=== PATIENT | female | born 1975 | race Caucasian/White ===

== ENCOUNTER → 2016-10-06 | Outpatient (CLI) | payer OTHER ==
[~2016-10-06] MED LIST: /BUSP5TA PO; /FENO14TA PO; ACET-654 PO; ALBU17IN INH; ATIV0.5T; ATIV0.5T OR; ATIV1TAB10 PO; BISO10TA6 PO; BUSP10TA PO; CALCCHW12 OR; CALCIUM VITD; CALCTAB41 PO; CELE20TA OR; CETI10TA PO; DEPO-PROVERA; DEPO-PROVERA INJ; DEPO150I IM; FENO145T PO; FLEXERIL; GABA300C2 PO; GEMF600T PO; LEVA500T PO; LISI10TA4 PO; LORA10TA2 PO; LORATIDINE PO; LYRI150C PO; LYRI200C PO; MEST60TA PO; MORP30TA2 PO; MULTIVIT OR; NAPR500T; NAPR500T OR; NAPR500T PO; ONDA1TAB15 PO; OTC ALLERGY MED PO; OXYC10TA97 OR; OXYC30TA84 PO; OXYCODONE; OXYCPOW25 PO; PENNSAID TD; PERC5TAB6 PO; PERC5TAB8 OR; PRAV10TA PO; PRAV20TA2 PO; PRED10TA PO; PRED20TAB PO; PREG100CA OR; PREG50CA; PREG50CA OR; PRIL20CA; PRIL20CA OR; PRIL20CA9 PO; RYZOLT; RYZOLT PO; SAVELLA PO; SUMA100T2 PO; SUMA50TA2 PO; SYMB80INH INH; TRAZ100T; TRAZ100T4 PO; TRAZ150T OR; TYLE325T5 PO; VENL75TA2 OR; VITMTA PO; VOLT1GEL TOP; ZANA4CAP OR; ZANA4CAP PO; ZEBE5TAB; ZEBE5TAB OR; ZEBE5TAB PO; [UNRECOGNIZED DRUG - OTHER]; pristiq
--- NOTE | 2016-10-12 00:06 | ECWPNPC ---
PATIENT NAME: JANET JHAVERI : 1975 GENDER: FEMALE VISIT DATE: 10/06/2016 DISCHARGE DATE: 10/06/16 1537 VISIT LOCKED DATE TIME: PHYSICIAN: DARCY HUBBARD RESOURCE: DARCY HUBBARD REASON FOR APPOINTMENT 1. CHRONIC PAIN HISTORY OF PRESENT ILLNESS HISTORY OF PRESENT ILLNESS: HERE FO F/U AND MANAGEMENT OF PERSISTENT GENERALIZED BACK PAIN.CONTINUES WITH USE OF OXYCONTIN 30MG BID,LYRICA 200MG BID AND PERCOCET 5/325 UP TO 6 PER DAY.FINDS CURRENT MEDICINE EFFECTIVE AT REDUCING PAIN AND KEEPING HER COMFORTABLE AND FUNCTIONAL. DENIES SIDE EFFECTS.PAIN VAS 7/10. PAIN THE PATIENT DESCRIBES THE PAIN... THE PATIENT DESCRIBES THE PAIN... THE PATIENT DESCRIBES THE PAIN... THE PATIENT DESCRIBES THE PAIN... PAIN THE PATIENT DESCRIBES THE PAIN... THE PATIENT DESCRIBES THE PAIN... THE PATIENT DESCRIBES THE PAIN... THE PATIENT DESCRIBES THE PAIN... FALL RISK SCREENING: SCREENING :NO FALLS IN THE PAST YEAR CURRENT MEDICATIONS TAKING BISOPROLOL FUMARATE 10 MG TABLET ORALLY ONCE A DAY TAKING BUSPIRONE HCL 10 MG TABLET ORALLY 3 TIMES A DAY TAKING FENOFIBRATE 145 MG TABLET ORALLY ONCE DAILY TAKING LISINOPRIL 10 MG TABLET ORALLY ONCE DAILY TAKING NAPROSYN 500 MG TABLET ORALLY TWICE A DAY TAKING OMEPRAZOLE 20 MG CAPSULE DELAYED RELEASE ORALLY 2 TIMES A DAY TAKING PYRIDOSTIGMINE BROMIDE 90 MG TABLET ORALLY KELLY 4 HOURS TAKING SUMATRIPTAN 50 MG TABLET ORALLY DIRECTED TAKING SYMBICORT 80-4.5 MCG/ACT AEROSOL 2 PUFFS INHALATION 2 TIMES A DAY NEEDED TAKING VENTOLIN HFA 90 MCG/ACT AEROSOL SOLUTION 2 PUFFS INHALATION 4 TIMES A DAY TAKING TRAZODONE HCL 100 MG TABLET 2 TABLETS ORALLY BEFORE BEDTIME TAKING TYLENOL 325 MG TABLET 2 TABLETS ORALLY TWICE A DAY TAKING ZOFRAN 4 MG TABLET 1 TABLET ORALLY EVERY 8 HOURS NEEDED TAKING NYSTATIN POWDER EXTERNALLY NEEDED TAKING MULTIVITAMIN 1 TABLET ORALLY ONCE DAILY TAKING CALCIUM 500 MG WITH VITAMIN D 1 TABLET ORALLY TWICE A DAY TAKING LORATADINE 10 MG TABLET ORALLY ONCE DAILY TAKING DEPO-PROVERA 1 INJECTION INTRAMUSCULAR EVERY 3 MONTHS TAKING LYRICA 200 MG CAPSULE 1 CAPSULE BY MOUTH EVERY TWELVE HOURS MDD: 2 TAB ORALLY BID MDD2 TAKING OXYCODONE HCL 30 MG TABLET 1 ORALLY [id number] TAKING PERCOCET 5-325 MG TABLET 1 ORALLY Q4H MDD6 TAKING ALBUTEROL SULFATE (2.5 MG/3ML) 0.083% NEBULIZATION SOLUTION INHALATION EVERY 4 HOURS NEEDED MEDICATION LIST REVIEWED AND RECONCILED WITH THE PATIENT PAST MEDICAL HISTORY MIGRAINES DOUBLE VISION GASTRIC ULCER HIATEL HERNIA IBS WITH DIARRHEA ASCENDING AORTA ANEURYSM FIBROMYALGIA MYASTENIS GRAVIS DEGENERATIVE DISC DISEASE SCOLIOSIS DEPRESSION ALLERGIES MORPHINE SULFATE: NAUSEA/VOMITING: ALLERGY FENTANYL: NAUSEA/VOMITING: ALLERGY ASPARTAME: ANAPHYLAXIS: ALLERGY SEASONAL: ALLERGY REVIEW OF SYSTEMS CONSTITUTIONAL: ANY CHANGE IN YOUR MEDICAL CONDITION? NO . CHILLS NO . FEVER NO . INFECTION: DO YOU HAVE NEW INFECTIONS? NO . DO YOU HAVE HISTORY OF MRSA? NO . MUSCULOSKELETAL: ANY NEW PATTERNS OF PAIN OR NUMBNESS? NO . GASTROENTEROLOGY: ANY NEW CHANGE IN BOWEL CONTROL? NO . GENITOURINARY: ANY NEW CHANGE IN BLADDER CONTROL? NO . IS THERE A CHANCE YOU COULD BE ? NO . HEMATOLOGY/LYMPH: DO YOU TAKE ANY BLOOD THINNERS? (FOR EXAMPLE- COUMADIN, PLAVIX, AGGRENOX, PLATEL, PRADAXA, OR XARELTO) NO . WHEN WAS YOUR LAST DOSE? DATE: TIME: . NEUROLOGY: HAVE YOU FALLEN IN THE PAST 6 MONTHS? YES . ANY NEW EXTREMITY NUMBNESS OR WEAKNESS? NO . CARDIOLOGY: DO YOU HAVE A PACEMAKER OR DEFIBRILLATOR? NO . RESPIRATORY: HAVE YOU BEEN SICK IN THE PAST WEEK? YES, COUGH . FEVER NO . FLU LIKE SYMPTOMS? NO . COUGH NO . INTEGUMENTARY: DO YOU HAVE ANY RASHES OR OPEN SORES? NO . ALLERGIC/IMMUNO: ARE YOU ALLERGIC TO SHELLFISH OR IV DYE? NO . ANY NEW ALLERGIES? NO . PSYCHIATRIC: DO YOU HAVE THOUGHTS OF HURTING YOURSELF OR SOMEONE ELSE? NO . ARE YOU ABUSED, NEGLECTED, OR IN AN UNSAFE ENVIRONMENT? NO . ENDOCRINOLOGY: ARE YOU DIABETIC? NO . OTHER: DO YOU NEED ANY PRESCRIPTIONS? YES . IF YES, PLEASE LIST: LYRICA, PERCOCET 5/325 MG, OXYCODONE . ANY NEW PROBLEMS WITH YOUR MEDICATIONS? NO . WHEN DID YOU LAST EAT? ____ . WHEN DID YOU LAST DRINK? ____ . WHAT DID YOU LAST DRINK? ____ . NAME OF PERSON DRIVING YOU HOME? ____ . DO YOU HAVE ANY OTHER QUESTIONS OR CONCERNS NO . REVIEWED BY: PROVIDER: DARCY SANTANA . VITAL SIGNS WT 256.4 LBS, HT 66 IN, BMI 41.38 INDEX, BP 171/84 MM HG, HR 85 /MIN, RR 18 /MIN, TEMP 98.7 F, OXYGEN SAT % 95%, NA INITIALS SC 15:00, REVIEWED BY: TRINO. EXAMINATION LUMBAR SPINE/LOWER BACK: INSPECTION:MILD MUSCLE SPASM RIGHT LOW BACK. PALPATION:VERTEBRAL SPINE TENDERNESS, PARASPINAL TENDERNESS. MOTOR SYSTEM:5/5 BLE. SENSORY EXAM:DECREASED SENSATION LIGHT TOUCH LEFT CALF. GAIT:ANTALGIC,USES CANE. ASSESSMENTS CHRONIC BILATERAL LOW BACK PAIN WITHOUT SCIATICA - M54.5 (PRIMARY) CHRONIC PRESCRIPTION OPIATE USE - Z79.891 TREATMENT CHRONIC BILATERAL LOW BACK PAIN WITHOUT SCIATICA REFILL LYRICA CAPSULE, 200 MG, 1 CAPSULE BY MOUTH EVERY TWELVE HOURS MDD: 2 TAB, ORALLY, BID MDD2, 90 DAYS, 180, REFILLS 1 REFILL OXYCODONE HCL TABLET, 30 MG, 1, ORALLY, [id number], 30 DAY(S), 60, REFILLS 0 REFILL PERCOCET TABLET, 5-325 MG, 1, ORALLY, Q4H MDD6, 30 DAY(S), 180, REFILLS 0 NOTES: ISTOP REGISTRY REVIEWED AND DEMNOSTRATES COMPLLIANCE. BRINGS IN MEDICATIONS WHICH IS APPROPRIATE FOR WHAT WAS DISPENSED. RECENT URINE TOXICOLOGY REVIEWED. NO UNAUTHORIZED MEDICATIONS. NO ILLICIT SUBSTANCES AND PRESCRIBED MEDICATIONS WERE PRESENT. , RISKS AND BENEFITS OF NARCOTIC/OPIOD MEDICATIONS WERE REVIEWED WITH PATIENT - THIS INCLUDES BUT IS NOT LIMITED TO RISK OF DEPENDANCE/DEVELOPMENT OF ADDICTION, MOOD DISTURBANCE AND DEPRESSION, OSTEOPOROSIS, HORMONAL AND LABIDAL CHANGES, RESPIRATORY DEPRESSION AND . PATIENT IS ADVISED NOT TO DRIVE WHILE ON THESE MEDICATIONS. PROCEDURE CODES FA211 ESTABILISHED PATIENT [facility] CHARGE DISPOSITION & COMMUNICATION FOLLOW UP 3 MONTHS ELECTRONICALLY SIGNED BY ESTHER GUNTER ON 10/11/2016 AT 06:56 PM EDT DISCLAIMER : THIS IS A VISIT SUMMARY EXTRACTED FROM THE [employer] CHART. IT IS NOT A COPY OF THE [employer] PROGRESS NOTE. MTDD
== END ==
LOC: M PAIN 14:40
PROVIDERS: ATTEND Nurse Practitioner Family
DX: M54.5 Low back pain (principal); Z79.891 Long term (current) use of opiate analgesic; Z88.5 Allergy status to narcotic agent; Z91.018 Allergy to other foods; J30.2 Other seasonal allergic rhinitis

== ENCOUNTER → 2016-12-08 | Outpatient (REF) | payer OTHER ==
[2016-12-14 08:07] LABS: D001-IgE D pteronyssinus <0.10 kU/L (Class 0); E001-IgE Cat Epith/Dander 0.17 kU/L (Class 0/I); E005-IgE Dog Dander < 0.10 kU/L (Class 0); G002-IgE Bermuda Grass < 0.10 kU/L (Class 0); G008-IgE Kentucky Bluegrass < 0.10 kU/L (Class 0); M001-IgE Penicillium chrysogen < 0.10 kU/L (Class 0); M002 IgE Cladosporium herbaru < 0.10 kU/L (Class 0); M003 IgE Aspergillus fumigatu < 0.10 kU/L (Class 0); M006-IgE Alternaria alternata < 0.10 kU/L (Class 0); T001-IgE Maple/Box Elder < 0.10 kU/L (Class 0); T003-IgE Common Silver Birch < 0.10 kU/L (Class 0); T007-IgE Oak, White < 0.10 kU/L (Class 0); T008-IgE Elm, American < 0.10 kU/L (Class 0); T015-IgE Ash, White < 0.10 kU/L (Class 0); T041-IgE Hickory, White < 0.10 kU/L (Class 0); W001-IgE Ragweed, Short < 0.10 kU/L (Class 0); W009-IgE Plantain, English < 0.10 kU/L (Class 0); W014-IgE Pigweed, Rough < 0.10 kU/L (Class 0); W018-IgE Sheep Sorrel < 0.10 kU/L (Class 0)
== END ==
LOC: M LAB REF 17:02
PROVIDERS: ATTEND Internal Medicine Pulmonary Disease
DX: J45.40 Moderate persistent asthma, uncomplicated (principal)

== ENCOUNTER → 2016-12-29 | Outpatient (CLI) | payer OTHER ==
--- NOTE | 2017-01-12 01:45 | ECWPNPC ---
PATIENT NAME: JANET JHAVERI : 1975 GENDER: FEMALE VISIT DATE: 12/29/2016 DISCHARGE DATE: 12/29/16 1433 VISIT LOCKED DATE TIME: PHYSICIAN: DARCY HUBBARD RESOURCE: DARCY HUBBARD REASON FOR APPOINTMENT 1. FIBRO HISTORY OF PRESENT ILLNESS HISTORY OF PRESENT ILLNESS: HERE FO F/U AND MANAGEMENT OF PERSISTENT GENERALIZED BACK PAIN.CONTINUES WITH USE OF OXYCONTIN 30MG BID,LYRICA 200MG BID AND PERCOCET 5/325 UP TO 6 PER DAY.FINDS CURRENT MEDICINE EFFECTIVE AT REDUCING PAIN AND KEEPING HER COMFORTABLE AND FUNCTIONAL. DENIES SIDE EFFECTS.PAIN VAS 6/10. PAIN THE PATIENT DESCRIBES THE PAIN... THE PATIENT DESCRIBES THE PAIN... THE PATIENT DESCRIBES THE PAIN... THE PATIENT DESCRIBES THE PAIN... THE PATIENT DESCRIBES THE PAIN... FALL RISK SCREENING: SCREENING :NO FALLS IN THE PAST YEAR CURRENT MEDICATIONS TAKING BISOPROLOL FUMARATE 10 MG TABLET ORALLY ONCE A DAY TAKING BUSPIRONE HCL 10 MG TABLET ORALLY 3 TIMES A DAY TAKING FENOFIBRATE 145 MG TABLET ORALLY ONCE DAILY TAKING NAPROSYN 500 MG TABLET ORALLY TWICE A DAY TAKING OMEPRAZOLE 20 MG CAPSULE DELAYED RELEASE ORALLY 2 TIMES A DAY TAKING PYRIDOSTIGMINE BROMIDE 90 MG TABLET ORALLY KELLY 4 HOURS TAKING SUMATRIPTAN 50 MG TABLET ORALLY DIRECTED TAKING VENTOLIN HFA 90 MCG/ACT AEROSOL SOLUTION 2 PUFFS INHALATION 4 TIMES A DAY TAKING TRAZODONE HCL 100 MG TABLET 2 TABLETS ORALLY BEFORE BEDTIME TAKING TYLENOL 325 MG TABLET 2 TABLETS ORALLY TWICE A DAY TAKING ZOFRAN 4 MG TABLET 1 TABLET ORALLY EVERY 6 HOURS NEEDED TAKING NYSTATIN POWDER EXTERNALLY NEEDED TAKING MULTIVITAMIN 1 TABLET ORALLY ONCE DAILY TAKING CALCIUM 500 MG WITH VITAMIN D 1 TABLET ORALLY TWICE A DAY TAKING LORATADINE 10 MG TABLET ORALLY ONCE DAILY TAKING DEPO-PROVERA 1 INJECTION INTRAMUSCULAR EVERY 3 MONTHS TAKING ALBUTEROL SULFATE (2.5 MG/3ML) 0.083% NEBULIZATION SOLUTION INHALATION EVERY 4 HOURS NEEDED TAKING LYRICA 200 MG CAPSULE 1 TAB ORALLY BID MDD2 TAKING PERCOCET 5-325 MG TABLET 1 ORALLY Q4H MDD6 TAKING OXYCODONE HCL 30 MG TABLET 1 ORALLY [id number] TAKING LOSARTAN POTASSIUM-HCTZ 100-25 MG TABLET 1 TABLET ORALLY ONCE A DAY TAKING PRAVASTATIN SODIUM 20 MG TABLET 1 TABLET ORALLY ONCE A DAY TAKING ARNUITY ELLIPTA 200 MCG/ACT AEROSOL POWDER BREATH ACTIVATED 1 PUFF INHALATION ONCE A DAY NOT-TAKING LISINOPRIL 10 MG TABLET ORALLY ONCE DAILY NOT-TAKING SYMBICORT 80-4.5 MCG/ACT AEROSOL 2 PUFFS INHALATION 2 TIMES A DAY NEEDED MEDICATION LIST REVIEWED AND RECONCILED WITH THE PATIENT PAST MEDICAL HISTORY MIGRAINES DOUBLE VISION GASTRIC ULCER HIATEL HERNIA IBS WITH DIARRHEA ASCENDING AORTA ANEURYSM FIBROMYALGIA MYASTENIS GRAVIS DEGENERATIVE DISC DISEASE SCOLIOSIS DEPRESSION ASTHMA ALLERGIES MORPHINE SULFATE: NAUSEA/VOMITING: ALLERGY FENTANYL: NAUSEA/VOMITING: ALLERGY ASPARTAME: ANAPHYLAXIS: ALLERGY SEASONAL: ALLERGY CATS: COUGHING/SNEEZING: ALLERGY SOCIAL HISTORY GENERAL: TOBACCO USE ARE YOU A:NONSMOKER LEARNING BARRIERS / SPECIAL NEEDS ORIENTED TO PLAN OF CARE: PATIENT, PAIN MANAGEMENT PATIENT, ORIENTED TO PLAN OF CARE: PATIENT, PAIN MANAGEMENT PATIENT. NEW PATIENT PAIN DIARY TODAY'S VISITNOTES FROM 0-10, WHAT LEVEL IS YOUR PAIN TODAY?0 PAIN CLINIC PFS, CLERGY, PUBLIC HEALTH REFERRALS PFS REFERRAL NEEDED?NO CLERGY REFERRAL NEEDED?NO PUBLIC HEALTH REFERRAL NEEDED?NO WAS THE PROVIDER NOTIFIED OF ANY PERTINENT INFO?NO HAS THE PATIENT BEEN EDUCATED REGARDING HIS/HER PLAN OF CARE?YES HAS THE PATIENT BEEN EDUCATED REGARDING PAIN, THE RISK FOR PAIN, THE IMPORTANCE OF EFFECTIVE PAIN MANAGEMENT, AND THE PAIN ASSESSMENT PROCESS?YES REVIEW OF SYSTEMS REVIEWED BY: PROVIDER: DARCY SANTANA . CONSTITUTIONAL: ANY CHANGE IN YOUR MEDICAL CONDITION? YES, BLOOD PRESSURE IS UP AND DOWN AND IS BEING WATCHED BY PRIMARY DOCTOR AND REGIONAL CONTROLLER . CHILLS NO . FEVER NO . INFECTION: DO YOU HAVE NEW INFECTIONS? NO . DO YOU HAVE HISTORY OF MRSA? NO . MUSCULOSKELETAL: ANY NEW PATTERNS OF PAIN OR NUMBNESS? NO . GASTROENTEROLOGY: ANY NEW CHANGE IN BOWEL CONTROL? NO . GENITOURINARY: ANY NEW CHANGE IN BLADDER CONTROL? NO . IS THERE A CHANCE YOU COULD BE ? NO . HEMATOLOGY/LYMPH: DO YOU TAKE ANY BLOOD THINNERS? (FOR EXAMPLE- COUMADIN, PLAVIX, AGGRENOX, PLATEL, PRADAXA, OR XARELTO) NO . WHEN WAS YOUR LAST DOSE? DATE: TIME: . NEUROLOGY: HAVE YOU FALLEN IN THE PAST 6 MONTHS? YES . ANY NEW EXTREMITY NUMBNESS OR WEAKNESS? NO . CARDIOLOGY: DO YOU HAVE A PACEMAKER OR DEFIBRILLATOR? NO . RESPIRATORY: HAVE YOU BEEN SICK IN THE PAST WEEK? NO . FEVER NO . FLU LIKE SYMPTOMS? NO . COUGH NO . INTEGUMENTARY: DO YOU HAVE ANY RASHES OR OPEN SORES? NO . ALLERGIC/IMMUNO: ARE YOU ALLERGIC TO SHELLFISH OR IV DYE? NO . ANY NEW ALLERGIES? YES, CATS . PSYCHIATRIC: DO YOU HAVE THOUGHTS OF HURTING YOURSELF OR SOMEONE ELSE? NO . ARE YOU ABUSED, NEGLECTED, OR IN AN UNSAFE ENVIRONMENT? NO . ENDOCRINOLOGY: ARE YOU DIABETIC? NO . OTHER: DO YOU NEED ANY PRESCRIPTIONS? YES . IF YES, PLEASE LIST: PERCOCET AND OXYCODONE . ANY NEW PROBLEMS WITH YOUR MEDICATIONS? NO . WHEN DID YOU LAST EAT? ____ . WHEN DID YOU LAST DRINK? ____ . WHAT DID YOU LAST DRINK? ____ . NAME OF PERSON DRIVING YOU HOME? ____ . DO YOU HAVE ANY OTHER QUESTIONS OR CONCERNS NO . VITAL SIGNS WT 253 LBS, HT 66 IN, BMI 40.83 INDEX, BP 96/55 MM HG, HR 68 /MIN, RR 16 /MIN, TEMP 96.6 F, OXYGEN SAT % 93%, NA INITIALS SC 13:39, REVIEWED BY: TRINO. EXAMINATION LUMBAR SPINE/LOWER BACK: INSPECTION:MILD MUSCLE SPASM RIGHT LOW BACK. PALPATION:VERTEBRAL SPINE TENDERNESS, PARASPINAL TENDERNESS. MOTOR SYSTEM:5/5 BLE. SENSORY EXAM:DECREASED SENSATION LIGHT TOUCH LEFT CALF. GAIT:ANTALGIC,USES CANE. ASSESSMENTS CHRONIC BILATERAL LOW BACK PAIN WITHOUT SCIATICA - M54.5 (PRIMARY) CHRONIC PRESCRIPTION OPIATE USE - Z79.891 TREATMENT CHRONIC BILATERAL LOW BACK PAIN WITHOUT SCIATICA REFILL PERCOCET TABLET, 5-325 MG, 1, ORALLY, Q4H MDD6, 30 DAY(S), 180, REFILLS 0 REFILL OXYCODONE HCL TABLET, 30 MG, 1, ORALLY, [id number], 30 DAY(S), 60, REFILLS 0 CONTINUE LYRICA CAPSULE, 200 MG, 1 TAB, ORALLY, BID MDD2 NOTES: ISTOP REGISTRY REVIEWED AND DEMNOSTRATES COMPLLIANCE. BRINGS IN MEDICATIONS WHICH IS APPROPRIATE FOR WHAT WAS DISPENSED. RECENT URINE TOXICOLOGY REVIEWED. NO UNAUTHORIZED MEDICATIONS. NO ILLICIT SUBSTANCES AND PRESCRIBED MEDICATIONS WERE PRESENT. URINE FOR TOX TODAY. PROCEDURE CODES FA211 ESTABILISHED PATIENT [facility] CHARGE DISPOSITION & COMMUNICATION FOLLOW UP 3 MONTHS ELECTRONICALLY SIGNED BY ESTHER GUNTER ON 01/10/2017 AT 01:26 PM EDT DISCLAIMER : THIS IS A VISIT SUMMARY EXTRACTED FROM THE [employer] CHART. IT IS NOT A COPY OF THE [employer] PROGRESS NOTE. CAROL ANN
== END ==
LOC: M PAIN 14:00
PROVIDERS: ATTEND Nurse Practitioner Family
DX: M54.5 Low back pain (principal); Z79.891 Long term (current) use of opiate analgesic

== ENCOUNTER → 2017-02-01 | Outpatient (CLI) | payer OTHER ==
[~2017-02-01] MED LIST changes: +LEVA1TAB2 PO; -LEVA500T PO; +METHACHOLINE KIT (J7674) INH ONE; -ONDA1TAB15 PO; +ONDA4TAB5 PO; +PERC5TAB12 PO; -PERC5TAB6 PO; -PRAV10TA PO; +PRAV10TA4 PO; -PRED10TA PO; +PRED10TA2 PO; +TRAZ-136 PO; -TRAZ100T4 PO
--- NOTE | 2017-02-01 11:22 | PFTRPT ---
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 The patient was given four puffs of albuterol for postbronchodilator. The patient felt as if her heart was racing and did not want another four puffs of albuterol. METHACHOLINE CHALLENGE REPORT: ORDERING PROVIDER: Elisa Diego MD DATE OF SERVICE:02/01/17 INTERPRETATION: The study was of excellent technical quality. Under protocol, methacholine was administered. Some limitation by cough is noted. At a dose of 10 mg (63.875 CDUs), a 28% decline in the FEV1 was noted. The PC20 of 4.07 is significant. Flow rates returned to near baseline post bronchodilator administration. IMPRESSION: Positive methacholine challenge study. MTDD
== END ==
LOC: M CARPUL 10:10
PROVIDERS: ATTEND Internal Medicine Pulmonary Disease
DX: R05 Cough (principal); R06.00 Dyspnea, unspecified

== ENCOUNTER → 2017-04-11 | Outpatient (CLI) | payer OTHER ==
[~2017-04-11] MED LIST changes: -METHACHOLINE KIT (J7674) INH ONE
--- NOTE | 2017-05-05 00:52 | ECWPNPC ---
PATIENT NAME: JANET JHAVERI : 1975 GENDER: FEMALE VISIT DATE: 04/11/2017 DISCHARGE DATE: 04/11/17 1549 VISIT LOCKED DATE TIME: PHYSICIAN: DARCY HUBBARD RESOURCE: DARCY HUBBARD REASON FOR APPOINTMENT 1. F/U BACK PAIN HISTORY OF PRESENT ILLNESS HISTORY OF PRESENT ILLNESS: HERE FO F/U AND MANAGEMENT OF PERSISTENT GENERALIZED BACK PAIN.CONTINUES WITH USE OF OXYCONTIN 30MG BID,LYRICA 200MG BID AND PERCOCET 5/325 UP TO 6 PER DAY.FINDS CURRENT MEDICINE EFFECTIVE AT REDUCING PAIN AND KEEPING HER COMFORTABLE AND FUNCTIONAL. DENIES SIDE EFFECTS.PAIN VAS 7/10.DOING POORLY TODAY.SHE IS STRUGGLING TO GET DAY BY DAY.FEELS SHE IS HAVING MYESTHENIA FLARE UP. PAIN THE PATIENT DESCRIBES THE PAIN... THE PATIENT DESCRIBES THE PAIN... THE PATIENT DESCRIBES THE PAIN... THE PATIENT DESCRIBES THE PAIN... THE PATIENT DESCRIBES THE PAIN... FALL RISK SCREENING: SCREENING :NO FALLS IN THE PAST YEAR CURRENT MEDICATIONS TAKING BISOPROLOL FUMARATE 10 MG TABLET ORALLY ONCE A DAY TAKING BUSPIRONE HCL 10 MG TABLET ORALLY 3 TIMES A DAY TAKING FENOFIBRATE 145 MG TABLET ORALLY ONCE DAILY TAKING NAPROSYN 500 MG TABLET ORALLY TWICE A DAY TAKING OMEPRAZOLE 20 MG CAPSULE DELAYED RELEASE ORALLY 2 TIMES A DAY TAKING PYRIDOSTIGMINE BROMIDE 90 MG TABLET ORALLY KELLY 4 HOURS TAKING SUMATRIPTAN 50 MG TABLET ORALLY DIRECTED TAKING VENTOLIN HFA 90 MCG/ACT AEROSOL SOLUTION 2 PUFFS INHALATION 4 TIMES A DAY TAKING TRAZODONE HCL 100 MG TABLET 2 TABLETS ORALLY BEFORE BEDTIME TAKING TYLENOL 325 MG TABLET 2 TABLETS ORALLY TWICE A DAY TAKING ZOFRAN 4 MG TABLET 1 TABLET ORALLY EVERY 6 HOURS NEEDED TAKING NYSTATIN POWDER EXTERNALLY NEEDED TAKING MULTIVITAMIN 1 TABLET ORALLY ONCE DAILY TAKING CALCIUM 500 MG WITH VITAMIN D 1 TABLET ORALLY TWICE A DAY TAKING LORATADINE 10 MG TABLET ORALLY ONCE DAILY TAKING DEPO-PROVERA 1 INJECTION INTRAMUSCULAR EVERY 3 MONTHS TAKING ALBUTEROL SULFATE (2.5 MG/3ML) 0.083% NEBULIZATION SOLUTION INHALATION EVERY 4 HOURS NEEDED TAKING LOSARTAN POTASSIUM-HCTZ 100-25 MG TABLET 1 TABLET ORALLY ONCE A DAY TAKING PRAVASTATIN SODIUM 20 MG TABLET 1 TABLET ORALLY ONCE A DAY TAKING LYRICA 200 MG CAPSULE 1 TAB ORALLY BID MDD2 TAKING OXYCODONE HCL 30 MG TABLET 1 ORALLY [id number] TAKING PERCOCET 5-325 MG TABLET 1 ORALLY Q4H MDD6 TAKING BREO ELLIPTA 200-25 MCG/INH AEROSOL POWDER BREATH ACTIVATED 1 PUFF INHALATION ONCE A DAY NOT-TAKING ARNUITY ELLIPTA 200 MCG/ACT AEROSOL POWDER BREATH ACTIVATED 1 PUFF INHALATION ONCE A DAY NOT-TAKING LISINOPRIL 10 MG TABLET ORALLY ONCE DAILY NOT-TAKING SYMBICORT 80-4.5 MCG/ACT AEROSOL 2 PUFFS INHALATION 2 TIMES A DAY NEEDED MEDICATION LIST REVIEWED AND RECONCILED WITH THE PATIENT PAST MEDICAL HISTORY MIGRAINES DOUBLE VISION GASTRIC ULCER HIATEL HERNIA IBS WITH DIARRHEA ASCENDING AORTA ANEURYSM FIBROMYALGIA MYASTENIS GRAVIS DEGENERATIVE DISC DISEASE SCOLIOSIS DEPRESSION ASTHMA HTN HIGH CHOLESTEROL ALLERGIES MORPHINE SULFATE: NAUSEA/VOMITING: ALLERGY FENTANYL: NAUSEA/VOMITING: ALLERGY ASPARTAME: ANAPHYLAXIS: ALLERGY SEASONAL: ALLERGY CATS: COUGHING/SNEEZING: ALLERGY SURGICAL HISTORY LUMBAR DISCECTOMY 1994 VITAL SIGNS WT 253 LBS, HT 66 IN, BMI 40.83 INDEX, BP 159/103 MM HG, HR 75 /MIN, RR 16 /MIN, TEMP 98 F, OXYGEN SAT % 96%, NA INITIALS AW 1509, REVIEWED BY: NLDISCUSSED BLOOD PRESSURE WITH PT. EXAMINATION LUMBAR SPINE/LOWER BACK: INSPECTION:MILD MUSCLE SPASM RIGHT LOW BACK. PALPATION:VERTEBRAL SPINE TENDERNESS, PARASPINAL TENDERNESS. MOTOR SYSTEM:5/5 BLE. SENSORY EXAM:DECREASED SENSATION LIGHT TOUCH LEFT CALF. GAIT:ANTALGIC,USES CANE. ASSESSMENTS CHRONIC BILATERAL LOW BACK PAIN WITHOUT SCIATICA - M54.5 (PRIMARY) CHRONIC PRESCRIPTION OPIATE USE - Z79.891 MYASTHENIA GRAVIS - G70.00 TREATMENT CHRONIC BILATERAL LOW BACK PAIN WITHOUT SCIATICA CONTINUE LYRICA CAPSULE, 200 MG, 1 TAB, ORALLY, BID MDD2 REFILL OXYCODONE HCL TABLET, 30 MG, 1, ORALLY, [id number], 30 DAY(S), 60, REFILLS 0 REFILL PERCOCET TABLET, 5-325 MG, 1, ORALLY, Q4H MDD6, 30 DAYS, 180, REFILLS 0 NOTES: ISTOP REGISTRY REVIEWED AND DEMNOSTRATES COMPLLIANCE. BRINGS IN MEDICATIONS WHICH IS APPROPRIATE FOR WHAT WAS DISPENSED. RECENT URINE TOXICOLOGY REVIEWED. NO UNAUTHORIZED MEDICATIONS. NO ILLICIT SUBSTANCES AND PRESCRIBED MEDICATIONS WERE PRESENT. , RISKS AND BENEFITS OF NARCOTIC/OPIOD MEDICATIONS WERE REVIEWED WITH PATIENT - THIS INCLUDES BUT IS NOT LIMITED TO RISK OF DEPENDANCE/DEVELOPMENT OF ADDICTION, MOOD DISTURBANCE AND DEPRESSION, OSTEOPOROSIS, HORMONAL AND LABIDAL CHANGES, RESPIRATORY DEPRESSION AND . PATIENT IS ADVISED NOT TO DRIVE WHILE ON THESE MEDICATIONS. PROCEDURE CODES FA211 ESTABILISHED PATIENT [facility] CHARGE DISPOSITION & COMMUNICATION FOLLOW UP 3 MONTHS ELECTRONICALLY SIGNED BY ESTHER GUNTER ON 05/04/2017 AT 10:10 PM EDT DISCLAIMER : THIS IS A VISIT SUMMARY EXTRACTED FROM THE [employer] CHART. IT IS NOT A COPY OF THE [employer] PROGRESS NOTE. ACACIAD
== END | disposition home or self-care (01) ==
LOC: M PAIN 14:45
PROVIDERS: ATTEND Nurse Practitioner Family
DX: G89.29 Other chronic pain (principal); M54.5 Low back pain; G70.00 Myasthenia gravis without (acute) exacerbation; G43.909 Migraine, unspecified, not intractable, without status migrainosus; K44.9 Diaphragmatic hernia without obstruction or gangrene; K58.0 Irritable bowel syndrome with diarrhea; M79.7 Fibromyalgia; M41.9 Scoliosis, unspecified; F33.9 Major depressive disorder, recurrent, unspecified; I10 Essential (primary) hypertension; J45.909 Unspecified asthma, uncomplicated; E78.00 Pure hypercholesterolemia, unspecified; I71.2 Thoracic aortic aneurysm, without rupture; K25.9 Gastric ulcer, unspecified as acute or chronic, without hemorrhage or perforation; Z79.899 Other long term (current) drug therapy; Z79.51 Long term (current) use of inhaled steroids; Z79.3 Long term (current) use of hormonal contraceptives; Z88.5 Allergy status to narcotic agent; Z88.8 Allergy status to other drugs, medicaments and biological substances

== ENCOUNTER → 2017-05-08 | Outpatient (CLI) | payer OTHER ==
[2017-05-08 14:11] LABS: BASO # 0.1 10^3/uL (0.0-0.2); BASO % 1.1 % (0.0-1.0); EOS # 0.3 10^3/uL (0.0-0.50); EOS % 4.8 % (0.0-3.0); IMMATURE GRANULOCYTE % 0.2 % (0-0); LYMPH # 2.3 10^3/uL (1.5-4.5); LYMPH % 35.1 % (24.0-44.0); MEAN CORPUSCULAR HGB CONC 33.8 g/dl (32.0-36.5); MEAN CORPUSCULAR VOLUME 88.7 fl (80.0-96.0); MONO # 0.6 10^3/uL (0.0-0.8); MONO % 8.6 % (0.0-5.0); NEUTROPHILS # 3.2 10^3/uL (1.8-7.7); NEUTROPHILS % 50.2 % (36.0-66.0); PLATELET COUNT, AUTOMATED 318 10^3/uL (150-450); RED CELL DISTRIBUTION WIDTH 12.3 % (11.5-14.5); WHITE BLOOD COUNT 6.4 10^3/uL (4.0-10.0)
== END ==
LOC: M LAB 12:53
PROVIDERS: ATTEND Physical Medicine & Rehabilitation Neuromuscular Medicine
DX: G70.00 Myasthenia gravis without (acute) exacerbation (principal); Z51.81 Encounter for therapeutic drug level monitoring

== ENCOUNTER → 2017-05-30 | Outpatient (CLI) | payer OTHER ==
[2017-05-30 15:12] LABS: BASO # 0.1 10^3/uL (0.0-0.2); BASO % 0.7 % (0.0-1.0); EOS # 0.4 10^3/uL (0.0-0.50); EOS % 5.4 % (0.0-3.0); IMMATURE GRANULOCYTE % 0.4 % (0-0); LYMPH # 2.2 10^3/uL (1.5-4.5); LYMPH % 31.3 % (24.0-44.0); MEAN CORPUSCULAR HEMOGLOBIN 29.4 pg (27.0-33.0); MEAN CORPUSCULAR HGB CONC 32.6 g/dl (32.0-36.5); MEAN CORPUSCULAR VOLUME 90.1 fl (80.0-96.0); MONO # 0.6 10^3/uL (0.0-0.8); MONO % 7.8 % (0.0-5.0); NEUTROPHILS # 3.9 10^3/uL (1.8-7.7); NEUTROPHILS % 54.4 % (36.0-66.0); PLATELET COUNT, AUTOMATED 362 10^3/uL (150-450); RED CELL DISTRIBUTION WIDTH 12.3 % (11.5-14.5); WHITE BLOOD COUNT 7.1 10^3/uL (4.0-10.0)
== END ==
LOC: M LAB 14:38
PROVIDERS: ATTEND Physical Medicine & Rehabilitation Neuromuscular Medicine
DX: G70.00 Myasthenia gravis without (acute) exacerbation (principal)

== ENCOUNTER → 2017-06-16 | Outpatient (CLI) | payer OTHER ==
[2017-06-16 14:24] LABS: BASO # 0.1 10^3/uL (0.0-0.2); BASO % 0.8 % (0.0-1.0); EOS # 0.4 10^3/uL (0.0-0.50); EOS % 4.5 % (0.0-3.0); IMMATURE GRANULOCYTE % 0.4 % (0-0); LYMPH % 23.6 % (24.0-44.0); MEAN CORPUSCULAR HEMOGLOBIN 29.2 pg (27.0-33.0); MEAN CORPUSCULAR HGB CONC 32.4 g/dl (32.0-36.5); MEAN CORPUSCULAR VOLUME 90.2 fl (80.0-96.0); MONO # 0.6 10^3/uL (0.0-0.8); MONO % 6.7 % (0.0-5.0); NEUTROPHILS # 5.5 10^3/uL (1.8-7.7); PLATELET COUNT, AUTOMATED 346 10^3/uL (150-450); RED CELL DISTRIBUTION WIDTH 12.4 % (11.5-14.5); WHITE BLOOD COUNT 8.5 10^3/uL (4.0-10.0)
== END ==
LOC: M LAB 13:39
PROVIDERS: ATTEND Physical Medicine & Rehabilitation Neuromuscular Medicine
DX: Z51.81 Encounter for therapeutic drug level monitoring (principal)

== ENCOUNTER → 2017-07-03 | Outpatient (CLI) | payer OTHER ==
[2017-07-03 14:29] LABS: BASO # 0.1 10^3/uL (0.0-0.2); BASO % 0.8 % (0.0-1.0); EOS # 0.3 10^3/uL (0.0-0.50); EOS % 4.8 % (0.0-3.0); IMMATURE GRANULOCYTE % 0.3 % (0-0); LYMPH # 2.4 10^3/uL (1.5-4.5); LYMPH % 33.8 % (24.0-44.0); MEAN CORPUSCULAR HEMOGLOBIN 29.8 pg (27.0-33.0); MEAN CORPUSCULAR HGB CONC 32.6 g/dl (32.0-36.5); MEAN CORPUSCULAR VOLUME 91.3 fl (80.0-96.0); MONO # 0.5 10^3/uL (0.0-0.8); MONO % 7.1 % (0.0-5.0); NEUTROPHILS # 3.8 10^3/uL (1.8-7.7); NEUTROPHILS % 53.2 % (36.0-66.0); PLATELET COUNT, AUTOMATED 395 10^3/uL (150-450); RED CELL DISTRIBUTION WIDTH 12.5 % (11.5-14.5); WHITE BLOOD COUNT 7.1 10^3/uL (4.0-10.0)
== END ==
LOC: M LAB 14:06
PROVIDERS: ATTEND Physical Medicine & Rehabilitation Neuromuscular Medicine
DX: Z51.81 Encounter for therapeutic drug level monitoring (principal); Z79.899 Other long term (current) drug therapy

== ENCOUNTER → 2017-07-13 | Outpatient (CLI) | payer OTHER ==
[2017-07-13 16:45] LABS: FREE T4 0.92 NG/DL (0.76-1.46)
== END ==
LOC: M LAB 14:23
DX: R19.7 Diarrhea, unspecified (principal)
CPT/HCPCS: 84443

== ENCOUNTER → 2017-07-18 | Outpatient (REF) | payer OTHER ==
[2017-07-24 14:11] LABS: O+P EXAM Final report (.)
[2017-07-24 14:11] LABS: H PYLORI STOOL ANTIGEN Negative (Negative)
== END ==
LOC: M LAB REF 11:44
DX: R19.7 Diarrhea, unspecified (principal)

== ENCOUNTER → 2017-07-18 | Outpatient (CLI) | payer OTHER ==
[2017-07-18 12:50] LABS: BASO # 0.1 10^3/uL (0.0-0.2); BASO % 0.9 % (0.0-1.0); EOS # 0.3 10^3/uL (0.0-0.50); EOS % 3.9 % (0.0-3.0); HEMATOCRIT 41.6 % (36.0-47.0); HEMOGLOBIN 13.8 g/dl (12.0-16.0); IMMATURE GRANULOCYTE % 0.2 % (0-0); LYMPH # 2.6 10^3/uL (1.5-4.5); LYMPH % 32.1 % (24.0-44.0); MEAN CORPUSCULAR HEMOGLOBIN 29.6 pg (27.0-33.0); MEAN CORPUSCULAR HGB CONC 33.2 g/dl (32.0-36.5); MEAN CORPUSCULAR VOLUME 89.1 fl (80.0-96.0); MONO # 0.6 10^3/uL (0.0-0.8); MONO % 7.4 % (0.0-5.0); NEUTROPHILS # 4.5 10^3/uL (1.8-7.7); NEUTROPHILS % 55.5 % (36.0-66.0); PLATELET COUNT, AUTOMATED 389 10^3/uL (150-450); RED BLOOD COUNT 4.67 10^6/uL (4.00-5.40); RED CELL DISTRIBUTION WIDTH 12.5 % (11.5-14.5)
== END ==
LOC: M LAB 11:44
DX: G70.00 Myasthenia gravis without (acute) exacerbation (principal)
CPT/HCPCS: 85025

== ENCOUNTER → 2017-08-02 | Outpatient (CLI) | payer OTHER ==
[2017-08-02 15:28] LABS: BASO # 0.1 10^3/uL (0.0-0.2); BASO % 0.9 % (0.0-1.0); EOS # 0.2 10^3/uL (0.0-0.50); EOS % 3.5 % (0.0-3.0); HEMOGLOBIN 13.2 g/dl (12.0-16.0); IMMATURE GRANULOCYTE % 0.5 % (0-0); LYMPH # 2.5 10^3/uL (1.5-4.5); LYMPH % 37.2 % (24.0-44.0); MEAN CORPUSCULAR HEMOGLOBIN 29.7 pg (27.0-33.0); MEAN CORPUSCULAR VOLUME 89.9 fl (80.0-96.0); MONO # 0.6 10^3/uL (0.0-0.8); MONO % 8.7 % (0.0-5.0); NEUTROPHILS # 3.3 10^3/uL (1.8-7.7); NEUTROPHILS % 49.2 % (36.0-66.0); PLATELET COUNT, AUTOMATED 350 10^3/uL (150-450); RED BLOOD COUNT 4.45 10^6/uL (4.00-5.40); RED CELL DISTRIBUTION WIDTH 12.6 % (11.5-14.5); WHITE BLOOD COUNT 6.7 10^3/uL (4.0-10.0)
== END ==
LOC: M LAB 15:02
DX: Z79.899 Other long term (current) drug therapy (principal); G70.00 Myasthenia gravis without (acute) exacerbation
CPT/HCPCS: 85025

== ENCOUNTER → 2017-09-18 | Outpatient (CLI) | payer OTHER ==
[2017-09-18 14:27] LABS: BASO # 0.1 10^3/uL (0.0-0.2); EOS # 0.1 10^3/uL (0.0-0.50); EOS % 2.7 % (0.0-3.0); HEMATOCRIT 37.2 % (36.0-47.0); HEMOGLOBIN 12.3 g/dl (12.0-16.0); IMMATURE GRANULOCYTE % 0.4 % (0-3.0); LYMPH # 2.1 10^3/uL (1.5-4.5); LYMPH % 41.2 % (24.0-44.0); MEAN CORPUSCULAR HEMOGLOBIN 29.9 pg (27.0-33.0); MEAN CORPUSCULAR HGB CONC 33.1 g/dl (32.0-36.5); MEAN CORPUSCULAR VOLUME 90.5 fl (80.0-96.0); MONO # 0.4 10^3/uL (0.0-0.8); MONO % 8.3 % (0.0-5.0); NEUTROPHILS # 2.4 10^3/uL (1.8-7.7); NEUTROPHILS % 46.4 % (36.0-66.0); PLATELET COUNT, AUTOMATED 302 10^3/uL (150-450); RED BLOOD COUNT 4.11 10^6/uL (4.00-5.40); RED CELL DISTRIBUTION WIDTH 12.3 % (11.5-14.5); WHITE BLOOD COUNT 5.2 10^3/uL (4.0-10.0)
== END ==
LOC: M LAB 13:59
DX: Z51.81 Encounter for therapeutic drug level monitoring (principal); G70.00 Myasthenia gravis without (acute) exacerbation
CPT/HCPCS: 85025

== ENCOUNTER → 2017-10-23 | Outpatient (CLI) | payer OTHER | END | disposition home or self-care (01) | LOC: M PAIN 13:00 | DX: G89.29 Other chronic pain (principal); M54.5 Low back pain; K58.0 Irritable bowel syndrome with diarrhea; I71.4 Abdominal aortic aneurysm, without rupture; M79.7 Fibromyalgia; G70.00 Myasthenia gravis without (acute) exacerbation; F33.9 Major depressive disorder, recurrent, unspecified; J45.909 Unspecified asthma, uncomplicated; I10 Essential (primary) hypertension; E78.00 Pure hypercholesterolemia, unspecified; M41.9 Scoliosis, unspecified; Z79.899 Other long term (current) drug therapy; Z79.3 Long term (current) use of hormonal contraceptives; Z79.51 Long term (current) use of inhaled steroids; Z88.2 Allergy status to sulfonamides; Z88.5 Allergy status to narcotic agent; Z88.8 Allergy status to other drugs, medicaments and biological substances | CPT/HCPCS: G0463 ==

== ENCOUNTER → 2017-11-15 | Outpatient (CLI) | payer OTHER ==
[2017-11-15 15:33] LABS: BASO # 0.1 10^3/uL (0.0-0.2); BASO % 1.1 % (0.0-1.0); EOS # 0.2 10^3/uL (0.0-0.50); EOS % 3.5 % (0.0-3.0); HEMATOCRIT 38.4 % (36.0-47.0); HEMOGLOBIN 12.4 g/dl (12.0-15.5); IMMATURE GRANULOCYTE % 0.4 % (0-3.0); LYMPH # 2.1 10^3/uL (1.5-4.5); LYMPH % 38.9 % (24.0-44.0); MEAN CORPUSCULAR HEMOGLOBIN 29.5 pg (27.0-33.0); MEAN CORPUSCULAR HGB CONC 32.3 g/dl (32.0-36.5); MEAN CORPUSCULAR VOLUME 91.2 fl (80.0-96.0); MONO # 0.4 10^3/uL (0.0-0.8); MONO % 7.5 % (0.0-5.0); NEUTROPHILS # 2.7 10^3/uL (1.8-7.7); NEUTROPHILS % 48.6 % (36.0-66.0); PLATELET COUNT, AUTOMATED 298 10^3/uL (150-450); RED BLOOD COUNT 4.21 10^6/uL (4.00-5.40); RED CELL DISTRIBUTION WIDTH 12.7 % (11.5-14.5); WHITE BLOOD COUNT 5.5 10^3/uL (4.0-10.0)
== END ==
LOC: M LAB 15:12
DX: G70.00 Myasthenia gravis without (acute) exacerbation (principal)
CPT/HCPCS: 85025

== ENCOUNTER → 2017-11-27 | Outpatient (CLI) | payer OTHER ==
[~2017-11-27] MED LIST changes: -/BUSP5TA PO; -/FENO14TA PO; -ACET-654 PO; -ALBU17IN INH; -ATIV0.5T; -ATIV0.5T OR; -ATIV1TAB10 PO; -BISO10TA6 PO; -BUSP10TA PO; -CALCCHW12 OR; -CALCIUM VITD; -CALCTAB41 PO; -CELE20TA OR; -CETI10TA PO; -DEPO-PROVERA; -DEPO-PROVERA INJ; -DEPO150I IM; -FENO145T PO; -FLEXERIL; -GABA300C2 PO; -GEMF600T PO; +ISOVUE-370 76% 100ML VIAL (Q9967) As Ordered; -LEVA1TAB2 PO; -LISI10TA4 PO; -LORA10TA2 PO; -LORATIDINE PO; -LYRI150C PO; -LYRI200C PO; -MEST60TA PO; -MORP30TA2 PO; -MULTIVIT OR; -NAPR500T; -NAPR500T OR; -NAPR500T PO; -ONDA4TAB5 PO; -OTC ALLERGY MED PO; -OXYC10TA97 OR; -OXYC30TA84 PO; -OXYCODONE; -OXYCPOW25 PO; -PENNSAID TD; -PERC5TAB12 PO; -PERC5TAB8 OR; -PRAV10TA4 PO; -PRAV20TA2 PO; -PRED10TA2 PO; -PRED20TAB PO; -PREG100CA OR; -PREG50CA; -PREG50CA OR; -PRIL20CA; -PRIL20CA OR; -PRIL20CA9 PO; -RYZOLT; -RYZOLT PO; -SAVELLA PO; -SUMA100T2 PO; -SUMA50TA2 PO; -SYMB80INH INH; -TRAZ-136 PO; -TRAZ100T; -TRAZ150T OR; -TYLE325T5 PO; -VENL75TA2 OR; -VITMTA PO; -VOLT1GEL TOP; -ZANA4CAP OR; -ZANA4CAP PO; -ZEBE5TAB; -ZEBE5TAB OR; -ZEBE5TAB PO; -[UNRECOGNIZED DRUG - OTHER]; -pristiq
== END ==
LOC: M RAD 13:23
DX: I71.2 Thoracic aortic aneurysm, without rupture (principal)
CPT/HCPCS: Q9967

== ENCOUNTER → 2018-01-22 | Outpatient (CLI) | payer OTHER ==
[2018-01-22 15:02] LABS: BASO # 0.1 10^3/uL (0.0-0.2); BASO % 1.3 % (0.0-1.0); EOS # 0.7 10^3/uL (0.0-0.50); EOS % 10.6 % (0.0-3.0); HEMATOCRIT 36.7 % (36.0-47.0); HEMOGLOBIN 12.1 g/dl (12.0-15.5); IMMATURE GRANULOCYTE % 0.3 % (0-3.0); LYMPH % 31.7 % (24.0-44.0); MEAN CORPUSCULAR HEMOGLOBIN 29.7 pg (27.0-33.0); MEAN CORPUSCULAR VOLUME 90.2 fl (80.0-96.0); MONO # 0.5 10^3/uL (0.0-0.8); MONO % 7.9 % (0.0-5.0); NEUTROPHILS # 3.1 10^3/uL (1.8-7.7); NEUTROPHILS % 48.2 % (36.0-66.0); PLATELET COUNT, AUTOMATED 348 10^3/uL (150-450); RED BLOOD COUNT 4.07 10^6/uL (4.00-5.40); RED CELL DISTRIBUTION WIDTH 12.5 % (11.5-14.5); WHITE BLOOD COUNT 6.4 10^3/uL (4.0-10.0)
== END ==
LOC: M LAB 14:23
DX: G70.00 Myasthenia gravis without (acute) exacerbation (principal)
CPT/HCPCS: 85025

== ENCOUNTER → 2018-01-22 | Outpatient (CLI) | payer BC, OTHER | LOC: M PAIN 13:00 | DX: M54.5 Low back pain (principal); K44.9 Diaphragmatic hernia without obstruction or gangrene; E11.9 Type 2 diabetes mellitus without complications; M79.7 Fibromyalgia; G70.00 Myasthenia gravis without (acute) exacerbation; G43.909 Migraine, unspecified, not intractable, without status migrainosus; F32.9 Major depressive disorder, single episode, unspecified; J45.909 Unspecified asthma, uncomplicated; I10 Essential (primary) hypertension; E78.00 Pure hypercholesterolemia, unspecified; Z79.51 Long term (current) use of inhaled steroids; Z79.899 Other long term (current) drug therapy; Z79.891 Long term (current) use of opiate analgesic; Z88.5 Allergy status to narcotic agent; Z88.6 Allergy status to analgesic agent; Z86.79 Personal history of other diseases of the circulatory system | CPT/HCPCS: G0463 ==

== ENCOUNTER → 2018-02-13 | Outpatient (CLI) | payer OTHER | LOC: M PAIN 09:30 | DX: M54.5 Low back pain (principal); K44.9 Diaphragmatic hernia without obstruction or gangrene; E11.9 Type 2 diabetes mellitus without complications; M79.7 Fibromyalgia; G43.909 Migraine, unspecified, not intractable, without status migrainosus; F32.9 Major depressive disorder, single episode, unspecified; J45.909 Unspecified asthma, uncomplicated; I10 Essential (primary) hypertension; E78.00 Pure hypercholesterolemia, unspecified; Z79.51 Long term (current) use of inhaled steroids; Z79.84 Long term (current) use of oral hypoglycemic drugs; Z79.891 Long term (current) use of opiate analgesic; Z79.899 Other long term (current) drug therapy; Z88.5 Allergy status to narcotic agent; Z88.8 Allergy status to other drugs, medicaments and biological substances; Z86.79 Personal history of other diseases of the circulatory system | CPT/HCPCS: G0463 ==

== ENCOUNTER → 2018-04-02 | Outpatient (CLI) | payer OTHER ==
[2018-04-02 13:14] LABS: BASO # 0.1 10^3/uL (0.0-0.2); BASO % 1.1 % (0.0-1.0); EOS # 0.8 10^3/uL (0.0-0.50); EOS % 12.8 % (0.0-3.0); HEMATOCRIT 37.7 % (36.0-47.0); HEMOGLOBIN 12.1 g/dl (12.0-15.5); IMMATURE GRANULOCYTE % 0.5 % (0-3.0); LYMPH # 2.2 10^3/uL (1.5-4.5); LYMPH % 33.6 % (24.0-44.0); MEAN CORPUSCULAR HEMOGLOBIN 29.7 pg (27.0-33.0); MEAN CORPUSCULAR HGB CONC 32.1 g/dl (32.0-36.5); MEAN CORPUSCULAR VOLUME 92.6 fl (80.0-96.0); MONO # 0.6 10^3/uL (0.0-0.8); MONO % 8.6 % (0.0-5.0); NEUTROPHILS # 2.8 10^3/uL (1.8-7.7); NEUTROPHILS % 43.4 % (36.0-66.0); PLATELET COUNT, AUTOMATED 350 10^3/uL (150-450); RED BLOOD COUNT 4.07 10^6/uL (4.00-5.40); RED CELL DISTRIBUTION WIDTH 13.1 % (11.5-14.5); WHITE BLOOD COUNT 6.5 10^3/uL (4.0-10.0)
[2018-04-02 13:51] LABS: ANION GAP 7 MEQ/L (8-16); BLOOD UREA NITROGEN 13 MG/DL (7-18); CALCIUM LEVEL 8.8 MG/DL (8.5-10.1); CARBON DIOXIDE LEVEL 27 MEQ/L (21-32); CHLORIDE LEVEL 107 MEQ/L (98-107); CREATININE FOR GFR 0.63 MG/DL (0.55-1.30); GLOMERULAR FILTRATION RATE > 60.0 (>58); GLUCOSE, FASTING 90 MG/DL (70-100); POTASSIUM SERUM 4.5 MEQ/L (3.5-5.1); SODIUM LEVEL 141 MEQ/L (136-145)
== END ==
LOC: M RAD 11:08
DX: G70.00 Myasthenia gravis without (acute) exacerbation (principal); Z79.899 Other long term (current) drug therapy
CPT/HCPCS: 72148

== ENCOUNTER 2018-05-17 15:49 | Emergency (ER) | payer OTHER ==
[2018-05-17] MEDS: NS 1,000 ML IV (18:49)
[2018-05-17] MEDS: PANTOPRAZOLE 40MG INJ (PROTONIX) (C9113) IV (18:50)
[2018-05-17] MEDS: HYDROMORPHONE HCL 0.5 MG/ 0.5 ML SYRINGE (J1170 PER 1) IV (18:50)
[2018-05-17] MEDS: ONDANSETRON 4MG/2ML VIAL (J2405) IV ×2 (18:52→21:32)
[2018-05-17 18:57] LABS: BASO # 0.1 10^3/uL (0.0-0.2); BASO % 0.9 % (0.0-1.0); EOS # 0.5 10^3/uL (0.0-0.50); EOS % 6.9 % (0.0-3.0); HEMATOCRIT 41.6 % (36.0-47.0); HEMOGLOBIN 13.6 g/dl (12.0-15.5); IMMATURE GRANULOCYTE % 0.3 % (0-3.0); LYMPH # 2.2 10^3/uL (1.5-4.5); LYMPH % 32.5 % (24.0-44.0); MEAN CORPUSCULAR HEMOGLOBIN 29.6 pg (27.0-33.0); MEAN CORPUSCULAR HGB CONC 32.7 g/dl (32.0-36.5); MEAN CORPUSCULAR VOLUME 90.4 fl (80.0-96.0); MONO # 0.7 10^3/uL (0.0-0.8); MONO % 9.7 % (0.0-5.0); NEUTROPHILS # 3.4 10^3/uL (1.8-7.7); NEUTROPHILS % 49.7 % (36.0-66.0); PLATELET COUNT, AUTOMATED 397 10^3/uL (150-450); RED CELL DISTRIBUTION WIDTH 12.1 % (11.5-14.5); WHITE BLOOD COUNT 6.8 10^3/uL (4.0-10.0)
[2018-05-17 19:21] LABS: ALBUMIN 3.9 GM/DL (3.2-5.2); ALKALINE PHOSPHATASE 59 U/L (45-117); ALT/SGPT 67 U/L (12-78); ANION GAP 13 MEQ/L (8-16); AST/SGOT 46 U/L (7-37); BILIRUBIN,DIRECT 0.1 MG/DL (0.0-0.2); BILIRUBIN,TOTAL 0.5 MG/DL (0.2-1.0); BLOOD UREA NITROGEN 8 MG/DL (7-18); CALCIUM LEVEL 9.7 MG/DL (8.5-10.1); CARBON DIOXIDE LEVEL 23 MEQ/L (21-32); CHLORIDE LEVEL 106 MEQ/L (98-107); CREATININE FOR GFR 0.68 MG/DL (0.55-1.30); GLOMERULAR FILTRATION RATE > 60.0 (>58); GLUCOSE, FASTING 104 MG/DL (70-100); LIPASE 206 U/L (73-393); POTASSIUM SERUM 3.6 MEQ/L (3.5-5.1); SODIUM LEVEL 142 MEQ/L (136-145); TOTAL PROTEIN 7.8 GM/DL (6.4-8.2)
[2018-05-17] MEDS: diphenhydrAMINE INJ 50MG/ML VIAL (J1200) IV (20:11)
[2018-05-17] MEDS ORDERED: oxyCODONE 5MG TAB PO (21:15)
[2018-05-17] MEDS: methylPREDNISolone INJ 125 MG/2 ML VIAL (J2930) IV (21:21)
[2018-05-17] MEDS ORDERED: oxyCODONE 15 MG CR TAB PO (21:30)
[2018-05-17] MEDS: oxyCODONE 10 MG CR TAB PO (21:35)
[2018-05-17] MEDS: METOCLOPRAMIDE INJ 10MG/2ML VIAL (J2765) IV (22:17)
== END 2018-05-17 23:40 | disposition home or self-care (01) ==
LOC: M ED 15:49
DX: R11.2 Nausea with vomiting, unspecified (principal)
CPT/HCPCS: C9113

== ENCOUNTER → 2018-06-18 | Outpatient (CLI) | payer OTHER | LOC: M PAIN 15:00 | DX: M54.5 Low back pain (principal); K44.9 Diaphragmatic hernia without obstruction or gangrene; M79.7 Fibromyalgia; E11.9 Type 2 diabetes mellitus without complications; G43.909 Migraine, unspecified, not intractable, without status migrainosus; F32.9 Major depressive disorder, single episode, unspecified; J45.909 Unspecified asthma, uncomplicated; I10 Essential (primary) hypertension; E78.00 Pure hypercholesterolemia, unspecified; E66.01 Morbid (severe) obesity due to excess calories; Z68.41 Body mass index [BMI] 40.0-44.9, adult; Z79.51 Long term (current) use of inhaled steroids; Z79.84 Long term (current) use of oral hypoglycemic drugs; Z79.891 Long term (current) use of opiate analgesic; Z79.899 Other long term (current) drug therapy; Z88.5 Allergy status to narcotic agent; Z88.8 Allergy status to other drugs, medicaments and biological substances; Z91.02 Food additives allergy status; Z87.11 Personal history of peptic ulcer disease; Z86.79 Personal history of other diseases of the circulatory system | CPT/HCPCS: G0463 ==

== ENCOUNTER 2018-07-22 17:06 | Emergency (ER) | payer OTHER ==
[~2018-07-22] VITALS: Ht 167.6 cm; Wt 109.1 kg
[~2018-07-22 17:06] MED LIST changes: +/BUSP5TA PO; +/FENO14TA PO; +ACET-654 PO; +ALBU17IN INH; +ALBU83IN NEB; +ATIV0.5T; +ATIV0.5T OR; +ATIV1TAB10 PO; +B-12100010 PO; +BISO10TA6 PO; +BREO1INH3 INH; +BREO1INH3 PO; +BUSP10TA PO; +CALC600T57 PO; +CALCCHW12 OR; +CALCIUM VITD; +CALCTAB41 PO; +CELE20TA OR; +CELL250C PO; +CETI10TA PO; +CLAR10CA3 PO; +DEPO-PROVERA; +DEPO-PROVERA INJ; +DEPO150I IM; +FENO145T13 PO; +FLEXERIL; +GABA300C2 PO; +GEMF600T PO; -ISOVUE-370 76% 100ML VIAL (Q9967) As Ordered; +LEVA1TAB2 PO; +LISI10TA4 PO; +LORA-243 PO; +LORATIDINE PO; +LOSA100T5 PO; +LOSA100T50 PO; +LYRI150C PO; +LYRI200C PO; +MEDR1VL IM; +MEST60TA PO; +METF500T13 PO; +MORP30TA2 PO; +MULTIVIT OR; +NAPR-50 PO; +NAPR500T; +NAPR500T OR; +NYSTOI TOP; +ONDA4TAB5 PO; +OTC ALLERGY MED PO; +OXYC10TA97 OR; +OXYC30TA84 PO; +OXYCODONE; +OXYCPOW25 PO; +PANT40TA3 PO; +PENNSAID TD; +PERC5TAB12 PO; +PERC5TAB8 OR; +PRAV10TA4 PO; +PRAV20TA2 PO; +PRED10TA2 PO; +PRED20TAB PO; +PREG100CA OR; +PREG50CA; +PREG50CA OR; +PRIL20CA; +PRIL20CA OR; +PRIL20CA9 PO; +REGL10TA6 PO; +REQU1TAB14 PO; +RYZOLT; +RYZOLT PO; +SAVELLA PO; +SUMA100T2 PO; +SUMA50TA2 PO; +SYMB80INH INH; +TRAZ-163 PO; +TRAZ100T; +TRAZ150T OR; +TYLE325T5 PO; +VENL75TA2 OR; +VENTAER IN; +VITA500T3 PO; +VITMTA PO; +VOLT1GEL TOP; +ZANA4CAP OR; +ZANA4CAP PO; +ZEBE5TAB; +ZEBE5TAB OR; +ZEBE5TAB PO; +ZOFR4TAB14 PO; +[UNRECOGNIZED DRUG - OTHER]; +pristiq
[2018-07-22 18:39] VITALS: BP 118/64
--- NOTE | 2018-07-22 19:18 | REP ---
Right ankle views History: Injury There is no acute fracture or dislocation. The joint space is normal in appearance. An osteophyte is present on the inferior calcaneus. Impression: There is no acute fracture or dislocation. Electronically Signed by Jonathon Gallagher MD 07/22/2018 07:09 P
--- NOTE | 2018-07-22 19:20 | REP ---
Right foot four views History: Injury There is no acute fracture or dislocation. The joint spaces are normal in appearance. Impression: There is no acute fracture or dislocation. Electronically Signed by Jonathon Gallagher MD 07/22/2018 07:11 P
== END 2018-07-22 18:39 | disposition home or self-care (01) ==
LOC: M ED 17:06
DX: S93.401A Sprain of unspecified ligament of right ankle, initial encounter (principal); X50.9XXA Other and unspecified overexertion or strenuous movements or postures, initial encounter; Y92.018 Other place in single-family (private) house as the place of occurrence of the external cause; M77.31 Calcaneal spur, right foot; I10 Essential (primary) hypertension; J45.909 Unspecified asthma, uncomplicated; E11.9 Type 2 diabetes mellitus without complications; E78.00 Pure hypercholesterolemia, unspecified; M79.7 Fibromyalgia; G43.909 Migraine, unspecified, not intractable, without status migrainosus; F33.9 Major depressive disorder, recurrent, unspecified; F41.9 Anxiety disorder, unspecified; G70.00 Myasthenia gravis without (acute) exacerbation; K21.9 Gastro-esophageal reflux disease without esophagitis; K58.9 Irritable bowel syndrome, unspecified; Z79.899 Other long term (current) drug therapy; Z79.84 Long term (current) use of oral hypoglycemic drugs; Z88.5 Allergy status to narcotic agent; Z91.048 Other nonmedicinal substance allergy status

== ENCOUNTER 2018-10-02 17:29 | Emergency (ER) | payer OTHER ==
[~2018-10-02] VITALS: Ht 167.6 cm; Wt 113.6 kg
[2018-10-02] MEDS ORDERED: QVAR80AE8 INH (18:07)
[2018-10-02] MEDS ORDERED: FLUT1INH INH (18:07)
[2018-10-02] MEDS ORDERED: ACETAMINOPHEN 325 MG TAB PO ONE (18:15)
[2018-10-02 19:05] LABS: INFLUENZA A AMPLIFICATION POSITIVE (NEGATIVE); INFLUENZA B AMPLIFICATION NEGATIVE (NEGATIVE)
[2018-10-02] MEDS ORDERED: OSEL75CA PO (19:13)
[2018-10-02] MEDS ORDERED: ZOFR4TAB16 SL (19:24)
[2018-10-02 19:28] VITALS: BP 149/90
== END 2018-10-02 19:32 | disposition home or self-care (01) ==
LOC: M ED 17:29
DX: J09.X2 Influenza due to identified novel influenza A virus with other respiratory manifestations (principal); I10 Essential (primary) hypertension; M79.7 Fibromyalgia; F17.200 Nicotine dependence, unspecified, uncomplicated; Z88.5 Allergy status to narcotic agent; Z88.4 Allergy status to anesthetic agent; Z91.048 Other nonmedicinal substance allergy status; J30.81 Allergic rhinitis due to animal (cat) (dog) hair and dander; Z79.899 Other long term (current) drug therapy; Z79.84 Long term (current) use of oral hypoglycemic drugs; Z79.51 Long term (current) use of inhaled steroids

== ENCOUNTER 2019-02-05 06:56 | Day surgery (SDC) | payer OTHER ==
[~2019-02-05] VITALS: Ht 167.6 cm; Wt 117.0 kg
[~2019-02-05 06:56] MED LIST changes: -/FENO14TA PO; +ACETAMINOPHEN 325 MG TAB PO PRN; -BISO10TA6 PO; +BISO10TA7 PO; +CYAN500T8 PO; +FLUT1INH INH; +HEALON DUET PRO(HEALON 10MG/ML 0.55ML & HEALON ENDOCOAT 30MG/ML 0.85ML) As Ordered ONE; +LIDOCAINE 1% SDV 5 ML VIAL As Ordered ONE; +LIDOCAINE 2% W/EPIN INJ 20ML **PRES FREE As Ordered ONE; +MOXIFLOXACIN IN BSS 0.25MG/0.25ML INTRACAMERAL INJ (OR EYE ONLY)(J2280) As Ordered ONE; -NAPR-50 PO; +NAPR-837 PO; +OSEL75CA PO; +POVIDONE-IODINE 5% OPHTH PREP SOL 30ML As Ordered ONE; +QVAR80AE8 INH; +TRIAMCINOLONE PRES FR 40 MG/ML 1ML(TRIESENCE)(OR EYE ONLY)(J3300 PER 1MG) As Ordered ONE; +TRIC145T19 PO; -VITA500T3 PO; +ZOFR4TAB16 SL
[2019-02-05] MEDS ORDERED: PHENYLEPHRINE 2.5% OPHTH SOL 2ML OD ONE (07:00)
[2019-02-05] MEDS ORDERED: LIDOCAINE 3.5 % 1ML OPHTH TOPICAL GEL OU ONE (07:00)
[2019-02-05] MEDS ORDERED: OFLOXACIN 0.3 % (OCUFLOX) OPTH SOL 5ML OD ONE (07:00)
[2019-02-05] MEDS ORDERED: TROPICAMIDE 1% OPHTH SOLN 2ML OD ONE (07:00)
[2019-02-05] MEDS ORDERED: CYCLOPENTOLATE 2% OPHTH SOLN 2ML BTL OD ONE (07:00)
[2019-02-05] MEDS ORDERED: BSS with VANC/TOB/EPI for EYE CASES IR ONE (07:00)
[2019-02-05] MEDS ORDERED: PHENYLEPHRINE HCL 10 % OPHTH. SOL 5ML OD PRN (07:00)
[2019-02-05] MEDS ORDERED: fentaNYL 100 MCG/2 ML INJECTION (J3010) As Ordered ONE (07:17)
[2019-02-05] MEDS ORDERED: MIDAZOLAM INJ 2 MG/2 ML VIAL (J2250) As Ordered ONE (07:17)
[2019-02-05 07:47] LABS: URINE PREG TEST NEGATIVE (NEGATIVE)
[2019-02-05] MEDS ORDERED: PROPOFOL 200 MG/20 ML VIAL As Ordered ONE (08:57)
[2019-02-05] MEDS ORDERED: PERCOCET 5MG/325MG TAB As Ordered ONE (09:20)
[2019-02-05] MEDS ORDERED: AcetaZOLAMIDE 500 MG ER CAP As Ordered ONE (09:20)
[2019-02-05] MEDS ORDERED: TRIMETHOBENZAMIDE 300 MG CAP PO PRN (09:30)
[2019-02-05] MEDS ORDERED: AcetaZOLAMIDE 500 MG ER CAP PO ONE (09:30)
[2019-02-05] MEDS ORDERED: LR 1,000 ML IV SCH (09:30)
[2019-02-05] MEDS ORDERED: PERCOCET 5MG/325MG TAB PO ONE (09:30)
[2019-02-05 09:45] VITALS: BP 130/82
== END 2019-02-05 09:55 | disposition home or self-care (01) ==
LOC: M SDC 06:56
PROVIDERS: ATTEND Ophthalmology
DX: H26.9 Unspecified cataract (principal); I10 Essential (primary) hypertension; E78.5 Hyperlipidemia, unspecified; E11.9 Type 2 diabetes mellitus without complications; K21.9 Gastro-esophageal reflux disease without esophagitis; K58.8 Other irritable bowel syndrome; K44.9 Diaphragmatic hernia without obstruction or gangrene; J45.909 Unspecified asthma, uncomplicated; M79.7 Fibromyalgia; G70.00 Myasthenia gravis without (acute) exacerbation; I71.4 Abdominal aortic aneurysm, without rupture; Z79.51 Long term (current) use of inhaled steroids; Z88.8 Allergy status to other drugs, medicaments and biological substances; Z79.899 Other long term (current) drug therapy; Z79.84 Long term (current) use of oral hypoglycemic drugs
CPT/HCPCS: 66984; 84703; 92015; J2250; J2280; J3010; J3300; V2632

== ENCOUNTER 2019-02-09 12:38 | Emergency (ER) | payer OTHER ==
[~2019-02-09] VITALS: Ht 167.6 cm; Wt 111.4 kg
[~2019-02-09 12:38] MED LIST changes: -ACETAMINOPHEN 325 MG TAB PO PRN; +BISO10TA14 PO; -BISO10TA7 PO; -FENO145T13 PO; +FENO145T7 PO; -HEALON DUET PRO(HEALON 10MG/ML 0.55ML & HEALON ENDOCOAT 30MG/ML 0.85ML) As Ordered ONE; -LIDOCAINE 1% SDV 5 ML VIAL As Ordered ONE; -LIDOCAINE 2% W/EPIN INJ 20ML **PRES FREE As Ordered ONE; -MOXIFLOXACIN IN BSS 0.25MG/0.25ML INTRACAMERAL INJ (OR EYE ONLY)(J2280) As Ordered ONE; +ONDA-83 PO; -ONDA4TAB5 PO; -POVIDONE-IODINE 5% OPHTH PREP SOL 30ML As Ordered ONE; -TRAZ-163 PO; +TRAZ-257 PO; -TRIAMCINOLONE PRES FR 40 MG/ML 1ML(TRIESENCE)(OR EYE ONLY)(J3300 PER 1MG) As Ordered ONE
[2019-02-09] MEDS ORDERED: TETRACAINE 0.5% OPHTH SOLN 4ML OU ONE (14:00)
[2019-02-09 15:05] VITALS: BP 127/77
== END 2019-02-09 15:14 | disposition home or self-care (01) ==
LOC: M ED 12:38
DX: H53.19 Other subjective visual disturbances (principal); E11.9 Type 2 diabetes mellitus without complications; G43.909 Migraine, unspecified, not intractable, without status migrainosus; I71.9 Aortic aneurysm of unspecified site, without rupture; M79.7 Fibromyalgia; G70.00 Myasthenia gravis without (acute) exacerbation; Z79.899 Other long term (current) drug therapy; Z79.84 Long term (current) use of oral hypoglycemic drugs; Z88.5 Allergy status to narcotic agent; Z88.8 Allergy status to other drugs, medicaments and biological substances; Z91.018 Allergy to other foods; J30.81 Allergic rhinitis due to animal (cat) (dog) hair and dander

== ENCOUNTER → 2019-03-29 | Outpatient (CLI) | payer OTHER ==
[~2019-03-29] MED LIST changes: +BISO10TA10 PO; -BISO10TA14 PO; +FENO145T13 PO; -FENO145T7 PO; -ONDA-83 PO; +ONDA4TAB5 PO; +TRAZ-163 PO; -TRAZ-257 PO
--- NOTE | 2019-04-13 00:29 | ECWPNPC ---
PATIENT NAME: JANET JHAVERI : 1975 GENDER: FEMALE VISIT DATE: 03/29/2019 DISCHARGE DATE: 03/29/19 1146 VISIT LOCKED DATE TIME: PHYSICIAN: DARCY HUBBARD RESOURCE: DARCY HUBBARD REASON FOR APPOINTMENT 1. CHRONIC PAIN HISTORY OF PRESENT ILLNESS HISTORY OF PRESENT ILLNESS: HERE FO F/U AND MANAGEMENT OF PERSISTENT GENERALIZED BACK PAIN.CONTINUES WITH USE OF OXYCONTIN 30MG BID,LYRICA 200MG BID AND PERCOCET 5/325 UP TO 6 PER DAY.FINDS CURRENT MEDICINE EFFECTIVE AT REDUCING PAIN AND KEEPING HER COMFORTABLE AND FUNCTIONAL. DENIES SIDE EFFECTS.PAIN VAS 8/10.HISTORY OF MYESTHENIA GRAVIS.HAS BEEN WITHOUT MESTINON FOR 10 DAYS AND IS HAVING A SEVERE FLARE UP OF HER MYESTHENIA SYMPTOMS.DISCUSSED REFERRAL TO [facility]. PAIN THE PATIENT DESCRIBES THE PAIN... THE PATIENT DESCRIBES THE PAIN... THE PATIENT DESCRIBES THE PAIN... THE PATIENT DESCRIBES THE PAIN... THE PATIENT DESCRIBES THE PAIN... THE PATIENT DESCRIBES THE PAIN... THE PATIENT DESCRIBES THE PAIN... THE PATIENT DESCRIBES THE PAIN... THE PATIENT DESCRIBES THE PAIN... THE PATIENT DESCRIBES THE PAIN... FALL RISK SCREENING: SCREENING :NO FALLS REPORTED IN THE LAST YEAR CURRENT MEDICATIONS TAKING PYRIDOSTIGMINE BROMIDE 90 MG TABLET ORALLY FOUR TIMES DAILY TAKING BISOPROLOL FUMARATE 10 MG TABLET ORALLY ONCE A DAY TAKING BUSPIRONE HCL 10 MG TABLET ORALLY 3 TIMES A DAY TAKING FENOFIBRATE 145 MG TABLET ORALLY ONCE DAILY TAKING NAPROSYN 500 MG TABLET ORALLY TWICE DAILY NEEDED TAKING VENTOLIN HFA 90 MCG/ACT AEROSOL SOLUTION 2 PUFFS INHALATION 4 TIMES A DAY TAKING SUMATRIPTAN 50 MG TABLET ORALLY DIRECTED TAKING TRAZODONE HCL 100 MG TABLET 2 TABLETS ORALLY BEFORE BEDTIME TAKING TYLENOL 325 MG TABLET 2 TABLETS ORALLY TWICE DAILY NEEDED TAKING ZOFRAN 4 MG TABLET 1 TABLET ORALLY EVERY 6 HOURS NEEDED TAKING NYSTATIN POWDER EXTERNALLY NEEDED TAKING MULTIVITAMIN 1 TABLET ORALLY ONCE DAILY TAKING CALCIUM 500 MG WITH VITAMIN D 1 TABLET ORALLY TWICE A DAY TAKING LORATADINE 10 MG TABLET ORALLY ONCE DAILY TAKING ALBUTEROL SULFATE (2.5 MG/3ML) 0.083% NEBULIZATION SOLUTION INHALATION EVERY 4 HOURS NEEDED TAKING LOSARTAN POTASSIUM-HCTZ 100-25 MG TABLET 1 TABLET ORALLY ONCE A DAY TAKING PRAVASTATIN SODIUM 20 MG TABLET 1 TABLET ORALLY ONCE A DAY TAKING CELLCEPT 250 MG CAPSULE 3 TABS ORALLY BID TAKING VITAMIN B12 1000 MCG TABLET EXTENDED RELEASE 1 TABLET ORALLY ONCE A DAY TAKING PANTOPRAZOLE SODIUM 40 MG TABLET DELAYED RELEASE 1 TABLET ORALLY BID TAKING METFORMIN HCL 500 MG TABLET 2 TABLET WITH A MEAL ORALLY ONCE A DAY WITH DINNER TAKING LYRICA 200 MG CAPSULE 1 TAB ORALLY BID MDD2 TAKING REQUIP 0.25 MG TABLET 1-2 ORALLY BEFORE BEDTIME AND 1 IN AM TAKING OXYCODONE HCL 30 MG TABLET 1 ORALLY [id number] TAKING PERCOCET 5-325 MG TABLET 1 ORALLY Q4H MDD6 TAKING FLUTICASONE PROPIONATE (INHAL) 220 MCG/ACT AEROSOL DIRECTED INHALATION NOT-TAKING BREO ELLIPTA 200-25 MCG/INH AEROSOL POWDER BREATH ACTIVATED 1 PUFF INHALATION ONCE A DAY NOT-TAKING DEPO-PROVERA 1 INJECTION INTRAMUSCULAR EVERY 3 MONTHS MEDICATION LIST REVIEWED AND RECONCILED WITH THE PATIENT PAST MEDICAL HISTORY DOUBLE VISION GASTRIC ULCER HIATEL HERNIA IBS WITH DIARRHEA ASCENDING AORTA ANEURYSM FIBROMYALGIA MYASTENIS GRAVIS DEGENERATIVE DISC DISEASE SCOLIOSIS MIGRAINES DEPRESSION ASTHMA HTN HIGH CHOLESTEROL DIABETES ALLERGIES MORPHINE SULFATE: NAUSEA/VOMITING - ALLERGY FENTANYL: NAUSEA/VOMITING - ALLERGY ASPARTAME: ANAPHYLAXIS - ALLERGY SEASONAL: RED EYES, SNEEZING,ITCHY NOSE, ETC - ALLERGY CATS: COUGHING/SNEEZING - ALLERGY DILAUDID: HIVES/ ITCH SURGICAL HISTORY LUMBAR DISCECTOMY 1994 EGD, COLONOSCOPY 12/2017 BILATERAL CATARACTS 01/2019 FAMILY HISTORY FATHER: , DIAGNOSED WITH DIABETES, HYPERTENSION, UNSPECIFIED HEART DISEASE, UNSPECIFIED CEREBRAL ARTERY OCCLUSION WITH CEREBRAL INFARCTION, SUBSTANCE ABUSE MOTHER: , HYPERTENSION, UNSPECIFIED HEART DISEASE, OTHER SPECIFIED CONDITIONS INFLUENCING HEALTH STATUS 1 BROTHER(S) , 1 SISTER(S) - HEALTHY. 1 SON(S) , 1 DAUGHTER(S) - HEALTHY. DAD-DIABETES INSIPIDOUSMOM-AORTIC ANEURYSM1 SISTER DUE TO RUPTURED ANEURYSM. SOCIAL HISTORY GENERAL: TOBACCO USE ARE YOU A: NONSMOKER. EDUCATION LEVEL OF EDUCATION:COLLEGE LANGUAGE LANGUAGES SPOKEN:OCCITAN DOMESTIC VIOLENCE DO YOU FEEL SAFE IN YOUR ENVIRONMENT?YES NEW PATIENT PAIN DIARY TODAY'S VISIT NOTES, FROM 0-10, WHAT LEVEL IS YOUR PAIN TODAY? 0. RECREATIONAL DRUG USE DRUG USE?NO LEARNING BARRIERS / SPECIAL NEEDS BARRIERS TO LEARNING?NO HEARING IMPAIRED?YES VISION IMPAIRED?YES COGNITIVELY IMPAIRED?NO : [place] :CORRECTIVE LENSES READINESS TO LEARN?YES LEARNING PREFERENCES?YES :DEMONSTRATION/VERBAL INSTRUCTION LEARNING CAPABILITIES PRESENT?YES EMOTIONAL BARRIERS?NO SPECIAL DEVICES?YES :CANE, WALKER PRN CTE TEACHER NEEDED?NO PAIN CLINIC PFS, CLERGY, PUBLIC HEALTH REFERRALS PFS REFERRAL NEEDED?NO CLERGY REFERRAL NEEDED?NO PUBLIC HEALTH REFERRAL NEEDED?NO WAS THE PROVIDER NOTIFIED OF ANY PERTINENT INFO?NO HAS THE PATIENT BEEN EDUCATED REGARDING HIS/HER PLAN OF CARE?YES HAS THE PATIENT BEEN EDUCATED REGARDING PAIN, THE RISK FOR PAIN, THE IMPORTANCE OF EFFECTIVE PAIN MANAGEMENT, AND THE PAIN ASSESSMENT PROCESS?YES LATEX QUESTIONNAIRE LATEX ALLERGY : HAVE YOU EVER DEVELOPED ANY TYPE OF REACTION AFTER HANDLING LATEX PRODUCTS SUCH RUBBER GLOVES, CONDOMS, DIAPHRAGMS, BALLOONS, SOCKS, OR UNDERWEAR?NO LATEX ALLERGY : HAVE YOU EVER DEVELOPED ANY TYPE OF REACTION DURING OR AFTER DENTAL APPOINTMENT, VAGINAL/RECTAL EXAMINATION, SURGICAL PROCEDURE, OR ANY OTHER EXPOSURE?NO LATEX RISK : HAVE YOU EVER HAD ANY DIFFICULTY BREATHING OR HIVES AFTER EATING OR HANDLING ANY FRUITS, OR VEGETABLES; SUCH KIWI, BANANAS, STONE FRUITS, OR CHESTNUTSNO LATEX RISK : DO YOU HAVE A PREVIOUS PERSONAL HISTORY OF MORE THAN NINE SURGERIES, SPINA BIFIDA, OR REPEATED CATHERIZATIONS? NO LATEX RISK : ARE YOU FREQUENTLY EXPOSED TO LATEX PRODUCTS IN YOUR OCCUPATION?NO DATE ASKED : 03/29/2019 CAFFEINE CAFFEINE USE?YES HOW OFTEN AND HOW MUCH? 1 CAN OF PEPSI/DAY ADVANCE DIRECTIVE ADVANCE DIRECTIVE DISCUSSED WITH PATIENT:YES PT HAS NO ADVANCED DIRECTIVES, INFORMATION AND/OR ASSISTANCE DECLINED AT THIS TIME. TAOIST [id number] JAIN ALCOHOL SCREENING DID YOU HAVE A DRINK CONTAINING ALCOHOL IN THE PAST YEAR?NO POINTS0 INTERPRETATIONNEGATIVE REVIEWED WITH PATIENT 03/29/19 1115 LAS. HOSPITALIZATION/MAJOR DIAGNOSTIC PROCEDURE BREATHING PROBLEMS BRONCHITIS/TACHYCARDIA REVIEW OF SYSTEMS REVIEWED BY: PROVIDER: DARCY SANTANA . CONSTITUTIONAL: ANY CHANGE IN YOUR MEDICAL CONDITION? NO . CHILLS NO . FEVER NO . INFECTION: DO YOU HAVE NEW INFECTIONS? NO . DO YOU HAVE HISTORY OF MRSA? NO . MUSCULOSKELETAL: ANY NEW PATTERNS OF PAIN OR NUMBNESS? NO . GASTROENTEROLOGY: ANY NEW CHANGE IN BOWEL CONTROL? NO . GENITOURINARY: ANY NEW CHANGE IN BLADDER CONTROL? NO . IS THERE A CHANCE YOU COULD BE ? NO . HEMATOLOGY/LYMPH: DO YOU TAKE ANY BLOOD THINNERS? (FOR EXAMPLE- COUMADIN, PLAVIX, AGGRENOX, PLATEL, PRADAXA, OR XARELTO) NO . WHEN WAS YOUR LAST DOSE? DATE: TIME: . NEUROLOGY: HAVE YOU FALLEN IN THE PAST 12 MONTHS? YES PT REPORTS SHE HAS TROUBLE JUDGING DISTANCE, HAS TRIPPED OVER THINGS SEVERAL TIMES. ONE FALL LAST WINTER SHE SUSTAINED A SPRAINED ANKLE, WORE A BOOT FOR 6 WEEKS, NOW RESOLVED. . ANY NEW EXTREMITY NUMBNESS OR WEAKNESS? PT REPORTS INCREASED NUMBNESS LEFT LEG OVER THE PAST 3 MONTHS, USES A WALKER OR CANE. . CARDIOLOGY: DO YOU HAVE A PACEMAKER OR DEFIBRILLATOR? NO . RESPIRATORY: HAVE YOU BEEN SICK IN THE PAST WEEK? NO . FEVER NO . FLU LIKE SYMPTOMS? NO . COUGH NO . INTEGUMENTARY: DO YOU HAVE ANY RASHES OR OPEN SORES? NO . ALLERGIC/IMMUNO: ARE YOU ALLERGIC TO IV DYE? NO . ANY NEW ALLERGIES? NO . PSYCHIATRIC: DO YOU HAVE THOUGHTS OF HURTING YOURSELF OR SOMEONE ELSE? NO . ARE YOU ABUSED, NEGLECTED, OR IN AN UNSAFE ENVIRONMENT? NO . ENDOCRINOLOGY: ARE YOU DIABETIC? NO . OTHER: DO YOU NEED ANY PRESCRIPTIONS? YES . IF YES, PLEASE LIST: ____LYRICA, OXYCODONE, PERCOCET, REQUIP . ANY NEW PROBLEMS WITH YOUR MEDICATIONS? NO . WHEN DID YOU LAST EAT? ____ . WHEN DID YOU LAST DRINK? ____ . WHAT DID YOU LAST DRINK? ____ . NAME OF PERSON DRIVING YOU HOME? ____ . DO YOU HAVE ANY OTHER QUESTIONS OR CONCERNS NO . VITAL SIGNS WT 250.8 LBS, HT 66 IN, BMI 40.48 INDEX, BP 137/80 MM HG, HR 75 /MIN, RR 18 /MIN, TEMP 97.4 F, OXYGEN SAT % 96%, SAFE IN ENV? (Y/N) YES, NA INITIALS AW 1056, REVIEWED BY: JOAQUIN. EXAMINATION GENERAL EXAMINATION: GENERALAWAKE,ALERT ,PLEAASANT . PSYCHAFFECT NORMAL . LUNGS:LUNG ESTRADA ARE CLEAR TO AUSCULTATION BILATERALLY. GOOD MOVEMENT OF AIR . HEART:S1, S2 IN A REGULAR RATE AND RHYTHM. NO SIGNIFICANT MURMURS, RUBS OR GALLOPS NOTED . ASSESSMENTS CHRONIC BILATERAL LOW BACK PAIN WITHOUT SCIATICA - M54.5 (PRIMARY) TREATMENT CHRONIC BILATERAL LOW BACK PAIN WITHOUT SCIATICA REFILL LYRICA CAPSULE, 200 MG, 1 TAB, ORALLY, BID MDD2, 30 DAY(S), 60, REFILLS 2 REFILL REQUIP TABLET, 0.25 MG, 1-2, ORALLY, BEFORE BEDTIME AND 1 IN AM, 30 DAY(S), 90, REFILLS 2 REFILL OXYCODONE HCL TABLET, 30 MG, 1, ORALLY, [id number], 30 DAYS, 60, REFILLS 0 REFILL PERCOCET TABLET, 5-325 MG, 1, ORALLY, Q4H MDD6, 30 DAY(S), 180, REFILLS 0 NOTES: ISTOP REGISTRY REVIEWED AND DEMONSTRATES COMPLLIANCE. (REF # ) BRINGS IN MEDICATIONS WHICH IS APPROPRIATE FOR WHAT WAS DISPENSED. RECENT URINE TOXICOLOGY REVIEWED. NO UNAUTHORIZED MEDICATIONS. NO ILLICIT SUBSTANCES AND PRESCRIBED MEDICATIONS WERE PRESENT. , RISKS AND BENEFITS OF NARCOTIC/OPIOD MEDICATIONS WERE REVIEWED WITH PATIENT - THIS INCLUDES BUT IS NOT LIMITED TO RISK OF DEPENDANCE/DEVELOPMENT OF ADDICTION, MOOD DISTURBANCE AND DEPRESSION, OSTEOPOROSIS, HORMONAL AND LABIDAL CHANGES, RESPIRATORY DEPRESSION AND . PATIENT IS ADVISED NOT TO DRIVE OR DRINK ALCOHOL WHILE ON THESE MEDICATIONSJEFF I FEEL IF YOU CALL PHARMACY AND GET MANUFACTURERS PHONE NUMBER OF PROST[employer] AND CALL THEM TO SEE IF YOU CAN EXPEDITE SHIPMENT DUE TO JANET'S SEVERE FLARE UP OF HER MYESTHENIA CONDITION WITHOUT THIS MEDICATION. [facility]:CHRONIC GENERALIZED PAIN OF CHRONIC DISEASE-MYESTHENIA GRAVIS PROCEDURE CODES FA211 ESTABILISHED PATIENT [facility] CHARGE DISPOSITION & COMMUNICATION FOLLOW UP NO F/U NEEDED (REASON: REFER TO [facility]) ELECTRONICALLY SIGNED BY ESTHER ROBERTS ON 04/12/2019 AT 02:01 PM EDT DISCLAIMER : THIS IS A VISIT SUMMARY EXTRACTED FROM THE [employer] CHART. IT IS NOT A COPY OF THE [employer] PROGRESS NOTE. CAROL ANN
== END ==
LOC: M PAIN 10:30
PROVIDERS: ATTEND Nurse Practitioner Family
DX: M54.5 Low back pain (principal); G89.29 Other chronic pain; M79.7 Fibromyalgia; G70.00 Myasthenia gravis without (acute) exacerbation; G43.909 Migraine, unspecified, not intractable, without status migrainosus; Z86.59 Personal history of other mental and behavioral disorders; J45.909 Unspecified asthma, uncomplicated; I10 Essential (primary) hypertension; E78.00 Pure hypercholesterolemia, unspecified; E11.9 Type 2 diabetes mellitus without complications; Z88.5 Allergy status to narcotic agent; Z88.8 Allergy status to other drugs, medicaments and biological substances; E66.01 Morbid (severe) obesity due to excess calories; Z68.41 Body mass index [BMI] 40.0-44.9, adult; Z79.84 Long term (current) use of oral hypoglycemic drugs; Z79.891 Long term (current) use of opiate analgesic; Z79.899 Other long term (current) drug therapy

== ENCOUNTER → 2019-06-20 | Outpatient (CLI) | payer OTHER ==
--- NOTE | 2019-07-08 15:20 | SLEEPHOME ---
DATE OF STUDY: 06/20/2019 INTERPRETATION: Diagnostic home sleep testing was performed due to concern for sleep apnea symptoms in this patient with excessive daytime sleepiness, snoring, gasping respirations, morning headaches, and nonrestorative sleep. Portable home monitoring was performed using NOX-T3 respiratory monitoring device. Continuous record was made of pulse, oxygen saturation, airflow, chest and abdominal strain. There were 445 minutes of data analyzed of presumed sleep. During this sleep interval, 39 respiratory events were identified of 10 seconds in duration or longer for a respiratory event index of 5.3. The events were predominantly obstructive apnea/hypopnea though there were some mixed events present. The patient's baseline saturation was 95% with a minimum recorded value of 88%. The patient's baseline pulse was 72 beats per minute with a highest pulse recorded being 186 beats per minute. Testing was performed both supine and laterally with the majority of time spent in the lateral position. IMPRESSION: Abnormal home sleep test with repetitive respiratory events. Respiratory event index of 5.3 is consistent with at least mild obstructive sleep apnea. RECOMMENDATIONS: I recommend the patient be sent to the sleep disorder center for formal determination of pressure therapy.
== END ==
LOC: M SLEEP HO 13:00
PROVIDERS: ATTEND Internal Medicine Pulmonary Disease
DX: G47.30 Sleep apnea, unspecified (principal)

== ENCOUNTER 2019-11-11 12:24 | Emergency (ER) | payer OTHER ==
[~2019-11-11] VITALS: Ht 167.6 cm; Wt 106.8 kg
[~2019-11-11 12:24] MED LIST changes: -BISO10TA10 PO; +BISO10TA14 PO; -FENO145T13 PO; +FENO145T7 PO; +ONDA-83 PO; -ONDA4TAB5 PO; +OXYC30TA PO; -OXYC30TA84 PO; -TRAZ-163 PO; +TRAZ-257 PO
[2019-11-11] MEDS ORDERED: KETOROLAC 30 MG/ML 1ML VIAL IV ONE (12:45)
[2019-11-11] MEDS ORDERED: ONDANSETRON 4MG/2ML VIAL IV ONE (12:45)
[2019-11-11] MEDS ORDERED: NS 1,000 ML IV ONE (12:45)
[2019-11-11] MEDS ORDERED: LOSA100T50 PO (12:54)
[2019-11-11] MEDS ORDERED: HYDR12.55 PO (12:54)
[2019-11-11] MEDS ORDERED: AMLO5TAB6 PO (12:55)
[2019-11-11 13:57] LABS: INR 1.26; PROTHROMBIN TIME 15.6 SECONDS (11.8-14.0)
[2019-11-11 14:07] LABS: BASO % 0.3 % (0.0-1.0); EOS # 0.1 10^3/uL (0.0-0.5); EOS % 0.9 % (0.0-3.0); HEMATOCRIT 42.8 % (36.0-47.0); HEMOGLOBIN 14.8 g/dl (12.0-15.5); LYMPH # 1.7 10^3/uL (1.5-5.0); LYMPH % 22.1 % (24.0-44.0); MEAN CORPUSCULAR HEMOGLOBIN 29.4 pg (27.0-33.0); MEAN CORPUSCULAR HGB CONC 34.6 g/dl (32.0-36.5); MEAN CORPUSCULAR VOLUME 85.1 fl (80.0-96.0); MONO # 0.7 10^3/uL (0.0-0.8); NEUTROPHILS # 5.1 10^3/uL (1.5-8.5); NEUTROPHILS % 67.2 % (36.0-66.0); PLATELET COUNT, AUTOMATED 438 10^3/uL (150-450); RED BLOOD COUNT 5.03 10^6/uL (4.00-5.40); WHITE BLOOD COUNT 7.6 10^3/uL (4.0-10.0)
[2019-11-11 14:17] LABS: ALT/SGPT 49 U/L (12-78); BILIRUBIN,DIRECT 0.1 MG/DL (0.0-0.2); BILIRUBIN,TOTAL 0.6 MG/DL (0.2-1.0); BLOOD UREA NITROGEN 15 MG/DL (7-18); CALCIUM LEVEL 9.4 MG/DL (8.5-10.1); CARBON DIOXIDE LEVEL 24 MEQ/L (21-32); CHLORIDE LEVEL 103 MEQ/L (98-107); CK-MB VALUE MASS < 1.0 NG/ML (<3.6); CPK CREATINE PHOSPHOKINASE 112 U/L (26-192); GLOMERULAR FILTRATION RATE > 60.0 (>58); GLUCOSE, FASTING 148 MG/DL (70-100); LIPASE 114 U/L (73-393); MB/CK RELATIVE INDEX 0.89 (< OR =4); POTASSIUM SERUM 3.2 MEQ/L (3.5-5.1); SODIUM LEVEL 137 MEQ/L (136-145); TOTAL PROTEIN 8.3 GM/DL (6.4-8.2); TROPONIN I < 0.02 NG/ML (< 0.10)
[2019-11-11] MEDS ORDERED: KEFL500C17 PO (15:15)
[2019-11-11 15:27] VITALS: BP 131/69
--- NOTE | 2019-11-11 23:58 | REP ---
ABDOMINAL SERIES: Supine and erect views of the abdomen are performed and demonstrate no free air and no evidence for obstruction. No dilated small bowel loops are seen. There are multiple phleboliths in the pelvis. There are mild degenerative changes of the spine. An accompanying view of the chest demonstrates no acute infiltrate in either lung. Heart does not appear to be significantly enlarged. There is curvature of the thoracic spine convex to the right with mild degenerative changes. IMPRESSION: No free air or obstructions. Lungs are clear. Electronically Signed by Blade Weir MD 11/12/2019 10:29 A
== END 2019-11-11 15:29 | disposition home or self-care (01) ==
LOC: M ED 12:24
DX: N39.0 Urinary tract infection, site not specified (principal); B34.9 Viral infection, unspecified; R11.10 Vomiting, unspecified; R19.7 Diarrhea, unspecified; R06.02 Shortness of breath; I11.9 Hypertensive heart disease without heart failure; E11.9 Type 2 diabetes mellitus without complications; Z88.5 Allergy status to narcotic agent; Z88.4 Allergy status to anesthetic agent; J30.81 Allergic rhinitis due to animal (cat) (dog) hair and dander; Z91.02 Food additives allergy status; Z79.899 Other long term (current) drug therapy; Z79.891 Long term (current) use of opiate analgesic; Z79.84 Long term (current) use of oral hypoglycemic drugs; Z20.828 Contact with and (suspected) exposure to other viral communicable diseases
CPT/HCPCS: 74021; 80048; 80076; 81001; 82550; 82553; 83605; 83690; 85025; 85610; 87040; 87086; 87486; 87581; 87633; 87798; 94760; 96361; 96374; 96375; 99284; J1885; J2405; U0002

== ENCOUNTER → 2020-01-01 | Outpatient (CLI) | payer OTHER ==
[~2020-01-01] MED LIST changes: +AMLO1TAB24 PO; +ATOR1TAB19 PO; +CYAN500T14 PO; -CYAN500T8 PO; +HYDR12.55 PO; +KEFL500C17 PO; +LISI10TA22 PO; -LISI10TA4 PO; +METF-838 PO; +MYCO250C PO; +ONDA4TAB6 PO; +OXYC10TA3 PO; +PANT40TA29 PO; -PANT40TA3 PO; +PREG200C PO; +PROC25SU24 PR; +PROM25TA12 PO; +ROPI0.253 PO
[2020-01-01 14:17] LABS: BLOOD UREA NITROGEN 8 MG/DL (7-18); CARBON DIOXIDE LEVEL 25 MEQ/L (21-32); CHLORIDE LEVEL 107 MEQ/L (98-107); CREATININE FOR GFR 0.65 MG/DL (0.55-1.30); GLOMERULAR FILTRATION RATE > 60.0 (>58); GLUCOSE, FASTING 125 MG/DL (70-100); POTASSIUM SERUM 3.7 MEQ/L (3.5-5.1); SODIUM LEVEL 136 MEQ/L (136-145)
== END ==
LOC: M LAB 13:15
PROVIDERS: ATTEND Physical Medicine & Rehabilitation Neuromuscular Medicine
DX: G70.00 Myasthenia gravis without (acute) exacerbation (principal)

== ENCOUNTER 2020-08-08 12:59 | Emergency (ER) | payer OTHER ==
[~2020-08-08] VITALS: Ht 167.6 cm; Wt 111.3 kg
[~2020-08-08 12:59] MED LIST changes: -ATOR1TAB19 PO; -METF-838 PO; -MYCO250C PO; -ONDA4TAB6 PO; -OXYC10TA3 PO; -PREG200C PO; -PROC25SU24 PR; -PROM25TA12 PO; -ROPI0.253 PO
[2020-08-08] MEDS ORDERED: ATOR1TAB19 PO (13:28)
[2020-08-08] MEDS ORDERED: OXYC10TA3 PO (13:28)
[2020-08-08] MEDS ORDERED: ONDA4TAB6 PO (13:28)
[2020-08-08] MEDS ORDERED: SUMA100T2 PO (13:28)
[2020-08-08] MEDS ORDERED: PREG200C PO (13:28)
[2020-08-08] MEDS ORDERED: LOSA100T5 PO (13:28)
[2020-08-08] MEDS ORDERED: ROPI0.253 PO ×2 (13:28)
[2020-08-08] MEDS ORDERED: MYCO250C PO (13:28)
[2020-08-08] MEDS ORDERED: AMLO1TAB24 PO (13:28)
[2020-08-08] MEDS ORDERED: METF-838 PO (13:28)
[2020-08-08] MEDS ORDERED: NS 1,000 ML IV ONE (13:30)
[2020-08-08] MEDS ORDERED: PROMETHAZINE INJ 25 MG/ML VIAL (J2550) IV ONE (13:30)
[2020-08-08 13:53] LABS: BASO # 0.1 10^3/uL (0.0-0.2); BASO % 0.7 % (0.0-1.0); EOS # 0.1 10^3/uL (0.0-0.5); EOS % 1.3 % (0.0-3.0); HEMATOCRIT 41.3 % (36.0-47.0); HEMOGLOBIN 13.7 g/dl (12.0-15.5); LYMPH # 1.8 10^3/uL (1.5-5.0); LYMPH % 25.5 % (24.0-44.0); MEAN CORPUSCULAR HEMOGLOBIN 29.3 pg (27.0-33.0); MEAN CORPUSCULAR HGB CONC 33.2 g/dl (32.0-36.5); MEAN CORPUSCULAR VOLUME 88.4 fl (80.0-96.0); MONO # 0.5 10^3/uL (0.0-0.8); MONO % 7.1 % (0.0-5.0); NEUTROPHILS # 4.7 10^3/uL (1.5-8.5); PLATELET COUNT, AUTOMATED 318 10^3/uL (150-450); RED BLOOD COUNT 4.67 10^6/uL (4.00-5.40); WHITE BLOOD COUNT 7.2 10^3/uL (4.0-10.0)
--- NOTE | 2020-08-08 14:16 | REP ---
INDICATION: vomiting. COMPARISON: 11/11/2019 TECHNIQUE: Portable FINDINGS: The technique utilized in obtaining the radiograph has magnified the cardiac silhouette and accentuated the interstitial markings. The superior mediastinal structures are midline. The cardiac silhouette is unremarkable in size, shape, and position. The diaphragmatic surfaces of the lungs are regular, and the costophrenic angles are clear. The pulmonary manuel are clear. The imaged osseous structures are intact. IMPRESSION: There is no acute cardiopulmonary disease. <Electronically signed by Sean Reyes > 08/08/20 [id number]
[2020-08-08 14:27] LABS: ALBUMIN 3.6 GM/DL (3.2-5.2); ALT/SGPT 42 U/L (12-78); BILIRUBIN,DIRECT < 0.1 MG/DL (0.0-0.2); BILIRUBIN,TOTAL 0.5 MG/DL (0.2-1.0); BLOOD UREA NITROGEN 5 MG/DL (7-18); CALCIUM LEVEL 9.2 MG/DL (8.5-10.1); CARBON DIOXIDE LEVEL 28 MEQ/L (21-32); CHLORIDE LEVEL 103 MEQ/L (98-107); CREATININE FOR GFR 0.51 MG/DL (0.55-1.30); GLOMERULAR FILTRATION RATE > 60.0 (>58); GLUCOSE, FASTING 105 MG/DL (70-100); LIPASE 133 U/L (73-393); POTASSIUM SERUM 3.9 MEQ/L (3.5-5.1); SODIUM LEVEL 140 MEQ/L (136-145); TOTAL PROTEIN 7.4 GM/DL (6.4-8.2)
[2020-08-08] MEDS ORDERED: oxyCODONE 5MG TAB PO ONE (15:00)
[2020-08-08] MEDS ORDERED: ONDANSETRON 4MG/2ML VIAL IV ONE (15:45)
[2020-08-08] MEDS ORDERED: NS 500 ML IV ONE (15:45)
[2020-08-08] MEDS ORDERED: ISOVUE-370 76% 100ML VIAL As Ordered ONE (15:47)
--- NOTE | 2020-08-08 16:41 | REP ---
INDICATION: nausea and vomiting. COMPARISON: None. TECHNIQUE: 4.5 mm contiguous transaxial sections were obtained from the skull base to the cerebral convexities with thin cuts through the posterior fossa without the administration of intravenous contrast. FINDINGS: The ventricles and sulci are consistent with the patient's age. There are no extra-axial fluid collections. There is no mass effect. The deep cerebral white matter is consistent with the patient's age. The orbital and petrous structures, cerebellopontine angles, and posterior fossa are unremarkable. The sella turcica, cavernous, and paracavernous structures are essentially unremarkable. The visualized portions of the paranasal sinuses and mastoid air cells are clear. Images of the skull base show no gross abnormality. IMPRESSION: Essentially unremarkable CT examination of the brain. <Electronically signed by Sean Reyes > 08/08/20 [id number]
--- NOTE | 2020-08-08 16:41 | REP ---
INDICATION: nausea and vomiting. COMPARISON: None TECHNIQUE: 100 cc Isovue 370 FINDINGS: The lung bases are clear. The liver, gallbladder, spleen, pancreas, adrenal glands, and kidneys are within normal limits. The abdominal aorta and para-aortic regions are within normal limits. The bowel loops and the mesenteries are within normal limits. In the right hemipelvis there is a low-density 4.9 by 3 cm sized structure likely arising from the left ovary. There is no free fluid or free air. The osseous structures are within normal limits. IMPRESSION: Likely left-sided ovarian cyst as described above. The examination is otherwise unremarkable. <Electronically signed by Sean Reyes > 08/08/20 [id number]
[2020-08-08] MEDS ORDERED: PROM25TA12 PO (17:41)
[2020-08-08] MEDS ORDERED: PROC25SU24 PR (17:41)
[2020-08-08 17:54] VITALS: BP 139/93
== END 2020-08-08 17:57 | disposition home or self-care (01) ==
LOC: M ED 12:59
DX: R11.2 Nausea with vomiting, unspecified (principal); R19.7 Diarrhea, unspecified; I50.9 Heart failure, unspecified; E11.9 Type 2 diabetes mellitus without complications; I10 Essential (primary) hypertension; J30.81 Allergic rhinitis due to animal (cat) (dog) hair and dander; Z79.899 Other long term (current) drug therapy; Z88.8 Allergy status to other drugs, medicaments and biological substances; Z88.5 Allergy status to narcotic agent; Z91.018 Allergy to other foods
CPT/HCPCS: 36415; 70450; 71045; 74177; 80048; 80076; 81001; 83605; 83690; 85025; 93041; 96361; 96374; 96375; 99285; J2405; Q9967

== ENCOUNTER 2021-04-13 16:36 | Emergency (ER) | payer OTHER ==
[~2021-04-13] VITALS: Ht 167.6 cm; Wt 104.5 kg
[~2021-04-13 16:36] MED LIST changes: +ATOR1TAB19 PO; +METF-838 PO; +MYCO250C PO; +ONDA4TAB6 PO; +OXYC10TA3 PO; +PREG200C PO; +PROC25SU24 PR; +PROM25TA12 PO; +ROPI0.253 PO
--- NOTE | 2021-04-13 18:05 | REP ---
INDICATION: fall injury. COMPARISON: Comparison right ankle radiographs are from July 22, 2018. TECHNIQUE: Four views of the right ankle. FINDINGS: There is plantar and Achilles calcaneal spurring. Ankle mortise is intact. No fracture or subluxation is seen. IMPRESSION: No fracture noted. Heel spurring. <Electronically signed by Zia Andujar > 04/13/21 1781
--- NOTE | 2021-04-13 18:06 | REP ---
INDICATION: fall injury. COMPARISON: None. TECHNIQUE: Bilateral knee series: Five views of each knee. FINDINGS: Five views of each knee demonstrate normal bones, joints, and soft tissues. Clothing artifact is noted over the distal thighs. No fracture or subluxation is seen. No evidence of joint effusion. IMPRESSION: Negative bilateral knee radiographs. No fracture seen. <Electronically signed by Zia Andujar > 04/13/21 2085
[2021-04-13 19:55] VITALS: BP 149/99
--- NOTE | 2021-04-15 07:33 | ECGEPIP ---
[facility] - ED Test Date: 2021-04-13 Pat Name: JANET JHAVERI Department: Room: - Gender: Female Manager Car: ROGER : 1975 Requested By: KELSEY FRANCO PA-C Order Number: [id number] Reading MD: María Martínez Measurements Intervals [place] Rate: 89 P: 12 [place]: 156 QRS: 1 QRSD: 94 T: 4 QT: 394 QTc: 479 Interpretive Statements Normal sinus rhythm Minimal voltage criteria for LVH, may be normal variant ( [place] product ) NSTTW abnormalities similar 06/21/16 Electronically Signed on 04-15-2021 7:32:57 EDT by María Martínez
== END 2021-04-13 20:00 | disposition home or self-care (01) ==
LOC: M ED 16:36
DX: M25.561 Pain in right knee (principal); M25.571 Pain in right ankle and joints of right foot; M77.31 Calcaneal spur, right foot; W19.XXXA Unspecified fall, initial encounter; Y92.099 Unspecified place in other non-institutional residence as the place of occurrence of the external cause; Y93.9 Activity, unspecified; Y99.9 Unspecified external cause status; M54.9 Dorsalgia, unspecified; F41.9 Anxiety disorder, unspecified; F32.9 Major depressive disorder, single episode, unspecified; E78.5 Hyperlipidemia, unspecified; I10 Essential (primary) hypertension; E11.9 Type 2 diabetes mellitus without complications; M79.7 Fibromyalgia; G43.909 Migraine, unspecified, not intractable, without status migrainosus; K21.9 Gastro-esophageal reflux disease without esophagitis; K58.9 Irritable bowel syndrome, unspecified; J30.81 Allergic rhinitis due to animal (cat) (dog) hair and dander; Z79.84 Long term (current) use of oral hypoglycemic drugs; Z79.899 Other long term (current) drug therapy; Z88.5 Allergy status to narcotic agent; Z88.8 Allergy status to other drugs, medicaments and biological substances; Z91.02 Food additives allergy status

== ENCOUNTER 2021-05-05 14:07 | Inpatient (IN) | payer OTHER ==
[~2021-05-05] VITALS: Ht 167.6 cm; Wt 123.9 kg
[2021-05-05] MEDS: FENOFIBRATE 145MG TABLET (TRICOR) PO SCH (06:14)
[2021-05-05] MEDS: busPIRone 10 MG TAB PO SCH (06:15)
[2021-05-05] MEDS: MYCOPHENOLATE MOFETIL 250 MG CAP (J7517) PO SCH (06:16)
[2021-05-05] MEDS: PYRIDOSTIGMINE 60MG TABLET PO SCH (06:17)
[2021-05-05] MEDS: PANTOPRAZOLE 40MG TAB (PROTONIX) PO SCH (06:17)
[2021-05-05] MEDS: PREGABALIN 100 MG CAP (LYRICA) PO SCH (06:17)
[2021-05-05] MEDS: bisoproloL fumarate 10 MG TAB PO SCH (06:18)
[2021-05-05] MEDS: rOPINIRole 0.25 MG TAB(REQUIP) PO SCH (06:18)
[2021-05-05] MEDS: ATORVASTATIN 10 MG TAB PO SCH (06:19)
[2021-05-05] MEDS: LATANOPROST 0.005% OPHTH SOLN 2.5 ML OU SCH (06:19)
[~2021-05-05 14:07] MED LIST changes: -ONDA4TAB6 PO; +ONDA4TAB6 SL; -VENTAER IN; +VENTAER INH
--- OUTSIDE RECORDS SUMMARY | 2021-05-05 14:13 | CCD | Continuity of Care Document ---
Author Author [facility] [place] [address] [place] [address] Care Team Providers Care Air Traffic Instructor Name Role Phone NONE Unavailable Unavailable Insurance Providers Payer Name Policy Number Subscriber Name Relationship [employer] [id number] JANET JHAVERI SELF Advance Directives Directive Response Recorded Date/Time Existing Advanced Directive: N 04/27/21 3: 38pm Chief Complaint and Reason for Visit Reason for Visit [facility] Problems No problem information available. Medications No medication information available. Social History No social history. Hospital Discharge Instructions No hospital discharge instructions. Plan of Care Discharge Date 04/27/21 Disposition HOME/SELF CARE Prescriptions See Medications Section Functional Status No functional status results. Allergies, Adverse Reactions, Alerts Allergen Type Severity Reaction Status Last Updated morphine Allergy Unknown Active 04/27/21 fentanyl Allergy Unknown Active 04/27/21 hydromorphone Allergy Unknown Active 04/27/21 Immunizations No Known History of Immunizations. Vital Signs No Known Vital Signs Results. Results Laboratory Results Test Name Result Units Flags Reference Collection Date/Time Result Date/Time Comments White Blood Count 11.51 x10E3/ul H 3.80-10.80 04/27/21 4:55pm 5:17pm Red Blood Count 4.52 x10E6/ul 4.19-5.39 04/27/21 4:55pm 04/27 5:17pm Hemoglobin 13.3 g/dl 12.2-16.2 04/27/21 4:55pm 04/27/21 5: 17pm Hematocrit 39.8 % 37.7-47.9 04/27/21 4:55pm 04/27/21 5: 17pm Mean Corpuscular Volume 88 fl 80-97 04/27/21 4:55pm 04/27/21 5:17pm Mean Corpuscular Hemoglobin 29.4 pg 27.0-31.2 04/27/21 4 :55pm 04/27/21 5:17pm Bedside Mean Corpuscular Hgb Conc 33.4 g/dl 31.8-3 5.4 04/27/21 4:55pm 04/27/21 5:17pm Red Cell Distribution Width 12.2 % 9.0-16.0 04/27/21 4: 55pm 04/27/21 5:17pm Platelet Count 307 x10E3/ul 150-400 04/27/21 4:55pm 04/27/21 5:17pm Mean Platelet Volume 11.0 fl 7.2-11.1 04/27/21 4:55pm 5:17pm Neutrophils % 78.7 % H 37.0-74.9 04/27/21 4:55pm 04/27/21 5:17pm Lymphocytes % 12.9 % 10.0-50.0 04/27/21 4:55pm 04/27/21 5:17pm Monocytes % 6.4 % 0.0-12.0 04/27/21 4:55pm 04/27/21 5: 17pm Eosinophils % 0.7 % 0.0-7.0 04/27/21 4:55pm 04/27/21 5 :17pm Basophils % 0.5 % 0.0-2.5 04/27/21 4:55pm 04/27/21 5:1 7pm Immature Granulocytes % 0.8 % 0-2 04/27/21 4:55pm 04/27/21 5:17pm Nucleated Red Blood Cells % 0 % 0-0 04/27/21 4:5 5pm 04/27/21 5:17pm Neutrophils # 9.1 X10E3/ul H 2.0-6.9 04/27/21 4:55pm 04/27/21 5:17pm Lymphocytes # 1.5 X10E3/ul 0.6-3.4 04/27/21 4:55pm 04/27/21 5:17pm Monocytes # 0.7 X10E3/ul 0.0-0.9 04/27/21 4:55pm 04/27/21 5: 17pm Eosinophils # 0.1 X10E3/ul 0.0-0.7 04/27/21 4:55pm 04/27/21 5:17pm Basophils # 0.1 X10E3/ul 0.0-0.2 04/27/21 4:55pm 04/27/21 5: 17pm Immature Granulocytes % 0.1 X10E3/ul 0.0-0.5 04/27/21 4:55pm 04/27/21 5:17pm Nucleated Red Blood Cells # 0.0 X10E3/ul 0.0-0.5 4:55pm 04/27/21 5:17pm Prothrombin Time 11.8 Seconds 9.4-12.5 04/27/21 4:55pm 5:33pm INR International Normalized Ratio 1.08 04/27 4:55pm 04/27/21 5:33pm The use of the INR is restricted to patients on stable oral anticoagulant. Therapeutic Range: 2.0-3.0 High Risk Values: 2.5-3.5 Activated Partial Thromboplast Time 34.8 Seconds 25.1 -36.5 04/27/21 4:55pm 04/27/21 5:33pm The above reference range for aPTT is ba sed on patients that are NOT on Heparin Therapy. Glucose Level 130 mg/dL H 74-106 04/27/21 4:55pm 04/27/21 5 :55pm Blood Urea Nitrogen 7 mg/dL 7-18 04/27/21 4:55pm 04/16 09/06 5:55pm Creatinine 0.91 mg/dL 0.55-1.30 04/27/21 4:55pm 04/27/21 5: 55pm It has been demonstrated with our laboratory's methodology for CREATININE testing that patients on N-Acetylcysteine and/or Metamizole (Dipyrone) therapy will show falsely depressed values. Estimat Glomerular Filtration Rate 66 mL/min >60 04/27/21 4:55pm 04/27/21 5:55pm Sodium Level 139 mmol/L 136-145 04/27/21 4:55pm 04/27/21 5: 55pm Potassium Level 3.3 mmol/L L 3.5-5.1 04/27/21 4:55pm 04/27/21 5:55pm Chloride Level 109 mmol/L 96-109 04/27/21 4:55pm 04/27/21 5:55pm Carbon Dioxide Level 24 mmol/L 21-32 04/27/21 4:55pm 07/06 5:55pm Anion Gap 6 mmol/L 3-11 04/27/21 4:55pm 04/27/21 5:55p m Calcium Level 8.9 mg/dL 8.2-9.8 04/27/21 4:55pm 04/27/21 5 :55pm Albumin 3.4 gm/dL 3.4-5.0 04/27/21 4:55pm 04/27/21 5:55pm Total Protein 7.2 g/dL 6.4-8.2 04/27/21 4:55pm 04/27/21 5 :55pm Total Bilirubin 0.4 mg/dL 0.2-1.0 04/27/21 4:55pm 04/27/21 5:55pm It has been demonstrated use of our TOTAL BILIRUBIN assay is not recommended for patients undergoing treatment with ELTROMBOPAG due to the potential for falsely elevated results. Aspartate Amino Transf (AST/SGOT) 31 U/L 15-37 04/27/21 4:55pm 04/27/21 5:55pm Alanine Aminotransferase (ALT/SGPT) 43 U/L 12-7 8 04/27/21 4:55pm 04/27/21 5:55pm Alkaline Phosphatase 82 U/L 45-117 04/27/21 4:55pm 07/06 5:55pm Troponin I Ultra-Sensitive < 0.015 ng/mL 04/27/21 4:55 pm 04/27/21 5:55pm CARDIAC TROPONIN I REFERENCE RANGES < 0.015 - 0.045 = Negative 0.046 - 0.300 = Indeterminate 0.301 or greater = Positive Other conditions which can lead to myocardial injury, such as cardiac contusion and myocarditis, have the potential to cause elevations in the circulating concentrations of proteins found in the myocardium, including cardiac troponin I. HIGHER THAN RECOMMENDED DAILY ALLOWANCES OF BIOTIN (VITAMIN B7) MAY CAUSE FALSELY DEPRESSED LEVELS IN OUR TROPONIN ASSAY 06/21/2017 Lipase 232 U/L 73-393 04/27/21 4:55pm 04/27/21 5:55pm Procedures No Known History of Procedures. Encounters Encounter Location Arrival/Admit Date Discharge/Depart Date Attending Provider Departed Emergency [facility] 04/27/21 3:38pm 04/27/21 7:19pm Tara Palmer M.D.
--- OUTSIDE RECORDS SUMMARY | 2021-05-05 14:15 | CCD | Summary of Care ---
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 mofetil 02/25/2021 [facility] Pathology Encounter Laboratory and [facility] at [facility] [place] [address] [place] [address] Allergies Comments Active Allergy Reactions Severity Noted Date Artificial Sweetener-In Anaphylaxis High 2014 Food Cats 02/21/2017 Hydromorphone 09/17/2020 Fentanyl 11/27/2012 Morphine And Related Nausea And 01/21/2014 Vomiting documented as of this encounter (statuses as of 02/26/2021) Medications End Date Status Medication Sig Dispensed Refills Start Date Active Multiple Vitamin Take 1 tablet 0 (MULTIVITAMIN) tablet by mouth daily. Active BUSPIRONE HCL PO Take 10 mg by 0 mouth 3 (three) times daily. Active Fenofibrate (TRICOR PO) Take 145 mg 0 by mouth daily. Active Calcium Carbonate-Vitamin Take 1 tablet 0 D (OYSCO D PO) by mouth Two Times Daily Active OxyCODONE HCl (OXYCONTIN Take by mouth 0 PO) every 6 (six) hours as needed 5/325 mg prn Active bisoprolol (ZEBETA) 10 MG Take 10 mg by 0 tablet mouth daily. Active Pregabalin (LYRICA PO) Take 200 mg 0 by mouth every 12 (twelve) hours Active TRAZODONE HCL PO Take 200 mg 0 by mouth daily. Active LORATADINE PO Take 10 mg by 0 mouth daily. Active OxyCODONE HCl ER 30 MG Take 30 mg by 0 T12A mouth Two Times Daily Active MedroxyPROGESTERone Inject into 0 Acetate (DEPO-PROVERA IM) the muscle. Active naproxen (NAPROSYN) 500 Take 500 mg 0 MG tablet by mouth. 1 -2 po qday prn Active sumatriptan (IMITREX) 25 Take 50 mg by 0 MG tablet mouth as needed for Migraine Active albuterol (PROVENTIL HFA) Inhale 2 0 108 (90 BASE) MCG/ACT puffs into inhaler the lungs Four times daily as needed Active pravastatin (PRAVACHOL) Take 20 mg by 0 20 MG tablet mouth daily Active albuterol (PROVENTIL) Take 2.5 mg 0 (2.5 MG/3ML) 0.083% by nebulizer solution nebulization every 4 (four) hours as needed for Wheezing Active ondansetron (ZOFRAN) 4 MG Take 4 mg by 0 tablet mouth every 8 (eight) hours as needed for Nausea Active losartan-hydrochlorothiaz Take 1 tablet 0 fely (HYZAAR) 100-25 MG by mouth per tablet daily Active Fluticasone Inhale 2 0 Furoate-Vilanterol (BREO puffs into ELLIPTA) 200-25 MCG/INH the lungs Two AEPB Times Daily Active nystatin (NYSTATIN) Apply 0 powder topically as needed Active pantoprazole (PROTONIX) Take 40 mg by 0 40 MG tablet mouth Two Times Daily Active metformin (GLUCOPHAGE) Take 1,000 mg 0 500 MG tablet by mouth daily with dinner Active ropinirole (REQUIP) 0.25 Take 0.5 mg 0 MG tablet by mouth nightly Active Cephalexin 500 MG Oral Take 500 mg 0 Capsule (KEFLEX) by mouth Four times daily Active Atorvastatin Calcium 10 Take 10 mg by 0 MG Oral Tablet (LIPITOR) mouth every evening Active Pyridostigmine [place] 60 TAKE 1 & 1/2 180 tablet 5 MG Oral Tablet TABLETS BY 0 (MESTINON)Indications: MOUTH FOUR Myasthenia gravis without TIMES A DAY exacerbation Active Fluticasone Propionate Inhale into 0 (Inhal) 113 MCG/ACT the lungs Aerosol Powder Breath Activated Active amLODIPine Besylate 10 MG Take 5 mg by 0 Oral Tablet (NORVASC) mouth Two Times Daily Active Latanoprost 0.005 % 1 drop 0 Ophthalmic Solution nightly (XALATAN) 12/27/2021 Active Pyridostigmine [place] 60 Take 1.5 180 tablet 5 MG Oral Tablet (Mestinon) tablets by 1 mouth Four times daily 07/14/2021 Active Mycophenolate Mofetil 250 TAKE TWO 450 capsule 1 MG Oral Capsule CAPSULES BY 1 (CELLCEPT)Indications: MOUTH EVERY Myasthenia gravis without MORNING AND 3 exacerbation CAPSULES EVERY EVENING Active Cyanocobalamin (VITAMIN B Take by mouth 0 12 PO) Active Potassium (POTASSIMIN PO) Take by mouth 0 documented as of this encounter (statuses as of 02/26/2021) Active Problems Problem Noted Date Bilateral hand numbness 02/25/2021 Encounter for [facility] use of mycophenolate mofetil 12/31/2020 Lumbosacral radiculopathy 02/17/2018 Fibromyalgia 09/01/2017 Myasthenia gravis 11/27/2012 documented as of this encounter (statuses as of 02/26/2021) Social History Date Tobacco Use Types Packs/Day Years Used Never Smoker Smokeless Tobacco: Never Used Comments Alcohol Use Standard Drinks/Week No 0 (1 standard drink = 0.6 o z pure alcohol) Sex Assigned at Date Recorded Not on file Date Recorded COVID-19 Exposure Response 02/25/2021 12:53 PM EDT In the last month, have you been in contact with No / Unsure someone who was confirmed or suspected to have Coronavirus / COVID-19? documented as of this encounter Last Filed Vital Signs Not on filedocumented in this encounter Plan of Treatment Care Team Description Date Type Specialty 04/19/2021 Procedure visit Neurology SurajLore La MD [address] [place] [address] [phone] 06/03/2021 Office Visit Neurology Health Maintenance Due Date Last Done Comments MMR Vaccines (1 of - 1974 Standard series) Varicella Vaccines (1 of 1974 2 - 2-dose childhood series) Pneumococcal Vaccine: 65+ 1979 Years (1 of 4 - PCV13) Pneumococcal Vaccine: 1979 Pediatrics (0 to 5 Years) and At-Risk Patients (6 to 64 Years) (1 of 4 - PCV13) DTaP,Tdap,and Td Vaccines 1980 (1 - Tdap) HIV Screening 1986 Cervical Cancer Screening 1994 5 years Influenza Vaccine 04/16/2021 05/26/2016, 04/30/2015 HIB Vaccines Aged Out No longer eligible based on patient's age to complete this topic Hepatitis A Vaccines Aged Out No longer eligibl e based on patient's age to complete this topic Hepatitis B Vaccines Aged Out No longer eligibl e based on patient's age to complete this topic IPV Vaccines Aged Out No longer eligible based on patient's age to complete this topic documented as of this encounter Procedures Comments Procedure Name Priority Date/Time Associated Diag nosis CBC AND DIFFERENTIAL Routine 02/25/2021 Bilateral hand numbness 2:00 PM EDT Myasthenia gravis 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8 36.0 - 45.0 % [facility] Clin Pathology Mean Cell 89.5 80.0 - 96.0 fL [facility] Volume [facility] Pathology Mean Cell 29.4 27.0 - 33.0 pg [facility] Hemoglobin [facility] Pathology Mean Cell Hgb 32.8 32 - 36 g/dL [facility] Pathology Red Cell Dist 13.5 11.5 - 14.5 % [facility] Width [facility] Pathology Platelet Count 312 150 - 400 10*3/uL [facility] Clin Pathology Differential Automated Diff [facility] Type [facility] Clin Pathology Neutrophil 49 % [facility]ology Lymphocyte 40 % [facility] Pathology Monocyte 7 % [facility] Pathology Eosinophil 3 % [facility] Pathology Basophil 1 % [facility] Pathology Abs Neutrophil 2.84 1.80 - 7.00 10*3/uL [facility] Clin Pathology Abs Lymphocyte 2.24 1.20 - 4.00 10*3/uL [facility] Clin Pathology Abs Monocyte 0.41 0.00 - 0.80 10*3/uL [facility] Clin Pathology Abs Eosinophil 0.14 0.00 - 0.50 10*3/uL [facility] Clin Pathology Abs Basophil 0.05 0.00 - 0.20 10*3/uL [facility] Clin Pathology Nucleated Red 0 0 - 0 /100{WBCs} [facility] Blood Cells [facility] Pathology Specimen EDTA Whole Blood Performing Organization Address City/State/ZIP Code P sebastian Number [facility] [address] [place], [place] [address] PATHOLOGY [facility] [address] [place], [place] [address] Clin Pathology * Comprehensive Metabolic Panel (02/25/2021 2:00 PM EDT) Albumin 4.0 3.5 - 5.2 g/dL [facility] Clin Pathology Bilirubin, 0.3 <1.2 mg/dL [facility] Total [facility] Pathology Calcium 9.0 8.6 - 10.0 mg/dL [facility] Pathology Chloride 104 98 - 107 mmol/L [facility] Pathology Creatinine 0.60 0.50 - 0.90 mg/dL [facility] Pathology Glucose 117 70 - 140 mg/dL [facility] Pathology Alkaline 81 35 - 104 U/L [facility] Phosphatase [facility] Pathology Potassium 4.3 3.4 - 5.1 mmol/L [facility] Pathology Total Protein 7.2 6.4 - 8.3 g/dL [facility] Pathology Sodium 136 136 - 145 mmol/L [facility] Pathology AST/SGO 28 <32 U/L [facility] Pathology Blood Urea 11 6 - 20 mg/dL [facility] Nitrogen [facility] Pathology Osmolality, [place] 283 275.0 - 300.0 [facility] mosm/kg [facility] Pathology BUN/Cre Ratio 18 [facility] Pathology Bicarbonate 21 (L) 22 - 29 mmol/L [facility] Pathology ALT/SGP 32 <33 U/L [facility] Pathology Anion Gap 12 8 - 15 mmol/L [facility] Pathology GFR Non >90 >60 mL/min/1.73m2 [facility] [address] [facility] Clin CDK-EPI Pathology GFR >90 >60 mL/min/1.73m2 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
--- OUTSIDE RECORDS SUMMARY | 2021-05-05 14:15 | CCD | Summary of Care ---
Author Author [facility] Organization [facility] Address Unknown Phone Unavailable Care Team Providers Care Non Destructive Testing Technician Name Role Phone Raúl Delgado MD PCP Reason for Referral * Diagnostic Medical (Routine) Referred By Contact Referred To Contact Status Reason Specialty Diagnoses / Procedures Lore Vasques MD [address] [place] [address] Email: [email or web address] Lore Vasques MD [address] [place] [address] Email: [email or web address] Authorized Neurology Diagnoses Bilateral hand numbness P rocedures EMG with Nerve Conduction (Neurology [facility]) EMG B/L upper - Eldokla Electronically signed by Lore Vasques MD at Reason for Visit * Reason Comments Follow-up pt is having a hard time ho lding things in her hands Encounter Details Care Team Description Date Type Department Lore Vasques MD [address] [place] [address] Myasthenia gravis (Primary Dx); Bilateral hand numbness; Encounter for fci use of mycophenolate mofetil 02/25/2021 Office Visit [facility] Neurology [facility] [address] [place] [address] Allergies Comments Active Allergy Reactions [...] Tablet (LIPITOR) mouth every evening Active Pyridostigmine Sherman 60 TAKE 1 & 1/2 180 tablet [...] Ophthalmic Solution nightly (XALATAN) 12/27/2021 Active Pyridostigmine Sherman 60 Take 1.5 180 tablet 5 MG [...] Date Bilateral hand numbness 02/25/2021 Encounter for fci use of mycophenolate mofetil 12/31/2020 Lumbosacral radiculopathy [...] of this encounter Last Filed Vital Signs Reading Time Taken Comments Vital Sign 120/81 02/25/2021 1:00 PM EDT Blood Pressure 81 02/25/2021 1:00 PM EDT Pulse - - Temperature - - Respiratory Rate - - Oxygen Saturation - - Inhaled Oxygen Concentration 116.1 kg (256 lb) 02/25/2021 1:00 PM EDT Weight - - Height 41.32 02/16/2018 9:53 AM EDT Body Mass Index documented in this encounter Progress Notes * Lore Vasques MD - 02/25/2021 1:00 PM EDT [facility] [address] [place] [id number] HPI: Megan Marcano is a 45 y.o. year old female who came to [facility] for follow up of acetylcholine receptor negative myasthenia gravis. The myasthenia gravis symptoms has been stable without significant worsening. She continues to have good days and few bad days. Her current medication CellCept 500 mg in the morning and then 750 mg in the afternoon pyridostigmine 90 mg 4 times a day However since yesterday she complains of bilateral hand weakness. She reported t hat her hand is weaker than she used to and the weakness associated with numbnes s and tingling predominantly affecting the thumb and index finger bilaterally, w orse on the left side. She also reported occasional numbness of the ring finger on the left. She reported mild neck pain. Previous history Initially, shecomplainedof double vision and droopy eyelids startedin 2010-2011more on the left. She haddaily episodes of do uble vision and complains of generalized fatigue. she complained of Occasional s hortness of breath which is likely unrelated to myasthenia gravis. She was s tarted on Mestinon with improvement of double vision, ptosis, and fatigue. She has 2 single fiber EMG in 2011 and 2016, both of them was done for the ri ght frontalis which was not weak at the time of SFEMG exam. She was started on CellCept in late 2016 due to increased double vision fatigue and ptosis and d evelopment of mild bifacial muscle weakness. After starting Cellcept, the do uble vision improved about 60% , ptosis was significantly improved and nearly re solved, the fatigue has improved, and the bifacial muscle weakness resolved. She remained stable and improved significantly. We tried to decrease the do se of CellCept to 500 mg twice a day however she developed increased double visi on and ptosis. Therefore the dose of CellCept was increased again to 750 mg twice a day Acetylcholine receptor antibody panel (binding, blocking, modulating) and MUSK a ntibody was negative. CT of the chest in 2010 showed no evidence of mediasti nal mass Single-fiber EMG in October 2020 showed electrodiagnostic evidence of neuromuscula r junction dysfunction. Complete ROS Review of systems as per history of present illness; the remainder of complete review of system reviewed and were noncontributory. Past Medical History: Diagnosis Date Myasthenia gravis Social History Socioeconomic History Marital status: Spouse name: None Number of children: None Years of education: None Highest education level: None Occupational History None Tobacco Use Smoking status: Never Smoker Smokeless tobacco: Never Used Substance and Sexual Activity Alcohol use: No Alcohol/week: 0.0 standard drinks Drug use: No Sexual activity: Never Other Topics Concern None Social History Narrative None Social Determinants of Health Financial Resource Strain: Difficulty of Paying Living Expenses: Food Insecurity: Worried About Running Out of Food in the Last Year: Ran Out of Food in the Last Year: Transportation Needs: Lack of Transportation (Medical): Lack of Transportation (Non-Medical): Physical Activity: Days of Exercise per Week: Minutes of Exercise per Session: Stress: Feeling of Stress : Social Connections: Frequency of Communication with Friends and Family: Frequency of Social Gatherings with Friends and Family: Attends Yazdanism Services: Active Member of Clubs or Organizations: Attends Club or Organization Meetings: Marital Status: Intimate Partner Violence: Fear of Current or Ex-Partner: Emotionally Abused: Physically Abused: Sexually Abused: Current Outpatient Medications Medication Sig Dispense Refill albuterol (PROVENTIL HFA) 108 (90 BASE) MCG/ACT inhaler Inhale 2 puffs in to the lungs Four times daily as needed albuterol (PROVENTIL) (2.5 MG/3ML) 0.083% nebulizer solution Take 2.5 mg by nebulization every 4 (four) hours as needed for Wheezing amLODIPine Besylate 10 MG Oral Tablet (NORVASC) Take 5 mg by mouth Two Ti mes Daily Atorvastatin Calcium 10 MG Oral Tablet (LIPITOR) Take 10 mg by mouth ever y evening bisoprolol (ZEBETA) 10 MG tablet Take 10 mg by mouth daily. BUSPIRONE HCL PO Take 10 mg by mouth 3 (three) times daily. Calcium Carbonate-Vitamin D (OYSCO D PO) Take 1 tablet by mouth Two Times Daily Cyanocobalamin (VITAMIN B 12 PO) Take by mouth Fenofibrate (TRICOR PO) Take 145 mg by mouth daily. Fluticasone Propionate (Inhal) 113 MCG/ACT Aerosol Powder Breath Activate d Inhale into the lungs Latanoprost 0.005 % Ophthalmic Solution (XALATAN) 1 drop nightly LORATADINE PO Take 10 mg by mouth daily. losartan-hydrochlorothiazide (HYZAAR) 100-25 MG per tablet Take 1 tablet by mouth daily metformin (GLUCOPHAGE) 500 MG tablet Take 1,000 mg by mouth daily with di nner Multiple Vitamin (MULTIVITAMIN) tablet Take 1 tablet by mouth daily. Mycophenolate Mofetil 250 MG Oral Capsule (CELLCEPT) TAKE TWO CAPSULES BY MOUTH EVERY MORNING AND 3 CAPSULES EVERY EVENING 450 capsule 1 nystatin (NYSTATIN) powder Apply topically as needed ondansetron (ZOFRAN) 4 MG tablet Take 4 mg by mouth every 8 (eight) hours as needed for Nausea OxyCODONE HCl (OXYCONTIN PO) Take by mouth every 6 (six) hours as needed 5/325 mg prn OxyCODONE HCl ER 30 MG T12A Take 30 mg by mouth Two Times Daily pantoprazole (PROTONIX) 40 MG tablet Take 40 mg by mouth Two Times Daily Potassium (POTASSIMIN PO) Take by mouth Pregabalin (LYRICA PO) Take 200 mg by mouth every 12 (twelve) hours Pyridostigmine Sherman 60 MG Oral Tablet (MESTINON) TAKE 1 & 1/2 TABLETS BY MOUTH FOUR TIMES A DAY 180 tablet 5 Pyridostigmine Sherman 60 MG Oral Tablet (Mestinon) Take 1.5 tablets by m outh Four times daily 180 tablet 5 ropinirole (REQUIP) 0.25 MG tablet Take 0.5 mg by mouth nightly sumatriptan (IMITREX) 25 MG tablet Take 50 mg by mouth as needed for Stan sonia TRAZODONE HCL PO Take 200 mg by mouth daily. Cephalexin 500 MG Oral Capsule (KEFLEX) Take 500 mg by mouth Four times d aily Fluticasone Furoate-Vilanterol (BREO ELLIPTA) 200-25 MCG/INH AEPB Inhale 2 puffs into the lungs Two Times Daily MedroxyPROGESTERone Acetate (DEPO-PROVERA IM) Inject into the muscle. naproxen (NAPROSYN) 500 MG tablet Take 500 mg by mouth. 1 -2 po qday prn pravastatin (PRAVACHOL) 20 MG tablet Take 20 mg by mouth daily (Patient n ot taking: Reported on 02/25/2021) No current facility-administered medications for this visit. Allergies Allergen Reactions Artificial Sweetener-In Food Anaphylaxis Cats Dilaudid [Hydromorphone] Fentanyl Morphine And Related Nausea And Vomiting EXAMINATION: Visit Vitals BP 120/81 Pulse 81 Wt 116.1 kg (256 lb) BMI 41.32 kg/m Constitutional: well developedr Musculoskeletal: there is no edema Skin: no rash Psychiatric: normal mood and affect. Neurological Examination: Mental status: She is alert and oriented to time, place and person. Speech: fluent with intact comprehension, repetition, and naming. Cranial nerves examinations: 2 through 12 were intact. Motor examination: Normal bulk and tone, muscle strength examination is 5/5 bila teral except bilateral abductor pollicis brevis which is 4/5. Sensory examination: She reported decreased pinprick over digits 13 bilate rally worse on the left. Co-ordination: There is no dysmetria on [id number] or heel-armstrong examination. Study review: 11/04 The single fiber EMG of left frontalis is abnormal. There is electrodiagno stic evidence of neuromuscular junction dysfunction. In the appropriate clinical setting these findings can be seen in myasthenia gravis. Impression & Plan: 1-Seronegative myasthenia gravis. Single-fiber EMG (left frontalis) showing evid ence of neuromuscular junction dysfunction in October 2020. The diagnosis was based on findings of fatigable diplopia and ptosis and bilater al facial weakness on examination with improvement after starting Mestinon and m ore significant improvement after CellCept was started. She had 2 negative s ken-fiber EMG of the right frontalis muscle however the frontalis muscle was n ot weak at the time of single-fiber EMG examination. Acetylcholine receptor anti body panel (binding, blocking, modulating) and MUSK antibody was negative. C T of the chest in 2010 showed no evidence of mediastinal mass Plan Continue pyridostigmine 90 mg 4 times a day. Continue CellCept to 500 in the morning and 750 in the evening. CBC and basic metabolic panel Today I will see her back in 3 months. She is aware ofside effect of Mestinon and CellCept including but not limite d to thrombocytopenia, leukopenia, myelosuppression, increasing risk for mal ignancy, increase risk of infections including DAYANNA virus associated infection , hepatitis, and CMV infection, renal failure and hypotension.She unders tands the risk and benefits and her questions were answered 2-symptoms of bilateral carpal tunnel syndrome. She was advised to start wearing a wrist splint EMG/nerve conduction study of bilateral upper extremity. documented in this encounter Plan of Treatment Care Team Description Date Type Specialty 04/19/2021 Procedure visit Neurology Lore Vasques MD [facility] [place] [address] [phone] 06/03/2021 Office Visit Neurology Order Schedule Name Type Priority Associated Diag noses 1 Occurrences starting 02/25/2021 until 02/25/2022 EMG with Nerve Conduction Neurology Routine Bila teral hand numbness (Neurology [facility]) Health Maintenance Due Date Last Done Comments MMR Vaccines (1 of 1 - 1974 Standard series) Varicella Vaccines (1 [...] this topic documented as of this encounter Results * Comprehensive Metabolic Panel (02/25/2021 2:00 PM EDT) Albumin 4.0 3.5 - 5.2 g/dL [facility]ology Bilirubin, 0.3 <1.2 mg/dL [facility] Total [facility]ology Calcium 9.0 8.6 - 10.0 mg/dL [facility] Chloride 104 98 - 107 mmol/L [facility] Creatinine 0.60 0.50 - 0.90 mg/dL [facility] Glucose 117 70 - 140 mg/dL [facility] Alkaline 81 35 - 104 U/L [facility]ology Potassium 4.3 3.4 - 5.1 mmol/L [facility] Total Protein 7.2 6.4 - 8.3 g/dL [facility] Sodium 136 136 - 145 mmol/L [facility] AST/SGO 28 <32 U/L [facility] Blood Urea 11 6 - 20 mg/dL [facility]ology Osmolality, [place] 283 275.0 - 300.0 [facility] mosm/kg [facility]ology BUN/Cre Ratio 18 [facility] Bicarbonate 21 (L) 22 - 29 mmol/L [facility] ALT/SGP 32 <33 U/L [facility] Anion Gap 12 8 - 15 mmol/L [facility]ology GFR Non >90 >60 mL/min/1.73m2 [facility] Upstat e [place] 2008 Med [facility] Clin CDK-EPI Pathology GFR >90 >60 mL/min/1.73m2 [facility] 2008 [facility] Clin CKD-EPI Pathology Specimen Plasma Performing Organization Address City/State/ZIP Code P sebastian Number [facility] [address] [place], [place] [address] PATHOLOGY [facility] [address] [place], [place] [address] Clin Pathology * CBC and differential (02/25/2021 2:00 PM EDT) White Blood 5.7 4.00 - 10.00 10*3/uL [facility] ate Cell [facility] Pathology Red Blood Cell 4.45 4.10 - 5.30 10*6/[facility]L [facility] Hemoglobin 13.1 11.5 - 15.5 g/dL [facility]ology Hematocrit 39.8 36.0 - 45.0 % [facility]ology Mean Cell 89.5 80.0 - 96.0 fL [facility] Volume [facility] Clin Pathology Mean Cell 29.4 27.0 - 33.0 pg [facility] Hemoglobin [facility] Clin Pathology Mean Cell Hgb 32.8 32 - 36 g/dL [facility] Clin Pathology Red Cell Dist 13.5 11.5 - 14.5 % [facility] Width [facility] Clin Pathology Platelet Count 312 150 - 400 10*3/uL [facility] Pathology Differential Automated Diff [facility] Type [facility] Clin Pathology Neutrophil 49 % [facility] Lymphocyte 40 % [facility]ology Monocyte 7 % [facility]ology Eosinophil 3 % [facility] Pathology Basophil 1 % [facility]ology Abs Neutrophil 2.84 1.80 - 7.00 10*3/uL [facility] Clin Pathology Abs Lymphocyte 2.24 1.20 - 4.00 10*3/uL [facility]ology Abs Monocyte 0.41 0.00 - 0.80 10*3/uL [facility] Clin Pathology Abs Eosinophil 0.14 0.00 - 0.50 10*3/uL [facility] Clin Pathology Abs Basophil 0.05 0.00 - 0.20 10*3/uL [facility] Clin Pathology Nucleated Red 0 0 - 0 /100{WBCs} [facility] Blood Cells [facility] Clin Pathology Specimen EDTA Whole Blood Performing Organization Address City/State/ZIP Code P se[place] Number [facility] [address] [place], [place] [address] [address] Clin Pathology documented in this encounter Visit Diagnoses Diagnosis Myasthenia gravis - Primary Myasthenia gravis without exacerbation Bilateral hand numbness Disturbance of skin sensation 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
--- OUTSIDE RECORDS SUMMARY | 2021-05-05 14:15 | CCD ---
Author Author [facility] Organization [facility] Address [address] [place] [address] Phone Care Team Providers Care Dispatch Clerk Name Role Phone Sara Andrews OD Unavailable [phone] Julián NOVAK, Billy Lee Unavailable Unavailable Miguel ANNA, Christy Unavailable Unavailable Lore Vasques Unavailable Unavailable Danny NOVAK, Raúl Diaz PP [phone] Rizwan Asif Unavailable Unavailable Kirill NOVAK, Nickolas Unavailable [phone] Brandie NOVAK/peds,Sleep, Aby Ingram Unavailable [phone] Reason for Referral No Reason for Referral Recorded Problems Includes: Active, inactive, and resolved Problems All Visits Onset Date - Time Resolved Date - Time Provider Co ndition Status Diabetes Mellitus Type 2 - Uncomplicated, Controlled 01/12/2018 - 12:00AM Raúl Delgado MD Active Note: Unchanged Morbid Obesity (>100% Overweight) 01/12/2018 - 12:00AM Raúl Delgado MD Active Note: Unchanged Chronic Diarrhea of Unknown Origin 10/20/2017 - 12:00AM Raúl Delgado MD Active Note: nl colonoscopy 11/01 D r Julián Reactive Airway Disease 05/20/2016 - 12:00AM Raúl Gupta MD Active Note: Unchanged Myasthenia Gravis Without Acute Exacerbation 01/20/2016 - 12:00A Radhames Delgado MD Active Note: Unchanged Hyperlipidemia 06/25/2015 - 12:00AM Christy GUTIERREZP -BC Active Note: Unchanged Obesity 06/25/2015 - 12:00AM 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 No change 11/30. Nl CTA 12/01 at [facility] [place] Esophageal Reflux 02/07/2012 - 12:00AM Raúl mahan MD Active Note: with small HH and onesimo yed gastric emptying. 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 Other ovarian cyst, left side 12/02/20 Raúl Delgado MD Care Programs [facility] - [facility] [place] Future Appointments Date Time Location Provider incident to previous visit- 02/10/2021 1:20PM [facility], [facility] Christy Lyn [facility]- Findings Encounter Date Following clinical practice guideline 2 017 ACC/AHA Task Force on Clinical Practice Guidelines followup with Raúl Delgado MD 09/03/2020 Follow-Up Visit to Rescreen Blood Pressure within 1 ye ar followup with Raúl Delgado MD 09/03/2020 Management of diabetic care performed she can take me tfromin the evening prior Pre-op consult for surgery with Raúl Delgado MD 01/28/2019 The Preoperative History and Physical c ompleted as above. May proceed with the planned procedure. Chronic medical problems are stable and controlled. Routine perioperative care recommended. Avoid paralytics and muscle relaxants which I know are not part of usual cataract surgery Pre-op consult for surgery with Raúl Delgado MD 01/28/2019 Tylenol for discomfort or fever. Push fluids and rest. Advised to call if persistent or high fever, increased work of breathing, persistent pain, if sxs not improving, or if concerned sick visit with Jess Goff RPA 08/15/2017 Ordered inhaled / nasal steroids followup with Raúl Delgado MD 05/20/2016 Ordered avoid exposure to triggers followup with Raúl Delgado MD 01/20/2016 Ordered a comprehensive metabolic panel followup with Raúl Delgado MD 08/28/2014 [facility] soon. We'll see back in 3-4 months less problems arise. We'll schedule a CTA of the chest given symptoms and family history. This is the best screening test followup with Raúl Delgado MD 08/28/2014 Ordered serum lipoproteins followup with Raúl white MD 08/28/2014 Ordered basic metabolic panel with total calcium In 2 -4 weeks followup with Raúl Delgado MD 04/25/2014 Ordered a comprehensive metabolic panel followup with Nba Gutierrez RPA 08/13/2013 Ordered serum lipoproteins followup with Hunter Weir 08/13/2013 Tylenol for discomfort or fever. Push fluids and rest. Recommended throat lozenges, nasal saline, Vitamin C and tylenol or ibuprofen for pain or discomfort. Advised to call if persistent or high fever, increased work of breathing, persistent pain, if sxs not improving, or if concerned sick visit with Jess Goff [facility] 07/30/2013 Ordered a comprehensive metabolic panel ANNUAL PE-foll owup exam/30 with Raúl Delgado MD 12/13/2012 Ordered CBC ANNUAL PE-followup exam/30 with Raúl Delgado MD 12/13/2012 Ordered serum lipoproteins ANNUAL PE-followup exam/30 with Raúl Delgado MD 12/13/2012 Patient instructed to report any medic ation side effects including but not limited to dizzyness, lightheadedness, fatigue, cough, GI upset, and dehydration. Also, patient is to watch for new cardiovascular and/or pulmonary symptoms in between office visits. Lifestyle modifications to manage hypertension and blood pressure goals using the JNC 7 report guidlines were specifically reviewed with the patient today. Follow up appointment in 4 months and she will stop the NSAID as she is still having pain and is getting some fluid retention and GI side effets. 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 She did not keep 01/23 visit with Иван Donaldson followup with Raúl Delgado MD 05/10/2010 Ordered a comprehensive metabolic panel followup with Raúl Delgado MD 05/10/2010 Ordered proton pump inhibitors as presc ribed with treatment goals and side effects reviewed. Warning signs and sxs discussed with the patient who was instructed to notify the MD if they occur followup with Raúl Delgado MD 05/10/2010 Ordered serum lipoproteins today with CBC and ESR/RF as a screen followup with Raúl Delgado MD 05/10/2010 Ordered a comprehensive metabolic panel with TSH and CBC and will see back in 6 months. Continue to try to reduce narcotic analgesics followup with Raúl Delgado MD 07/30/2009 Ordered elevate head of bed ANNUAL PE-followup exam/ with Raúl Delgado MD 12/04/2008 Ordered proton pump inhibitors as prescr ibed with treatment goals and side effects reviewed. Warning signs and sxs discussed with the patient who was instructed to notify the MD if they occur ANNUAL PE-followup exam/30 with Raúl Delgado MD 12/04/2008 Assessments Includes: Assessments for all patient encounters Findings Encounter Date Cyst on the left ovary We'll follow-up by [facility] WORKING MANAGER. Letter sent followup with Raúl Delgado MD 09/03/2020 Essential hypertension which is inadequately controlle d followup with Raúl Delgado MD 09/03/2020 Iliotibial band friction syndrome of lef t knee which is showing continued signs of disease followup with Raúl Delgado MD 09/03/2020 Left trochanteric bursitis which is showing continued signs of disease followup with Raúl Delgado MD 09/03/2020 Assessment of morbid obesity which is worsening incide nt to previous visit- with Christy SANTANA-BC 04/20/2020 Essential hypertension which is well-controlled incide nt to previous visit- with Christy SANTANA-BC 04/20/2020 Myasthenia gravis without acute exacerbation incident to previous visit- with Christy GUTIERREZP-BC 04/20/2020 Type 2 diabetes mellitus - uncomplicated , controlled - historically has been well controlled. We are going to run a A1C. She will continue to monit her glucose at home. May need to consider adding medication if she continues to run high. Weight loss encouraged incident to previous visit- with Christy Ricci [facility] 04/20/2020 Anxiety disorder due to general medical condition with panic attacks ANNUAL PE- followup exam/30 with Raúl Delgado MD 01/13/2020 Assessment of morbid obesity ANNUAL PE-followup exam/3 0 with Raúl Delgado MD 01/13/2020 Esophageal reflux ANNUAL PE-followup exam/30 with Raúl Delgado MD 01/13/2020 Essential hypertension which is stable Although assoc iated with some lability ANNUAL PE-followup exam/30 with Raúl Delgado MD 01/13/2020 Migraine headache without intractable migraine without status migrainosus ANNUAL PE-followup exam/30 with Raúl Delgado MD 01/13/2020 Myasthenia gravis without acute exacerbation ANNUAL PE -followup exam/30 with Raúl Delgado MD 01/13/2020 Routine adult history and physical (18 - 64 yrs) ANNUA L PE-followup exam/30 with Raúl Delgado MD 01/13/2020 Type 2 diabetes mellitus - uncomplicated, controlled A NNUAL PE-followup exam/30 with Raúl Delgado MD 01/13/2020 Assessment of morbid obesity incident to previous visi t- with Christy Radhames [facility] 09/11/2019 Essential hypertension which is well-controlled incide nt to previous visit- with Christy Ricci [facility] 09/11/2019 Hyperlipidemia incident to previous visit- with Christy Radhames [facility] 09/11/2019 Type 2 diabetes mellitus - uncomplicated, controlled i ncident to previous visit- with Christy Ricci [facility] 09/11/2019 Labile hypertension We'll add amlodipine to regimen f ollowup with Raúl Delgado MD 05/20/2019 Cataract in both eyes Pre-op consult for surgery with Raúl Delgado MD 01/28/2019 Essential hypertension Pre-op consult for surgery w ith Raúl Delgado MD 01/28/2019 Working diagnosis of visit for: preoperative exam Pre- op consult for surgery with Raúl Delgado MD 01/28/2019 Aneurysm of thoracic aorta, without rupt ure - Last CT showed no evidence of aneurysm, patient states she was told to follow prn ANNUAL PE-followup exam/30 with Christy Ricci [facility] 01/09/2019 Anxiety disorder due to general medical condition with panic attacks ANNUAL PE- followup exam/30 with Christy Radhames [facility] 01/09/2019 Essential hypertension which is stable ANNUAL PE-follo wup exam/30 with Christy Ricci [facility] 01/09/2019 Hyperlipidemia which is inadequately controlled ANNUAL PE-followup exam/30 with Christy M [facility] 01/09/2019 Obesity ANNUAL PE-followup exam/30 with Christy Ricci [facility] 01/09/2019 Routine adult history and physical (18 - 64 yrs) ANNUA L PE-followup exam/30 with Christy Ricci [facility] 01/09/2019 Type 2 diabetes mellitus - uncomplicated, controlled A NNUAL PE-followup exam/30 with Christy Radhames [facility] 01/09/2019 Assessment of morbid obesity followup with Raúl fulton MD 09/11/2018 Calcaneal spur of right foot Along with Achilles tendinitis that is now chronic followup with Raúl Delgado MD 09/11/2018 Essential hypertension which is well-controlled follow up with Raúl Delgado MD 09/11/2018 Intermittent asthma, well controlled followup with Raúl Gupta MD 09/11/2018 Assessment of morbid obesity followup with Christy Lyn [facility] 05/10/2018 Earache in the left ear . No findings. No lymphadenopathy noted. She does have a scalp sore superior to the pain which may be causing lumphadenopathy but there is not findings noted. She will monitor followup with Christy Lyn [facility] 05/10/2018 Essential hypertension which is well-controlled [facility] Hyperlipidemia which is improving followup with Christy Stephen [facility] 05/10/2018 Myasthenia gravis without acute exacerbation followup with Christy GUTIERREZP-BC 05/10/2018 Type 2 diabetes mellitus - uncomplicated, controlled f ollowup with Christy Lyn [facility] 05/10/2018 Essential hypertension which is well-controlled follow up with Raúl Delgado MD 01/09/2018 Mixed hyperlipoproteinemia which is stable followup wi th Raúl Delgado MD 01/09/2018 Morbid obesity which is showing continued signs of dis ease followup with Raúl Delgado MD 01/09/2018 Type 2 diabetes mellitus - uncomplicated, controlled f ollowup with Raúl Delgado MD 01/09/2018 Aneurysm of thoracic aorta, without rupt ure - Annual CT due in November 2017. Order in computer and verified ANNUAL PE-followup exam/30 with Christy Lyn [facility] 10/02/2017 Anxiety disorder due to general medical condition with panic attacks ANNUAL PE- followup exam/30 with Christy Lyn [facility] 10/02/2017 Essential hypertension which is stable ANNUAL PE-follo wup exam/30 with Christy Radhames [facility] 10/02/2017 Hyperlipidemia ANNUAL PE-followup exam/30 with Christy Ricci [facility] 10/02/2017 Obesity ANNUAL PE-followup exam/30 with Christy Radhames naomi [facility] 10/02/2017 Routine adult history and physical (18 - 64 yrs) ANNUA L PE-followup exam/30 with Christy Radhames naomi [facility] 10/02/2017 Otitis media of the left ear sick visit with Jess Goff RPA 08/15/2017 Chronic reflux esophagitis With fairly persistent vom iting of unclear etiology followup with Raúl Delgado MD 06/16/2017 Essential hypertension which is well-controlled follow up with Raúl Delgado MD 06/16/2017 Prediabetes Possibly from CellCept followup with Raúl Delgado MD 06/16/2017 Aneurysm of thoracic aorta, without rupture followup w [facility] Raúl Delgado MD 12/16/2016 Anxiety disorder due to general medical condition with panic attacks followup with Raúl Delgado MD 12/16/2016 Labile hypertension which is stable followup with Raúl Delgado MD 12/16/2016 Myasthenia gravis without acute exacerbation followup with Raúl Delgado MD 12/16/2016 Aneurysm of thoracic aorta, without rupture followup w moni Raúl Delgado MD 11/21/2016 Aneurysm of thoracic aorta, without rupture followup w moni Raúl Delgado MD 11/21/2016 Labile hypertension which is inadequately controlled f ollowup with Raúl Delgado MD 11/21/2016 Myasthenia gravis without acute exacerbation followup with Raúl Delgado MD 11/21/2016 Asthmatic bronchitis sick visit with Raúl Delgado MD 08/09/2016 Myasthenia gravis without acute exacerbation sick visi t with Raúl Delgado MD 08/09/2016 Reactive airway disease sick visit with Raúl noel MD 08/09/2016 Acute bronchitis - improved Transitional Care Managem ent HIGH complexity with Christy CALDWELL 07/04/2016 Myasthenia gravis without acute exacerbation Transitio nal Care Management HIGH complexity with Christy CALDWELL 07/04/2016 Obesity Transitional Care Management HIGH comple xity with Christy CALDWELL 07/04/2016 Essential hypertension - Elevated. Curr ently using her inhalers due to a recent exacerbation of myastenia gravis followup with Christy CALDWELL 05/26/2016 Hyperlipidemia - Improved. She is going to continue h er current medications followup with Christy CALDWELL 05/26/2016 Myasthenia gravis without acute exacerba tion - Symptoms from lasr exacerbation improved followup with Christy CALDWELL 05/26/2016 Reactive airway disease followup with Christy CALDWELL 05/26/2016 Myasthenia gravis - vomiting and diffic ulty swallowing can be a symptom of exacerbated myasthenia; however, patient's other myasthenic symptoms seem to be constant, specifically diplopia, and chronic diarrhea since starting mestinon indicates that she is getting a strong cholinergic effect. No decrement on peak flow on repeat testing is reassuring as this does not support respiratory muscle fatigue uinderlying patient's symptoms followup with Raúl Delgado MD 05/20/2016 Reactive airway disease exacerbated by post-infectious inflammation and cough Patient seen by Dr. Alyson Huddleston, Med-Peds R2, in conjunction with Dr. Dominick Delgado followup with Raúl Delgado MD 05/20/2016 Aneurysm of thoracic aorta, without rupture followup w moni Delgado MD 01/20/2016 Anxiety disorder due to general medical condition with panic attacks followup with Raúl Delgado MD 01/20/2016 Esophageal reflux followup with Raúl Delgado MD 01/20/2016 Essential hypertension followup with Raúl Delgado MD 01/20/2016 Hyperlipidemia followup with Raúl Delgado MD 01/20/2016 Myasthenia gravis without acute exacerbation followup with Raúl Delgado MD 01/20/2016 Restrictive lung disease due to muscular dystrophy or myasthenia gravis followup with Raúl Delgado MD 01/20/2016 Acute bronchitis Improving- Continue Symbicort and Ve ntolin as directed followup with Christy Lyn [facility] 07/29/2015 Cutaneous candidiasis - Will continue t o use the nystatin powder which has worked well ANNUAL PE-followup exam/30 with Christy Lyn [facility] 06/25/2015 Essential hypertension - controlled ANNUAL PE-followu p exam/30 with Christy Lyn [facility] 06/25/2015 Hyperlipidemia - States she has been ta avni medication. Will increase her pravastatin. Discussed ways to increase her HDL by diet ANNUAL PE-followup exam/30 with Christy Lyn [facility] 06/25/2015 Low back pain - Continue following with pain management. Medications done through their office ANNUAL PE-followup exam/30 with Christy Lyn [facility] 06/25/2015 Normal routine history and physical adult ANNUAL PE-fo llowup exam/30 with Christy Lyn [facility] 06/25/2015 Obesity ANNUAL PE-followup exam/30 with Christy Lyn [facility] 06/25/2015 Right lower zone pneumonia Transitional Care Managemen t HIGH complexity with Raúl Delgado MD 05/11/2015 Foot sprain sick visit with Christy Lyn [facility] Pain in foot and toes - Will do a X ray. Non- weightbearing. REST, Elevate, Compression and ICE sick visit with Christy Lyn MANAGER LICENSING-BC 01/22/2015 Aneurysm of thoracic aorta, without rupture followup w ith Raúl Delgado MD 12/25/2014 Essential hypertension which is inadequately controlle d followup with Raúl Delgado MD 12/25/2014 Migraine headache without intractable migraine without status migrainosus followup with Raúl Delgado MD 12/25/2014 Adjustment disorder followup with Raúl Delgado MD 08/28/2014 Essential hypertension which is stable followup with Raúl Delgado MD 08/28/2014 Hyperlipidemia followup with Raúl Delgado MD 08/28/2014 Chronic reflux esophagitis which is well-controlled fo llowup with Raúl Delgado MD 04/25/2014 Essential hypertension followup with Raúl Delgado MD 04/25/2014 Chronic reflux esophagitis which is stable followup wi th Raúl Delgado MD 12/24/2013 Essential hypertension which is inadequately controlle d likely form stress followup with Raúl Delgado MD 12/24/2013 Lumbago which is stable followup with Raúl Delgado MD 12/24/2013 Reviewed PMH for chronic reflux esophagitis followup w ith Raúl Delgado MD 12/24/2013 Essential hypertension which is inadequately controlle d nursing visit with Raúl Delgado MD 11/14/2013 Anxiety disorder of unknown (axis III) etiology follow up with Hunter Gutierrez RPA 08/13/2013 Essential hypertension followup with Hunter Gutierrez RPA Hyperlipidemia followup with Hunter Gutierrez RPA 08/13 Upper respiratory infection , viral in nature sick vis it with Jess Goff RPA 07/30/2013 Chronic reflux esophagitis which is stable ANNUAL PE-f ollowup exam/30 with Raúl Delgado MD 12/13/2012 Essential hypertension which is stable ANNUAL PE-follo wup exam/30 with Raúl Delgado MD 12/13/2012 Familial hypertriglyceridemia ANNUAL PE-followup exam/ 30 with Raúl Delgado MD 12/13/2012 Anxiety disorder due to general medical condition with panic attacks followup with Raúl Delgado MD 06/12/2012 Essential hypertension which is well-controlled follow up with Raúl Delgado MD 06/12/2012 Anxiety disorder of unknown (axis III) etiology follow up with Raúl Delgado MD 02/07/2012 Essential hypertension which is well-controlled follow up with Raúl Delgado MD 02/07/2012 Benign essential hypertension followup with Raúl sauer MD 07/26/2011 Esophageal reflux which is inadequately controlled fol lowup with Raúl Delgado MD 07/26/2011 Essential hypertension followup with Raúl Delgado MD 04/01/2011 Chronic reflux esophagitis followup with Raúl white MD 05/10/2010 Essential hypertension followup with Raúl Delgado MD 05/10/2010 Essential hypertension followup with Raúl Delgado MD 01/28/2010 Lumbago followup with Raúl Delgado MD 01/28/2010 Possible sleep apnea sick visit with Raúl Delgado MD 11/24/2009 Essential hypertension followup with Raúl Delgado MD 07/30/2009 Fatigue followup with Raúl Delgado MD 07/30/2009 Essential hypertension followup with Raúl Delgado MD 03/16/2009 Lumbago followup with Raúl Delgado MD 03/16/2009 Ankle sprain sick visit with Hunter Gutierrez RPA Plantar fasciitis sick visit with Hunter Gutierrez RPA Esophageal reflux by sxs ANNUAL PE-followup exam/30 w ith Raúl Delgado MD 12/04/2008 Essential hypertension ANNUAL PE-followup exam/30 w ith Raúl Delgado MD 12/04/2008 Lumbago ANNUAL PE-followup exam/30 with Raúl Delgado MD 12/04/2008 Instructions Instructions not supported for this document typeNo Instructions Recorded Medical Equipment - Implanted Devices Includes: Current and historical DevicesNo Medical Equipment Recorded Medications Includes: Current and historical Medications Current Medications (continue as prescribed) amLODIPine Besylate 5 MG Oral Tablet 09/03/2020 Pro vider: Raúl Delgado MD Diagnosis: Essential (primary) hypertension 1 PO BID busPIRone HCl 10 MG Oral Tablet 08/25/2020 Provider : Christy Lyn [facility] Diagnosis: 1 PO TID SUMAtriptan Succinate 100 MG Oral Tablet 07/27/2020 - 2021 Provider: Raúl Delgado MD Diagnosis: as directed 1 tab at onset of headache traZODone HCl 100 MG Oral Tablet 07/20/2020 Provide r: Christy Lyn [facility] Diagnosis: Type 2 diabetes jihan itus without complications 2 QHS Went back on after failing SNRI OneTouch Delica Lancets 33G Miscellaneous 07/20/2020 Provider: Christy Ricci [facility] Diagnosis: Type 2 diabetes jihan itus without complications test 1-2 times daily OneTouch Verio In Vitro Strip 05/20/2020 Provider: Christy Lyn [facility] Diagnosis: tests 1-2 days per day dx E11.9 Albuterol Sulfate HFA 108 (90 Base) MCG/ACT Inhalation Aerosol Solution 04/29/2020 Provider: Raúl Delgado MD Diagnosis: 2 puffs q4hr prn Pantoprazole Sodium 40 MG Oral Tablet Delayed Release 2019 Provider: Christy Ricci [facility] Diagnosis: 1 PO BID metFORMIN HCl ER 500 MG Oral Tablet Extended Release 24 Hour 04/20/2020 Provider: Christy Lyn [facility] Diagnosis: 2 PO QPM Tricor 145 MG Oral Tablet 04/20/2020 Provider: Christy Lyn [facility] Diagnosis: Pure hyperglyceridem ia 1 PO QD Losartan Potassium-HCTZ 100-25 MG Oral Tablet 04/20/2020 Provider: Christy Lyn [facility] Diagnosis: 1 PO QD Bisoprolol Fumarate 10 MG Oral Tablet 04/20/2020 Pr ovider: Christy Lyn [facility] Diagnosis: 1 PO QD Ondansetron 4 MG Oral Tablet Disintegrating 04/20/2020 Provider: Christy Lyn [facility] Diagnosis: 1 PO QID prn nausea Losartan Potassium 100 MG Oral Tablet 03/03/2020 Pr ovider: Raúl Delgado MD Diagnosis: TAKE ONE TABLET BY MOUTH EVERY DAY Atorvastatin Calcium 10 MG Oral Tablet 03/03/2020 P rovider: Raúl Delgado MD Diagnosis: Mixed hyperlipidemia TAKE ONE TABLET BY MOUTH EVERY EVENING Albuterol Sulfate (2.5 MG/3ML)0.083% Inhalation Nebuli zation solution 05/15/2019 Provider: Raúl Delgado MD Diagnosis: 1 unit via nebulizer every 4 hours as needed for wheezing/ S OB OneTouch Delica Lancets Fine Miscellaneous 05/15/2019 Provider: Raúl Delgado MD Diagnosis: tests 1-2 times a day dx E11.9 Naproxen 500MG Oral Tablet 09/13/2018 Provider: Raúl Delgado MD Diagnosis: one BID prn 1 tab PO bid Narcan 4MG/0.1ML Nasal Liquid 01/05/2018 Provider: Diagnosis: CellCept 250MG Oral Capsule 06/16/2017 Provider: Diagnosis: Walker Miscellaneous 07/06/2016 Provider: Christy Lyn [facility] Diagnosis: Four wheeled walker with seat and breaks. ICD G70.00 Mestinon 60 MG Tablet 07/04/2016 Provider: Diagnosis: 1.5 tabs QID. Lyrica 200 MG Capsule, conventional 06/25/2015 Prov ider: Diagnosis: 1 tab po BID Percocet 5-325 MG OR TABS 04/25/2014 Provider: Diagnosis: L Talamantes oxyCODONE HCl 30 MG OR TABS 12/24/2013 Provider: Diagnosis: Watn Pain Past Medications on file traZODone HCl 100 MG Oral Tablet 04/20/2020 - 04/20/2020 Pro vider: Christy Lyn [facility] Diagnosis: 2 QHS Went back on after failing SNRI amLODIPine Besylate 5 MG Oral Tablet 04/20/2020 - 09/03/2020 Provider: Christy Lyn [facility] Diagnosis: 1 PO QD busPIRone HCl 10 MG Oral Tablet 04/20/2020 - 04/20/2020 Prov ider: Christy Lyn [facility] Diagnosis: 1 PO TID hydroCHLOROthiazide 25 MG Oral Tablet 03/03/2020 - Provider: Raúl Delgado MD Diagnosis: TAKE ONE TABLET BY MOUTH EVERY DAY busPIRone HCl 10 MG Oral Tablet 01/14/2020 - 04/20/2020 Prov ider: Raúl Delgado MD Diagnosis: went back on after intolerance to Duloxetine traZODone HCl 100 MG Oral Tablet 01/14/2020 - 04/20/2020 Pro vider: Raúl Delgado MD Diagnosis: Went back on after failing SNRI DULoxetine HCl 30 MG Oral Capsule Delayed Release Part icles 01/13/2020 - 01/27/2020 Provider: Raúl Delgado MD Diagnosis: 1 PO QD Ondansetron 4 MG Oral Tablet Disintegrating 11/15/2019 - 11/2019 Provider: Christy Lyn [facility] Diagnosis: 1 PO QID prn nausea Nystatin 777257 UNIT/GM External Powder 09/19/2019 - 020 Provider: Christy Lyn [employer] [employer] Diagnosis: apply under both breasts twice a day. Atorvastatin Calcium 10 MG Oral Tablet 09/19/2019 - 03/03/20 20 Provider: Raúl Delgado MD Diagnosis: Mixed hyperlipidemia 1 PO QPM Atorvastatin Calcium 10 MG Oral Tablet 09/18/2019 - 09/11/19 20 Provider: Raúl Delgado MD Diagnosis: Mixed hyperlipidemia 1 PO QPM Nystatin 068180 UNIT/GM External Powder 09/16/2019 - 020 Provider: Christy Lyn [employer] [employer] Diagnosis: apply under both breasts twice a day. Losartan Potassium 100 MG Oral Tablet 08/09/2019 - 0 Provider: Raúl Delgado MD Diagnosis: 1 po daily hydroCHLOROthiazide 25 MG Oral Tablet 08/09/2019 - 0 Provider: Raúl Delgado MD Diagnosis: 1 po daily amLODIPine Besylate 5MG Oral Tablet 05/20/2019 - 04/20/2020 Provider: Raúl Delgado MD Diagnosis: 1 PO QD Pravastatin Sodium 20MG Oral Tablet 05/15/2019 - 09/18/2019 Provider: Raúl Delgado MD Diagnosis: 1 PO QD Tricor 145MG Oral Tablet 05/15/2019 - 04/20/2020 Provider: Raúl Delgado MD Diagnosis: Pure hyperglyceridem ia 1 PO QD OneTouch Verio In Vitro Strip 05/15/2019 - 04/20/2020 Provid er: Raúl Delgado MD Diagnosis: tests 1-2 days per day dx E11.9 Losartan Potassium-HCTZ 100-25MG Oral Tablet 05/15/2019 - Provider: Raúl Delgado MD Diagnosis: 1 PO QD Ondansetron 4MG Oral Tablet Disintegrating 05/15/2019 - 08/18 Provider: Raúl Delgado MD Diagnosis: 1 PO QID prn nausea busPIRone HCl 10MG Oral Tablet 05/15/2019 - 01/13/2020 Provi adair: Raúl Delgado MD Diagnosis: Anxiety disorder due to known physiological condition 1 PO TID Ventolin HFA 108 (90 Base)MCG/ACT Inhalation Aerosol S olution 05/15/2019 - 04/29/2020 Provider: Raúl Delgado MD Diagnosis: 2 puffs q4hr prn traZODone HCl 100MG Oral Tablet 05/15/2019 - 04/19/2020 Prov ider: Raúl Delgado MD Diagnosis: 2 PO QPM SUMAtriptan Succinate 100MG Oral Tablet 05/15/2019 - 021 Provider: Raúl Delgado MD Diagnosis: as directed 1 tab at onset of headache Pantoprazole Sodium 40MG Oral Tablet Delayed Release 019 - 04/20/2020 Provider: Raúl Delgado MD Diagnosis: 1 PO BID metFORMIN HCl ER 500MG Oral Tablet Extended Release 24 Hour 05/15/2019 - 04/20/2020 Provider: Raúl Delgado MD Diagnosis: 2 PO QPM Bisoprolol Fumarate 10MG Oral Tablet 05/15/2019 - 04/20/2020 Provider: Raúl Delgado MD Diagnosis: 1 PO QD Ventolin HFA 108 (90 Base) MCG/ACT IN AERS 01/14/2019 - 04/18 Provider: Raúl Delgado MD Diagnosis: 2 puffs q4hr prn metFORMIN HCl ER 500 MG TB24 01/14/2019 - 05/15/2019 Provide r: Raúl Delgado MD Diagnosis: 2 PO QPM Pantoprazole Sodium 40 MG OR TBEC 01/14/2019 - 05/15/2019 Pr ovider: Raúl Delgado MD Diagnosis: 1 PO BID traZODone HCl 100 MG OR TABS 01/14/2019 - 05/15/2019 Provide r: Raúl Delgado MD Diagnosis: 2 PO QPM SUMAtriptan Succinate 100 MG OR TABS 01/14/2019 - 05/15/2019 Provider: Raúl Delgado MD Diagnosis: as directed 1 tab at onset of headache Bisoprolol Fumarate 10 MG OR TABS 01/14/2019 - 05/15/2019 Pr ovider: Raúl Delgado MD Diagnosis: 1 PO QD busPIRone HCl 10MG Oral Tablet 12/13/2018 - 05/15/2019 Provi adair: Raúl Delgado MD Diagnosis: Anxiety disorder due to known physiological condition 1 PO TID Nystatin 062563PCLQ/GM External Powder 12/13/2018 - 09/11/19 20 Provider: Raúl Delgado MD Diagnosis: apply under both breasts twice a day. Ondansetron 4MG Oral Tablet Disintegrating 10/26/2018 - 04/18 Provider: Raúl Delgado MD Diagnosis: 1 PO QID prn nausea OneTouch Verio In Vitro Strip 10/19/2018 - 05/15/2019 Provid er: Raúl Delgado MD Diagnosis: tests 1-2 days per day E11.9 OneTouch Delica Lancets Fine Miscellaneous 10/19/2018 - 04/18 Provider: Raúl Delgado MD Diagnosis: tests 1-2 times a day dx E11.9 Losartan Potassium-HCTZ 100-25MG Oral Tablet 10/16/2018 - Provider: Raúl Delgado MD Diagnosis: 1 PO QD Qvar RediHaler 80MCG/ACT Inhalation Aerosol Breath Act ivated 09/11/2018 - 09/06/2019 Provider: Diagnosis: one puff BID Tricor 145MG Oral Tablet 09/11/2018 - 05/15/2019 Provider: Raúl Delgado MD Diagnosis: Pure hyperglyceridem ia 1 PO QD SUMAtriptan Succinate 100MG Oral Tablet 09/11/2018 - 019 Provider: Raúl Delgado MD Diagnosis: as directed 1 tab at onset of headache Daily Multiple Vitamins Oral Tablet 09/11/2018 - 09/06/2019 Provider: Diagnosis: 1 PO QD Oscal 500/200 D-3 [id number]-GWLM Oral Tablet 09/11/2018 - Provider: Diagnosis: 1 PO BID Pravastatin Sodium 20MG Oral Tablet 07/19/2018 - 05/15/2019 Provider: Raúl Delgado MD Diagnosis: 1 PO QD Zofran 4MG Oral Tablet 07/19/2018 - 10/26/2018 Provider: Raúl Delgado MD Diagnosis: 1 tab po TID prn nausea. BusPIRone HCl 10MG Oral Tablet 05/17/2018 - 09/11/2018 Provi adair: Raúl Delgado MD Diagnosis: Anxiety disorder due to known physiological condition 1 PO TID Pantoprazole Sodium 40MG Oral Tablet Delayed Release 018 - 05/10/2018 Provider: Raúl Delgado MD Diagnosis: 1 PO BID Naproxen 500MG Oral Tablet 05/17/2018 - 09/11/2018 Provider: Raúl Delgado MD Diagnosis: one BID prn 1 tab PO bid OneTouch Delica Lancets Fine Miscellaneous 05/10/2018 - 08/18 Provider: Christy Lyn [employer] [employer] Diagnosis: tests 1-2 times a day dx E11.9 OneTouch Verio In Vitro Strip 05/10/2018 - 09/11/2018 Provid er: Christy Lyn [employer] Diagnosis: tests 1-2 days per day E11.9 ReliOn Lancets Standard 21G Miscellaneous 05/10/2018 - 05/10 Provider: Christy Lyn [employer] Diagnosis: as directed two times per day. ReliOn Prime Test In Vitro Strip 05/10/2018 - 05/10/2018 Pro vider: Christy Lyn [employer] Diagnosis: check glucose 1-2 times per day. OneTouch Verio w/Device Kit 05/10/2018 - 11/06/2018 Provider : Christy Lyn [employer] Diagnosis: testing 1-2 times a day E11.9 Losartan Potassium-HCTZ 100-25MG Oral Tablet 04/03/2018 - Provider: Raúl Delgado MD Diagnosis: 1 PO QD Albuterol Sulfate (2.5 MG/3ML)0.083% Inhalation Nebuli zation solution 04/03/2018 - 05/15/2019 Provider: Raúl Delgado MD Diagnosis: 1 unit via nebulizer every 4 hours as needed for wheezing/ S OB Tricor 145 MG OR TABS 03/06/2018 - 09/11/2018 Provider: Raúl Delgado MD Diagnosis: Pure hyperglyceridem ia 1 PO QD SUMAtriptan Succinate 100MG Oral Tablet 02/01/2018 - 019 Provider: Raúl Delgado MD Diagnosis: as directed 1 tab at onset of headache Nystatin 585267MKBW/GM External Powder 01/18/2018 - 09/11/19 19 Provider: Raúl Delgado MD Diagnosis: apply under both breasts twice a day. MetFORMIN HCl ER 500MG Oral Tablet Extended Release 24 Hour 01/09/2018 - 01/14/2019 Provider: Raúl Delgado MD Diagnosis: 2 PO QPM TraZODone HCl 100MG Oral Tablet 01/09/2018 - 01/14/2019 Prov ider: Raúl Delgado MD Diagnosis: 2 PO QPM Bisoprolol Fumarate 10MG Oral Tablet 01/09/2018 - 01/14/2019 Provider: Raúl Delgado MD Diagnosis: 1 PO QD Ventolin HFA 108 (90 Base) MCG/ACT IN AERS 01/03/2018 - 07/2018 Provider: Raúl Delgado MD Diagnosis: 2 puffs q4hr prn Naproxen 500 MG OR TABS 01/03/2018 - 05/10/2018 Provider: Raúl Delgado MD Diagnosis: one BID prn 1 tab PO bid Zofran 4 MG OR TABS 01/03/2018 - 07/19/2018 Provider: Raúl Delgado MD Diagnosis: 1 tab po TID prn nausea. BusPIRone HCl 10MG Oral Tablet 12/05/2017 - 05/10/2018 Provi adair: Raúl Delgado MD Diagnosis: Anxiety disorder due to known physiological condition 1 PO TID Albuterol Sulfate (2.5 MG/3ML)0.083% Inhalation Nebuli zation solution 12/05/2017 - 04/03/2018 Provider: Raúl Delgado MD Diagnosis: 1 unit via nebulizer every 4 hours as needed for wheezing/ S OB Losartan Potassium-HCTZ 100-25MG Oral Tablet 10/04/2017 - Provider: Christy Lyn [employer] Diagnosis: 1 PO QD Breo Ellipta 200-25MCG/INH Inhalation Aerosol Powder B reath Activated 10/02/2017 - 09/11/2018 Provider: Diagnosis: 1 inhalation per day. Tricor 145 MG OR TABS 09/08/2017 - 03/06/2018 Provider: Raúl Delgado MD Diagnosis: Pure hyperglyceridem ia 1 PO QD Naproxen 500 MG OR TABS 09/08/2017 - 05/15/2017 Provider: Raúl Delgado MD Diagnosis: one BID prn 1 tab PO bid Pantoprazole Sodium 40MG Oral Tablet Delayed Release 018 - 05/10/2018 Provider: Diagnosis: Azithromycin 250MG Oral Tablet 08/15/2017 - 01/09/2018 Provi adair: Jess Goff RPA Diagnosis: as directed - Take 2 tabs PO x 1 day, then 1 tab PO daily x 4 days. Albuterol Sulfate (2.5 MG/3ML)0.083% Inhalation Nebuli zation solution 08/10/2017 - 11/28/2017 Provider: Raúl Delgado MD Diagnosis: 1 unit via nebulizer every 4 hours as needed for wheezing/ S OB Nystatin [id number]/GM External Powder 08/10/2017 - 01/10/20 18 Provider: Raúl Delgado MD Diagnosis: apply under both breasts twice a day. Zofran 4MG Oral Tablet 08/10/2017 - 08/10/2017 Provider: Raúl Delgado MD Diagnosis: 1 tab po TID prn nausea. SUMAtriptan Succinate 100MG Oral Tablet 08/10/2017 - 018 Provider: Raúl Delgado MD Diagnosis: as directed 1 tab at onset of headache busPIRone HCl 10 MG OR TABS 07/19/2017 - 11/28/2017 Provider : Raúl Delgado MD Diagnosis: Anxiety disorder due to known physiological condition 1 PO TID Pravastatin Sodium 20 MG OR TABS 07/18/2017 - 07/19/2018 Pro vider: Raúl Delgado MD Diagnosis: 1 PO QD Ventolin HFA 108 (90 Base)MCG/ACT Inhalation Aerosol S olution 07/13/2017 - 06/16/2017 Provider: Raúl Delgado MD Diagnosis: 2 puffs q4hr prn Bisoprolol Fumarate 10MG Oral Tablet 07/13/2017 - 01/09/2018 Provider: Raúl Delgado MD Diagnosis: 1 PO QD RaNITidine HCl 150MG Oral Tablet 06/16/2017 - 10/02/2017 Pro vider: Raúl Delgado MD Diagnosis: 1 PO QHS busPIRone HCl 10 MG OR TABS 06/14/2017 - 11/21/2016 Provider : Raúl Delgado MD Diagnosis: Anxiety disorder due to known physiological condition 1 PO TID Naproxen 500MG Oral Tablet 05/15/2017 - 05/15/2017 Provider: Raúl Delgado MD Diagnosis: one BID prn 1 tab PO bid Zofran 4MG Oral Tablet 05/15/2017 - 08/10/2017 Provider: Raúl Delgado MD Diagnosis: 1 tab po TID prn nausea. Albuterol Sulfate (2.5 MG/3ML) 0.083% Nebulization jazmyne ution 04/18/2017 - 08/10/2017 Provider: Raúl Delgado MD Diagnosis: 1 unit via nebulizer every 4 hours as needed for wheezing/ S OB Nystatin 718774 UNIT/GM Powder 04/18/2017 - 08/10/2017 Provi adair: Raúl Delgado MD Diagnosis: as directed apply to under both breasts twice a day. Losartan Potassium-HCTZ 100-25 MG Tablet 04/18/2017 - 2017 Provider: Raúl Delgado MD Diagnosis: 1 PO QD Tricor 145 MG OR TABS 03/17/2017 - 09/08/2017 Provider: Raúl Delgado MD Diagnosis: Pure hyperglyceridem ia 1 PO QD Nystatin 521649 UNIT/GM EX POWD 03/17/2017 - 03/30/2017 Prov ider: Raúl Delgado MD Diagnosis: as directed apply to under both breasts twice a day. Omeprazole 20 MG OR CPDR 02/10/2017 - 08/15/2017 Provider: Raúl Delgado MD Diagnosis: 1 PO BID failed H2 sagar SUMAtriptan Succinate 100 MG OR TABS 02/10/2017 - 08/10/2017 Provider: Raúl Delgado MD Diagnosis: as directed 1 tab at onset of headache traZODone HCl 100 MG OR TABS 01/13/2017 - 01/09/2018 Provide r: Raúl Delgado MD Diagnosis: as directed take 2 tablets at hour of sleep. Bisoprolol Fumarate 10 MG OR TABS 01/13/2017 - 06/16/2017 Pr ovider: Raúl Delgado MD Diagnosis: 1 PO QD BusPIRone HCl 10 MG Tablet 12/15/2016 - 11/21/2016 Provider: Raúl Delgado MD Diagnosis: Anxiety disorder due to known physiological condition 1 PO TID Albuterol Sulfate (2.5 MG/3ML) 0.083% Nebulization jazmyne ution 12/15/2016 - 03/30/2017 Provider: Raúl Delgado MD Diagnosis: 1 unit via nebulizer every 4 hours as needed for wheezing/ S OB Ventolin HFA 108 (90 Base) MCG/ACT Aerosol Solution 12/16/19 - 06/16/2017 Provider: Raúl Delgado MD Diagnosis: 2 puffs q4hr prn Naproxen 500 MG Tablet 12/15/2016 - 05/15/2017 Provider: Raúl Delgado MD Diagnosis: one BID prn 1 tab PO bid Losartan Potassium-HCTZ 100-25 MG Tablet 12/14/2016 - 2016 Provider: Colin Hong MD Diagnosis: Losartan Potassium-HCTZ 100-12.5 MG Tablet 11/22/2016 - 08/2016 Provider: Raúl Delgado MD Diagnosis: 1 PO QD Irbesartan-Hydrochlorothiazide 150-12.5 MG Tablet 11/21/2016 - 11/22/2016 Provider: Raúl Delgado MD Diagnosis: 1 PO QD Nystatin 518231 UNIT/GM Powder 11/14/2016 - 08/09/2016 Provi adair: Raúl Delgado MD Diagnosis: as directed apply to under both breasts twice a day. Zofran 4 MG Tablet 11/14/2016 - 05/15/2017 Provider: Raúl Delgado MD Diagnosis: 1 tab po TID prn nausea. Zithromax Z-Ozzie 250 MG Tablet 10/31/2016 - 11/21/2016 Provid er: Raúl Delgado MD Diagnosis: as directed Albuterol Sulfate (2.5 MG/3ML) 0.083% IN NEBU 10/14/2016 - 0 11/21/2016 Provider: Raúl Delgado MD Diagnosis: 1 unit via nebulizer every 4 hours as needed for wheezing/ S OB Albuterol Sulfate (2.5 MG/3ML) 0.083% Nebulization jazmyne ution 08/29/2016 - 10/14/2016 Provider: Raúl Delgado MD Diagnosis: 1 unit via nebulizer every 4 hours as needed for wheezing/ S OB Cefuroxime Axetil 500 MG Tablet 08/25/2016 - 11/21/2016 Prov ider: Raúl Delgado MD Diagnosis: 1 PO BID Naproxen 500 MG Tablet 08/19/2016 - 11/21/2016 Provider: Raúl Delgado MD Diagnosis: one BID prn 1 tab PO bid Zithromax Z-Ozzie 250 MG Tablet 08/09/2016 - 08/25/2016 Provid er: Raúl Delgado MD Diagnosis: as directed Simvastatin 20 MG Tablet 07/14/2016 - 07/14/2016 Provider: Christy Lyn [employer] [employer] Diagnosis: 1 PO QD SUMAtriptan Succinate 100 MG OR TABS 07/12/2016 - 12/22/2015 Provider: Raúl Delgado MD Diagnosis: as directed 1 tab at onset of headache Pravastatin Sodium 20 MG OR TABS 07/12/2016 - 07/18/2017 Pro vider: Christy Lyn [employer] Diagnosis: 1 PO QD Bisoprolol Fumarate 10 MG OR TABS 07/12/2016 - 01/20/2016 Pr ovider: Raúl Delgado MD Diagnosis: 1 PO QD Nystatin 716327 UNIT/GM EX POWD 07/12/2016 - 08/09/2016 Prov ider: Raúl Delgado MD Diagnosis: as directed apply to under both breasts twice a day. Albuterol Sulfate (2.5 MG/3ML) 0.083% Nebulization jazmyne ution 07/07/2016 - 01/20/2016 Provider: Christy Ricci Eboni [facility] Diagnosis: 1 unit via nebulizer every 4 hours as needed for wheezing/ S OB Albuterol Sulfate (2.5 MG/3ML) 0.083% Nebulization jazmyne ution 07/07/2016 - 08/29/2016 Provider: Christy Ricci Eboni [facility] Diagnosis: 1 unit via nebulizer every 4 hours as needed for wheezing/ S OB Walker Miscellaneous 07/04/2016 - 07/06/2016 Provider: Christy Ricci Zafarnaomi [facility]- Diagnosis: with front wheels. DX Myasthenia Gravis. Lisinopril 10 MG Tablet 06/20/2016 - 11/21/2016 Provider: Raúl Delgado MD Diagnosis: 1 PO QD BusPIRone HCl 10 MG Tablet 06/13/2016 - 11/21/2016 Provider: Raúl Delgado MD Diagnosis: Anxiety disorder due to known physiological condition 1 PO TID Zofran 4 MG Tablet 06/13/2016 - 08/09/2016 Provider: Raúl Delgado MD Diagnosis: 1 tab po TID prn nausea. Symbicort 80-4.5 MCG/ACT Aerosol 05/20/2016 - 10/02/2017 Pro vider: Raúl Delgado MD Diagnosis: 2 puffs BID Ventolin HFA 108 (90 Base) MCG/ACT IN AERS 05/13/2016 - 0502/2017 Provider: Raúl Delgado MD Diagnosis: 2 puffs q4hr prn Tricor 145 MG Tablet 04/08/2016 - 03/17/2017 Provider: Raúl Delgado MD Diagnosis: Pure hyperglyceridem ia 1 PO QD Zofran 4 MG Tablet 04/08/2016 - 05/26/2016 Provider: Raúl Delgado MD Diagnosis: 1 tab po TID prn nausea. Symbicort 160-4.5 MCG/ACT Aerosol 03/23/2016 - 12/16/2016 Pr ovider: Raúl Delgado MD Diagnosis: 2 puffs BID Naproxen 500 MG Tablet 2016 - 08/19/2016 Provider: Raúl Delgado MD Diagnosis: one BID prn 1 tab PO bid Nystatin 269208 UNIT/GM Powder 2016 - 2016 Provi adair: Raúl Delgado MD Diagnosis: as directed apply to under both breasts twice a day. Omeprazole 20 MG Capsule Delayed Release 01/20/2016 - 2016 Provider: Raúl Delgado MD Diagnosis: 1 PO BID failed H2 sagar Bisoprolol Fumarate 10 MG Tablet 01/20/2016 - 01/20/2016 Pro vider: Raúl Delgado MD Diagnosis: 1 PO QD Zofran 4 MG Tablet 01/20/2016 - 04/08/2016 Provider: Raúl Delgado MD Diagnosis: 1 tab po TID prn nausea. Ventolin HFA 108 (90 Base) MCG/ACT Aerosol Solution 12/22/19 16 - 12/22/2015 Provider: Raúl Delgado MD Diagnosis: 2 puffs q4hr prn Tricor 145 MG Tablet 12/22/2015 - 04/08/2016 Provider: Raúl Delgado MD Diagnosis: Pure hyperglyceridem ia 1 PO QD Lisinopril 10 MG Tablet 12/22/2015 - 05/26/2016 Provider: Raúl Delgado MD Diagnosis: 1 PO QD BusPIRone HCl 10 MG Tablet 12/22/2015 - 05/26/2016 Provider: Raúl Delgado MD Diagnosis: Anxiety disorder due to known physiological condition 1 PO TID TraZODone HCl 100 MG Tablet 12/22/2015 - 06/16/2017 Provider : Raúl Delgado MD Diagnosis: as directed take 2 tablets at hour of sleep. SUMAtriptan Succinate 100 MG Tablet 12/22/2015 - 12/22/2015 Provider: Raúl Delgado MD Diagnosis: as directed 1 tab at onset of headache Zofran 4 MG Tablet 12/18/2015 - 01/20/2016 Provider: Raúl Delgado MD Diagnosis: 1 tab po TID prn nausea. Symbicort 160-4.5 MCG/ACT Aerosol 12/18/2015 - 01/20/2016 Pr ovider: Diagnosis: Lot# [id number] -12/31 Ativan 0.5 MG Tablet 12/18/2015 - 01/20/2016 Provider: Raúl Delgado MD Diagnosis: Anxiety disorder due to known physiological condition 1 po qid prn #: [id number] MDD=4 Ativan 0.5 MG Tablet 11/23/2015 - 12/18/2015 Provider: Raúl Delgado MD Diagnosis: Anxiety disorder due to known physiological condition 1 po qid prn [id number] MDD=4 Naproxen 500 MG Tablet 11/23/2015 - 2016 Provider: Raúl Delgado MD Diagnosis: one BID prn 1 tab PO bid Zofran 4 MG Tablet 11/16/2015 - 12/18/2015 Provider: Raúl Delgado MD Diagnosis: 1 tab po TID prn nausea. Ativan 0.5 MG Tablet 10/26/2015 - 11/23/2015 Provider: Raúl Delgado MD Diagnosis: Anxiety disorder due to known physiological condition 1 po qid prn [id number] MDD=4 Nystatin 205085 UNIT/GM EX POWD 10/26/2015 - 2016 Prov ider: Christy Lyn [employer] [employer] Diagnosis: apply to under both breasts twice a day. Zofran 4 MG Tablet 09/25/2015 - 11/16/2015 Provider: Raúl Delgado MD Diagnosis: 1 tab po TID prn nausea. Ativan 0.5 MG Tablet 09/22/2015 - 10/26/2015 Provider: Raúl Delgado MD Diagnosis: Anxiety disorder due to known physiological condition 1 po qid prn #: [id number] Ativan 0.5 MG Tablet 08/19/2015 - 09/22/2015 Provider: Jess Goff RPA Diagnosis: Anxiety disorder due to known physiological condition 1 po qid prn Ref #: [id number] Zofran 4 MG Tablet 07/29/2015 - 09/25/2015 Provider: Christy Lyn [employer] Diagnosis: 1 tab po TID prn nausea. Bisoprolol Fumarate 10 MG Tablet 07/28/2015 - 01/20/2016 Pro vider: Raúl Delgado MD Diagnosis: 1 PO QD SUMAtriptan Succinate 100 MG Tablet 07/28/2015 - 12/22/2015 Provider: Raúl Delgado MD Diagnosis: as directed 1 tab at onset of headache Naproxen 500 MG Tablet 07/23/2015 - 11/23/2015 Provider: Raúl Delgado MD Diagnosis: one BID prn 1 tab PO bid Naproxen 500 MG Tablet 07/06/2015 - 07/06/2015 Provider: Raúl Delgado MD Diagnosis: one BID prn 1 tab PO bid Ativan 0.5 MG Tablet 07/01/2015 - 07/29/2015 Provider: Jess Goff RPA Diagnosis: Anxiety disorder due to known physiological condition 1 po qid prn Ref #: [id number] Symbicort 160-4.5 MCG/ACT Aerosol 06/25/2015 - 12/18/2015 Pr ovider: Diagnosis: Pravastatin Sodium 20 MG Tablet 06/25/2015 - 07/14/2016 Prov ider: Christy Ricci Zafarnaomi [employer] [employer] Diagnosis: 1 PO QD Nystatin 724439 UNIT/GM Powder 06/25/2015 - 06/25/2015 Provi adair: Christy Lyn [employer] Diagnosis: apply to under both breasts twice a day. SUMAtriptan Succinate 100 MG OR TABS 06/08/2015 - 07/06/2015 Provider: Raúl Delgado MD Diagnosis: as directed 1 tab at onset of headache Ativan 0.5 MG Tablet 06/01/2015 - 06/25/2015 Provider: Raúl Delgado MD Diagnosis: Anxiety disorder due to known physiological condition 1 po qid prn #: [id number] Breo Ellipta 100-25 MCG/INH Aerosol Powder Breath Acti vated 05/19/2015 - 06/01/2015 Provider: Raúl Delgado MD Diagnosis: 1 puff daily Advair Diskus 250-50 MCG/DOSE Aerosol Powder Breath Ac tivated 05/13/2015 - 05/19/2015 Provider: Raúl Delgado MD Diagnosis: one puff BID Ventolin HFA 108 (90 Base) MCG/ACT Aerosol, solution 015 - 12/22/2015 Provider: Raúl Delgado MD Diagnosis: 2 puffs q4hr prn ProAir HFA 108 (90 Base) MCG/ACT Aerosol, solution 5 - 05/12/2015 Provider: Raúl Delgado MD Diagnosis: 2 puffs q4hr prn Symbicort 80-4.5 MCG/ACT Aerosol 05/11/2015 - 05/12/2015 Pro vider: Raúl Delgado MD Diagnosis: 2 puffs BID Mestinon 60 MG Tablet 05/11/2015 - 07/04/2016 Provider: Rizwan Asif Diagnosis: 90 TID after hospital stay PredniSONE 10 MG Tablet 05/11/2015 - 01/20/2016 Provider: Diagnosis: take as directed PREDNISONE TAPER-4 PO Q D x 3 days then 2 QD x 3 days then 1 1/2 QD x3 days then 1 QD x3 days then 1/2 QD x 3 days Ativan 0.5 MG Tablet 04/24/2015 - 05/11/2015 Provider: Raúl Delgado MD Diagnosis: Anxiety disorder due to known physiological condition 1 po qid prn #: [id number] Naproxen 500 MG Tablet 04/06/2015 - 07/06/2015 Provider: Raúl Delgado MD Diagnosis: one BID prn 1 tab PO bid Ativan 0.5 MG Tablet 03/25/2015 - 04/24/2015 Provider: Raúl Delgado MD Diagnosis: Anxiety disorder due to known physiological condition 1 po qid prn ref# [id number] Pravastatin Sodium 10 MG Tablet 03/03/2015 - 06/25/2015 Prov ider: Raúl Delgado MD Diagnosis: Hyperlipidemia. NOS 1 PO QD Lisinopril 10 MG Tablet 03/03/2015 - 12/22/2015 Provider: Raúl Delgado MD Diagnosis: 1 PO QD TraZODone HCl 100 MG Tablet 03/03/2015 - 12/22/2015 Provider : Raúl Delgado MD Diagnosis: as directed take 2 tablets at hour of sleep. Omeprazole 20 MG Capsule, delayed-release 03/03/2015 - 01/19 Provider: Raúl Delgado MD Diagnosis: 1 PO BID failed H2 sagar Tricor 145 MG Tablet 03/03/2015 - 12/22/2015 Provider: Raúl Delgado MD Diagnosis: Pure hyperglyceridem ia 1 PO QD Naproxen 500 MG Tablet 02/19/2015 - 03/25/2015 Provider: Raúl Delgado MD Diagnosis: one BID prn 1 tab PO bid BusPIRone HCl 10 MG Tablet 02/09/2015 - 12/22/2015 Provider: Raúl Delgado MD Diagnosis: Anxiety disorder due to known physiological condition 1 PO TID Ativan 0.5 MG Tablet 02/09/2015 - 03/25/2015 Provider: Raúl Delgado MD Diagnosis: Anxiety disorder due to known physiological condition 1 po qid prn ref# [id number] Ativan 0.5 MG Tablet 01/08/2015 - 01/22/2015 Provider: Raúl Delgado MD Diagnosis: Anxiety disorder due to known physiological condition 1 PO QID prn #: [id number] SUMAtriptan Succinate 100 MG Tablet 12/25/2014 - 12/25/2014 Provider: Raúl Delgado MD Diagnosis: as directed 1 tab at onset of headache Bisoprolol Fumarate 10 MG Tablet 12/25/2014 - 07/06/2015 Pro vider: Raúl Delgado MD Diagnosis: 1 PO QD Naproxen 500 MG Tablet 12/16/2014 - 01/22/2015 Provider: Raúl Delgado MD Diagnosis: one BID prn 1 tab PO bid Ativan 0.5 MG Tablet 12/01/2014 - 12/25/2014 Provider: Raúl Delgado MD Diagnosis: Anxiety disorder due to known physiological condition 1 PO QID prn #: [id number] Ativan 0.5 MG Tablet 10/30/2014 - 12/01/2014 Provider: Raúl Delgado MD Diagnosis: Anxiety disorder due to known physiological condition 1 PO QID prn #: [id number] Lisinopril 10 MG OR TABS 09/09/2014 - 01/22/2015 Provider: Raúl Delgado MD Diagnosis: Bisoprolol Fumarate 5 MG OR TABS 09/09/2014 - 12/25/2014 Pro vider: Raúl Delgado MD Diagnosis: Hypertension/Unspeci fied Ativan 0.5 MG OR TABS 09/09/2014 - 10/30/2014 Provider: Raúl Delgado MD Diagnosis: Anxiety Disorder w/ panic attacks Ref # [id number] Tricor 145 MG OR TABS 09/02/2014 - 01/22/2015 Provider: Raúl Delgado MD Diagnosis: Hypertriglyceridemia Omeprazole 20 MG OR CPDR 08/28/2014 - 01/22/2015 Provider: aRúl Delgado MD Diagnosis: failed H2 sagar Omeprazole 20 MG OR CPDR 08/28/2014 - 08/28/2014 Provider: Raúl Delgado MD Diagnosis: ESOPHAGEAL REFLUX Lyrica 150 MG OR CAPS 08/28/2014 - 01/20/2016 Provider: Diagnosis: aparna Talamantes traZODone HCl 100 MG OR TABS 08/28/2014 - 01/22/2015 Provide r: Raúl Delgado MD Diagnosis: take 2 tablets at hour of sleep. Pravastatin Sodium 10 MG OR TABS 08/28/2014 - 01/22/2015 Pro vider: Raúl Delgado MD Diagnosis: Hyperlipidemia. NOS Ativan 0.5 MG OR TABS 08/12/2014 - 09/02/2014 Provider: Raúl Delgado MD Diagnosis: Anxiety Disorder w/ panic attacks : [id number] busPIRone HCl 10 MG OR TABS 08/11/2014 - 01/22/2015 Provider : Raúl Delgado MD Diagnosis: Anxiety Disorder w/ panic attacks Bisoprolol Fumarate 5 MG OR TABS 08/11/2014 - 08/28/2014 Pro vider: Raúl Delgado MD Diagnosis: Hypertension/Unspeci fied Ativan 0.5 MG OR TABS 07/07/2014 - 08/12/2014 Provider: Jess Goff RPA Diagnosis: Anxiety Disorder w/ panic attacks Ref# [id number] Ativan 0.5 MG OR TABS 06/10/2014 - 06/10/2014 Provider: Raúl Delgado MD Diagnosis: Anxiety Disorder w/ panic attacks #: [id number] Ativan 0.5 MG OR TABS 05/06/2014 - 06/10/2014 Provider: Raúl Delgado MD Diagnosis: Anxiety Disorder w/ panic attacks #: [id number] Lisinopril 10 MG OR TABS 04/25/2014 - 09/02/2014 Provider: Raúl Delgado MD Diagnosis: Ativan 0.5 MG OR TABS 03/24/2014 - 05/06/2014 Provider: Raúl Delgado MD Diagnosis: Anxiety Disorder w/ panic attacks #: [id number] Omeprazole 20 MG OR CPDR 02/11/2014 - 08/28/2014 Provider: Raúl Delgado MD Diagnosis: ESOPHAGEAL REFLUX busPIRone HCl 10 MG OR TABS 02/11/2014 - 02/07/2012 Provider : Raúl Delgado MD Diagnosis: Anxiety Disorder w/ panic attacks Bisoprolol Fumarate 5 MG OR TABS 02/11/2014 - 07/26/2011 Pro vider: Raúl Delgado MD Diagnosis: Hypertension/Unspeci fied Ativan 0.5 MG OR TABS 02/06/2014 - 03/24/2014 Provider: Raúl Delgado MD Diagnosis: Anxiety Disorder w/ panic attacks #: [id number] Ativan 0.5 MG OR TABS 12/24/2013 - 02/06/2014 Provider: Raúl Delgado MD Diagnosis: Anxiety Disorder w/ panic attacks #: [id number] Gabapentin 300 MG OR CAPS 12/24/2013 - 08/28/2014 Provider: Diagnosis: Ativan 0.5 MG OR TABS 11/14/2013 - 12/24/2013 Provider: Raúl Delgado MD Diagnosis: Anxiety Disorder w/ panic attacks # [id number] Ativan 0.5 MG OR TABS 10/16/2013 - 11/14/2013 Provider: Raúl Delgado MD Diagnosis: Anxiety Disorder w/ panic attacks # [id number] Gemfibrozil 600 MG OR TABS 09/24/2013 - 12/24/2013 Provider: Raúl Delgado MD Diagnosis: Hypertriglyceridemia Ativan 0.5 MG OR TABS 09/11/2013 - 09/24/2013 Provider: Raúl Delgado MD Diagnosis: Anxiety Disorder w/ panic attacks # [id number] traZODone HCl 100 MG OR TABS 08/27/2013 - 08/28/2014 Provide r: Hunter Matt [facility] Diagnosis: take 2 tablets at hour of sleep. In place of 150 mg tablets Pravastatin Sodium 10 MG OR TABS 08/13/2013 - 08/28/2014 Pro vider: Hunter Matt [facility] Diagnosis: Hyperlipidemia. NOS Oscal 500/200 D-3 500-200 MG-UNIT OR TABS 08/12/2013 - 09/11 Provider: Raúl Delgado MD Diagnosis: Omeprazole 20 MG OR CPDR 08/12/2013 - 07/26/2011 Provider: Raúl Delgado MD Diagnosis: ESOPHAGEAL REFLUX Bisoprolol Fumarate 5 MG OR TABS 08/12/2013 - 07/26/2011 Pro vider: Raúl Delgado MD Diagnosis: Hypertension/Unspeci fied Tricor 145 MG OR TABS 08/12/2013 - 09/24/2013 Provider: aRúl Delgado MD Diagnosis: Hypertriglyceridemia Ativan 0.5 MG OR TABS 07/30/2013 - 08/27/2013 Provider: Jess Goff RPA Diagnosis: Anxiety Disorder w/ panic attacks #[id number] Ativan 0.5 MG OR TABS 05/06/2013 - 07/30/2013 Provider: Raúl Delgado MD Diagnosis: Anxiety Disorder w/ panic attacks Code A #[id number] Ativan 0.5 MG OR TABS 03/21/2013 - 05/06/2013 Provider: Raúl Delgado MD Diagnosis: Anxiety Disorder w/ panic attacks Code A #[id number] Tylenol 325 MG OR TABS 03/20/2013 - 01/20/2016 Provider: Raúl Delgado MD Diagnosis: Tylenol 325 MG OR TABS 02/12/2013 - 07/26/2011 Provider: Raúl Delgado MD Diagnosis: Tricor 145 MG OR TABS 02/12/2013 - 02/21/2012 Provider: Raúl Delgado MD Diagnosis: Hypertriglyceridemia Bisoprolol Fumarate 5 MG OR TABS 02/12/2013 - 07/26/2011 Pro vider: Raúl Delgado MD Diagnosis: Hypertension/Unspeci fied Omeprazole 20 MG OR CPDR 02/12/2013 - 07/26/2011 Provider: Raúl Delgado MD Diagnosis: ESOPHAGEAL REFLUX busPIRone HCl 10 MG OR TABS 02/12/2013 - 02/07/2012 Provider : Raúl Delgado MD Diagnosis: Anxiety Disorder w/ panic attacks traZODone HCl 150 MG OR TABS 02/12/2013 - 12/24/2013 Provide r: Raúl Delgado MD Diagnosis: Anxiety Disorder w/ panic attacks 1and 1/2 PO QHS Oscal 500/200 D-3 500-200 MG-UNIT OR TABS 02/12/2013 - 08/12 Provider: Raúl Delgado MD Diagnosis: Ativan 0.5 MG OR TABS 02/04/2013 - 03/21/2013 Provider: Raúl Delgado MD Diagnosis: Anxiety Disorder w/ panic attacks Ativan 0.5 MG OR TABS 01/07/2013 - 12/06/2012 Provider: Raúl Delgado MD Diagnosis: Anxiety Disorder w/ panic attacks DEPO-Medrol 80 MG/ML IJ SUSP 12/13/2012 - 01/09/2018 Provide r: Diagnosis: Laura Donaldson Ativan 0.5 MG OR TABS 12/06/2012 - 12/06/2012 Provider: Raúl Delgado MD Diagnosis: Anxiety Disorder w/ panic attacks Pyridostigmine Formoso 60 MG OR TABS 11/28/2012 - 01/20/2016 Provider: Diagnosis: [facility]. Ativan 0.5 MG OR TABS 11/16/2012 - 12/06/2012 Provider: Hunter Gutierrez RPA Diagnosis: Anxiety Disorder w/ panic attacks Oscal 500/200 D-3 500-200 MG-UNIT OR TABS 11/14/2012 - 02/12 Provider: Raúl Delgado MD Diagnosis: Ativan 0.5 MG OR TABS 10/17/2012 - 08/21/2012 Provider: Hunter Gutierrez RPA Diagnosis: Anxiety Disorder w/ panic attacks traZODone HCl 150 MG OR TABS 10/15/2012 - 04/09/2012 Provide r: Raúl Delgado MD Diagnosis: Anxiety Disorder w/ panic attacks 1and 1/2 PO QHS Ativan 0.5 MG OR TABS 10/02/2012 - 08/21/2012 Provider: Raúl Delgado MD Diagnosis: Anxiety Disorder w/ panic attacks busPIRone HCl 10 MG OR TABS 09/18/2012 - 02/07/2012 Provider : Raúl Delgado MD Diagnosis: Anxiety Disorder w/ panic attacks Omeprazole 20 MG OR CPDR 09/18/2012 - 07/26/2011 Provider: Raúl Delgado MD Diagnosis: ESOPHAGEAL REFLUX Bisoprolol Fumarate 5 MG OR TABS 09/18/2012 - 07/26/2011 Pro vider: Raúl Delgado MD Diagnosis: Hypertension/Unspeci fied Ativan 0.5 MG OR TABS 09/03/2012 - 08/21/2012 Provider: Raúl Delgado MD Diagnosis: Anxiety Disorder w/ panic attacks Tricor 145 MG OR TABS 08/30/2012 - 02/21/2012 Provider: Raúl Delgado MD Diagnosis: Hypertriglyceridemia Ativan 0.5 MG OR TABS 08/21/2012 - 08/21/2012 Provider: Raúl Delgado MD Diagnosis: Anxiety Disorder w/ panic attacks Ativan 0.5 MG OR TABS 07/18/2012 - 08/21/2012 Provider: Raúl Delgado MD Diagnosis: Anxiety Disorder w/ panic attacks Ativan 0.5 MG OR TABS 06/12/2012 - 07/18/2012 Provider: Raúl Delgado MD Diagnosis: Anxiety Disorder w/ panic attacks Ativan 0.5 MG OR TABS 05/14/2012 - 06/12/2012 Provider: Raúl Delgado MD Diagnosis: Anxiety Disorder w/ panic attacks Oscal 500/200 D-3 500-200 MG-UNIT OR TABS 05/08/2012 - 11/14 Provider: Raúl Delgado MD Diagnosis: Ativan 0.5 MG OR TABS 04/13/2012 - 02/07/2012 Provider: Raúl Delgado MD Diagnosis: Anxiety Disorder w/ panic attacks traZODone HCl 150 MG OR TABS 04/09/2012 - 04/09/2012 Provide r: Raúl Delgado MD Diagnosis: Anxiety Disorder w/ panic attacks 1and 1/2 PO QHS Bisoprolol Fumarate 5 MG OR TABS 04/04/2012 - 07/26/2011 Pro vider: Raúl Delgado MD Diagnosis: Hypertension/Unspeci fied GAY PA# [id number] Omeprazole 20 MG OR CPDR 03/12/2012 - 07/26/2011 Provider: Raúl Delgado MD Diagnosis: ESOPHAGEAL REFLUX GAY PA#- [id number] thru 09/12/2012 traZODone HCl 150 MG OR TABS 03/12/2012 - 04/09/2012 Provide r: Raúl Delgado MD Diagnosis: Anxiety Disorder w/ panic attacks 1and 1/2 PO QHS Ativan 0.5 MG OR TABS 03/12/2012 - 02/07/2012 Provider: Raúl Delgado MD Diagnosis: Anxiety Disorder w/ panic attacks Ativan 0.5 MG OR TABS 02/23/2012 - 02/07/2012 Provider: Raúl Delgado MD Diagnosis: Anxiety Disorder w/ panic attacks Tricor 145 MG OR TABS 02/23/2012 - 02/21/2012 Provider: Raúl Delgado MD Diagnosis: Hypertriglyceridemia Fenofibrate Micronized 134 MG OR CAPS 02/21/2012 - 2 Provider: Raúl Delgado MD Diagnosis: Hypertriglyceridemia traZODone HCl 150 MG OR TABS 02/08/2012 - 07/05/2011 Provide r: Raúl Delgado MD Diagnosis: Anxiety Disorder w/ panic attacks 1and 1/2 PO QHS Omeprazole 20 MG OR CPDR 02/08/2012 - 07/26/2011 Provider: Raúl Delgado MD Diagnosis: ESOPHAGEAL REFLUX GAY PA#- [id number]- good thru 03/26/12 NexIUM 40 MG OR CPDR 02/07/2012 - 06/12/2012 Provider: Raúl Delgado MD Diagnosis: ESOPHAGEAL REFLUX busPIRone HCl 10 MG OR TABS 02/07/2012 - 02/07/2012 Provider : Raúl Delgado MD Diagnosis: Anxiety Disorder w/ panic attacks Ativan 0.5 MG OR TABS 02/07/2012 - 02/07/2012 Provider: Raúl Delgado MD Diagnosis: Anxiety Disorder w/ panic attacks Voltaren 1% TD GEL 02/07/2012 - 10/02/2017 Provider: Diagnosis: bid Daily Multiple Vitamins OR TABS 01/26/2012 - 09/11/2018 Prov ider: Raúl Delgado MD Diagnosis: Tylenol 325 MG OR TABS 01/26/2012 - 01/20/2016 Provider: Raúl Delgado MD Diagnosis: traZODone HCl 150 MG OR TABS 01/13/2012 - 07/05/2011 Provide r: Raúl Delgado MD Diagnosis: Anxiety Disorder w/ panic attacks 1and 1/2 PO QHS busPIRone HCl 5 MG OR TABS 01/13/2012 - 02/07/2012 Provider: Raúl Delgado MD Diagnosis: Anxiety Disorder w/ panic attacks Bisoprolol Fumarate 5 MG OR TABS 01/12/2012 - 07/26/2011 Pro vider: Raúl Delgado MD Diagnosis: Hypertension/Unspeci fied Ativan 0.5 MG OR TABS 12/14/2011 - 02/07/2012 Provider: Hunter Gutierrez RPA Diagnosis: Anxiety Disorder w/ panic attacks traZODone HCl 150 MG OR TABS 12/14/2011 - 07/05/2011 Provide r: Raúl Delgado MD Diagnosis: Anxiety Disorder w/ panic attacks 1and 1/2 PO QHS Ativan 0.5 MG OR TABS 11/18/2011 - 07/26/2011 Provider: Hunter Gutierrez RPA Diagnosis: Anxiety Disorder w/ panic attacks traZODone HCl 150 MG OR TABS 11/15/2011 - 07/05/2011 Provide r: Raúl Delgado MD Diagnosis: Anxiety Disorder w/ panic attacks 1and 1/2 PO QHS Oscal 500/200 D-3 500-200 MG-UNIT OR TABS 11/15/2011 - 05/08 Provider: Raúl Delgado MD Diagnosis: Ativan 0.5 MG OR TABS 10/20/2011 - 07/26/2011 Provider: Raúl Delgado MD Diagnosis: Anxiety Disorder w/ panic attacks traZODone HCl 150 MG OR TABS 10/20/2011 - 07/05/2011 Provide r: Raúl Delgado MD Diagnosis: Anxiety Disorder w/ panic attacks 1and 1/2 PO QHS Omeprazole 20 MG OR CPDR 09/26/2011 - 07/26/2011 Provider: Raúl Delgado MD Diagnosis: ESOPHAGEAL REFLUX GAY PA#- [id number]- good thru 03/26/12 traZODone HCl 150 MG OR TABS 09/22/2011 - 07/05/2011 Provide r: Raúl Delgado MD Diagnosis: Anxiety Disorder w/ panic attacks 1and 1/2 PO QHS Ativan 0.5 MG OR TABS 09/22/2011 - 07/26/2011 Provider: Raúl Delgado MD Diagnosis: Anxiety Disorder w/ panic attacks Mestinon 60 MG OR TABS 08/29/2011 - 12/13/2012 Provider: Diagnosis: 30mg Q4 WA Dr Yefri ROSE neuro opth Ativan 0.5 MG OR TABS 08/26/2011 - 07/26/2011 Provider: Raúl Delgado MD Diagnosis: Anxiety Disorder w/ panic attacks traZODone HCl 150 MG OR TABS 08/22/2011 - 07/05/2011 Provide r: Raúl Delgado MD Diagnosis: Anxiety Disorder w/ panic attacks 1and 1/2 PO QHS Ativan 0.5 MG OR TABS 07/26/2011 - 07/26/2011 Provider: Raúl Delgado MD Diagnosis: Anxiety Disorder w/ panic attacks busPIRone HCl 5 MG OR TABS 07/26/2011 - 07/26/2011 Provider: Raúl Delgado MD Diagnosis: Anxiety Disorder w/ panic attacks Tylenol 325 MG OR TABS 07/26/2011 - 07/26/2011 Provider: Raúl Delgado MD Diagnosis: Daily Multiple Vitamins OR TABS 07/26/2011 - 07/26/2011 Prov ider: Raúl Delgado MD Diagnosis: Bisoprolol Fumarate 5 MG OR TABS 07/26/2011 - 07/26/2011 Pro vider: Raúl Delgado MD Diagnosis: Hypertension/Unspeci fied OxyCONTIN 20 MG OR TB12 07/26/2011 - 12/24/2013 Provider: Diagnosis: Pain treatment in [place] Oscal 500/200 D-3 500-200 MG-UNIT OR TABS 07/26/2011 - 11/14 Provider: Diagnosis: Omeprazole 20 MG OR CPDR 07/26/2011 - 07/26/2011 Provider: Raúl Delgado MD Diagnosis: ESOPHAGEAL REFLUX Ativan 0.5 MG OR TABS 07/05/2011 - 07/26/2011 Provider: Raúl Delgado MD Diagnosis: Anxiety Disorder w/ panic attacks traZODone HCl 150 MG OR TABS 07/05/2011 - 07/05/2011 Provide r: Raúl Delgado MD Diagnosis: Anxiety Disorder w/ panic attacks 1and 1/2 PO QHS traZODone HCl 150 MG OR TABS 05/20/2011 - 07/05/2011 Provide r: Raúl Delgado MD Diagnosis: Anxiety Disorder w/ panic attacks 1and 1/2 PO QHS Ativan 0.5 MG OR TABS 05/20/2011 - 07/05/2011 Provider: Raúl Delgado MD Diagnosis: Anxiety Disorder w/ panic attacks Oscal 500/200 D-3 500-200 MG-UNIT OR TABS 04/25/2011 - 12/13 Provider: Raúl Delgado MD Diagnosis: Effexor XR 37.5 MG OR CP24 04/01/2011 - 07/26/2011 Provider: Diagnosis: Percocet 5-325 MG OR TABS 04/01/2011 - 04/25/2014 Provider: Diagnosis: L Talamantes oxyCODONE HCl 20 MG OR TABS 04/01/2011 - 08/18/2011 Provider : Diagnosis: L Talamantes Citalopram Hydrobromide 20 MG OR TABS 04/01/2011 - 2 Provider: Diagnosis: Dr Nolan Bisoprolol Fumarate 5 MG OR TABS 01/21/2011 - 07/26/2011 Pro vider: Raúl Delgado MD Diagnosis: Omeprazole 20 MG OR CPDR 01/21/2011 - 07/26/2011 Provider: Raúl Delgado MD Diagnosis: Omeprazole 20 MG OR CPDR 01/21/2011 - 05/10/2010 Provider: Raúl Delgado MD Diagnosis: Depo-Provera 150 MG/ML IM SUSP 08/06/2010 - 12/13/2012 Provi adair: Raúl Delgado MD Diagnosis: Bisoprolol Fumarate 5 MG OR TABS 08/06/2010 - 12/28/2007 Pro vider: Hunter Gutierrez RPA Diagnosis: Omeprazole 20 MG OR CPDR 08/06/2010 - 05/10/2010 Provider: Raúl Delgado MD Diagnosis: Oscal 500/200 D-3 500-200 MG-UNIT OR TABS 08/06/2010 - 05/10 Provider: Raúl Delgado MD Diagnosis: Oscal 500/200 D-3 500-200 MG-UNIT OR TABS 05/10/2010 - 05/10 Provider: Raúl Delgado MD Diagnosis: Savella 50 MG OR TABS 05/10/2010 - 04/01/2011 Provider: Diagnosis: Omeprazole 20 MG OR CPDR 05/10/2010 - 05/10/2010 Provider: Raúl Delgado MD Diagnosis: Ativan 0.5 MG OR TABS 05/10/2010 - 05/20/2011 Provider: Diagnosis: Dr Nolan traZODone HCl 150 MG OR TABS 05/10/2010 - 05/20/2011 Provide r: Diagnosis: Dr Nolan tiZANidine HCl 4 MG OR TABS 05/10/2010 - 08/13/2013 Provider : Diagnosis: Whit Talamantes Lyrica 100 MG OR CAPS 05/10/2010 - 12/24/2013 Provider: Diagnosis: [place] Pain Omeprazole 20 MG OR CPDR 03/24/2010 - 05/10/2010 Provider: Raúl Delgado MD Diagnosis: Bisoprolol Fumarate 5 MG OR TABS 03/17/2010 - 12/28/2007 Pro vider: Hunter Gutierrez RPA Diagnosis: Naprosyn 500 MG OR TABS 03/17/2010 - 05/10/2010 Provider: Hunter Gutierrez RPA Diagnosis: Percocet 5-325 MG OR TABS 03/08/2010 - 05/10/2010 Provider: Rúal Delgado MD Diagnosis: MDD 8 tabs daily Percocet 5-325 MG OR TABS 02/15/2010 - 03/08/2010 Provider: Raúl Delgado MD Diagnosis: MDD 8 tabs daily Ativan 0.5 MG OR TABS 02/15/2010 - 05/10/2010 Provider: Raúl Delgado MD Diagnosis: MDD-4 tabs Depo-Provera 150 MG/ML IM SUSP 01/28/2010 - 08/06/2010 Provi adair: Raúl Delgado MD Diagnosis: Ryzolt 300 MG OR TB24 12/23/2009 - 04/01/2011 Provider: Diagnosis: aparna Talamantes Ativan 0.5 MG OR TABS 12/15/2009 - 02/15/2010 Provider: Raúl Delgado MD Diagnosis: MDD-4 tabs Percocet 5-325 MG OR TABS 12/15/2009 - 02/15/2010 Provider: Raúl Delgado MD Diagnosis: MDD 8 tabs daily Percocet 5-325 MG OR TABS 11/13/2009 - 09/14/2009 Provider: Raúl Delgado MD Diagnosis: MDD 8 tabs daily Ryzolt 200 MG OR TB24 11/12/2009 - 12/23/2009 Provider: Diagnosis: Dr Talamantes Depo-Provera 150 MG/ML IM SUSP 11/06/2009 - 01/28/2010 Provi adair: Raúl Delgado MD Diagnosis: Ativan 0.5 MG OR TABS 11/06/2009 - 08/04/2009 Provider: Raúl Delgado MD Diagnosis: MDD-4 tabs traZODone HCl 100 MG OR TABS 10/22/2009 - 05/10/2010 Provide r: Raúl Delgado MD Diagnosis: Lyrica 50 MG OR CAPS 10/22/2009 - 05/10/2010 Provider: Raúl Delgado MD Diagnosis: one tab at lunch and 2 before bed Percocet 5-325 MG OR TABS 10/13/2009 - 09/14/2009 Provider: Raúl Delgado MD Diagnosis: MDD 8 tabs daily Ativan 0.5 MG OR TABS 10/13/2009 - 08/04/2009 Provider: Raúl Delgado MD Diagnosis: MDD-4 tabs Flexeril 10 MG OR TABS 09/16/2009 - 11/24/2009 Provider: Raúl Delgado MD Diagnosis: generic Omeprazole 20 MG OR CPDR 09/16/2009 - 12/04/2008 Provider: Raúl Delgado MD Diagnosis: Bisoprolol Fumarate 5 MG OR TABS 09/16/2009 - 12/28/2007 Pro vider: Raúl Delgado MD Diagnosis: Naprosyn 500 MG OR TABS 09/16/2009 - 05/06/2003 Provider: Raúl Delgado MD Diagnosis: Percocet 5-325 MG OR TABS 09/14/2009 - 09/14/2009 Provider: Raúl Delgado MD Diagnosis: MDD 8 tabs daily Percocet 5-325 MG OR TABS 09/14/2009 - 09/14/2009 Provider: Raúl Delgado MD Diagnosis: MDD 8 tabs daily Ativan 0.5 MG OR TABS 09/14/2009 - 08/04/2009 Provider: Raúl Delgado MD Diagnosis: MDD-4 tabs Percocet 5-325 MG OR TABS 09/14/2009 - 09/02/2009 Provider: Hunter Gutierrez RPA Diagnosis: MDD 8 tabs daily Percocet 5-325 MG OR TABS 09/02/2009 - 09/02/2009 Provider: Hunter Gutierrez RPA Diagnosis: MDD 8 tabs daily Flexeril 10 MG OR TABS 08/31/2009 - 05/06/2003 Provider: Raúl Delgado MD Diagnosis: Omeprazole 20 MG OR CPDR 08/31/2009 - 12/04/2008 Provider: Raúl Delgado MD Diagnosis: Bisoprolol Fumarate 5 MG OR TABS 08/31/2009 - 12/28/2007 Pro vider: Raúl Delgado MD Diagnosis: Naprosyn 500 MG OR TABS 08/31/2009 - 05/06/2003 Provider: Raúl Delgado MD Diagnosis: Ativan 0.5 MG OR TABS 08/25/2009 - 08/04/2009 Provider: Raúl Delgado MD Diagnosis: MDD-4 tabs Percocet 5-325 MG OR TABS 08/12/2009 - 09/02/2009 Provider: Raúl Delgado MD Diagnosis: MDD 8 tabs daily Ativan 0.5 MG OR TABS 08/04/2009 - 08/04/2009 Provider: Raúl Delgado MD Diagnosis: MDD-4 tabs Percocet 5-325 MG OR TABS 07/14/2009 - 05/14/2009 Provider: Raúl Delgado MD Diagnosis: MDD 8 tabs daily Ativan 0.5 MG OR TABS 07/14/2009 - 08/04/2009 Provider: Raúl Delgado MD Diagnosis: MDD-4 tabs Ativan 0.5 MG OR TABS 06/29/2009 - 06/29/2009 Provider: Raúl Delgado MD Diagnosis: MDD-4 tabs Ativan 0.5 MG OR TABS 06/15/2009 - 06/29/2009 Provider: Raúl Delgado MD Diagnosis: MDD-4 tabs Percocet 5-325 MG OR TABS 06/15/2009 - 05/14/2009 Provider: Raúl Delgado MD Diagnosis: MDD 8 tabs daily Lyrica 50 MG OR CAPS 05/14/2009 - 10/22/2009 Provider: Raúl Delgado MD Diagnosis: one tab at lunch and 2 before bed Percocet 5-325 MG OR TABS 05/14/2009 - 05/14/2009 Provider: Raúl Delgado MD Diagnosis: MDD 8 tabs daily Ativan 0.5 MG OR TABS 05/14/2009 - 05/14/2009 Provider: Raúl Delgado MD Diagnosis: MDD-4 tabs Flexeril 10 MG OR TABS 04/17/2009 - 05/06/2003 Provider: Ralú Delgado MD Diagnosis: traZODone HCl 100 MG OR TABS 04/17/2009 - 10/22/2009 Provide r: Raúl Delgado MD Diagnosis: Depo-Provera 150 MG/ML IM SUSP 04/17/2009 - 11/06/2009 Provi adair: Raúl Delgado MD Diagnosis: Omeprazole 20 MG OR CPDR 04/17/2009 - 12/04/2008 Provider: Raúl Delgado MD Diagnosis: Bisoprolol Fumarate 5 MG OR TABS 04/17/2009 - 12/28/2007 Pro vider: Raúl Delgado MD Diagnosis: Percocet 5-325 MG OR TABS 04/17/2009 - 05/14/2009 Provider: Raúl Delgado MD Diagnosis: MDD 8 tabs daily Ativan 0.5 MG OR TABS 04/17/2009 - 05/14/2009 Provider: Raúl Delgado MD Diagnosis: MDD-4 tabs Naprosyn 500 MG OR TABS 04/17/2009 - 05/06/2003 Provider: Raúl Delgado MD Diagnosis: Ativan 0.5 MG OR TABS 03/20/2009 - 09/17/2008 Provider: Raúl Delgado MD Diagnosis: MDD-4 tabs Percocet 5-325 MG OR TABS 03/20/2009 - 09/17/2008 Provider: Raúl Delgado MD Diagnosis: MDD 8 tabs daily Lyrica 50 MG OR CAPS 03/16/2009 - 05/14/2009 Provider: Raúl Delgado MD Diagnosis: Ativan 0.5 MG OR TABS 02/23/2009 - 09/17/2008 Provider: Raúl Delgado MD Diagnosis: MDD-4 tabs Percocet 5-325 MG OR TABS 02/23/2009 - 09/17/2008 Provider: Raúl Delgado MD Diagnosis: MDD 8 tabs daily Gabapentin 600 MG OR TABS 02/03/2009 - 03/16/2009 Provider: Raúl Delgado MD Diagnosis: Ativan 0.5 MG OR TABS 01/26/2009 - 09/17/2008 Provider: Raúl Delgado MD Diagnosis: MDD-4 tabs Percocet 5-325 MG OR TABS 01/26/2009 - 09/17/2008 Provider: Raúl Delgado MD Diagnosis: MDD 8 tabs daily Gabapentin 300 MG OR CAPS 12/26/2008 - 02/03/2009 Provider: Raúl Delgado MD Diagnosis: Gabapentin 300 MG OR CAPS 12/26/2008 - 12/26/2008 Provider: Raúl Delgado MD Diagnosis: Ativan 0.5 MG OR TABS 12/15/2008 - 09/17/2008 Provider: Raúl Delgado MD Diagnosis: MDD-4 tabs Percocet 5-325 MG OR TABS 12/15/2008 - 09/17/2008 Provider: Raúl Delgado MD Diagnosis: MDD 8 tabs daily Omeprazole 20 MG OR CPDR 12/04/2008 - 12/04/2008 Provider: Raúl Delgado MD Diagnosis: Gabapentin 100 MG OR CAPS 12/04/2008 - 12/26/2008 Provider: Raúl Delgado MD Diagnosis: Percocet 5-325 MG OR TABS 11/12/2008 - 09/17/2008 Provider: Raúl Delgado MD Diagnosis: MDD 8 tabs daily Ativan 0.5 MG OR TABS 11/12/2008 - 09/17/2008 Provider: Raúl Delgado MD Diagnosis: MDD-4 tabs Naprosyn 500 MG OR TABS 10/16/2008 - 05/06/2003 Provider: Raúl Delgado MD Diagnosis: Bisoprolol Fumarate 5 MG OR TABS 10/16/2008 - 12/28/2007 Pro vider: Raúl Delgado MD Diagnosis: Depo-Provera 150 MG/ML IM SUSP 10/16/2008 - 04/17/2009 Provi adair: Raúl Delgado MD Diagnosis: traZODone HCl 100 MG OR TABS 10/16/2008 - 03/11/2008 Provide r: Raúl Delgado MD Diagnosis: Flexeril 10 MG OR TABS 10/16/2008 - 05/06/2003 Provider: Raúl Delgado MD Diagnosis: Percocet 5-325 MG OR TABS 10/16/2008 - 09/17/2008 Provider: Raúl Delgado MD Diagnosis: MDD 8 tabs daily Ativan 0.5 MG OR TABS 10/16/2008 - 09/17/2008 Provider: Raúl Delgado MD Diagnosis: MDD-4 tabs Percocet 5-325 MG OR TABS 09/17/2008 - 09/17/2008 Provider: Raúl Delgado MD Diagnosis: MDD 8 tabs daily Ativan 0.5 MG OR TABS 09/17/2008 - 09/17/2008 Provider: Raúl Delgado MD Diagnosis: Ativan 0.5 MG OR TABS 08/25/2008 - 09/17/2008 Provider: Raúl Delgado MD Diagnosis: Percocet 5-325 MG OR TABS 08/25/2008 - 09/17/2008 Provider: Raúl Delgado MD Diagnosis: MDD 8 tabs daily Ativan 0.5 MG OR TABS 07/29/2008 - 08/25/2008 Provider: Raúl Delgado MD Diagnosis: Percocet 5-325 MG OR TABS 07/29/2008 - 08/25/2008 Provider: Raúl Delgado MD Diagnosis: MDD 8 tabs daily Ativan 0.5 MG OR TABS 06/25/2008 - 07/29/2008 Provider: Raúl Delgado MD Diagnosis: Percocet 5-325 MG OR TABS 06/25/2008 - 07/29/2008 Provider: Raúl Delgado MD Diagnosis: MDD 8 tabs daily Ativan 0.5 MG OR TABS 05/28/2008 - 06/25/2008 Provider: Raúl Delgado MD Diagnosis: Percocet 5-325 MG OR TABS 05/28/2008 - 06/25/2008 Provider: Raúl Delgado MD Diagnosis: MDD 8 tabs daily Bisoprolol Fumarate 5 MG OR TABS 05/06/2008 - 12/28/2007 Pro vider: Raúl Delgado MD Diagnosis: Depo-Provera 150 MG/ML IM SUSP 05/06/2008 - 10/16/2008 Provi adair: Raúl Delgado MD Diagnosis: traZODone HCl 100 MG OR TABS 05/06/2008 - 03/11/2008 Provide r: Raúl Delgado MD Diagnosis: Flexeril 10 MG OR TABS 05/06/2008 - 05/06/2003 Provider: Raúl Delgado MD Diagnosis: Naprosyn 500 MG OR TABS 05/06/2008 - 05/06/2003 Provider: Raúl Delgado MD Diagnosis: Ativan 0.5 MG OR TABS 04/24/2008 - 05/28/2008 Provider: Raúl Delgado MD Diagnosis: Percocet 5-325 MG OR TABS 04/24/2008 - 05/28/2008 Provider: Raúl Delgado MD Diagnosis: MDD 8 tabs daily Percocet 5-325 MG OR TABS 03/27/2008 - 04/24/2008 Provider: Raúl Delgado MD Diagnosis: MDD 8 tabs daily Ativan 0.5 MG OR TABS 03/27/2008 - 04/24/2008 Provider: Raúl Delgado MD Diagnosis: Flexeril 10 MG OR TABS 03/27/2008 - 05/06/2008 Provider: Raúl Delgado MD Diagnosis: traZODone HCl 100 MG OR TABS 03/11/2008 - 05/06/2008 Provide r: Raúl Delgado MD Diagnosis: Ativan 0.5 MG OR TABS 02/29/2008 - 03/27/2008 Provider: Raúl Delgado MD Diagnosis: Percocet 5-325 MG OR TABS 02/19/2008 - 03/27/2008 Provider: Hunter Gutierrez RPA Diagnosis: MDD 8 tabs daily Ativan 0.5 MG OR TABS 02/07/2008 - 02/29/2008 Provider: Raúl Delgado MD Diagnosis: Depo-Provera 150 MG/ML IM SUSP 01/29/2008 - 05/06/2008 Provi adair: Raúl Delgado MD Diagnosis: Percocet 5-325 MG OR TABS 01/21/2008 - 02/19/2008 Provider: Raúl Delgado MD Diagnosis: MDD 8 tabs daily Ativan 0.5 MG OR TABS 01/21/2008 - 02/07/2008 Provider: Raúl Delgado MD Diagnosis: traZODone HCl 50 MG OR TABS 01/21/2008 - 03/11/2008 Provider : Raúl Delgado MD Diagnosis: Ativan 0.5 MG OR TABS 01/04/2008 - 01/21/2008 Provider: Raúl Delgado MD Diagnosis: Bisoprolol Fumarate 5 MG OR TABS 12/28/2007 - 05/06/2008 Pro vider: Raúl Delgado MD Diagnosis: Ativan 0.5 MG OR TABS 12/28/2007 - 01/04/2008 Provider: Raúl Delgado MD Diagnosis: Percocet 5-325 MG OR TABS 12/06/2007 - 01/21/2008 Provider: Raúl Delgado MD Diagnosis: MDD 8 tabs daily Percocet 5-325 MG OR TABS 10/25/2007 - 12/06/2007 Provider: Raúl Delgado MD Diagnosis: MDD 8 tabs daily Depo-Provera 150 MG/ML IM SUSP 10/17/2007 - 01/29/2008 Provi adair: Raúl Delgado MD Diagnosis: Flexeril 10 MG OR TABS 10/17/2007 - 03/27/2008 Provider: Raúl Delgado MD Diagnosis: Naprosyn 500 MG OR TABS 10/17/2007 - 05/06/2008 Provider: Raúl Delgado MD Diagnosis: Percocet 5-325 MG OR TABS 09/27/2007 - 10/25/2007 Provider: Raúl Delgado MD Diagnosis: MDD 8 tabs daily Percocet 5-325 MG OR TABS 08/20/2007 - 09/27/2007 Provider: Raúl Delgado MD Diagnosis: MDD 8 tabs daily Percocet 5-325 MG OR TABS 07/20/2007 - 08/20/2007 Provider: Raúl Delgado MD Diagnosis: MDD 8 tabs daily Percocet 5-325 MG OR TABS 06/21/2007 - 07/20/2007 Provider: Raúl Delgado MD Diagnosis: MDD 8 tabs daily Percocet 5-325 MG OR TABS 05/21/2007 - 06/21/2007 Provider: Raúl Delgado MD Diagnosis: MDD 8 tabs daily Percocet 5-325 MG OR TABS 04/23/2007 - 05/21/2007 Provider: Raúl Delgado MD Diagnosis: MDD 8 tabs daily Percocet 5-325 MG OR TABS 03/28/2007 - 04/23/2007 Provider: Raúl Delgado MD Diagnosis: MDD 8 tabs daily Percocet 5-325 MG OR TABS 02/22/2007 - 03/28/2007 Provider: Raúl Delgado MD Diagnosis: MDD 8 tabs daily Percocet 5-325 MG OR TABS 01/22/2007 - 02/22/2007 Provider: Raúl Delgado MD Diagnosis: MDD 8 tabs daily Naprosyn 500 MG OR TABS 12/14/2006 - 10/17/2007 Provider: Raúl Delgado MD Diagnosis: Flexeril 10 MG OR TABS 12/14/2006 - 10/17/2007 Provider: Raúl Delgado MD Diagnosis: Percocet 5-325 MG OR TABS 12/14/2006 - 01/22/2007 Provider: Raúl Delgado MD Diagnosis: MDD 8 tabs daily Percocet 5-325 MG OR TABS 10/16/2006 - 12/14/2006 Provider: Raúl Delgado MD Diagnosis: MDD 8 tabs daily Depo-Provera 150 MG/ML IM SUSP 10/06/2006 - 04/04/2007 Provi adair: Raúl Delgado MD Diagnosis: Percocet 5-325 MG OR TABS 09/19/2006 - 10/16/2006 Provider: Raúl Delgado MD Diagnosis: MDD 12 tabs daily Percocet 5-325 MG OR TABS 08/21/2006 - 09/19/2006 Provider: Raúl Delgado MD Diagnosis: MDD 12 tabs daily Depo-Provera 150 MG/ML IM SUSP 06/29/2006 - 10/06/2006 Provi adair: Raúl Delgado MD Diagnosis: Percocet 5-325 MG OR TABS 05/30/2006 - 08/21/2006 Provider: Raúl Delgado MD Diagnosis: MDD 12 tabs daily Percocet 5-325 MG OR TABS 05/08/2006 - 05/30/2006 Provider: Raúl Delgado MD Diagnosis: MDD 12 tabs daily Flexeril 10 MG OR TABS 02/28/2006 - 12/14/2006 Provider: Raúl Delgado MD Diagnosis: Percocet 5-325 MG OR TABS 02/28/2006 - 05/08/2006 Provider: Raúl Delgado MD Diagnosis: MDD 12 tabs daily Naprosyn 500 MG OR TABS 02/28/2006 - 12/14/2006 Provider: Raúl Delgado MD Diagnosis: Depo-Provera 150 MG/ML IM SUSP 01/11/2006 - 06/29/2006 Provi adair: Raúl Delgado MD Diagnosis: Percocet 5-325 MG OR TABS 01/09/2006 - 02/28/2006 Provider: Raúl Delgado MD Diagnosis: MDD 12 tabs daily Percocet 5-325 MG OR TABS 11/07/2005 - 01/09/2006 Provider: Raúl Delgado MD Diagnosis: Percocet 5-325 MG OR TABS 10/05/2005 - 11/07/2005 Provider: Raúl Delgado MD Diagnosis: Percocet 5-325 MG OR TABS 08/26/2005 - 10/05/2005 Provider: Raúl Delgado MD Diagnosis: Depo-Provera 150 MG/ML IM SUSP 07/12/2005 - 01/11/2006 Provi adair: Raúl Delgado MD Diagnosis: Percocet 5-325 MG OR TABS 04/28/2005 - 08/26/2005 Provider: Raúl Delgado MD Diagnosis: Percocet 5-325 MG OR TABS 02/24/2005 - 04/28/2005 Provider: Raúl Delgado MD Diagnosis: Naprosyn 500 MG OR TABS 02/24/2005 - 02/28/2006 Provider: Raúl Delgado MD Diagnosis: Flexeril 10 MG OR TABS 02/24/2005 - 02/28/2006 Provider: Raúl Delgado MD Diagnosis: Percocet 5-325 MG OR TABS 12/27/2004 - 02/24/2005 Provider: Raúl Delgado MD Diagnosis: Depo-Provera 150 MG/ML IM SUSP 12/27/2004 - 07/12/2005 Provi adair: Raúl Delgado MD Diagnosis: Percocet 5-325 MG OR TABS 11/22/2004 - 12/27/2004 Provider: Raúl Delgado MD Diagnosis: Percocet 5-325 MG OR TABS 10/05/2004 - 11/22/2004 Provider: Raúl Delgado MD Diagnosis: Flexeril 10 MG OR TABS 09/08/2004 - 02/24/2005 Provider: Raúl Delgado MD Diagnosis: Naprosyn 500 MG OR TABS 09/08/2004 - 02/24/2005 Provider: Raúl Delgado MD Diagnosis: Depo-Provera 150 MG/ML IM SUSP 08/04/2004 - 12/27/2004 Provi adair: Raúl Delgado MD Diagnosis: Depo-Provera 150 MG/ML IM SUSP 05/10/2004 - 08/04/2004 Provi adair: Raúl Delgado MD Diagnosis: 1 prefilled syringe q 3mo Percocet 5-325 MG OR TABS 02/24/2004 - 10/05/2004 Provider: Raúl Delgado MD Diagnosis: Flexeril 10 MG OR TABS 02/24/2004 - 09/08/2004 Provider: Raúl Delgado MD Diagnosis: Naprosyn 500 MG OR TABS 02/24/2004 - 09/08/2004 Provider: Raúl Delgado MD Diagnosis: Vicodin 5-500 MG OR TABS 06/23/2003 - 02/24/2004 Provider: Raúl Delgado MD Diagnosis: Flexeril 10 MG OR TABS 06/23/2003 - 02/24/2004 Provider: Raúl Delgado MD Diagnosis: Flexeril 10 MG OR TABS 05/06/2003 - 06/23/2003 Provider: Raúl Delgado MD Diagnosis: Naprosyn 500 MG OR TABS 05/06/2003 - 02/24/2004 Provider: Raúl Delgado MD Diagnosis: Vicodin 5-500 MG OR TABS 05/06/2003 - 06/23/2003 Provider: Raúl Delgado MD Diagnosis: Vioxx 25 MG OR TABS 05/06/2003 - 05/06/2003 Provider: Raúl Delgado MD Diagnosis: Depo-Provera 150 MG/ML IM SUSP 03/24/2003 - 05/10/2004 Provi adair: Diagnosis: Vicodin 5-500 MG OR TABS 03/10/2003 - 05/06/2003 Provider: Raúl Delgado MD Diagnosis: Medications Administered Includes: Administered Medications in patient's chartNo Administered Medications Recorded Vital Signs Includes: Vital Signs from 09/04/2019 through 09/04/2020 Vital Name 09/03/2020 03:16P 09/03/2020 02:55P 04/20/2020 02:59P 01/13/2020 11:24A 01/13/2020 10:45A Blood Pressure Sitting (mmHg) 150/105 169/118 110/80 126/80 132/100 Pulse Rate-Sitting (bpm) 87 78 73 Height (in) 67 67 67 Weight (lb) 241 258 245 Body Mass Index (kg/m2) 37.7 40.4 3 8.4 Body Surface Area (m2) 2.19 2.25 2. 20 Respiration Rate (breaths/min) 24 Oxygen Saturation (%) 98 Note: MD recheck MD recheck with large cuf f Vital Name 09/11/2019 01:12P Blood Pressure Sitting (mmHg) 124/84 Pulse Rate-Sitting (bpm) 78 Height (in) 67 Weight (lb) 252 Body Mass Index (kg/m2) 39.5 Body Surface Area (m2) 2.23 Respiration Rate (breaths/min) 18 Results Includes: Results from 09/04/2019 through 09/04/2020 [facility]house [facility] Ordered by hCristy Lyn MANAGER LICENSING- on 09/03/[address] [place] [address], [id number] Collected: 09/03/2020 Reported: 09/03/2020 15:27 tel : ext. 1500 Urea Nitrogen 6 mg/dl (6-20) None Note: Responsible Observer: KM Calcium 9.9 mg/dl (8.4-10.2) None Note: Responsible Observer: KM Chloride 105 mmol/L (96-108) None Note: Responsible Observer: KM CO2 24 mmol/L (23-31) None Note: Responsible Observer: KM Creatinine 0.4 mg/dl (0.5-1.2) L (Low) Note: Responsible Observer: KM EGFR - AfricanAm > 60 N/A (-) None Note: Responsible Observer: KM EGFR - Non AF AM > 60 N/A (-) None Note: Responsible Observer: KM Glucose 115 mg/dl (70-105) H (High) Note: Responsible Observer: KM Potassium 4.2 mmol/L (3.2-5.4) None Note: Responsible Observer: KM Sodium 140 mmol/L (133-145) None Note: Responsible Observer: KM Reviewed by Christy CALDWELL on ; All test results are final unless otherwise noted. [facility] Ordered by Christy SANTANATIANNA on 09/03/2020 [address] [place], [address] Collected: 09/03/2020 Reported: 09/03/2020 15:27 tel :[phone] ext. [phone] Hgba1c 5.6 na (5.0-6.0) None Note: Responsible Observer: KM Reviewed by Christy CALDWELL on ; All test results are final unless otherwise noted. [facility] Ordered by Christy SANTANATIANNA on 04/20/2020 [address] [place], [address] Collected: 04/20/2020 Reported: 04/20/2020 15:31 tel :[phone] ext. [phone] Hgba1c 5.9 na (5.0-6.0) None Note: Responsible Observer: KM Reviewed by Christy CALDWELL on 11/2019; All test results are final unless otherwise noted. LIPID PANEL [facility] Ordered by Raúl Delgado MD on 12/13/2019 Collected: 12/13/2019 Reported: 12/13/2019 15:47 Cholesterol 162 MilliGramsPerDeciLiter_[Mass_Concentration_Units] (120-200) N (Normal) Note: Responsible Observer: Cholesterol Cholesterol 400.3100 (G) HDL Cholesterol 26 MilliGramsPerDeciLiter_[Mass_Concentration_Units] None Note: HDL Less than 40 mg/dL: Major ris k for CHDHDL Greater than 59 mg/dL: Low risk for CHDResponsible Observer: HDL HDL Cholesterol 400.3150 (H) LDL Cholesterol, Calc 72 MilliGramsPerDeciLiter_[Mass_Concentration_Units] (0-100) N (Normal) Note: Responsible Observer: LDL CHOL WYTAT C LDL Cholesterol, Calculated 400.3155 (F) Triglycerides 320 MilliGramsPerDeciLiter_[Mass_Concentration_Units] (0-150) H (High) Note: Responsible Observer: Triglyceride s Triglycerides 400.2951 (G) Reviewed by Raúl Delgado MD on 12/16/2019; All test results are final unless otherwise noted. HGBA1C + EAG [facility] Ordered by Raúl Delgado MD on 12/13/2019 Collected: 12/13/2019 Reported: 12/13/2019 15:52 Est. average glucose Bld gHb Est-sCnc 131 MilliGramsPerDeciLiter_[Mass_Concentration_Units] None Note: An A1C of 7% - the goal of diabeti c therapy - is equivalentto an EAG of 154 mg/dl.Responsible Observer: eAG Estimated Average Glucose -eAG 2000.0006 (A) Hemoglobin A1c % 6.2 percent (4.0-6.0) H (High) Note: The following ranges ma y be used for interpretation of results: HGBA1C degree of glucose control: Greater than 8%: Action Suggested * Less than 7%: Goal of Diabetic Therapy Less than 6%: NormalFactors such as duration of diabetes, adherence to therapyand the age of the patient should also be considered inassessing the degree of blood glucose control.* High risk of developing usp complications such asretinopathy, nephropathy, neuropathy, cardiopathy, etc. Some danger of hypoglycemic reaction in Type I diab etics.Some glucose intolerant individuals and "Sub Clinical"diabetics may demonstrate HGBA1C levels in this area.Responsible Observer: HGBA1C % Hemoglobin A1c % 2000.0004 (C) Reviewed by Raúl Delgado MD on 12/16/2019; All test results are final unless otherwise noted. Microalbumin/Creat Ratio - ACR [facility] Ordered by Raúl Delgado MD on 12/13/2019 Collected: 12/13/2019 Reported: 12/13/2019 17:12 Ur Malb/Cre Ratio (ACR) 13.6 MicroGramsPerMilliGram_[Mass_Ratio_Or_Mass_Fraction_Or (0.0- 30.0) N (Normal) Note: Responsible Observer: Ur Malb/Cre ACR Ur Malb/Cre Ratio (ACR) 1000.0600 (C) Urine Microalbumin 29.5 MilliGramsPerLiter_[Mass_Concentration_Units] (0.0-29.9) N (Normal) Note: Responsible Observer: Ur Microalbu min Urine Microalbumin 1000.0500 (E) Urine Random Creatinine 216.0 MilliGramsPerDeciLiter_[Mass_Concentration_Units] None Note: THERE IS NO ESTABLISHED RANGE FOR RANDOM URINE CREATININEResponsible Observer: UR Creatinine Urine Random Creatinine 1000.0100 (G) Reviewed by Raúl Delgado MD on 12/16/2019; All test results are final unless otherwise noted. Reported Physicians [facility] Ordered by Raúl Delgado MD on 12/13/2019 Collected: 12/13/2019 Reported: 12/13/2019 17:12 Reported Physicians See Note None Note: Reported Physicians:Ordering: Raúl Platading: Raúl Delgado Reviewed by Raúl Delgado MD on 12/16/2019; All test results are final unless otherwise noted. CBC W AUTO DIFF [facility] Ordered by Raúl Delgado MD on 12/13/2019 Collected: 12/13/2019 Reported: 12/13/2019 15:37 MCV BldCo Auto 90.6 FemtoLiter_[SI_Volume_Units] (80-96) N (Normal) Note: Responsible Observer: MCV MCV 100 .0600 (B) RDW RBC Auto 13 percent (11-15) N (Normal) Note: Responsible Observer: RDW RDW 100 .0900 (B) Manual diff Bld NO None Note: Responsible Observer: CBC Manual D ifferential Added 100.1990 (B) PMV Bld 10.5 FemtoLiter_[SI_Volume_Units] (9.1-13.1) N (Normal) Note: Responsible Observer: MPV MPV 100 .1100 (B) Imm Granulocytes Bld Ql Auto See Note (0-2) N (Normal) Note: [id number] ible Observer: IG% IG% 100.1375 (B) Hct VFr Bld Auto 37.7 percent (37-47) N (Normal) Note: Responsible Observer: HEMATOCRIT H EMATOCRIT 100.0500 (B) MCHC BldCo-mCnc 32.4 GramsPerDeciLiter_[Mass_Concentration_Units] (33-37) L (Low) Note: Responsible Observer: MCHC MCHC 1 00.0800 (B) Imm Granulocytes # Bld Auto 0.0 Unit (0-0.1) None Note: Responsible Observer: IG# IG# 100 .1400 (B) Monocytes/leuk NFr Bld Auto 8.7 percent (4-12) N (Normal) Note: Responsible Observer: MONO % MONO % 100.1225 (B) Hgb Bld-sCnc 12.2 GramsPerDeciLiter_[Mass_Concentration_Units] (10.7-15.4) N (Normal) Note: Responsible Observer: HGB HEMOGLOB IN 100.0400 (B) WBC # Bld Auto 5.2 ThousandsPerMicroLiter_[Number_Concentration_Units] (4.45-10 .71) N (Normal) Note: Responsible Observer: WBC WHITE BL OOD COUNT 100.0100 (E) Basophils # Bld Auto 0.0 Unit (0.0-0.2) N (Normal) Note: Responsible Observer: BASO # BASO# 100.1350 (B) Basophils/leuk NFr Bld Auto 0.8 percent (0.4-1.3) N (Normal) Note: Responsible Observer: BASO % BASO % 100.1325 (B) Eosinophil # Bld Auto 0.2 Unit (0.0-0.5) N (Normal) Note: Responsible Observer: EOS # EOS# 100.1300 (D) Eosinophil/leuk NFr Bld Auto 3.5 percent (0-7) N (Normal) Note: Responsible Observer: EOS % EOS % 100.1275 (B) Lymphocytes # Bld Auto 1.8 Unit (0.6-4.6) N (Normal) Note: Responsible Observer: LYMPH # LYMP H# 100.1200 (B) Lymphocytes/leuk NFr Bld Auto 35.1 percent (14-46) N (Normal) Note: Responsible Observer: LYMPH % LYMP H % 100.1175 (B) Monocytes # Bld Auto 0.5 Unit (0.2-1.2) N (Normal) Note: Responsible Observer: MONO # MONO# 100.1250 (C) Neutrophils # Bld Auto 2.7 Unit (1.7-7.6) N (Normal) Note: Responsible Observer: NEUT# NEUT# 100.1150 (B) Neutrophils/leuk NFr Bld Auto 51.5 percent (41-77) N (Normal) Note: Responsible Observer: NEUT% NEUT% 100.1125 (B) Platelet # Bld Auto 353 ThousandsPerMicroLiter_[Number_Concentration_Units] (130-472 ) N (Normal) Note: Responsible Observer: PLATELET COU NT PLATELET COUNT 100.1000 (D) MCH RBC Qn Auto 29.3 PicoGram_[SI_Mass_Units] (27-31) N (Normal) Note: Responsible Observer: MCH MCH 100 .0700 (B) RBC # Bld Auto 4.16 MillionsPerMicroLiter_[Number_Concentration_Units] (4.20-5.4 0) L (Low) Note: Responsible Observer: RBC Red Bloo d Count 100.0300 (B) NUCLEATED RED BLOOD CELL# 0 Unit None Note: Responsible Observer: NRBC# NUCLEA CATHERINE RBC 100.1362 (A) NUCLEATED RED BLOOD CELL 0 percent None Note: Responsible Observer: NRBC% NRBC% 100.1360 (B) Reviewed by Raúl Delgado MD on 12/16/2019; All test results are final unless otherwise noted. [facility] Ordered by Raúl Delgado MD on 12/13/2019 Collected: 12/13/2019 Reported: 12/13/2019 15:54 ALT SerPl w P-5'-P-cCnc 25 enzyme_unit_per_liter (10-49) N (Normal) Note: Responsible Observer: SGPT/ALT SGP T/ALT 400.1750 (G) Calcium SerPl-mCnc 8.4 MilliGramsPerDeciLiter_[Mass_Concentration_Units] (8.5-10.1) L (Low) Note: Responsible Observer: Calcium Calc ium 400.2500 (G) Bilirub SerPl-mCnc 0.3 MilliGramsPerDeciLiter_[Mass_Concentration_Units] (0.3-1.2) N (Normal) Note: Responsible Observer: T CIERA Total Bilirubin 400.2600 (G) CO2 SerPl-sCnc 25 MilliMolesPerLiter_[Substance_Concentration_Units] (20-31) N (Normal) Note: Responsible Observer: CO2 Carbon D ioxide 400.1400 (G) Chloride SerPl-sCnc 113 MilliMolesPerLiter_[Substance_Concentration_Units] (99-109) H (High) Note: Responsible Observer: Chloride Chl oride 400.1250 (G) Glucose SerPl-mCnc 135 MilliGramsPerDeciLiter_[Mass_Concentration_Units] (74-106) H (High) Note: Responsible Observer: Glucose Gluc ose 400.1500 (G) Potassium SerPl-sCnc 3.5 MilliMolesPerLiter_[Substance_Concentration_Units] (3.5-5.5) N (Normal) Note: Responsible Observer: K Potassium 400.1210 (G) Prot SerPl-mCnc 6.4 GramsPerDeciLiter_[Mass_Concentration_Units] (5.7-8.2) N (Normal) Note: Responsible Observer: TP Total Pro tein 400.2800 (G) Sodium SerPl-sCnc 144 MilliMolesPerLiter_[Substance_Concentration_Units] (132-146) N (Normal) Note: Responsible Observer: Sodium Sodiu m 400.1100 (G) AST SerPl w P-5'-P-cCnc 32 enzyme_unit_per_liter (0-33) N (Normal) Note: Responsible Observer: SGOT / AST S GOT / AST 400.1900 (G) BUN SerPl-mCnc 6 MilliGramsPerDeciLiter_[Mass_Concentration_Units] (9-23) L (Low) Note: Responsible Observer: BUN Blood Ur ea Nitrogen 400.1000 (G) Anion Gap SerPl-sCnc 10 MilliMolesPerLiter_[Substance_Concentration_Units] (8-16) N (Normal) Note: Responsible Observer: ANION GAP AN ION GAP 400.1402 (E) Albumin SerPl BCP-mCnc 3.2 GramsPerDeciLiter_[Mass_Concentration_Units] (3.2-4.8) N (Normal) Note: Responsible Observer: Albumin Albu min 400.2700 (G) ALP SerPl-cCnc 73 enzyme_unit_per_liter (45-129) N (Normal) Note: Responsible Observer: ALP Alkaline Phosphatase 400.2000 (G) GFR/BSA.pred SerPlBld-ArVRat Greater Than 60 (ABOVE 60) None Note: Responsible Observer: GFR Glomerul ar Filt Rate Calc 400.1605 (D) Creatinine 0.6 MilliGramsPerDeciLiter_[Mass_Concentration_Units] (0.5-1.1) N (Normal) Note: Responsible Observer: Creatinine C reatinine 400.1600 (G) Reviewed by Raúl Delgado MD on 12/16/2019; All test results are final unless otherwise noted. Reported Physicians [facility] Ordered by Raúl Delgado MD on 12/13/2019 Collected: 12/13/2019 Reported: 12/13/2019 15:54 Reported Physicians See Note None Note: Reported Physicians:Ordering: Doct or Provided, No FamilyAttending: Heather Delgado To: Raúl Delgado Reviewed by Raúl Delgado MD on 12/16/2019; All test results are final unless otherwise noted. [facility] Doctor's In-house Laboratory Ordered by Raúl Delgado MD on 09/11/[address] [place] [address], [facility] Collected: 09/11/2019 Reported: 09/11/2019 14:50 tel : ext. 1500 Urea Nitrogen 11 mg/dl (6-20) None Note: Responsible Observer: KM Calcium 9.7 mg/dl (8.4-10.2) None Note: Responsible Observer: KM Chloride 111 mmol/L (96-108) H (High) Note: Responsible Observer: KM CO2 21 mmol/L (23-31) L (Low) Note: Responsible Observer: KM Creatinine 0.4 mg/dl (0.5-1.2) L (Low) Note: Responsible Observer: KM EGFR - AfricanAm > 60 N/A (-) None Note: Responsible Observer: KM EGFR - Non AF AM > 60 N/A (-) None Note: Responsible Observer: KM Glucose 107 mg/dl (70-105) H (High) Note: Responsible Observer: KM Potassium 3.9 mmol/L (3.2-5.4) None Note: Responsible Observer: KM Sodium 139 mmol/L (133-145) None Note: Responsible Observer: KM Reviewed by Raúl Delgado MD on 09/11/2019; All test results are final unless otherwise noted. [facility] Ordered by Raúl Delgado MD on 09/11/[address] [place] [address], [id number] Collected: 09/11/2019 Reported: 09/11/2019 14:50 tel : ext. 1500 Hgba1c 5.7 na (5.0-6.0) None Note: Responsible Observer: KM Reviewed by Raúl Delgado MD on 09/11/2019; All test results are final unless otherwise noted. History of Present Illness History of Present Illness not supported for this document typeNo History of Present Illness Recorded Social History Description Last Updated Unemployed 06/25/2015 Under stress 07/28/2011 Smoking status : Never smoked 04/01/2011 No tobacco use 02/28/2006 Alcohol use 02/28/2006 Currently 02/28/2006 Procedures and Surgical History Includes: Procedures from 09/04/2019 through 09/04/2020 Procedures Code Diagnosis Performing Provider Service Location Service Date BMP-Basic Metabolic Profile 04817 Essential (p rimary) hypertension, Type 2 diabetes mellitus without complications [facility], [facility] 09/03/2020 HgbA1C 77137 Essential (primary) hypertension, Type 2 diabetes mellitus without complications Christy [facility], [facility] 09/03 Venipuncture (routine) 75095 Essential (primar y) hypertension, Type 2 diabetes mellitus without complications [facility], [facility] 09/03/2020 HgbA1C 44257 Type 2 diabetes mellitus without complications [facility], [facility] 04/20/2020 -collection of capillary blood (fingerstick, heel ) 90083 Type 2 diabetes mellitus without complications [facility], [facility] 04/20/2020 HgbA1C 20074 Essential (primary) hypertension, Type 2 diabetes mellitus without complications Raúl Delgado MD [facility], [facility] 09/11/2019 BMP-Basic Metabolic Profile 30032 Essential (p rimary) hypertension, Type 2 diabetes mellitus without complications Raúl Delgado MD [facility], [facility] 09/11/2019 Venipuncture (routine) 17944 Essential (primar y) hypertension, Type 2 diabetes mellitus without complications Raúl Delgado MD [facility], [facility] 09/11/2019 Surgical History Last Updated History of laminectomy 02/28/2006 Medical History Includes: Medical History in patient's chart Description Last Updated History of colonoscopy 11/16/2017 01/09/2019 A recent URI 05/20/2016 Smoke exposure 05/20/2016 An ECG was normal 07/29/2015 Secondhand cigarette smoke exposure 07/29/2015 Past medical/surgical history [use for free text] 02/14 Family History Includes: Family History in patient's chart Description Last Updated Brother at age 56 07/18 brother same father [place] Brother in good health Alcoholism 10/02/2017 Mother , Osteoarthritis, Pneumonia, COPD 09/14 Second sister RA at age 45 thoracic ane urysm 08/28/2014 Sister in good health 08/28/2014 Sister in fair health RA 12/13/2012 Father 02/28/2006 Mother in poor health 02/28/2006 Review of Systems Review of Systems not supported for this document typeNo Review of Systems Recorded Mental Status Mental Status not supported for this document typeNo Mental Status Recorded Functional Status Functional Status not supported for this document typeNo Functional Status Recorded Physical Exam Physical Exam not supported for this document typeNo Physical Exam Recorded Immunizations Includes: Immunizations in patient's chart Vaccine Dose # Date Site Reaction(s) Status Source Influenza, seasonal, injectable 1 08/13/2013 Right Arm Complete (Administered) [facility] Influenza, seasonal, injectable 2 04/30/2015 Compl ete (Reported) Patient Influenza, seasonal, injectable 3 05/26/2016 Right Deltoid Complete (Administered) [facility] Allergies Includes: Active, inactive, and resolved Allergies Substance Type Reaction Onset Date - Time Resolved Date - Ti me Status No Known Drug Allergy Allergy nkda 03/24/2003 - 12:00AM Active Morphine Derivatives Allergy Nausea, Vomiting 01/09/2019 - 12:00AM Active Lopid Intolerance PALOMINO 10/03/2013 - 12:00AM Act sujatha fentaNYL Allergy Nausea, Vomiting 01/09/2019 - 12:00AM Active DULoxetine HCl Intolerance Nausea, Vomiting 01/27/2020 - 12:00AM Active Dilaudid Allergy Hives 01/09/2019 - 12:00AM Acti ve Cats Allergy sneezing, itchy, red eyes 01/09/2019 - 12:00AM Active aspartame Allergy Shock 01/09/2019 - 12:00AM Acti ve Encounters Includes: Encounters from 09/04/2019 through 09/04/2020 Encounter Provider Location Date Check-In Time Check-Out Time D iagnosis followup Raúl Delgado MD [facility], [facility] 09/03/2020 2:47PM 3:23PM 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, Panic Attacks, Diabetes Mellitus Type 2 - Uncomplicated, Controlled, Esophageal Reflux, Migraine Headache Without Intractable Migraine Without Status Migrainosus, Assessment of Morbid Obesity (>100% Overweight), Myasthenia Gravis Without Acute Exacerbation, Essential Hypertension, Routine History and Physical Adult (18 - 64 Yrs) [Patient Encounter] Raúl Delgado MD 09/18/2019 0 09/11/2019 1:38PM 09/11/2019 11:59PM incident to previous visit- Christy CALDWELL [facility] 09/11/2019 1:06PM 1:48PM Essential Hypert ension, Diabetes Mellitus Type 2 - Uncomplicated, Controlled, Assessment of Morbid Obesity (>100% Overweight), Hyperlipidemia Insurance Includes: Active Insurance Policies Plan Name Member ID Group # Subscriber Relationship Effective Da tra 1 - MANAGED MEDICAID [employer] [id number] Megan yu Self Advance Directives Includes: Current Advance DirectivesNo Advance Directives Recorded Health Concerns Includes: Active Health ConcernsNo Active Health Concerns Recorded Goals Includes: Active GoalsNo Active Goals Recorded Interventions Includes: Interventions for active GoalsNo Interventions Recorded Evaluations & Outcomes Includes: Evaluations & Outcomes for active GoalsNo Outcomes Recorded
--- OUTSIDE RECORDS SUMMARY | 2021-05-05 14:17 | CCD ---
Author Author [facility] Organization [facility] Address Unknown Phone Unavailable Care Team Providers Care Mixing Operator Name Role Phone Stephanie Delgado MD Unavailable Unavailable Stephanie Delgado MD Unavailable Unavailable Stephanie Delgado MD Unavailable Unavailable Stephanei Delgado MD Unavailable Unavailable Stephanie Delgado MD Unavailable Unavailable Stephanie Delgado MD Unavailable Unavailable Stephanie Delgado MD Unavailable Unavailable Stephanie Delgado MD Unavailable Unavailable Stephanie Delgado MD Unavailable Unavailable Stephanie Delgado MD Unavailable Unavailable Stephanie Delgado MD Unavailable Unavailable Stephanie Delgado MD Unavailable Unavailable Stephanie Delgado MD Unavailable Unavailable Stephanie Delgado MD Unavailable Unavailable Stephanie Delgado MD Unavailable Unavailable Stephanie Delgado MD Unavailable Unavailable Stephanie Delgado MD Unavailable Unavailable Stephanie Delgado MD Unavailable Unavailable Stephanie Delgado MD Unavailable Unavailable Stephanie Delgado MD Unavailable Unavailable Stephanie Delgado MD Unavailable Unavailable Stephanie Delgado MD Unavailable Unavailable Stephanie Delgado MD Unavailable Unavailable LyndaStephanie white MD Unavailable Unavailable LyndakerStephanie MD Unavailable Unavailable LyndaStephanie white MD Unavailable Unavailable LyndakerStephanie MD Unavailable Unavailable LyndakerStephanie MD Unavailable Unavailable LyndakerStephanie MD Unavailable Unavailable LyndaStephanie white MD Unavailable Unavailable LyndaStephanie white MD Unavailable Unavailable LyndaStephanie white MD Unavailable Unavailable LyndaStephanie white MD Unavailable Unavailable LyndakerStephanie MD Unavailable Unavailable LyndakerStephanie MD Unavailable Unavailable LyndaStephanie white MD Unavailable Unavailable LyndaStephanie white MD Unavailable Unavailable LyndaStephanie white MD Unavailable Unavailable LyndaStephanie white MD Unavailable Unavailable LyndaStephanie white MD Unavailable Unavailable LyndaStephanie white MD Unavailable Unavailable LyndaStephanie white MD Unavailable Unavailable LyndaStephanie white MD Unavailable Unavailable LyndaStephanie white MD Unavailable Unavailable LyndaStephanie white MD Unavailable Unavailable LyndaStephanie white MD Unavailable Unavailable LyndaStephanie white MD Unavailable Unavailable LyndaStephanie white MD Unavailable Unavailable LyndaStephanie white MD Unavailable Unavailable LyndaStephanie white MD Unavailable Unavailable LyndaStephanie white MD Unavailable Unavailable LyndaStephanie white MD Unavailable Unavailable LyndaStephanie white MD Unavailable Unavailable LyndaStephanie white MD Unavailable Unavailable LyndaStephanie white MD Unavailable Unavailable LyndaStephanie white MD Unavailable Unavailable LynStephanie fulton MD Unavailable Unavailable LynStephanie fulton MD Unavailable Unavailable LyndaStephanie white MD Unavailable Unavailable LyndaStephanie white MD Unavailable Unavailable LyndaStephanie white MD Unavailable Unavailable LyndaStephanie white MD Unavailable Unavailable LynStephanie fulton MD Unavailable Unavailable LynStephanie fulton MD Unavailable Unavailable LyndaStephanie white MD Unavailable Unavailable LyndaStephanie white MD Unavailable Unavailable LyndaStephanie white MD Unavailable Unavailable LyndaStephanie white MD Unavailable Unavailable LyndaStephanie white MD Unavailable Unavailable LyndaStephanie white MD Unavailable Unavailable LyndaStephanie white MD Unavailable Unavailable LyndaStephanie white MD Unavailable Unavailable LyndaStephanie white MD Unavailable Unavailable Lyndacindy L Raúl MD Unavailable Unavailable Stephanie Delgado MD Unavailable Unavailable Stephanie Delgado MD Unavailable Unavailable Stephanie Delgado MD Unavailable Unavailable Stephanie Delgado MD Unavailable Unavailable Stephanie Delgado MD Unavailable Unavailable Stephanie Delgado MD Unavailable Unavailable Stephanie Delgado MD Unavailable Unavailable Stephanie Delgado MD Unavailable Unavailable Stephanie Delgado MD Unavailable Unavailable Stephanie Delgado MD Unavailable Unavailable Stephanie Delgado MD Unavailable Unavailable Stephanie Delgado MD Unavailable Unavailable Stephanie Delgado MD Unavailable Unavailable Stephanie Delgado MD Unavailable Unavailable Stephanie Delgado MD Unavailable Unavailable Stephanie Delgado MD Unavailable Unavailable Stephanie Delgado MD Unavailable Unavailable Stephanie Delgado MD Unavailable Unavailable Stephanie Delgado MD Unavailable Unavailable Stephanie Delgado MD Unavailable Unavailable Stephanie Delgado MD Unavailable Unavailable Stephanie Delgado MD Unavailable Unavailable Stephanie Delgado MD Unavailable Unavailable Stephanie Delgado MD Unavailable Unavailable Jass Palmer M.D. Unavailable Unavailable Jass Palmer M.D. Unavailable Unavailable Jass Palmer M.D. Unavailable Unavailable MUHA, M SAMANTA ELECTRIC MOTOR REBUILDER Unavailable Unavailable MUHA, M SAMANTA ELECTRIC MOTOR REBUILDER Unavailable Unavailable MUHA, M SAMANTA ELECTRIC MOTOR REBUILDER Unavailable Unavailable MUHA, M SAMANTA ELECTRIC MOTOR REBUILDER Unavailable Unavailable MUHA, M SAMANTA ELECTRIC MOTOR REBUILDER Unavailable Unavailable MUHA, M SAMANTA ELECTRIC MOTOR REBUILDER Unavailable Unavailable MUHA, M SAMANTA ELECTRIC MOTOR REBUILDER Unavailable Unavailable MUHA, M SAMANTA ELECTRIC MOTOR REBUILDER Unavailable Unavailable MUHA, M SAMANTA ELECTRIC MOTOR REBUILDER Unavailable Unavailable MUHA, M SAMANTA ELECTRIC MOTOR REBUILDER Unavailable Unavailable MUHA, M SAMANTA ELECTRIC MOTOR REBUILDER Unavailable Unavailable MUHA, M SAMANTA ELECTRIC MOTOR REBUILDER Unavailable Unavailable MUHA, M SAMANTA ELECTRIC MOTOR REBUILDER Unavailable Unavailable MUHA, M SAMANTA ELECTRIC MOTOR REBUILDER Unavailable Unavailable MUHA, M SAMANTA ELECTRIC MOTOR REBUILDER Unavailable Unavailable MUHA, M SAMANTA ELECTRIC MOTOR REBUILDER Unavailable Unavailable MUHA, M SAMANTA ELECTRIC MOTOR REBUILDER Unavailable Unavailable MUHA, M SAMANTA ELECTRIC MOTOR REBUILDER Unavailable Unavailable MUHA, M SAMANTA ELECTRIC MOTOR REBUILDER Unavailable Unavailable MUHA, M SAMANTA ELECTRIC MOTOR REBUILDER Unavailable Unavailable MUHA, M SAMANTA ELECTRIC MOTOR REBUILDER Unavailable Unavailable MUHA, M SAMANTA ELECTRIC MOTOR REBUILDER Unavailable Unavailable MUHA, M SAMANTA ELECTRIC MOTOR REBUILDER Unavailable Unavailable MUHA, M SAMANTA ELECTRIC MOTOR REBUILDER Unavailable Unavailable MUHA, M SAMANTA ELECTRIC MOTOR REBUILDER Unavailable Unavailable MUHA, M SAMANTA ELECTRIC MOTOR REBUILDER Unavailable Unavailable MUHA, M SAMANTA ELECTRIC MOTOR REBUILDER Unavailable Unavailable MUHA, M SAMANTA ELECTRIC MOTOR REBUILDER Unavailable Unavailable MUHA, M SAMANTA ELECTRIC MOTOR REBUILDER Unavailable Unavailable MUHA, M SAMANTA ELECTRIC MOTOR REBUILDER Unavailable Unavailable MUHA, M SAMANTA ELECTRIC MOTOR REBUILDER Unavailable Unavailable MUHA, M SAMANTA ELECTRIC MOTOR REBUILDER Unavailable Unavailable MUHA, M SAMANTA ELECTRIC MOTOR REBUILDER Unavailable Unavailable MUHA, M SAMANTA ELECTRIC MOTOR REBUILDER Unavailable Unavailable MUHA, M SAMANTA ELECTRIC MOTOR REBUILDER Unavailable Unavailable MUHA, M SAMANTA ELECTRIC MOTOR REBUILDER Unavailable Unavailable MUHA, M SAMANTA ELECTRIC MOTOR REBUILDER Unavailable Unavailable MUHA, M SAMANTA ELECTRIC MOTOR REBUILDER Unavailable Unavailable MUHA, M SAMANTA ELECTRIC MOTOR REBUILDER Unavailable Unavailable MUHA, M SAMANTA ELECTRIC MOTOR REBUILDER Unavailable Unavailable MUHA, M SAMANTA ELECTRIC MOTOR REBUILDER Unavailable Unavailable MUHA, M SAMANTA ELECTRIC MOTOR REBUILDER Unavailable Unavailable MUHA, M SAMANTA ELECTRIC MOTOR REBUILDER Unavailable Unavailable MUHA, M SAMANTA ELECTRIC MOTOR REBUILDER Unavailable Unavailable MUHA, M SAMANTA ELECTRIC MOTOR REBUILDER Unavailable Unavailable MUHA, M SAMANTA ELECTRIC MOTOR REBUILDER Unavailable Unavailable MUHA, M SAMANTA ELECTRIC MOTOR REBUILDER Unavailable Unavailable MUHA, M SAMANTA ELECTRIC MOTOR REBUILDER Unavailable Unavailable MUHA, M SAMANTA ELECTRIC MOTOR REBUILDER Unavailable Unavailable MUHA, M SAMANTA ELECTRIC MOTOR REBUILDER Unavailable Unavailable MUHA, M SAMANTA ELECTRIC MOTOR REBUILDER Unavailable Unavailable MUHA, M SAMANTA ELECTRIC MOTOR REBUILDER Unavailable Unavailable MUHA, M SAMANTA ELECTRIC MOTOR REBUILDER Unavailable Unavailable MUHA, M SAMANTA ELECTRIC MOTOR REBUILDER Unavailable Unavailable Paco Vasques MD Unavailable Unavail able Paco Vasques MD Unavailable Unavail able Paco Vasques MD Unavailable Unavail able Paco Vasques MD Unavailable Unavail able Paco Vasques MD Unavailable Unavail able Paco Vasques MD Unavailable Unavail able Paco Vasques MD Unavailable Unavail able Paco Vasques MD Unavailable Unavail able Paco Vasques MD Unavailable Unavail able Paco Vasques MD Unavailable Unavail able El-Dokla, Paco Rodriguez MD Unavailable Unavail able El-Dokla, Paco Rodriguez MD Unavailable Unavail able El-Dokla, Paco Rodriguez MD Unavailable Unavail able El-Dokla, Paco Rodriguez MD Unavailable Unavail able El-Dokla, Paco Rodriguez MD Unavailable Unavail able El-Dokla, Paco Rodriguez MD Unavailable Unavail able El-Dokla, Paco Rodriguez MD Unavailable Unavail able El-Dokla, Paco Rodriguez MD Unavailable Unavail able El-Dokla, Paco Rodriguez MD Unavailable Unavail able El-Dokla, Paco Rodriugez MD Unavailable Unavail able El-Dokla, Paco Rodriguez MD Unavailable Unavail able El-Dokla, Paco Rodriguez MD Unavailable Unavail able El-Dokla, Paco Rodriguez MD Unavailable Unavail able El-Dokla, Paco Rodriguez MD Unavailable Unavail able El-Dokla, Paco Rodriguez MD Unavailable Unavail able El-Dokla, Paco Rodriguez MD Unavailable Unavail able El-Dokla, Paco Rodriguez MD Unavailable Unavail able El-Dokla, Paco Rodriguez MD Unavailable Unavail able El-Dokla, Paco Rodriguez MD Unavailable Unavail able El-Dokla, Paco Rodriguez MD Unavailable Unavail able El-Dokla, Paco Rodriguez MD Unavailable Unavail able El-Dokla, Paco Rodriguez MD Unavailable Unavail able El-Dokla, Paco Rodriguez MD Unavailable Unavail able El-Dokla, Paco Rodriguez MD Unavailable Unavail able El-Dokla, Paco Rodriguez MD Unavailable Unavail able El-Dokla, Paco Rodriguez MD Unavailable Unavail able El-Dokla, Paco Rodriguez MD Unavailable Unavail able El-Dokla, Paco Rodriguez MD Unavailable Unavail able El-Dokla, Paco Rodriguez MD Unavailable Unavail able El-Dokla, Paco Rodriguez MD Unavailable Unavail able El-Dokla, Paco Rodriguez MD Unavailable Unavail able El-Dokla, Paco Rodriguez MD Unavailable Unavail able El-Dokla, Paco Rodriguez MD Unavailable Unavail able El-Dokla, Paco Rodriguez MD Unavailable Unavail able El-Dokla, Paco Rodriguez MD Unavailable Unavail able El-Dokla, Paco Rodriguez MD Unavailable Unavail able El-Dokla, Paco Rodriguez MD Unavailable Unavail able El-Dokla, Paco Rodriguez MD Unavailable Unavail able Suraj-Dosabra, Paco Rodriguez MD Unavailable Unavail able Stephanie Delgado MD Unavailable Unavailable Stephanie Delgado MD Unavailable Unavailable Stephanie Delgado MD Unavailable Unavailable Stephanie Delgado MD Unavailable Unavailable Stephanie Delgado MD Unavailable Unavailable Stephanie Delgado MD Unavailable Unavailable Stephanie Delgado MD Unavailable Unavailable Stephanie Delgado MD Unavailable Unavailable Stephanie Delgado MD Unavailable Unavailable Stephanie Delgado MD Unavailable Unavailable Stephanie Delgado MD Unavailable Unavailable Stephanie Delgado MD Unavailable Unavailable Stephanie Delgado MD Unavailable Unavailable Stephanie Delgado MD Unavailable Unavailable Stephanie Delgado MD Unavailable Unavailable Stephanie Delgado MD Unavailable Unavailable Stephanie Delgado MD Unavailable Unavailable Stephanie Delgado MD Unavailable Unavailable Stephanie Delgado MD Unavailable Unavailable Stephanie Delgado MD Unavailable Unavailable Stephanie Delgado MD Unavailable Unavailable Stephanie Delgado MD Unavailable Unavailable Stephanie Delgado MD Unavailable Unavailable Stephanie Delgado MD Unavailable Unavailable Stephanie Delgado MD Unavailable Unavailable Stephanie Delgado MD Unavailable Unavailable Stephanie Delgado MD Unavailable Unavailable Stephanie Delgado MD Unavailable Unavailable Stephanie Delgado MD Unavailable Unavailable Stephanie Delgado MD Unavailable Unavailable Stephanie Delgado MD Unavailable Unavailable Stephanie Delgado MD Unavailable Unavailable Stephanie Delgado MD Unavailable Unavailable Stephanie Delgado MD Unavailable Unavailable Stephanie Delgado MD Unavailable Unavailable Stephanie Delgado MD Unavailable Unavailable Stephanie Delgado MD Unavailable Unavailable Stephanie Delgado MD Unavailable Unavailable LyndaStephanie white MD Unavailable Unavailable LyndaStephanie white MD Unavailable Unavailable LyndaStephanie white MD Unavailable Unavailable LyndaStephanie white MD Unavailable Unavailable LyndaStephanie white MD Unavailable Unavailable LyndaStephanie white MD Unavailable Unavailable LyndaStephanie white MD Unavailable Unavailable LyndaStephanie white MD Unavailable Unavailable LyndaStephanie white MD Unavailable Unavailable LyndaStephanie white MD Unavailable Unavailable LyndaStephanie white MD Unavailable Unavailable LyndakerStephanie MD Unavailable Unavailable LyndaStephanie white MD Unavailable Unavailable LyndaStephanie white MD Unavailable Unavailable LyndaStephanie white MD Unavailable Unavailable LyndaStephanie white MD Unavailable Unavailable LyndaStephanie white MD Unavailable Unavailable LyndaStephanie white MD Unavailable Unavailable LyndaStephanie white MD Unavailable Unavailable LyndaStephanie white MD Unavailable Unavailable LyndaStephanie white MD Unavailable Unavailable LyndaStephanie white MD Unavailable Unavailable LyndaStephanie white MD Unavailable Unavailable LyndaStephanie white MD Unavailable Unavailable LyndaStephanie white MD Unavailable Unavailable LyndaStephanie white MD Unavailable Unavailable LyndaStephanie white MD Unavailable Unavailable LyndaStephanie white MD Unavailable Unavailable LyndaStephanie white MD Unavailable Unavailable LyndaStephanie white MD Unavailable Unavailable LyndaStephanie white MD Unavailable Unavailable LynStephanie fulton MD Unavailable Unavailable LynStephanie fulton MD Unavailable Unavailable LynStephanie fulton MD Unavailable Unavailable LynStephanie fulton MD Unavailable Unavailable LyndaStephanie white MD Unavailable Unavailable LyndaStephanie white MD Unavailable Unavailable LyndaStephanie white MD Unavailable Unavailable LynStephanie fulton MD Unavailable Unavailable LynStephanie fulotn MD Unavailable Unavailable LynStephanie fulton MD Unavailable Unavailable LyndaStephanie white MD Unavailable Unavailable LyndaStephanie white MD Unavailable Unavailable LyndaStephanie white MD Unavailable Unavailable LyndaStephanie white MD Unavailable Unavailable LyndaStephanie white MD Unavailable Unavailable LyndaStephanie white MD Unavailable Unavailable LynStephanie fulton MD Unavailable Unavailable LyndaStephanie white MD Unavailable Unavailable Lyndaker, L Raúl MD Unavailable Unavailable Lyndaker, L Raúl MD Unavailable Unavailable Lyndaker, L Raúl MD Unavailable Unavailable Lyndaker, L Raúl MD Unavailable Unavailable Lyndaker, L Raúl MD Unavailable Unavailable Lyndaker, L Raúl MD Unavailable Unavailable Lyndaker, L Raúl MD Unavailable Unavailable Lyndaker, L Raúl MD Unavailable Unavailable Lyndaker, L Raúl MD Unavailable Unavailable Lyndaker, L Raúl MD Unavailable Unavailable Lyndaker, L Raúl MD Unavailable Unavailable Will Valdovinos MD Unavailable Unavailable Re-disclosure Warning The records that you are about to access may contain information from federally-assisted alcohol or drug abuse programs. If such information is present, then the following federally mandated warning applies: This information has been disclosed to you from records protected by federal confidentiality rules (42 CFR part 2). The federal rules prohibit you from making any further disclosure of this information unless further disclosure is expressly permitted by the written consent of the person to whom it pertains or as otherwise permitted by 42 CFR part 2. A general authorization for the release of medical or other information is NOT sufficient for this purpose. The Federal rules restrict any use of the information to criminally investigate or prosecute any alcohol or drug abuse patient.The records that you are about to access may contain highly sensitive health information, the redisclosure of which is protected by Article 27-F of the [facility] Public Health law. If you continue you may have access to information: Regarding HIV / AIDS; Provided by facilities licensed or operated by the [facility] Office of Mental Health; or Provided by the [facility] Office for People With Developmental Disabilities. If such information is present, then the following [facility] mandated warning applies: This information has been disclosed to you from confidential records which are protected by state law. State law prohibits you from making any further disclosure of this information without the specific written consent of the person to whom it pertains, or as otherwise permitted by law. Any unauthorized further disclosure in violation of state law may result in a fine or care home sentence or both. A general authorization for the release of medical or other information is NOT sufficient authorization for further disc losure. Allergies and Adverse Reactions Type Description Substance Reaction Status Data Source(s ) Propensity to adverse reactions Propensity to adverse reactions hyd romorphone [facility] Propensity to adverse reactions Propensity to adverse reactions fenta [facility]. Propensity to adverse reactions Propensity to adverse reactions Morph ine [facility] Propensity to adverse reactions HYDROMORPHONE HYDROMORPHONE [facility] Drug allergy hydromorphone hydromorphone Hives [facility] Food allergy GARLIC GARLIC Nausea/Vomit/Gastric [facility] Food allergy SMOKED FOODS SMOKED FOODS Nausea/Vomit/Gastric [facility] Food allergy ONIONS ONIONS Nausea/Vomit/Gastric [facility] Family History Family Member Name Family Member Gender Family Member Status Date o f Status Description Data Source(s) Unknown Condition [facility] Unknown Condition [facility] Unknown Condition [facility] Unknown Condition [facility] Unknown Condition [facility] Unknown Condition [facility] Unknown Condition [facility] Unknown Condition [facility] Unknown Condition [facility] Unknown Condition [facility] Encounters Encounter Providers Location Date Indications Data Source(s ) Outpatient Attender: Lore Vasques MD 06/03/2021 12:00:[address] [facility] Emergency Attender: Tara Palmer M.D. SURG-ER 04/27/2021 03:38:[address] [facility] Patient discharged. Emergency Attender: Tara Palmer M.D. SURG-ER 06/2021 03:38:00 PM EDT - 04/27/2021 07:19:[address] [facility] Outpatient Attender: Lore barrett MDReferrer: Lore Vasques MD 04/19/2021 12:00:00 AM EDT [facility] Outpatient Attender: Lore Vasques MD [id number] 02/25/2021 12:00:00 AM EDT - 02/25/2021 01:52:45 PM [facility] Outpatient Attender: Lore HEBERTeferrer: Lore Vasques MD 02/25/2021 12:00:00 AM EDT Anesthesia of skin [facility] Anesthesia of skin Outpatient 02/25/2021 12:00:00 AM [facility] Outpatient 02/25/2021 12:00:00 AM [facility] Outpatient Attender: Lore Vasques MD 02/18/2021 12:00:00 AM [facility] Outpatient Attender: Lore Vasques MD [id number] 12/31/2020 12:00:00 AM EDT - 12/31/2020 02:50:44 PM [facility] Outpatient Attender: Lore Vasques MD 12/31/2020 12:00:00 AM [facility] Outpatient Attender: Lore barrett MDReferrer: Lore Vasques MD 11/03/2020 12:00:00 AM [facility] Myasthenia gravis wit hout (acute) exacerbation [facility] Myasthenia gravis without (acute) exacer bation Outpatient Attender: Cedrick Valdovinos MD 10/01/2020 05:44: 00 PM [facility] Outpatient Attender: Cedrick Valdovinos MDReferrer: Raúl sauer MD 10/01/2020 01:16:00 PM EDT - 10/01/2020 02:18:00 PM [facility] Outpatient Attender: Lore Vasques MD [id number] 09/17/2020 12:00:00 AM EST - 09/17/2020 02:46:[address] [facility] Outpatient Attender: Lore barrett MDReferrer: Lore Vasques MD 09/17/2020 12:00:00 AM EST G70.00 [facility] G70.00 Outpatient Attender: Cedrick Valdovinos MDReferrer: Raúl sauer MD 09/16/2020 01:22:00 PM EST - 09/16/2020 02:33:00 PM [facility] Outpatient<td ID="encounterTypeDescripti onID0">followup</td><td>Raúl Delgado MD</td><td>[facility]</td><td>09/03/2020</td><td>2:47PM</td><td>3:23PM</td><td><content ID="encounterDiagnosisID0-0">Iliotibial Band Friction Syndrome Left Knee</content>, <content ID="encounterDiagnosisID0-1">Bursitis Trochanteric Left</content>, <content ID="encounterDiagnosisID0-2">Essential Hypertension</content>, <content ID="encounterDiagnosisID0-3">Ovarian Cyst Left</content></td> Attender: Raúl Delgado MD [facility] 09/03/2020 02:47:00 PM EST - 09/03/2020 03:23:00 PM ES T Ovarian Cyst LeftBursitis Trochanteric LeftIliotibial Band Friction Syndrome Left KneeEssential Hypertension JEREMY ([facility]) Ovarian Cyst Left Bursitis Trochanteric Left Iliotibial Band Friction Syndrome Left K nee [facility] Outpatient Attender: Lore Vasques MD 08/20/2020 12:00:[address] [facility] Outpatient Attender: Lore Vasques MD 08/06/2020 12:00:[address] 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 Outpatient Attender: Lore Vasques MD [id number] 04/23/2020 12:00:00 AM EDT - 04/23/2020 02:36:05 PM T [facility] Outpatient<td ID="encounterTypeDescripti onID1">incident to previous visit- </td><td>Samanta Kong ELECTRIC MOTOR REBUILDER-</td><td>[facility]</td><td>04/20/2020</td><td>2:50PM</td><td>3:20PM</td><td><content ID="encounterDiagnosisID1-0">Essential Hypertension</content>, <content ID="encounterDiagnosisID1-1">Diabetes Mellitus Type 2 - Uncomplicated, Controlled</content>, <content ID="encounterDiagnosisID1-2">Myasthenia Gravis Without Acute Exacerbation</content>, <content ID="encounterDiagnosisID1- 3">Assessment of Morbid Obesity (>100% Overweight)</content></td> Attender: SAMANTA KONG [facility] 04/20/2020 02:50:00 P M EDT - 04/20/2020 03:20:00 PM EDT Assessment of Morbid Obesity (>100% Overweight)Diabetes Mellitus Type 2 - Uncomplicated, ControlledAssessment of Morbid Obesity (>100% Overweight)Diabetes Mellitus Type 2 - Uncomplicated, ControlledMyasthenia Gravis Without Acute ExacerbationMyasthenia Gravis Without Acute ExacerbationEssential HypertensionEssential Hypertension JEREMY ([facility]) Assessment of Morbid Obesity (>100% Over weight) Diabetes Mellitus Type 2 - Uncomplicated , Controlled Assessment of Morbid Obesity (>100% Over weight) Diabetes Mellitus Type 2 - Uncomplicated , Controlled Myasthenia Gravis Without Acute Exacerba tion Myasthenia Gravis Without Acute Exacerba tion [facility]pertension [facility] Outpatient Attender: Lore Vasques MD 03/26/2020 12:00:00 AM [facility] [facility]: Lore Vasques MD 03/26/2020 12:00:00 AM [facility] Medications Medication Brand Name Start Date Product Form Dose Route Admi nistrative Instructions Pharmacy Instructions Status Indications Reaction Description Data Source(s) 200 mg 04/28/2021 12:00:00 AM EDT capsule 60 TAKE ONE CAPSULE BY MOUTH TWICE A DAY MAXIMUM DAILY DOSE = 2 TAKE ONE CAPSULE BY MOUTH TWICE A DAY MA XIMUM DAILY DOSE = 2 SOLD: 04/30/2021 [facility] 5-325 mg 04/27/2021 12:00:00 AM EDT tablet 12 TAKE ONE TABLET BY MOUTH EVERY 6 HOURS NEEDED MAXIMUM DAILY DOSE = 4 TAKE ONE TABLET BY MOUTH EVERY 6 HOURS NEEDED MAXIMUM DAILY DOSE = 4 SOLD: 04/30/2021 [facility] Ondansetron 4 MG Disintegrating Oral Tablet ONDANSETRON 04/22/2021 12:00:00 AM EDT tablet,disintegrating 25 DISSOLVE O NE TABLET ON TONGUE FOUR TIMES A DAY NEEDED NAUSEA DISSOLVE ONE TABLET ON TONGUE FOUR TIMES A DAY NEED ED NAUSEA SOLD: 04/26/2021 [facility] 10-325 mg 04/20/2021 12:00:00 AM EDT tablet 180 TAKE ONE TO TWO TABLETS BY MOUTH EVERY 4 HOURS NEEDED FOR PAIN MAXIMUM DAILY DOSE = 6 TABLETS TAKE ONE TO TWO TABLETS BY MOUTH EVERY 4 HOURS NEEDED FOR PAIN MAXIMUM DAILY DOSE = 6 TABLETS SOLD: 04/20/2021 [facility] Oxycodone Hydrochloride 30 MG Oral Tablet OXYCODONE HCL 04/20/2021 12:00:00 AM EDT tablet 60 TAKE ONE TABLET BY MOUTH TWICE A DAY MAXIMUM DAILY DOSE = 2 TABLETS TAKE ONE TABLET BY MOUTH TWICE A DAY MAXIMUM DAILY DOS E = 2 TABLETS SOLD: 04/20/2021 [facility] 0.25 mg 04/20/2021 12:00:00 AM EDT tablet 90 TAKE ONE TABLET BY MOUTH EVERY MORNING AND 2 AT BEDTIME MAXIMUM DAILY DOSE = 3 CAPSULES TAKE ONE TABLET BY MOUTH EVERY MORNING AND 2 AT BEDTIME MAXIMUM DAILY DOSE = 3 CAPSULES SOLD: 04/26/2021 [facility] Oxycodone Hydrochloride 30 MG Oral Tablet OXYCODONE HCL 03/23/2021 12:00:00 AM EDT tablet 60 TAKE ONE TABLET BY MOUTH TWI CE A DAY MAXIMUM DAILY DOSE = 2 TAKE ONE TABLET BY MOUTH TWICE A DAY MAXIMUM DAILY DOSE = 2 SOLD: 03/23/2021 [facility] 10-325 mg 03/23/2021 12:00:00 AM EDT tablet 180 TAKE ONE TO TWO TABLETS BY MOUTH EVERY 4 HOURS NEEDED FOR PAIN MAXIMUM DAILY DOSE = 6 TAKE ONE TO TWO TABLETS BY MOUTH EVERY 4 HOURS NEEDED FOR PAIN MAXIMUM DAILY DOSE = 6 SOLD: 03/23/2021 [facility] buspirone hydrochloride 10 MG Oral Tablet BUSPIRONE HCL 03/20/2021 12:00:00 AM EDT tablet 90 TAKE ONE TABLET BY MOUTH THR EE TIMES A DAY TAKE ONE TABLET BY MOUTH THREE TIMES A DAY SOLD: 04/20/2021 [facility] Trazodone Hydrochloride 100 MG Oral Tablet TRAZODONE HCL 03/20/2021 12:00:00 AM EDT tablet 60 TAKE TWO TABLETS BY MOUTH AT BEDTIME TAKE TWO TABLETS BY MOUTH AT BEDTIME SOLD: 04/20/2021 [facility] buspirone hydrochloride 10 MG Oral Tablet BUSPIRONE HCL 03/20/2021 12:00:00 AM EDT tablet 90 TAKE ONE TABLET BY MOUTH THR EE TIMES A DAY TAKE ONE TABLET BY MOUTH THREE TIMES A DAY SOLD: 03/23/2021 [facility] 90 mcg/actuation 03/20/2021 12:00:00 AM EDT HFA aerosol inha ler 18 INHALE TWO PUFFS BY MOUTH EVERY 4 HOURS NEEDED INHALE TWO PUFFS BY MOUTH EVERY 4 HOURS NEEDED SOLD: 04/30/2021 [facility] 90 mcg/actuation 03/20/2021 12:00:00 AM EDT HFA aerosol inha ler 18 INHALE TWO PUFFS BY MOUTH EVERY 4 HOURS NEEDED INHALE TWO PUFFS BY MOUTH EVERY 4 HOURS NEEDED SOLD: 03/23/2021 [facility] atorvastatin 10 MG Oral Tablet ATORVASTATIN CALCIUM 03/20/2021 1 2:00:00 AM EDT tablet 90 TAKE ONE TABLET BY MOUTH IN THE EVENING TAKE ONE TABLET BY MOUTH IN THE EVENING SOLD: 03/23/2021 [facility] Trazodone Hydrochloride 100 MG Oral Tablet TRAZODONE HCL 03/20/2021 12:00:00 AM EDT tablet 60 TAKE TWO TABLETS BY MOUTH AT BEDTIME TAKE TWO TABLETS BY MOUTH AT BEDTIME SOLD: 03/23/2021 [facility] 90 mcg/actuation 03/20/2021 12:00:00 AM EDT HFA aerosol inha ler 18 INHALE TWO PUFFS BY MOUTH EVERY 4 HOURS NEEDED INHALE TWO PUFFS BY MOUTH EVERY 4 HOURS NEEDED SOLD: 04/12/2021 [facility] Oxycodone Hydrochloride 30 MG Oral Tablet OXYCODONE HCL 02/16/2021 12:00:00 AM EDT tablet 60 TAKE ONE TABLET BY MOUTH TWICE A DAY MAXIMUM DAILY DOSE = 2 TABLETS TAKE ONE TABLET BY MOUTH TWICE A DAY MAXIMUM DAILY DOS E = 2 TABLETS SOLD: 02/17/2021 [facility] 10-325 mg 02/16/2021 12:00:00 AM EDT tablet 180 TAKE ONE TO TWO TABLETS BY MOUTH EVERY 4 HOURS NEEDED FOR PAIN MAXIMUM DAILY DOSE = 6 TABLETS TAKE ONE TO TWO TABLETS BY MOUTH EVERY 4 HOURS NEEDED FOR PAIN MAXIMUM DAILY DOSE = 6 TABLETS SOLD: 02/17/2021 [facility] 10-325 mg 01/18/2021 12:00:00 AM EDT tablet 180 TAKE 1-2 TABLETS BY MOUTH EVERY 4 HOURS NEEDED FOR PAIN MAXIMUM DAILY DOSE = 6 TABLETS TAKE 1-2 TABLETS BY MOUTH EVERY 4 HOURS NEEDED FOR PAIN MAXIMUM DAILY DOSE = 6 TABLETS SOLD: 01/20/2021 [facility] mycophenolate mofetil 250 MG Oral Capsul e Mycophenolate Mofetil 250 MG Oral Capsule (CELLCEPT) Mycophenolate Mofetil 250 MG Oral Capsule (CELLCEPT) 01/15/2021 12:00:00 AM EDT act sujatha Myasthenia gravis without exacerbation TAKE TWO CAPSULES BY MOUTH E VERY MORNING AND 3 CAPSULES EVERY EVENING [facility] Myasthenia gravis without exacerbation Trazodone Hydrochloride 100 MG Oral Tablet TRAZODONE HCL 01/14/2021 12:00:00 AM EDT tablet 60 TAKE TWO TABLETS BY MOUTH AT BEDTIME TAKE TWO TABLETS BY MOUTH AT BEDTIME SOLD: 02/17/2021 [facility] 100 mg 01/14/2021 12:00:00 AM EDT tablet 30 TAKE ONE TABLET BY MOUTH EVERY DAY TAKE ONE TABLET BY MOUTH EVERY DAY SOLD: 01/15/2021 [facility] Trazodone Hydrochloride 100 MG Oral Tablet TRAZODONE HCL 01/14/2021 12:00:00 AM EDT tablet 60 TAKE TWO TABLETS BY MOUTH AT BEDTIME TAKE TWO TABLETS BY MOUTH AT BEDTIME SOLD: 01/15/2021 [facility] 100 mg 01/14/2021 12:00:00 AM EDT tablet 30 TAKE ONE TABLET BY MOUTH EVERY DAY TAKE ONE TABLET BY MOUTH EVERY DAY SOLD: 03/23/2021 [facility] 100 mg 01/14/2021 12:00:00 AM EDT tablet 30 TAKE ONE TABLET BY MOUTH EVERY DAY TAKE ONE TABLET BY MOUTH EVERY DAY SOLD: 02/17/2021 [facility] 100 mg 01/14/2021 12:00:00 AM EDT tablet 30 TAKE ONE TABLET BY MOUTH EVERY DAY TAKE ONE TABLET BY MOUTH EVERY DAY SOLD: 04/20/2021 [facility] 30 mg 01/13/2021 12:00:00 AM EDT tablet 60 TAKE ONE TABLET BY MOUTH TWICE A DAY MAXIMUM DAILY DOSE = 2 TABLETS TAKE ONE TABLET BY MOUTH TWICE A DAY MAX IMUM DAILY DOSE = 2 TABLETS SOLD: 01/15/2021 [facility] 60 mg 12/28/2020 12:00:00 AM EDT tablet 180 TAKE 1 & 1/2 TABLETS BY MOUTH FOUR TIMES A DAY TAKE 1 & 1/2 TABLETS BY MOUTH FOUR TIMES A DAY SOLD: 0 03/23/2021 [facility] Pyridostigmine [place] 60 MG Oral Tablet Pyridostigmine [place] 60 MG Oral Tablet (Mestinon) Pyridostigmine [place] 60 MG Oral Tablet (Mestinon) 12:00:00 AM EDT 90 mg Oral active Take 1.5 tablets by mouth Four times daily [facility] 60 mg 12/28/2020 12:00:00 AM EDT tablet 180 TAKE 1 & 1/2 TABLETS BY MOUTH FOUR TIMES A DAY TAKE 1 & 1/2 TABLETS BY MOUTH FOUR TIMES A DAY SOLD: 0 01/01/2021 [facility] 60 mg 12/28/2020 12:00:00 AM EDT tablet 180 TAKE 1 & 1/2 TABLETS BY MOUTH FOUR TIMES A DAY TAKE 1 & 1/2 TABLETS BY MOUTH FOUR TIMES A DAY SOLD: 1 [facility] 60 mg 12/28/2020 12:00:00 AM EDT tablet 180 TAKE 1 & 1/2 TABLETS BY MOUTH FOUR TIMES A DAY TAKE 1 & 1/2 TABLETS BY MOUTH FOUR TIMES A DAY SOLD: 0 01/27/2021 [facility] 10-325 mg 12/23/2020 12:00:00 AM EDT tablet 180 TAKE 1-2 TABLETS BY MOUTH EVERY 4 HOURS NEEDED FOR PAIN MAXIMUM DAILY DOSE = 6 TAKE 1-2 TABLETS BY MOUTH EVERY 4 HOURS NEEDED FOR PAIN MAXIMUM DAILY DOSE = 6 SOLD: 12/23/2020 [facility] buspirone hydrochloride 10 MG Oral Tablet BUSPIRONE HCL 12/19/2020 12:00:00 AM EDT tablet 90 TAKE ONE TABLET BY MOUTH THR EE TIMES A DAY TAKE ONE TABLET BY MOUTH THREE TIMES A DAY SOLD: 02/17/2021 [facility] buspirone hydrochloride 10 MG Oral Tablet BUSPIRONE HCL 12/19/2020 12:00:00 AM EDT tablet 90 TAKE ONE TABLET BY MOUTH THR EE TIMES A DAY TAKE ONE TABLET BY MOUTH THREE TIMES A DAY SOLD: 12/21/2020 [facility] buspirone hydrochloride 10 MG Oral Tablet BUSPIRONE HCL 12/19/2020 12:00:00 AM EDT tablet 90 TAKE ONE TABLET BY MOUTH THR EE TIMES A DAY TAKE ONE TABLET BY MOUTH THREE TIMES A DAY SOLD: 01/15/2021 [facility] 200 mg 12/15/2020 12:00:00 AM EDT capsule 60 TAKE ONE CAPSULE BY MOUTH TWICE A DAY MAXIMUM DAILY DOSE = 2 CAPSULES TAKE ONE CAPSULE BY MOUTH TWICE A DAY MAXIMUM DAILY DOSE = 2 CAPSULES SOLD: 01/15/2021 [facility] 0.25 mg 12/15/2020 12:00:00 AM EDT tablet 90 TAKE ONE TABLET BY MOUTH EVERY MORNING AND 2 AT BEDTIME MAXIMUM DAILY DOSE = 3 CAPSULES TAKE ONE TABLET BY MOUTH EVERY MORNING AND 2 AT BEDTIME MAXIMUM DAILY DOSE = 3 CAPSULES SOLD: 02/17/2021 [facility] 200 mg 12/15/2020 12:00:00 AM EDT capsule 60 TAKE ONE CAPSULE BY MOUTH TWICE A DAY MAXIMUM DAILY DOSE = 2 CAPSULES TAKE ONE CAPSULE BY MOUTH TWICE A DAY MAXIMUM DAILY DOSE = 2 CAPSULES SOLD: 12/21/2020 [facility] 0.25 mg 12/15/2020 12:00:00 AM EDT tablet 90 TAKE ONE TABLET BY MOUTH EVERY MORNING AND 2 AT BEDTIME MAXIMUM DAILY DOSE = 3 CAPSULES TAKE ONE TABLET BY MOUTH EVERY MORNING AND 2 AT BEDTIME MAXIMUM DAILY DOSE = 3 CAPSULES SOLD: 03/23/2021 [facility] 200 mg 12/15/2020 12:00:00 AM EDT capsule 60 TAKE ONE CAPSULE BY MOUTH TWICE A DAY MAXIMUM DAILY DOSE = 2 CAPSULES TAKE ONE CAPSULE BY MOUTH TWICE A DAY MAXIMUM DAILY DOSE = 2 CAPSULES SOLD: 03/23/2021 [facility] 0.25 mg 12/15/2020 12:00:00 AM EDT tablet 90 TAKE ONE TABLET BY MOUTH EVERY MORNING AND 2 AT BEDTIME MAXIMUM DAILY DOSE = 3 CAPSULES TAKE ONE TABLET BY MOUTH EVERY MORNING AND 2 AT BEDTIME MAXIMUM DAILY DOSE = 3 CAPSULES SOLD: 12/21/2020 [facility] 200 mg 12/15/2020 12:00:00 AM EDT capsule 60 TAKE ONE CAPSULE BY MOUTH TWICE A DAY MAXIMUM DAILY DOSE = 2 CAPSULES TAKE ONE CAPSULE BY MOUTH TWICE A DAY MAXIMUM DAILY DOSE = 2 CAPSULES SOLD: 02/17/2021 [facility] 30 mg 12/15/2020 12:00:00 AM EDT tablet 60 TAKE ONE TABLET BY MOUTH TWICE A DAY MAXIMUM DAILY DOSE = 2 TABLETS TAKE ONE TABLET BY MOUTH TWICE A DAY MAX IMUM DAILY DOSE = 2 TABLETS SOLD: 12/21/2020 [facility] 0.25 mg 12/15/2020 12:00:00 AM EDT tablet 90 TAKE ONE TABLET BY MOUTH EVERY MORNING AND 2 AT BEDTIME MAXIMUM DAILY DOSE = 3 CAPSULES TAKE ONE TABLET BY MOUTH EVERY MORNING AND 2 AT BEDTIME MAXIMUM DAILY DOSE = 3 CAPSULES SOLD: 01/15/2021 [facility] 2.5 mg /3 mL (0.083 %) 11/26/2020 12:00:00 AM EDT solu tion for nebulization 300 USE 1 VIAL VIA NEBULIZER FOUR TIMES A DA Y NEEDED USE 1 VIAL VIA NEBULIZER FOUR TIMES A DAY NEEDED SOLD: 01/20/2021 [facility] 2.5 mg /3 mL (0.083 %) 11/26/2020 12:00:00 AM EDT solu tion for nebulization 300 USE 1 VIAL VIA NEBULIZER FOUR TIMES A DA Y NEEDED USE 1 VIAL VIA NEBULIZER FOUR TIMES A DAY NEEDED SOLD: 04/20/2021 [facility] 2.5 mg /3 mL (0.083 %) 11/26/2020 12:00:00 AM EDT solu tion for nebulization 300 USE 1 VIAL VIA NEBULIZER FOUR TIMES A DA Y NEEDED USE 1 VIAL VIA NEBULIZER FOUR TIMES A DAY NEEDED SOLD: 12/21/2020 [facility] 2.5 mg /3 mL (0.083 %) 11/26/2020 12:00:00 AM EDT solu tion for nebulization 300 USE 1 VIAL VIA NEBULIZER FOUR TIMES A DA Y NEEDED USE 1 VIAL VIA NEBULIZER FOUR TIMES A DAY NEEDED SOLD: 11/26/2020 [facility] 2.5 mg /3 mL (0.083 %) 11/26/2020 12:00:00 AM EDT solu tion for nebulization 300 USE 1 VIAL VIA NEBULIZER FOUR TIMES A DA Y NEEDED USE 1 VIAL VIA NEBULIZER FOUR TIMES A DAY NEEDED SOLD: 03/23/2021 [facility] 10-325 mg 11/25/2020 12:00:00 AM EDT tablet 180 TAKE 1-2 TABLETS BY MOUTH THREE TIMES A DAY NEEDED FOR PAIN MAXIMUM DAILY DOSE = 6 TABLETS TAKE 1-2 TABLETS BY MOUTH THREE TIMES A DAY NEEDED FOR PAIN MAXIMUM DAILY DOSE = 6 TABLETS SOLD: 11/26/2020 [facility] 30 mg 11/17/2020 12:00:00 AM EDT tablet 60 TAKE ONE TABLET BY MOUTH TWICE A DAY MAXIMUM DAILY DOSE = 2 TABLETS TAKE ONE TABLET BY MOUTH TWICE A DAY MAX IMUM DAILY DOSE = 2 TABLETS SOLD: 11/17/2020 [facility] Trazodone Hydrochloride 100 MG Oral Tablet TRAZODONE HCL 11/17/2020 12:00:00 AM EDT tablet 60 TAKE TWO TABLETS BY MOUTH AT BEDTIME TAKE TWO TABLETS BY MOUTH AT BEDTIME SOLD: 11/23/2020 [facility] Trazodone Hydrochloride 100 MG Oral Tablet TRAZODONE HCL 11/17/2020 12:00:00 AM EDT tablet 60 TAKE TWO TABLETS BY MOUTH AT BEDTIME TAKE TWO TABLETS BY MOUTH AT BEDTIME SOLD: 12/21/2020 [facility] 60 ACTUAT Fluticasone propionate 0.232 M G/ACTUAT / Salmeterol xinafoate 0.014 MG/ACTUAT Dry Powder Inhaler 232-14 mcg/actuation FLUTICASONE PROPION/SALMETEROL 11/16/2020 12:00:00 AM EDT aerosol powdr breath activated 3 INHALE ONE PUFF BY MOUTH TWICE A DAY INHALE ONE PUFF BY MOUTH TWICE A DAY SOLD: 11/17/2020 [facility] Ondansetron 4 MG Disintegrating Oral Tablet ONDANSETRON 11/05/2020 12:00:00 AM EDT tablet,disintegrating 25 DISSOLVE O NE TABLET ON TONGUE FOUR TIMES A DAY NEEDED FOR NAUSEA DISSOLVE ONE TABLET ON TONGUE FOUR TIMES A DAY NEEDED FOR NAUSEA SOLD: 11/26/2020 [facility] Ondansetron 4 MG Disintegrating Oral Tablet ONDANSETRON 11/05/2020 12:00:00 AM EDT tablet,disintegrating 25 DISSOLVE O NE TABLET ON TONGUE FOUR TIMES A DAY NEEDED FOR NAUSEA DISSOLVE ONE TABLET ON TONGUE FOUR TIMES A DAY NEEDED FOR NAUSEA SOLD: 01/15/2021 [facility] Ondansetron 4 MG Disintegrating Oral Tablet ONDANSETRON 11/05/2020 12:00:00 AM EDT tablet,disintegrating 25 DISSOLVE O NE TABLET ON TONGUE FOUR TIMES A DAY NEEDED FOR NAUSEA DISSOLVE ONE TABLET ON TONGUE FOUR TIMES A DAY NEEDED FOR NAUSEA SOLD: 12/21/2020 [facility] 4 mg 11/05/2020 12:00:00 AM EDT tablet,disintegrating 2 5 DISSOLVE ONE TABLET ON TONGUE FOUR TIMES A DAY NEEDED FOR NAUSEA DISSOLVE ONE TABLET ON TONGUE FOUR TIMES A DAY NEEDED FOR NAUSEA SOLD: 11/06/2020 [facility] Ondansetron 4 MG Disintegrating Oral Tablet ONDANSETRON 11/05/2020 12:00:00 AM EDT tablet,disintegrating 25 DISSOLVE O NE TABLET ON TONGUE FOUR TIMES A DAY NEEDED FOR NAUSEA DISSOLVE ONE TABLET ON TONGUE FOUR TIMES A DAY NEEDED FOR NAUSEA SOLD: 02/17/2021 [facility] Ondansetron 4 MG Disintegrating Oral Tablet ONDANSETRON 11/05/2020 12:00:00 AM EDT tablet,disintegrating 25 DISSOLVE O NE TABLET ON TONGUE FOUR TIMES A DAY NEEDED FOR NAUSEA DISSOLVE ONE TABLET ON TONGUE FOUR TIMES A DAY NEEDED FOR NAUSEA SOLD: 03/23/2021 [facility] 0.25 mg 11/04/2020 12:00:00 AM EDT tablet 90 TAKE ONE TABLET BY MOUTH EVERY MORNING TAKE TWO TABLETS BY MOUTH AT BEDTIME TAKE ONE TABLET BY MOUTH EVERY MORNING TAKE TWO TABLETS BY MOUTH AT BEDTIME SOLD: 11/06/2020 [facility] BLOOD SUGAR DIAGNOSTIC 10/23/2020 12:00:00 AM EDT strip 100 USE DIRECTED ONE - TWO TIMES PER DAY USE DIRECTED ONE - TWO TIMES PER DAY SOLD: 10/27/19 21 [facility] BLOOD SUGAR DIAGNOSTIC 10/23/2020 12:00:00 AM EDT strip 100 USE DIRECTED ONE - TWO TIMES PER DAY USE DIRECTED ONE - TWO TIMES PER DAY SOLD: 03/23/20 21 [facility] BLOOD SUGAR DIAGNOSTIC 10/23/2020 12:00:00 AM EDT strip 100 USE DIRECTED ONE - TWO TIMES PER DAY USE DIRECTED ONE - TWO TIMES PER DAY SOLD: 02/20/20 21 [facility] BLOOD SUGAR DIAGNOSTIC 10/23/2020 12:00:00 AM EDT strip 100 USE DIRECTED ONE - TWO TIMES PER DAY USE DIRECTED ONE - TWO TIMES PER DAY SOLD: 11/24/19 21 [facility] Oxycodone Hydrochloride 30 MG Oral Tablet OXYCODONE HCL 10/20/2020 12:00:00 AM EDT tablet 60 TAKE ONE TABLET BY MOUTH TWICE A DAY MAXIMUM DAILY DOSE = TWO TABLETS TAKE ONE TABLET BY MOUTH TWICE A DAY MAXIMUM DAILY DOS E = TWO TABLETS SOLD: 10/22/2020 [facility] 10-325 mg 10/20/2020 12:00:00 AM EDT tablet 180 TAKE ONE TO TWO TABLETS BY MOUTH THREE TIMES A DAY NEEDED FOR PAIN MAXIMUM DAILY DOSE = SIX TABLETS TAKE ONE TO TWO TABLETS BY MOUTH THREE TIMES A DAY NEEDED FOR PAIN MAXIMUM DAILY DOSE = SIX TABLETS SOLD: 10/22/2020 [facility] mycophenolate mofetil 250 MG Oral Capsul e Mycophenolate Mofetil 250 MG Oral Capsule (CELLCEPT) Mycophenolate Mofetil 250 MG Oral Capsule (CELLCEPT) 10/19/2020 12:00:00 AM EDT [facility] Myasthenia gravis without exacerbation TAKE TWO CAPSULES BY MOUTH E VERY MORNING AND 3 CAPSULES EVERY EVENING [facility] Myasthenia gravis without exacerbation buspirone hydrochloride 10 MG Oral Tablet BUSPIRONE HCL 09/20/2020 12:00:00 AM EST tablet 90 TAKE ONE TABLET BY MOUTH THR EE TIMES A DAY TAKE ONE TABLET BY MOUTH THREE TIMES A DAY SOLD: 11/17/2020 [facility] buspirone hydrochloride 10 MG Oral Tablet BUSPIRONE HCL 09/20/2020 12:00:00 AM EST tablet 90 TAKE ONE TABLET BY MOUTH THR EE TIMES A DAY TAKE ONE TABLET BY MOUTH THREE TIMES A DAY SOLD: 09/22/2020 [facility] buspirone hydrochloride 10 MG Oral Tablet BUSPIRONE HCL 09/20/2020 12:00:00 AM EST tablet 90 TAKE ONE TABLET BY MOUTH THR EE TIMES A DAY TAKE ONE TABLET BY MOUTH THREE TIMES A DAY SOLD: 10/22/2020 [facility] 10-325 mg 09/18/2020 12:00:00 AM EST tablet 180 TAKE 1-2 TABLETS BY MOUTH NEEDED FOR PAIN MAXIMUM DAILY DOSE = SIX TABLETS TAKE 1-2 TABLETS BY MOUTH NEEDED FOR PAIN MAXIMUM DAILY DOSE = SIX TABLETS SOLD: 09/22/2020 [facility] Oxycodone Hydrochloride 30 MG Oral Tablet OXYCODONE HCL 09/18/2020 12:00:00 AM EST tablet 60 TAKE ONE TABLET BY MOUTH TWICE A DAY NEEDED FOR PAIN MAXIMUM DAILY DOSE = TWO TABLETS TAKE ONE TABLET BY MOUTH TWICE A DAY NEEDED FOR PAIN MAXIMUM DAILY DOSE = TWO TABLETS SOLD: 09/22/2020 [facility] latanoprost 0.05 MG/ML Ophthalmic Solution Latanoprost Latan oprost 09/16/2020 01:53:06 PM EST 1 DROPS completed [facility] Albuterol 0.83 MG/ML Inhalant Solution Albuterol Sulfate Alb uterol Sulfate 09/16/2020 01:52:22 PM EST 2.5 MG completed [facility] Metformin hydrochloride 500 MG Oral Tablet Metformin 09/16 01:52:03 PM EST 500 MG completed [facility] Amlodipine 10 MG Oral Tablet Amlodipine 09/16/2020 01:51:34 PM EST 10 MG completed [facility] Bisoprolol Fumarate 10 MG Oral Tablet Bisoprolol Fumarate 01:51:06 PM EST 10 MG completed [facility] ropinirole 0.25 MG Oral Tablet Ropinirole (Requip) 0.2 5 mg tablet Ropinirole (Requip) 0.25 mg tablet 09/16/2020 01:50:02 PM EST 0.[address] [facility] Sumat[facility]an 50 MG Oral Tablet Sumatriptan Succinate Sumatrip moctezuma Succinate 09/16/2020 01:49:56 PM EST 100 MG completed [facility] Pyridostigmine [place] 60 MG Oral Tablet Pyridostigmine Brom fely 09/16/2020 01:49:36 PM EST 90 MG completed [facility] atorvastatin 10 MG Oral Tablet Atorvastatin Atorvastatin 09/16/2020 01:48:38 PM EST 10 MG completed [facility] Acetaminophen 325 MG / Oxycodone Hydroch loride 10 MG Oral Tablet Oxycodone- Acetaminophen (Percocet) 10-325 mg tablet Oxycodone-Acetaminophen (Percocet) 10- 325 mg tablet 09/16/2020 01:45:22 PM EST 1 TAB completed [facility] Fluticasone Propionate 09/16/2020 01:44:14 PM EST 1 INH completed [facility] Trazodone Hydrochloride 100 MG Oral Tablet TRAZODONE HCL 09/16/2020 12:00:00 AM EST tablet 60 TAKE TWO TABLETS BY MOUTH AT BEDTIME TAKE TWO TABLETS BY MOUTH AT BEDTIME SOLD: 09/22/2020 [facility] Nystatin 100 UNT/MG Topical Powder 100,000 unit/gram NYSTATI N 09/16/2020 12:00:00 AM EST powder 15 APPLY UNDER THE BREAST TW O TIMES A DAY APPLY UNDER THE BREAST TWO TIMES A DAY SOLD: 02/17/2021 [facility] Nystatin 100 UNT/MG Topical Powder 100,000 unit/gram NYSTATI N 09/16/2020 12:00:00 AM EST powder 15 APPLY UNDER THE BREAST TW O TIMES A DAY APPLY UNDER THE BREAST TWO TIMES A DAY SOLD: 04/20/2021 [facility] Nystatin 100 UNT/MG Topical Powder 100,000 unit/gram NYSTATI N 09/16/2020 12:00:00 AM EST powder 15 APPLY UNDER THE BREAST TW O TIMES A DAY APPLY UNDER THE BREAST TWO TIMES A DAY SOLD: 03/23/2021 [facility] Nystatin 100 UNT/MG Topical Powder 100,000 unit/gram NYSTATI N 09/16/2020 12:00:00 AM EST powder 15 APPLY UNDER THE BREAST TW O TIMES A DAY APPLY UNDER THE BREAST TWO TIMES A DAY SOLD: 11/23/2020 [facility] Nystatin 100 UNT/MG Topical Powder 100,000 unit/gram NYSTATI N 09/16/2020 12:00:00 AM EST powder 15 APPLY UNDER THE BREAST TW O TIMES A DAY APPLY UNDER THE BREAST TWO TIMES A DAY SOLD: 12/21/2020 [facility] Nystatin 100 UNT/MG Topical Powder 100,000 unit/gram NYSTATI N 09/16/2020 12:00:00 AM EST powder 15 APPLY UNDER THE BREAST TW O TIMES A DAY APPLY UNDER THE BREAST TWO TIMES A DAY SOLD: 09/22/2020 [facility] Nystatin 100 UNT/MG Topical Powder 100,000 unit/gram NYSTATI N 09/16/2020 12:00:00 AM EST powder 15 APPLY UNDER THE BREAST TW O TIMES A DAY APPLY UNDER THE BREAST TWO TIMES A DAY SOLD: 10/22/2020 [facility] Nystatin 100 UNT/MG Topical Powder 100,000 unit/gram NYSTATI N 09/16/2020 12:00:00 AM EST powder 15 APPLY UNDER THE BREAST TW O TIMES A DAY APPLY UNDER THE BREAST TWO TIMES A DAY SOLD: 01/15/2021 [facility] Trazodone Hydrochloride 100 MG Oral Tablet TRAZODONE HCL 09/16/2020 12:00:00 AM EST tablet 60 TAKE TWO TABLETS BY MOUTH AT BEDTIME TAKE TWO TABLETS BY MOUTH AT BEDTIME SOLD: 10/22/2020 [facility] 0.25 mg 09/14/2020 12:00:00 AM EST tablet 90 TAKE ONE TABLET BY MOUTH EVERY MORNING TAKE TWO TABLETS BY MOUTH AT BEDTIME TAKE ONE TABLET BY MOUTH EVERY MORNING TAKE TWO TABLETS BY MOUTH AT BEDTIME SOLD: 10/11/2020 [facility] 0.25 mg 09/14/2020 12:00:00 AM EST tablet 90 TAKE ONE TABLET BY MOUTH EVERY MORNING TAKE TWO TABLETS BY MOUTH AT BEDTIME TAKE ONE TABLET BY MOUTH EVERY MORNING TAKE TWO TABLETS BY MOUTH AT BEDTIME SOLD: 09/22/2020 [facility] 0.005 % 09/07/2020 12:00:00 AM EST drops 2 INSTILL 1 DROP INTO IN EACH EYE AT BEDTIME DIRECTED INSTILL 1 DROP INTO IN EACH EYE AT BEDTIME DIRECTED SOLD: 04/05/2021 [facility] 0.005 % 09/07/2020 12:00:00 AM EST drops 2 INSTILL 1 DROP INTO IN EACH EYE AT BEDTIME DIRECTED INSTILL 1 DROP INTO IN EACH EYE AT BEDTIME DIRECTED SOLD: 09/07/2020 [facility] 0.005 % 09/07/2020 12:00:00 AM EST drops 2 INSTILL 1 DROP INTO IN EACH EYE AT BEDTIME DIRECTED INSTILL 1 DROP INTO IN EACH EYE AT BEDTIME DIRECTED SOLD: 12/21/2020 [facility] 0.005 % 09/07/2020 12:00:00 AM EST drops 2 INSTILL 1 DROP INTO IN EACH EYE AT BEDTIME DIRECTED INSTILL 1 DROP INTO IN EACH EYE AT BEDTIME DIRECTED SOLD: 10/22/2020 [facility] 0.005 % 09/07/2020 12:00:00 AM EST drops 2 INSTILL 1 DROP INTO IN EACH EYE AT BEDTIME DIRECTED INSTILL 1 DROP INTO IN EACH EYE AT BEDTIME DIRECTED SOLD: 01/15/2021 [facility] 0.005 % 09/07/2020 12:00:00 AM EST drops 2 INSTILL 1 DROP INTO IN EACH EYE AT BEDTIME DIRECTED INSTILL 1 DROP INTO IN EACH EYE AT BEDTIME DIRECTED SOLD: 11/17/2020 [facility] 10 mg 09/05/2020 12:00:00 AM EST tablet 30 TAKE ONE TABLET BY MOUTH EVERY DAY MAY CONSIDER 1/2 TABLET TWO TIMES A DAY IF LIGHTHEADED ON ONCE DAILY DOSING TAKE ONE TABLET BY MOUTH EVERY DAY MAY CONSIDER 1/2 TABLET TWO TIMES A DAY IF LIGHTHEADED ON ONCE DAILY DOSING SOLD: 10/22/2020 [facility] 10 mg 09/05/2020 12:00:00 AM EST tablet 30 TAKE ONE TABLET BY MOUTH EVERY DAY MAY CONSIDER 1/2 TABLET TWO TIMES A DAY IF LIGHTHEADED ON ONCE DAILY DOSING TAKE ONE TABLET BY MOUTH EVERY DAY MAY CONSIDER 1/2 TABLET TWO TIMES A DAY IF LIGHTHEADED ON ONCE DAILY DOSING SOLD: 01/15/2021 [facility] 10 mg 09/05/2020 12:00:00 AM EST tablet 30 TAKE ONE TABLET BY MOUTH EVERY DAY MAY CONSIDER 1/2 TABLET TWO TIMES A DAY IF LIGHTHEADED ON ONCE DAILY DOSING TAKE ONE TABLET BY MOUTH EVERY DAY MAY CONSIDER 1/2 TABLET TWO TIMES A DAY IF LIGHTHEADED ON ONCE DAILY DOSING SOLD: 11/17/2020 [facility] 10 mg 09/05/2020 12:00:00 AM EST tablet 30 TAKE ONE TABLET BY MOUTH EVERY DAY MAY CONSIDER 1/2 TABLET TWO TIMES A DAY IF LIGHTHEADED ON ONCE DAILY DOSING TAKE ONE TABLET BY MOUTH EVERY DAY MAY CONSIDER 1/2 TABLET TWO TIMES A DAY IF LIGHTHEADED ON ONCE DAILY DOSING SOLD: 12/21/2020 [facility] 10 mg 09/05/2020 12:00:00 AM EST tablet 30 TAKE ONE TABLET BY MOUTH EVERY DAY MAY CONSIDER 1/2 TABLET TWO TIMES A DAY IF LIGHTHEADED ON ONCE DAILY DOSING TAKE ONE TABLET BY MOUTH EVERY DAY MAY CONSIDER 1/2 TABLET TWO TIMES A DAY IF LIGHTHEADED ON ONCE DAILY DOSING SOLD: 04/20/2021 [facility] 10 mg 09/05/2020 12:00:00 AM EST tablet 30 TAKE ONE TABLET BY MOUTH EVERY DAY MAY CONSIDER 1/2 TABLET TWO TIMES A DAY IF LIGHTHEADED ON ONCE DAILY DOSING TAKE ONE TABLET BY MOUTH EVERY DAY MAY CONSIDER 1/2 TABLET TWO TIMES A DAY IF LIGHTHEADED ON ONCE DAILY DOSING SOLD: 02/17/2021 [facility] 10 mg 09/05/2020 12:00:00 AM EST tablet 30 TAKE ONE TABLET BY MOUTH EVERY DAY MAY CONSIDER 1/2 TABLET TWO TIMES A DAY IF LIGHTHEADED ON ONCE DAILY DOSING TAKE ONE TABLET BY MOUTH EVERY DAY MAY CONSIDER 1/2 TABLET TWO TIMES A DAY IF LIGHTHEADED ON ONCE DAILY DOSING SOLD: 03/23/2021 [facility] 10 mg 09/05/2020 12:00:00 AM EST tablet 30 TAKE ONE TABLET BY MOUTH EVERY DAY MAY CONSIDER 1/2 TABLET TWO TIMES A DAY IF LIGHTHEADED ON ONCE DAILY DOSING TAKE ONE TABLET BY MOUTH EVERY DAY MAY CONSIDER 1/2 TABLET TWO TIMES A DAY IF LIGHTHEADED ON ONCE DAILY DOSING SOLD: 09/07/2020 [facility] Amlodipine 5 MG Oral Tablet amLODIPine Besylate 5 MG O ral Tablet amLODIPine Besylate 5 MG Oral Tablet 09/03/2020 12:00:00 AM EST 1 active [facility] 5 [facility] bus[facility]one hydrochloride 10 MG Oral Tablet BUSPIRONE HCL 08/27/2020 12:00:00 AM EST tablet 90 TAKE ONE TABLET BY MOUTH THR EE TIMES A DAY TAKE ONE TABLET BY MOUTH THREE TIMES A DAY SOLD: 09/01/2020 [facility] buspirone hydrochloride 10 MG Oral Tablet busPIRone HC l 10 MG Oral Tablet busPIRone HCl 10 MG Oral Tablet 08/25/2020 12:00:00 AM EST 1 active buspirone hydrochloride 10 MG Oral Tablet [facility]) 200 mg 08/19/2020 12:00:00 AM EST capsule 60 TAKE ONE CAPSULE BY MOUTH TWICE A DAY MAXIMUM DAILY DOSE = 2 CAPSULE TAKE ONE CAPSULE BY MOUTH TWICE A DAY MAXIMUM DAILY DOSE = 2 CAPSULE SOLD: 11/17/2020 [facility] 10-325 mg 08/19/2020 12:00:00 AM EST tablet 180 TAKE 1-2 TABLETS BY MOUTH THREE TIMES A DAY NEEDED FOR PAIN MAXIMUM DAILY DOSE = SIX TABLETS TAKE 1-2 TABLETS BY MOUTH THREE TIMES A DAY NEEDED FOR PAIN MAXIMUM DAILY DOSE = SIX TABLETS SOLD: 08/21/2020 [facility] 200 mg 08/19/2020 12:00:00 AM EST capsule 60 TAKE ONE CAPSULE BY MOUTH TWICE A DAY MAXIMUM DAILY DOSE = 2 CAPSULE TAKE ONE CAPSULE BY MOUTH TWICE A DAY MAXIMUM DAILY DOSE = 2 CAPSULE SOLD: 08/21/2020 [facility] Oxycodone Hydrochloride 30 MG Oral Tablet OXYCODONE HCL 08/19/2020 12:00:00 AM EST tablet 60 TAKE ONE TABLET BY MOUTH TWICE A DAY MAXIMUM DAILY DOSE = TWO TABLETS TAKE ONE TABLET BY MOUTH TWICE A DAY MAXIMUM DAILY DOS E = TWO TABLETS SOLD: 08/21/2020 [facility] 200 mg 08/19/2020 12:00:00 AM EST capsule 60 TAKE ONE CAPSULE BY MOUTH TWICE A DAY MAXIMUM DAILY DOSE = 2 CAPSULE TAKE ONE CAPSULE BY MOUTH TWICE A DAY MAXIMUM DAILY DOSE = 2 CAPSULE SOLD: 10/22/2020 [facility] 200 mg 08/19/2020 12:00:00 AM EST capsule 60 TAKE ONE CAPSULE BY MOUTH TWICE A DAY MAXIMUM DAILY DOSE = 2 CAPSULE TAKE ONE CAPSULE BY MOUTH TWICE A DAY MAXIMUM DAILY DOSE = 2 CAPSULE SOLD: 09/22/2020 [facility] 25 mg 08/10/2020 12:00:00 AM EST suppository 6 INSERT 1 SUPPOSITORY RECTALLLY EVERY 8 HOURS NEEDED FOR NAUSEA OR VOMITING INSERT 1 SUPPOSITORY RECTALLLY EVERY 8 HOURS NEEDED FOR NAUSEA OR VOMITING SOLD: 08/18/2020 [facility] Promethazine Hydrochloride 25 MG Oral Tablet PROMETHAZINE HC L 08/09/2020 12:00:00 AM EST tablet 14 TAKE ONE TABLET BY MOUTH EVERY 6 HOURS NEEDED FOR NAUSEA OR VOMITING TAKE ONE TABLET BY MOUTH EVERY 6 HOURS A S NEEDED FOR NAUSEA OR VOMITING SOLD: 08/10/2020 [facility] mycophenolate mofetil 250 MG Oral Capsul e Mycophenolate Mofetil 250 MG Oral Capsule (CELLCEPT) Mycophenolate Mofetil 250 MG Oral Capsule (CELLCEPT) 08/05/2020 12:00:00 AM EST act sujatha Myasthenia gravis without exacerbation TAKE TWO CAPSULES BY MOUTH E VERY MORNING AND TAKE THREE CAPSULES BY MOUTH EVERY EVENING [facility] Myasthenia gravis without exacerbation 100 mg 07/28/2020 12:00:00 AM EST tablet 7 ONE TABLET BY MOUTH AT ONSET OF HEADACHE ONE TABLET BY MOUTH AT ONSET OF HEADACHE SOLD: 09/24/2020 [facility] 100 mg 07/28/2020 12:00:00 AM EST tablet 7 ONE TABLET BY MOUTH AT ONSET OF HEADACHE ONE TABLET BY MOUTH AT ONSET OF HEADACHE SOLD: 08/25/2020 [facility] 100 mg 07/28/2020 12:00:00 AM EST tablet 9 ONE TABLET BY MOUTH AT ONSET OF HEADACHE ONE TABLET BY MOUTH AT ONSET OF HEADACHE SOLD: 03/23/2021 [facility] 100 mg 07/28/2020 12:00:00 AM EST tablet 9 ONE TABLET BY MOUTH AT ONSET OF HEADACHE ONE TABLET BY MOUTH AT ONSET OF HEADACHE SOLD: 01/15/2021 [facility] 100 mg 07/28/2020 12:00:00 AM EST tablet 9 ONE TABLET BY MOUTH AT ONSET OF HEADACHE ONE TABLET BY MOUTH AT ONSET OF HEADACHE SOLD: 10/22/2020 [facility] 100 mg 07/28/2020 12:00:00 AM EST tablet 9 ONE TABLET BY MOUTH AT ONSET OF HEADACHE ONE TABLET BY MOUTH AT ONSET OF HEADACHE SOLD: 12/21/2020 [facility] 100 mg 07/28/2020 12:00:00 AM EST tablet 9 ONE TABLET BY MOUTH AT ONSET OF HEADACHE ONE TABLET BY MOUTH AT ONSET OF HEADACHE SOLD: 04/20/2021 [facility] 100 mg 07/28/2020 12:00:00 AM EST tablet 9 ONE TABLET BY MOUTH AT ONSET OF HEADACHE ONE TABLET BY MOUTH AT ONSET OF HEADACHE SOLD: 11/23/2020 [facility] 100 mg 07/28/2020 12:00:00 AM EST tablet 7 ONE TABLET BY MOUTH AT ONSET OF HEADACHE ONE TABLET BY MOUTH AT ONSET OF HEADACHE SOLD: 07/29/2020 [facility] 100 mg 07/28/2020 12:00:00 AM EST tablet 9 ONE TABLET BY MOUTH AT ONSET OF HEADACHE ONE TABLET BY MOUTH AT ONSET OF HEADACHE SOLD: 02/17/2021 [facility] Sumatriptan 100 MG Oral Tablet SUMAtriptan Succinate 1 00 MG Oral Tablet SUMAtriptan Succinate 100 MG Oral Tablet 07/27/2020 12:00:00 AM EST active sumatriptan 100 MG Oral Tablet [facility] ([facility]) 33 gauge 07/21/2020 12:00:00 AM EST misc 50 USE TO TEST 1-2 TIMES DDAILY USE TO TEST 1-2 TIMES DDAILY SOLD: 11/23/2020 [facility] 33 gauge 07/21/2020 12:00:00 AM EST misc 50 USE TO TEST 1-2 TIMES DDAILY USE TO TEST 1-2 TIMES DDAILY SOLD: 10/22/2020 [facility] Trazodone Hydrochloride 100 MG Oral Tablet TRAZODONE HCL 07/21/2020 12:00:00 AM EST tablet 60 TAKE TWO TABLETS BY MOUTH AT BEDTIME TAKE TWO TABLETS BY MOUTH AT BEDTIME SOLD: 08/21/2020 [facility] 33 gauge 07/21/2020 12:00:00 AM EST misc 50 USE TO TEST 1-2 TIMES DDAILY USE TO TEST 1-2 TIMES DDAILY SOLD: 01/15/2021 [facility] BLOOD SUGAR DIAGNOSTIC 07/21/2020 12:00:00 AM EST strip 100 DIRECTED 1-2 TIMES A DAY DIRECTED 1-2 TIMES A DAY SOLD: 07/23/2020 [facility] 33 gauge 07/21/2020 12:00:00 AM EST misc 50 USE TO TEST 1-2 TIMES DDAILY USE TO TEST 1-2 TIMES DDAILY SOLD: 04/20/2021 [facility] 33 gauge 07/21/2020 12:00:00 AM EST misc 50 USE TO TEST 1-2 TIMES DDAILY USE TO TEST 1-2 TIMES DDAILY SOLD: 12/21/2020 [facility] 33 gauge 07/21/2020 12:00:00 AM EST misc 100 USE TO TEST 1-2 TIMES DDAILY USE TO TEST 1-2 TIMES DDAILY SOLD: 07/23/2020 [facility] 33 gauge 07/21/2020 12:00:00 AM EST misc 50 USE TO TEST 1-2 TIMES DDAILY USE TO TEST 1-2 TIMES DDAILY SOLD: 03/23/2021 [facility] 33 gauge 07/21/2020 12:00:00 AM EST misc 50 USE TO TEST 1-2 TIMES DDAILY USE TO TEST 1-2 TIMES DDAILY SOLD: 02/17/2021 [facility] 33 gauge 07/21/2020 12:00:00 AM EST misc 50 USE TO TEST 1-2 TIMES DDAILY USE TO TEST 1-2 TIMES DDAILY SOLD: 09/22/2020 [facility] Trazodone Hydrochloride 100 MG Oral Tablet TRAZODONE HCL 07/21/2020 12:00:00 AM EST tablet 60 TAKE TWO TABLETS BY MOUTH AT BEDTIME TAKE TWO TABLETS BY MOUTH AT BEDTIME SOLD: 07/23/2020 [facility] Oxycodone Hydrochloride 30 MG Oral Tablet OXYCODONE HCL 07/20/2020 12:00:00 AM EST tablet 60 TAKE ONE TABLET BY MOUTH TWICE A DAY MAXIMUM DAILY DOSE = TWO TABLETS TAKE ONE TABLET BY MOUTH TWICE A DAY MAXIMUM DAILY DOS E = TWO TABLETS SOLD: 07/21/2020 [facility] OneTouch Delica Lancets 33G Miscellaneous OneTouch Del ica Lancets 33G Miscellaneous 07/20/2020 12:00:00 AM EST acti ve OneTouch Delica Lancets 33G [facility] ([facility]) Trazodone Hydrochloride 100 MG Oral Tablet traZODone H Cl 100 MG Oral Tablet traZODone HCl 100 MG Oral Tablet 07/20/2020 12:00:00 AM EST 1 active trazodone hydrochloride 100 MG Oral Tablet [facility] ([facility]) 10-325 mg 07/20/2020 12:00:00 AM EST tablet 180 TAKE ONE TO TWO TABLETS BY MOUTH THREE TIMES A DAY NEEDED FOR PAIN MAXIMUM DAILY DOSE = SIX TABLETS TAKE ONE TO TWO TABLETS BY MOUTH THREE TIMES A DAY NEEDED FOR PAIN MAXIMUM DAILY DOSE = SIX TABLETS SOLD: 07/21/2020 [facility] 10-325 mg 06/21/2020 12:00:00 AM EST tablet 180 TAKE 1-2 TABLETS BY MOUTH FOUR TIMES A DAY NEEDED FOR PAIN MAXIMUM DAILY DOSE = 6 TABLETS TAKE 1-2 TABLETS BY MOUTH FOUR TIMES A DAY NEEDED FOR PAIN MAXIMUM DAILY DOSE = 6 TABLETS SOLD: 06/22/2020 [facility] Oxycodone Hydrochloride 30 MG Oral Tablet OXYCODONE HCL 06/21/2020 12:00:00 AM EST tablet 60 TAKE ONE TABLET BY MOUTH TWICE A DAY MAXIMUM DAILY DOSE = 2 TABLETS TAKE ONE TABLET BY MOUTH TWICE A DAY MAXIMUM DAILY DOS E = 2 TABLETS SOLD: 06/22/2020 [facility] 232-14 mcg/actuation 05/29/2020 12:00:00 AM EST aerosol powdr breath activated 3 INHALE ONE PUFF BY MOUTH TWICE A DAY INHA LE ONE PUFF BY MOUTH TWICE A DAY SOLD: 06/08/2020 [facility] Fluticasone Propionate/Salmeterol Fluticasone Propionate/Elpidio meterol 05/28/2020 12:00:00 AM EST RESPIRATORY active [facility]ENT ([facility], ) 60 mg 05/25/2020 12:00:00 AM EST tablet 180 TAKE 1 & 1/2 TABLETS BY MOUTH FOUR TIMES A DAY TAKE 1 & 1/2 TABLETS BY MOUTH FOUR TIMES A DAY SOLD: 0 07/21/2020 [facility] 60 mg 05/25/2020 12:00:00 AM EST tablet 180 TAKE 1 & 1/2 TABLETS BY MOUTH FOUR TIMES A DAY TAKE 1 & 1/2 TABLETS BY MOUTH FOUR TIMES A DAY SOLD: 0 10/22/2020 [facility] 60 mg 05/25/2020 12:00:00 AM EST tablet 180 TAKE 1 & 1/2 TABLETS BY MOUTH FOUR TIMES A DAY TAKE 1 & 1/2 TABLETS BY MOUTH FOUR TIMES A DAY SOLD: 0 11/23/2020 [facility] 60 mg 05/25/2020 12:00:00 AM EST tablet 105 TAKE 1 & 1/2 TABLETS BY MOUTH FOUR TIMES A DAY TAKE 1 & 1/2 TABLETS BY MOUTH FOUR TIMES A DAY SOLD: 0 09/22/2020 [facility] 60 mg 05/25/2020 12:00:00 AM EST tablet 180 TAKE 1 & 1/2 TABLETS BY MOUTH FOUR TIMES A DAY TAKE 1 & 1/2 TABLETS BY MOUTH FOUR TIMES A DAY SOLD: 1 07/28/2019 [facility] 60 mg 05/25/2020 12:00:00 AM EST tablet 180 TAKE 1 & 1/2 TABLETS BY MOUTH FOUR TIMES A DAY TAKE 1 & 1/2 TABLETS BY MOUTH FOUR TIMES A DAY SOLD: 1 08/23/2019 [facility] Pyridostigmine [place] 60 MG Oral Tablet Pyridostigmine [place] 60 MG Oral Tablet (MESTINON) Pyridostigmine [place] 60 MG Oral Tablet (MESTINON) 12:00:00 AM EST active Myasthenia gravi s without exacerbation TAKE 1 & 1/2 TABLETS BY MOUTH FOUR TIMES A DAY [facility] Myasthenia gravis without exacerbation 30 mg 05/24/2020 12:00:00 AM EST tablet 60 TAKE ONE TABLET BY MOUTH TWICE A DAY MAXIMUM DAILY DOSE = 2 TAKE ONE TABLET BY MOUTH TWICE A DAY MAX IMUM DAILY DOSE = 2 SOLD: 05/25/2020 [facility] 113-14 mcg/actuation 05/22/2020 12:00:00 AM EST aerosol powdr breath activated 1 INHALE ONE PUFF BY MOUTH TWICE A DAY RINSE MOUTH AFTER USING INHALE ONE PUFF BY MOUTH TWICE A DAY RINSE MOUTH AFTER USING SOLD: 05/25/2020 [facility] 113-14 mcg/actuation 05/22/2020 12:00:00 AM EST aerosol powdr breath activated 1 INHALE ONE PUFF BY MOUTH TWICE A DAY RINSE MOUTH AFTER USING INHALE ONE PUFF BY MOUTH TWICE A DAY RINSE MOUTH AFTER USING SOLD: 06/18/2020 [facility] 113-14 mcg/actuation 05/22/2020 12:00:00 AM EST aerosol powdr breath activated 1 INHALE ONE PUFF BY MOUTH TWICE A DAY RINSE MOUTH AFTER USING INHALE ONE PUFF BY MOUTH TWICE A DAY RINSE MOUTH AFTER USING SOLD: 07/23/2020 [facility] 113-14 mcg/actuation 05/22/2020 12:00:00 AM EST aerosol powdr breath activated 1 INHALE ONE PUFF BY MOUTH TWICE A DAY RINSE MOUTH AFTER USING INHALE ONE PUFF BY MOUTH TWICE A DAY RINSE MOUTH AFTER USING SOLD: 08/21/2020 [facility] 113-14 mcg/actuation 05/22/2020 12:00:00 AM EST aerosol powdr breath activated 1 INHALE ONE PUFF BY MOUTH TWICE A DAY RINSE MOUTH AFTER USING INHALE ONE PUFF BY MOUTH TWICE A DAY RINSE MOUTH AFTER USING SOLD: 09/22/2020 [facility] 113-14 mcg/actuation 05/22/2020 12:00:00 AM EST aerosol powdr breath activated 1 INHALE ONE PUFF BY MOUTH TWICE A DAY RINSE MOUTH AFTER USING INHALE ONE PUFF BY MOUTH TWICE A DAY RINSE MOUTH AFTER USING SOLD: 10/22/2020 [facility] 10-325 mg 05/20/2020 12:00:00 AM EST tablet 180 TAKE ONE TO TWO TABLETS BY MOUTH THREE TIMES A DAY NEEDED FOR PAIN MAXIMUM DAILY DOSE = 6 TAKE ONE TO TWO TABLETS BY MOUTH THREE TIMES A DAY NEEDED FOR PAIN MAXIMUM DAILY DOSE = 6 SOLD: 05/25/2020 [facility] OneTouch Verio In Vitro Strip OneTouch Verio In Vitro Strip 05/20/2020 12:00:00 AM EST active OneTouch Verio [facility] ([facility]) pantoprazole 40 MG Delayed Release Oral Tablet PANTOPRAZOLE SODIUM 05/18/2020 12:00:00 AM EST tablet,delayed release (DR/EC) 60 T [facility]IS[facility] ONE TABLET BY MOUTH TWICE A DAY TAKE ONE TABLET BY MOUTH TWICE A DAY SOLD: 01/15/2021 [facility] 5 mg 05/18/2020 12:00:00 AM EST tablet 30 TAKE ONE TABLET BY MOUTH EVERY DAY TAKE ONE TABLET BY MOUTH EVERY DAY SOLD: 07/23/2020 [facility] 145 mg 05/18/2020 12:00:00 AM EST tablet 30 TAKE ONE TABLET BY MOUTH EVERY DAY TAKE ONE TABLET BY MOUTH EVERY DAY SOLD: 03/23/2021 [facility] pantoprazole 40 MG Delayed Release Oral Tablet PANTOPRAZOLE SODIUM 05/18/2020 12:00:00 AM EST tablet,delayed release (DR/EC) 60 T CISCO ONE TABLET BY MOUTH TWICE A DAY TAKE ONE TABLET BY MOUTH TWICE A DAY SOLD: 11/23/2020 [facility] 10 mg 05/18/2020 12:00:00 AM EST tablet 30 TAKE ONE TABLET BY MOUTH EVERY DAY TAKE ONE TABLET BY MOUTH EVERY DAY SOLD: 10/22/2020 [facility] 10 mg 05/18/2020 12:00:00 AM EST tablet 30 TAKE ONE TABLET BY MOUTH EVERY DAY TAKE ONE TABLET BY MOUTH EVERY DAY SOLD: 08/21/2020 [facility] 5 mg 05/18/2020 12:00:00 AM EST tablet 30 TAKE ONE TABLET BY MOUTH EVERY DAY TAKE ONE TABLET BY MOUTH EVERY DAY SOLD: 08/25/2020 [facility] 500 mg 05/18/2020 12:00:00 AM EST tablet extended release 24 hr 60 TAKE TWO TABLETS BY MOUTH EVERY EVENING TAKE TWO TABLETS BY MOUTH EVERY EVENING SOLD: 06/18/2020 [facility] atorvastatin 10 MG Oral Tablet ATORVASTATIN CALCIUM 05/18/2020 1 2:00:00 AM EST tablet 30 TAKE ONE TABLET BY MOUTH IN THE EVENING TAKE ONE TABLET BY MOUTH IN THE EVENING SOLD: 08/25/2020 [facility] 145 mg 05/18/2020 12:00:00 AM EST tablet 30 TAKE ONE TABLET BY MOUTH EVERY DAY TAKE ONE TABLET BY MOUTH EVERY DAY SOLD: 11/23/2020 [facility] 145 mg 05/18/2020 12:00:00 AM EST tablet 30 TAKE ONE TABLET BY MOUTH EVERY DAY TAKE ONE TABLET BY MOUTH EVERY DAY SOLD: 05/19/2020 [facility] 145 mg 05/18/2020 12:00:00 AM EST tablet 30 TAKE ONE TABLET BY MOUTH EVERY DAY TAKE ONE TABLET BY MOUTH EVERY DAY SOLD: 08/21/2020 [facility] pantoprazole 40 MG Delayed Release Oral Tablet PANTOPRAZOLE SODIUM 05/18/2020 12:00:00 AM EST tablet,delayed release (DR/EC) 60 T CISCO ONE TABLET BY MOUTH TWICE A DAY TAKE ONE TABLET BY MOUTH TWICE A DAY SOLD: 10/22/2020 [facility] 10 mg 05/18/2020 12:00:00 AM EST tablet 30 TAKE ONE TABLET BY MOUTH EVERY DAY TAKE ONE TABLET BY MOUTH EVERY DAY SOLD: 09/22/2020 [facility] atorvastatin 10 MG Oral Tablet ATORVASTATIN CALCIUM 05/18/2020 1 2:00:00 AM EST tablet 30 TAKE ONE TABLET BY MOUTH IN THE EVENING TAKE ONE TABLET BY MOUTH IN THE EVENING SOLD: 09/22/2020 [facility] buspirone hydrochloride 10 MG Oral Tablet BUSPIRONE HCL 05/18/2020 12:00:00 AM EST tablet 90 TAKE ONE TABLET BY MOUTH THR EE TIMES A DAY TAKE ONE TABLET BY MOUTH THREE TIMES A DAY SOLD: 05/19/2020 [facility] 500 mg 05/18/2020 12:00:00 AM EST tablet extended release 24 hr 60 TAKE TWO TABLETS BY MOUTH EVERY EVENING TAKE TWO TABLETS BY MOUTH EVERY EVENING SOLD: 07/23/2020 [facility] 145 mg 05/18/2020 12:00:00 AM EST tablet 30 TAKE ONE TABLET BY MOUTH EVERY DAY TAKE ONE TABLET BY MOUTH EVERY DAY SOLD: 06/18/2020 [facility] pantoprazole 40 MG Delayed Release Oral Tablet PANTOPRAZOLE SODIUM 05/18/2020 12:00:00 AM EST tablet,delayed release (DR/EC) 60 T CISCO ONE TABLET BY MOUTH TWICE A DAY TAKE ONE TABLET BY MOUTH TWICE A DAY SOLD: 09/22/2020 [facility] atorvastatin 10 MG Oral Tablet ATORVASTATIN CALCIUM 05/18/2020 1 2:00:00 AM EST tablet 30 TAKE ONE TABLET BY MOUTH IN THE EVENING TAKE ONE TABLET BY MOUTH IN THE EVENING SOLD: 10/22/2020 [facility] 10 mg 05/18/2020 12:00:00 AM EST tablet 30 TAKE ONE TABLET BY MOUTH EVERY DAY TAKE ONE TABLET BY MOUTH EVERY DAY SOLD: 05/19/2020 [facility] 10 mg 05/18/2020 12:00:00 AM EST tablet 30 TAKE ONE TABLET BY MOUTH EVERY DAY TAKE ONE TABLET BY MOUTH EVERY DAY SOLD: 12/21/2020 [facility] 24 HR Metformin hydrochloride 500 MG Extended Release Oral T ablet METFORMIN HCL 05/18/2020 12:00:00 AM EST tablet extended release 24 hr 60 TAKE TWO TABLETS BY MOUTH EVERY EVENING TAKE TWO TABLETS BY MOUTH EVERY EVENING SOLD: 03/23/2021 [facility] 10 mg 05/18/2020 12:00:00 AM EST tablet 30 TAKE ONE TABLET BY MOUTH EVERY DAY TAKE ONE TABLET BY MOUTH EVERY DAY SOLD: 01/15/2021 [facility] atorvastatin 10 MG Oral Tablet ATORVASTATIN CALCIUM 05/18/2020 1 2:00:00 AM EST tablet 30 TAKE ONE TABLET BY MOUTH IN THE EVENING TAKE ONE TABLET BY MOUTH IN THE EVENING SOLD: 01/15/2021 [facility] pantoprazole 40 MG Delayed Release Oral Tablet PANTOPRAZOLE SODIUM 05/18/2020 12:00:00 AM EST tablet,delayed release (DR/EC) 60 T CISCO ONE TABLET BY MOUTH TWICE A DAY TAKE ONE TABLET BY MOUTH TWICE A DAY SOLD: 08/21/2020 [facility] atorvastatin 10 MG Oral Tablet ATORVASTATIN CALCIUM 05/18/2020 1 2:00:00 AM EST tablet 30 TAKE ONE TABLET BY MOUTH IN THE EVENING TAKE ONE TABLET BY MOUTH IN THE EVENING SOLD: 11/23/2020 [facility] 145 mg 05/18/2020 12:00:00 AM EST tablet 30 TAKE ONE TABLET BY MOUTH EVERY DAY TAKE ONE TABLET BY MOUTH EVERY DAY SOLD: 10/22/2020 [facility] 10 mg 05/18/2020 12:00:00 AM EST tablet 30 TAKE ONE TABLET BY MOUTH EVERY DAY TAKE ONE TABLET BY MOUTH EVERY DAY SOLD: 11/23/2020 [facility] 24 HR Metformin hydrochloride 500 MG Extended Release Oral T ablet METFORMIN HCL 05/18/2020 12:00:00 AM EST tablet extended release 24 hr 60 TAKE TWO TABLETS BY MOUTH EVERY EVENING TAKE TWO TABLETS BY MOUTH EVERY EVENING SOLD: 02/17/2021 [facility] pantoprazole 40 MG Delayed Release Oral Tablet PANTOPRAZOLE SODIUM 05/18/2020 12:00:00 AM EST tablet,delayed release (DR/EC) 60 T CISCO ONE TABLET BY MOUTH TWICE A DAY TAKE ONE TABLET BY MOUTH TWICE A DAY SOLD: 03/23/2021 [facility] 5 mg 05/18/2020 12:00:00 AM EST tablet 30 TAKE ONE TABLET BY MOUTH EVERY DAY TAKE ONE TABLET BY MOUTH EVERY DAY SOLD: 05/19/2020 [facility] 500 mg 05/18/2020 12:00:00 AM EST tablet extended release 24 hr 60 TAKE TWO TABLETS BY MOUTH EVERY EVENING TAKE TWO TABLETS BY MOUTH EVERY EVENING SOLD: 09/22/2020 [facility] pantoprazole 40 MG Delayed Release Oral Tablet PANTOPRAZOLE SODIUM 05/18/2020 12:00:00 AM EST tablet,delayed release (DR/EC) 60 T CISCO ONE TABLET BY MOUTH TWICE A DAY TAKE ONE TABLET BY MOUTH TWICE A DAY SOLD: 07/23/2020 [facility] atorvastatin 10 MG Oral Tablet ATORVASTATIN CALCIUM 05/18/2020 1 2:00:00 AM EST tablet 30 TAKE ONE TABLET BY MOUTH IN THE EVENING TAKE ONE TABLET BY MOUTH IN THE EVENING SOLD: 12/21/2020 [facility] 10 mg 05/18/2020 12:00:00 AM EST tablet 30 TAKE ONE TABLET BY MOUTH EVERY DAY TAKE ONE TABLET BY MOUTH EVERY DAY SOLD: 02/17/2021 [facility] atorvastatin 10 MG Oral Tablet ATORVASTATIN CALCIUM 05/18/2020 1 2:00:00 AM EST tablet 90 TAKE ONE TABLET BY MOUTH IN THE EVENING TAKE ONE TABLET BY MOUTH IN THE EVENING SOLD: 05/19/2020 [facility] 145 mg 05/18/2020 12:00:00 AM EST tablet 30 TAKE ONE TABLET BY MOUTH EVERY DAY TAKE ONE TABLET BY MOUTH EVERY DAY SOLD: 01/15/2021 [facility] Trazodone Hydrochloride 100 MG Oral Tablet TRAZODONE HCL 05/18/2020 12:00:00 AM EST tablet 60 TAKE TWO TABLETS BY MOUTH AT BEDTIME TAKE TWO TABLETS BY MOUTH AT BEDTIME SOLD: 05/19/2020 [facility] 0.25 mg 05/18/2020 12:00:00 AM EST tablet 90 TAKE ONE TABLET BY MOUTH EVERY MORNING AND 2 AT BEDTIME TAKE ONE TABLET BY MOUTH EVERY MORNING A ND 2 AT BEDTIME SOLD: 05/19/2020 [facility] pantoprazole 40 MG Delayed Release Oral Tablet PANTOPRAZOLE SODIUM 05/18/2020 12:00:00 AM EST tablet,delayed release (DR/EC) 60 T CISCO ONE TABLET BY MOUTH TWICE A DAY TAKE ONE TABLET BY MOUTH TWICE A DAY SOLD: 02/19/2021 [facility] 145 mg 05/18/2020 12:00:00 AM EST tablet 30 TAKE ONE TABLET BY MOUTH EVERY DAY TAKE ONE TABLET BY MOUTH EVERY DAY SOLD: 07/23/2020 [facility] 24 HR Metformin hydrochloride 500 MG Extended Release Oral T ablet METFORMIN HCL 05/18/2020 12:00:00 AM EST tablet extended release 24 hr 60 TAKE TWO TABLETS BY MOUTH EVERY EVENING TAKE TWO TABLETS BY MOUTH EVERY EVENING SOLD: 04/20/2021 [facility] 5 mg 05/18/2020 12:00:00 AM EST tablet 30 TAKE ONE TABLET BY MOUTH EVERY DAY TAKE ONE TABLET BY MOUTH EVERY DAY SOLD: 06/18/2020 [facility] 10 mg 05/18/2020 12:00:00 AM EST tablet 30 TAKE ONE TABLET BY MOUTH EVERY DAY TAKE ONE TABLET BY MOUTH EVERY DAY SOLD: 04/20/2021 [facility] 145 mg 05/18/2020 12:00:00 AM EST tablet 30 TAKE ONE TABLET BY MOUTH EVERY DAY TAKE ONE TABLET BY MOUTH EVERY DAY SOLD: 12/21/2020 [facility] 500 mg 05/18/2020 12:00:00 AM EST tablet extended release 24 hr 60 TAKE TWO TABLETS BY MOUTH EVERY EVENING TAKE TWO TABLETS BY MOUTH EVERY EVENING SOLD: 08/21/2020 [facility] 10 mg 05/18/2020 12:00:00 AM EST tablet 30 TAKE ONE TABLET BY MOUTH EVERY DAY TAKE ONE TABLET BY MOUTH EVERY DAY SOLD: 06/18/2020 [facility] Trazodone Hydrochloride 100 MG Oral Tablet TRAZODONE HCL 05/18/2020 12:00:00 AM EST tablet 60 TAKE TWO TABLETS BY MOUTH AT BEDTIME TAKE TWO TABLETS BY MOUTH AT BEDTIME SOLD: 06/18/2020 [facility] pantoprazole 40 MG Delayed Release Oral Tablet PANTOPRAZOLE SODIUM 05/18/2020 12:00:00 AM EST tablet,delayed release (DR/EC) 60 T CISCO ONE TABLET BY MOUTH TWICE A DAY TAKE ONE TABLET BY MOUTH TWICE A DAY SOLD: 04/20/2021 [facility] 10 mg 05/18/2020 12:00:00 AM EST tablet 30 TAKE ONE TABLET BY MOUTH EVERY DAY TAKE ONE TABLET BY MOUTH EVERY DAY SOLD: 07/23/2020 [facility] 500 mg 05/18/2020 12:00:00 AM EST tablet extended release 24 hr 60 TAKE TWO TABLETS BY MOUTH EVERY EVENING TAKE TWO TABLETS BY MOUTH EVERY EVENING SOLD: 05/19/2020 [facility] 24 HR Metformin hydrochloride 500 MG Extended Release Oral T ablet METFORMIN HCL 05/18/2020 12:00:00 AM EST tablet extended release 24 hr 60 TAKE TWO TABLETS BY MOUTH EVERY EVENING TAKE TWO TABLETS BY MOUTH EVERY EVENING SOLD: 12/21/2020 [facility] 0.25 mg 05/18/2020 12:00:00 AM EST tablet 90 TAKE ONE TABLET BY MOUTH EVERY MORNING AND 2 AT BEDTIME TAKE ONE TABLET BY MOUTH EVERY MORNING A ND 2 AT BEDTIME SOLD: 08/21/2020 [facility] 0.25 mg 05/18/2020 12:00:00 AM EST tablet 90 TAKE ONE TABLET BY MOUTH EVERY MORNING AND 2 AT BEDTIME TAKE ONE TABLET BY MOUTH EVERY MORNING A ND 2 AT BEDTIME SOLD: 06/18/2020 [facility] pantoprazole 40 MG Delayed Release Oral Tablet PANTOPRAZOLE SODIUM 05/18/2020 12:00:00 AM EST tablet,delayed release (DR/EC) 60 T CISCO ONE TABLET BY MOUTH TWICE A DAY TAKE ONE TABLET BY MOUTH TWICE A DAY SOLD: 06/18/2020 [facility] 500 mg 05/18/2020 12:00:00 AM EST tablet extended release 24 hr 60 TAKE TWO TABLETS BY MOUTH EVERY EVENING TAKE TWO TABLETS BY MOUTH EVERY EVENING SOLD: 11/23/2020 [facility] atorvastatin 10 MG Oral Tablet ATORVASTATIN CALCIUM 05/18/2020 1 2:00:00 AM EST tablet 30 TAKE ONE TABLET BY MOUTH IN THE EVENING TAKE ONE TABLET BY MOUTH IN THE EVENING SOLD: 02/17/2021 [facility] 145 mg 05/18/2020 12:00:00 AM EST tablet 30 TAKE ONE TABLET BY MOUTH EVERY DAY TAKE ONE TABLET BY MOUTH EVERY DAY SOLD: 04/20/2021 [facility] 0.25 mg 05/18/2020 12:00:00 AM EST tablet 90 TAKE ONE TABLET BY MOUTH EVERY MORNING AND 2 AT BEDTIME TAKE ONE TABLET BY MOUTH EVERY MORNING A ND 2 AT BEDTIME SOLD: 07/23/2020 [facility] pantoprazole 40 MG Delayed Release Oral Tablet PANTOPRAZOLE SODIUM 05/18/2020 12:00:00 AM EST tablet,delayed release (DR/EC) 60 T [facility] ONE TABLET BY MOUTH TWICE A DAY TAKE ONE TABLET BY MOUTH TWICE A DAY SOLD: 05/19/2020 [facility] 145 mg 05/18/2020 12:00:00 AM EST tablet 30 TAKE ONE TABLET BY MOUTH EVERY DAY TAKE ONE TABLET BY MOUTH EVERY DAY SOLD: 09/22/2020 [facility] 24 HR Metformin hydrochloride 500 MG Extended Release Oral T ablet METFORMIN HCL 05/18/2020 12:00:00 AM EST tablet extended release 24 hr 60 TAKE TWO TABLETS BY MOUTH EVERY EVENING TAKE TWO TABLETS BY MOUTH EVERY EVENING SOLD: 01/15/2021 [facility] 500 mg 05/18/2020 12:00:00 AM EST tablet extended release 24 hr 60 TAKE TWO TABLETS BY MOUTH EVERY EVENING TAKE TWO TABLETS BY MOUTH EVERY EVENING SOLD: 10/22/2020 [facility] 145 mg 05/18/2020 12:00:00 AM EST tablet 30 TAKE ONE TABLET BY MOUTH EVERY DAY TAKE ONE TABLET BY MOUTH EVERY DAY SOLD: 02/17/2021 [facility] pantoprazole 40 MG Delayed Release Oral Tablet PANTOPRAZOLE SODIUM 05/18/2020 12:00:00 AM EST tablet,delayed release (DR/EC) 60 T CISCO ONE TABLET BY MOUTH TWICE A DAY TAKE ONE TABLET BY MOUTH TWICE A DAY SOLD: 12/21/2020 [facility] 10 mg 05/18/2020 12:00:00 AM EST tablet 30 TAKE ONE TABLET BY MOUTH EVERY DAY TAKE ONE TABLET BY MOUTH EVERY DAY SOLD: 03/23/2021 [facility] 90 mcg/actuation 05/04/2020 12:00:00 AM EDT HFA aerosol inha ler 18 INHALE TWO PUFFS BY MOUTH EVERY 4 HOURS NEEDED INHALE TWO PUFFS BY MOUTH EVERY 4 HOURS NEEDED SOLD: 09/22/2020 [facility] 90 mcg/actuation 05/04/2020 12:00:00 AM EDT HFA aerosol inha ler 18 INHALE TWO PUFFS BY MOUTH EVERY 4 HOURS NEEDED INHALE TWO PUFFS BY MOUTH EVERY 4 HOURS NEEDED SOLD: 10/22/2020 [facility] 90 mcg/actuation 05/04/2020 12:00:00 AM EDT HFA aerosol inha ler 18 INHALE TWO PUFFS BY MOUTH EVERY 4 HOURS NEEDED INHALE TWO PUFFS BY MOUTH EVERY 4 HOURS NEEDED SOLD: 05/11/2020 [facility] 90 mcg/actuation 05/04/2020 12:00:00 AM EDT HFA aerosol inha ler 18 INHALE TWO PUFFS BY MOUTH EVERY 4 HOURS NEEDED INHALE TWO PUFFS BY MOUTH EVERY 4 HOURS NEEDED SOLD: 01/15/2021 [facility] 90 mcg/actuation 05/04/2020 12:00:00 AM EDT HFA aerosol inha ler 18 INHALE TWO PUFFS BY MOUTH EVERY 4 HOURS NEEDED INHALE TWO PUFFS BY MOUTH EVERY 4 HOURS NEEDED SOLD: 11/23/2020 [facility] 90 mcg/actuation 05/04/2020 12:00:00 AM EDT HFA aerosol inha ler 18 INHALE TWO PUFFS BY MOUTH EVERY 4 HOURS NEEDED INHALE TWO PUFFS BY MOUTH EVERY 4 HOURS NEEDED SOLD: 12/21/2020 [facility] 200 mg 05/02/2020 12:00:00 AM EDT capsule 60 TAKE ONE CAPSULE BY MOUTH TWICE A DAY MAXIMUM DAILY DOSE = 2 CAPSULES TAKE ONE CAPSULE BY MOUTH TWICE A DAY MAXIMUM DAILY DOSE = 2 CAPSULES SOLD: 06/18/2020 [facility] 200 mg 05/02/2020 12:00:00 AM EDT capsule 60 TAKE ONE CAPSULE BY MOUTH TWICE A DAY MAXIMUM DAILY DOSE = 2 CAPSULES TAKE ONE CAPSULE BY MOUTH TWICE A DAY MAXIMUM DAILY DOSE = 2 CAPSULES SOLD: 05/11/2020 [facility] 200 mg 05/02/2020 12:00:00 AM EDT capsule 60 TAKE ONE CAPSULE BY MOUTH TWICE A DAY MAXIMUM DAILY DOSE = 2 CAPSULES TAKE ONE CAPSULE BY MOUTH TWICE A DAY MAXIMUM DAILY DOSE = 2 CAPSULES SOLD: 07/23/2020 [facility] 90 mcg/actuation 04/29/2020 12:00:00 AM EDT HFA aerosol inha ler 6 INHALE TWO PUFFS BY MOUTH EVERY 4 HOURS NEEDED INHALE TWO PUFFS BY MOUTH EVERY 4 HOURS NEEDED SOLD: 04/30/2020 [facility] 90 mcg/actuation 04/29/2020 12:00:00 AM EDT HFA aerosol inha ler 6 INHALE TWO PUFFS BY MOUTH EVERY 4 HOURS NEEDED INHALE TWO PUFFS BY MOUTH EVERY 4 HOURS NEEDED SOLD: 05/25/2020 [facility] 90 mcg/actuation 04/29/2020 12:00:00 AM EDT HFA aerosol inha ler 6 INHALE TWO PUFFS BY MOUTH EVERY 4 HOURS NEEDED INHALE TWO PUFFS BY MOUTH EVERY 4 HOURS NEEDED SOLD: 02/17/2021 [facility] 60 ACTUAT Albuterol 0.09 MG/ACTUAT Meter ed Dose Inhaler Albuterol Sulfate HFA 108 (90 Base) MCG/ACT Inhalation Aerosol Solution Albuterol Sulfate HFA 108 (90 Base) MCG/ACT Inhalation Aerosol Solution 04/29/2020 12:00:00 AM EDT 2 active [id number] ACTUAT albuterol 0. 09 MG/ACTUAT Metered Dose Inhaler JEREMY ([facility]) 90 mcg/actuation 04/29/2020 12:00:00 AM EDT HFA aerosol inha ler 6 INHALE TWO PUFFS BY MOUTH EVERY 4 HOURS NEEDED INHALE TWO PUFFS BY MOUTH EVERY 4 HOURS NEEDED SOLD: 06/18/2020 [facility] 90 mcg/actuation 04/29/2020 12:00:00 AM EDT HFA aerosol inha ler 6 INHALE TWO PUFFS BY MOUTH EVERY 4 HOURS NEEDED INHALE TWO PUFFS BY MOUTH EVERY 4 HOURS NEEDED SOLD: 08/21/2020 [facility] 90 mcg/actuation 04/29/2020 12:00:00 AM EDT HFA aerosol inha ler 6 INHALE TWO PUFFS BY MOUTH EVERY 4 HOURS NEEDED INHALE TWO PUFFS BY MOUTH EVERY 4 HOURS NEEDED SOLD: 07/23/2020 [facility] 30 mg 04/28/2020 12:00:00 AM EDT tablet 60 TAKE ONE TABLET BY MOUTH TWICE A DAY MAXIMUM DAILY DOSE = 2 TABLETS TAKE ONE TABLET BY MOUTH TWICE A DAY MAX IMUM DAILY DOSE = 2 TABLETS SOLD: 04/30/2020 [facility] 10-325 mg 04/24/2020 12:00:00 AM EDT tablet 180 TAKE ONE TO TWO TABLETS BY MOUTH THREE TIMES A DAY NEEDED FOR PAIN MAXIMUM DAILY DOSE = 6 TABLETS TAKE ONE TO TWO TABLETS BY MOUTH THREE TIMES A DAY NEEDED FOR PAIN MAXIMUM DAILY DOSE = 6 TABLETS SOLD: 04/24/2020 [facility] 4 mg 04/21/2020 12:00:00 AM EDT tablet,disintegrating 2 5 DISSOLVE ONE TABLET ON TONGUE FOUR TIMES A DAY NEEDED FOR NAUSEA DISSOLVE ONE TABLET ON TONGUE FOUR TIMES A DAY NEEDED FOR NAUSEA SOLD: 07/23/2020 [facility] 4 mg 04/21/2020 12:00:00 AM EDT tablet,disintegrating 2 5 DISSOLVE ONE TABLET ON TONGUE FOUR TIMES A DAY NEEDED FOR NAUSEA DISSOLVE ONE TABLET ON TONGUE FOUR TIMES A DAY NEEDED FOR NAUSEA SOLD: 08/21/2020 [facility] 4 mg 04/21/2020 12:00:00 AM EDT tablet,disintegrating 2 5 DISSOLVE ONE TABLET ON TONGUE FOUR TIMES A DAY NEEDED FOR NAUSEA DISSOLVE ONE TABLET ON TONGUE FOUR TIMES A DAY NEEDED FOR NAUSEA SOLD: 05/19/2020 [facility] 4 mg 04/21/2020 12:00:00 AM EDT tablet,disintegrating 2 5 DISSOLVE ONE TABLET ON TONGUE FOUR TIMES A DAY NEEDED FOR NAUSEA DISSOLVE ONE TABLET ON TONGUE FOUR TIMES A DAY NEEDED FOR NAUSEA SOLD: 06/18/2020 [facility] 4 mg 04/21/2020 12:00:00 AM EDT tablet,disintegrating 2 5 DISSOLVE ONE TABLET ON TONGUE FOUR TIMES A DAY NEEDED FOR NAUSEA DISSOLVE ONE TABLET ON TONGUE FOUR TIMES A DAY NEEDED FOR NAUSEA SOLD: 09/24/2020 [facility] 4 mg 04/21/2020 12:00:00 AM EDT tablet,disintegrating 2 5 DISSOLVE ONE TABLET ON TONGUE FOUR TIMES A DAY NEEDED FOR NAUSEA DISSOLVE ONE TABLET ON TONGUE FOUR TIMES A DAY NEEDED FOR NAUSEA SOLD: 04/22/2020 [facility] 24 HR Metformin hydrochloride 500 MG Ext ended Release Oral Tablet metFORMIN HCl ER 500 MG Oral Tablet Extended Release 24 Hour metFORMIN HCl ER 500 MG Oral Tablet Extended Release 24 Hour 04/20/2020 12:00:00 AM EDT 2 active 24 HR metformin hydrochloride 500 MG Extended Release Oral Tablet [facility] pantoprazole 40 MG Delayed Release Oral Tablet Pantoprazole Sodium 40 MG Oral Tablet Delayed Release Pantoprazole Sodium 40 MG Oral Tablet Delayed Release 04/20/2020 12:00:00 AM EDT 1 active pantoprazole 40 MG Delayed Release Oral Tablet [facility] Hydrochlorothiazide 25 MG / Losartan Potassium 100 MG Oral Tablet 100-25 mg LOSARTAN POTASSIUM/HYDROCHLOROTHIAZIDE 04/20/2020 12:00:00 AM EDT tablet 3 0 TAKE ONE TABLET BY MOUTH EVERY DAY TAKE ONE TABLET BY MOUTH EVERY DAY SOLD: 04/22/2020 [facility] buspirone hydrochloride 10 MG Oral Tablet busPIRone HC l 10 MG Oral Tablet busPIRone HCl 10 MG Oral Tablet 04/20/2020 12:00:00 AM EDT 1 aborted buspirone hydrochloride 10 MG Oral Tablet [facility] ([facility]) Trazodone Hydrochloride 100 MG Oral Tablet traZODone H Cl 100 MG Oral Tablet traZODone HCl 100 MG Oral Tablet 04/20/2020 12:00:00 AM EDT 1 aborted trazodone hydrochloride 100 MG Oral Tablet TALMAGE ([facility]) Ondansetron 4 MG Disintegrating Oral Tab let Ondansetron 4 MG Oral Tablet Disintegrating Ondansetron 4 MG Oral Tablet Disintegrating 04/20/2020 12:00:00 AM EDT active ondansetron 4 MG Disintegrating Oral Tablet [facility] Hydrochlorothiazide 25 MG / Losartan Potassium 100 MG Oral Tablet 100-25 mg LOSARTAN POTASSIUM/HYDROCHLOROTHIAZIDE 04/20/2020 12:00:00 AM EDT tablet 3 0 TAKE ONE TABLET BY MOUTH EVERY DAY TAKE ONE TABLET BY MOUTH EVERY DAY SOLD: 08/21/2020 [facility] Amlodipine 5 MG Oral Tablet amLODIPine Besylate 5 MG O ral Tablet amLODIPine Besylate 5 MG Oral Tablet 04/20/2020 12:00:00 AM EDT 1 aborted amlodipine 5 MG Oral Tablet [facility] Hydrochlorothiazide 25 MG / Losartan Potassium 100 MG Oral Tablet 100-25 mg LOSARTAN POTASSIUM/HYDROCHLOROTHIAZIDE 04/20/2020 12:00:00 AM EDT tablet 3 0 TAKE ONE TABLET BY MOUTH EVERY DAY TAKE ONE TABLET BY MOUTH EVERY DAY SOLD: 05/19/2020 [facility] Bisoprolol Fumarate 10 MG Oral Tablet Bisoprolol Fumarate 10 MG Oral Tablet 04/20/2020 12:00:00 AM EDT 1 active bisoprolol fumarate 10 MG Oral Tablet [facility] Hydrochlorothiazide 25 MG / Losartan Potassium 100 MG Oral Tablet 100-25 mg LOSARTAN POTASSIUM/HYDROCHLOROTHIAZIDE 04/20/2020 12:00:00 AM EDT tablet 3 0 TAKE ONE TABLET BY MOUTH EVERY DAY TAKE ONE TABLET BY MOUTH EVERY DAY SOLD: 07/23/2020 [facility] Hydrochlorothiazide 25 MG / Losartan Pot assium 100 MG Oral Tablet Losartan Potassium-HCTZ 100-25 MG Oral Tablet Losartan Potassium-HCTZ 100-25 MG Oral Tablet 04/20/2020 12:00:00 AM EDT 1 active hydrochlorothiazide 25 MG / losartan potassium 100 MG Oral Tablet [facility] Fenofibrate 145 MG Oral Tablet [Tricor] Tricor 145 MG Oral Tablet Tricor 145 MG Oral Tablet 04/20/2020 12:00:00 AM EDT 1 active fenofibrate 145 MG Oral Tablet [Tricor] JEREMY ([facility]) Hydrochlorothiazide 25 MG / Losartan Potassium 100 MG Oral Tablet 100-25 mg LOSARTAN POTASSIUM/HYDROCHLOROTHIAZIDE 04/20/2020 12:00:00 AM EDT tablet 3 0 TAKE ONE TABLET BY MOUTH EVERY DAY TAKE ONE TABLET BY MOUTH EVERY DAY SOLD: 06/18/2020 [facility] 30 mg 03/31/2020 12:00:00 AM EDT tablet 60 TAKE ONE TABLET BY MOUTH TWICE A DAY MAXIMUM DAILY DOSE = 2 TAKE ONE TABLET BY MOUTH TWICE A DAY MAX IMUM DAILY DOSE = 2 SOLD: 03/31/2020 [facility] 10-325 mg 03/21/2020 12:00:00 AM EDT tablet 180 TAKE 1-2 TABLETS BY MOUTH THREE TIMES A DAY NEEDED PAIN MAXIMUM DAILY DOSE = 6 TAKE 1-2 TABLETS BY MOUTH THREE TIMES A DAY NEEDED PAIN MAXIMUM DAILY DOSE = 6 SOLD: 03/23/2020 [facility] 30 mg 03/05/2020 12:00:00 AM EDT tablet 60 TAKE ONE TABLET BY MOUTH TWICE A DAY MAXIMUM DAILY DOSE = 2 TAKE ONE TABLET BY MOUTH TWICE A DAY MAX IMUM DAILY DOSE = 2 SOLD: 03/05/2020 [facility] 100 mg 03/04/2020 12:00:00 AM EDT tablet 30 TAKE ONE TABLET BY MOUTH EVERY DAY TAKE ONE TABLET BY MOUTH EVERY DAY SOLD: 03/05/2020 [facility] 100 mg 03/04/2020 12:00:00 AM EDT tablet 30 TAKE ONE TABLET BY MOUTH EVERY DAY TAKE ONE TABLET BY MOUTH EVERY DAY SOLD: 11/23/2020 [facility] 100 mg 03/04/2020 12:00:00 AM EDT tablet 30 TAKE ONE TABLET BY MOUTH EVERY DAY TAKE ONE TABLET BY MOUTH EVERY DAY SOLD: 04/07/2020 [facility] 100 mg 03/04/2020 12:00:00 AM EDT tablet 30 TAKE ONE TABLET BY MOUTH EVERY DAY TAKE ONE TABLET BY MOUTH EVERY DAY SOLD: 12/21/2020 [facility] 100 mg 03/04/2020 12:00:00 AM EDT tablet 30 TAKE ONE TABLET BY MOUTH EVERY DAY TAKE ONE TABLET BY MOUTH EVERY DAY SOLD: 09/22/2020 [facility] 25 mg 03/04/2020 12:00:00 AM EDT tablet 30 TAKE ONE TABLET BY MOUTH EVERY DAY TAKE ONE TABLET BY MOUTH EVERY DAY SOLD: 03/05/2020 [facility] 100 mg 03/04/2020 12:00:00 AM EDT tablet 30 TAKE ONE TABLET BY MOUTH EVERY DAY TAKE ONE TABLET BY MOUTH EVERY DAY SOLD: 10/22/2020 [facility] 25 mg 03/04/2020 12:00:00 AM EDT tablet 30 TAKE ONE TABLET BY MOUTH EVERY DAY TAKE ONE TABLET BY MOUTH EVERY DAY SOLD: 03/31/2020 [facility] Hydrochlorothiazide 25 MG Oral Tablet hydroCHLOROthiaz fely 25 MG Oral Tablet hydroCHLOROthiazide 25 MG Oral Tablet 03/03/2020 12:00:00 AM EDT aborted [facility] 2.5 mg /3 mL (0.083 %) 01/16/2020 12:00:00 AM EDT solu tion for nebulization 300 USE 1 VIAL VIA NEBULIZER FOUR TIMES A DA Y NEEDED USE 1 VIAL VIA NEBULIZER FOUR TIMES A DAY NEEDED SOLD: 10/22/2020 [facility] 2.5 mg /3 mL (0.083 %) 01/16/2020 12:00:00 AM EDT solu tion for nebulization 300 USE 1 VIAL VIA NEBULIZER FOUR TIMES A DA Y NEEDED USE 1 VIAL VIA NEBULIZER FOUR TIMES A DAY NEEDED SOLD: 05/25/2020 [facility] 2.5 mg /3 mL (0.083 %) 01/16/2020 12:00:00 AM EDT solu tion for nebulization 300 USE 1 VIAL VIA NEBULIZER FOUR TIMES A DA Y NEEDED USE 1 VIAL VIA NEBULIZER FOUR TIMES A DAY NEEDED SOLD: 04/30/2020 [facility] 2.5 mg /3 mL (0.083 %) 01/16/2020 12:00:00 AM EDT solu tion for nebulization 300 USE 1 VIAL VIA NEBULIZER FOUR TIMES A DA Y NEEDED USE 1 VIAL VIA NEBULIZER FOUR TIMES A DAY NEEDED SOLD: 07/23/2020 [facility] 2.5 mg /3 mL (0.083 %) 01/16/2020 12:00:00 AM EDT solu tion for nebulization 300 USE 1 VIAL VIA NEBULIZER FOUR TIMES A DA Y NEEDED USE 1 VIAL VIA NEBULIZER FOUR TIMES A DAY NEEDED SOLD: 08/25/2020 [facility] 2.5 mg /3 mL (0.083 %) 01/16/2020 12:00:00 AM EDT solu tion for nebulization 300 USE 1 VIAL VIA NEBULIZER FOUR TIMES A DA Y NEEDED USE 1 VIAL VIA NEBULIZER FOUR TIMES A DAY NEEDED SOLD: 09/22/2020 [facility] Trazodone Hydrochloride 100 MG Oral Tablet traZODone H Cl 100 MG Oral Tablet traZODone HCl 100 MG Oral Tablet 01/14/2020 12:00:00 AM EDT 1 aborted trazodone hydrochloride 100 MG Oral Tablet [facility] ([facility]) buspirone hydrochloride 10 MG Oral Tablet busPIRone HC l 10 MG Oral Tablet busPIRone HCl 10 MG Oral Tablet 01/14/2020 12:00:00 AM EDT 1 aborted buspirone hydrochloride 10 MG Oral Tablet [facility] ([facility]) 200 mg 12/27/2019 12:00:00 AM EDT capsule 60 TAKE ONE CAPSULE BY MOUTH TWICE A DAY MAXIMUM DAILY DOSE = 2 CAPSULES TAKE ONE CAPSULE BY MOUTH TWICE A DAY MAXIMUM DAILY DOSE = 2 CAPSULES SOLD: 03/05/2020 [facility] 200 mg 12/27/2019 12:00:00 AM EDT capsule 60 TAKE ONE CAPSULE BY MOUTH TWICE A DAY MAXIMUM DAILY DOSE = 2 CAPSULES TAKE ONE CAPSULE BY MOUTH TWICE A DAY MAXIMUM DAILY DOSE = 2 CAPSULES SOLD: 04/07/2020 [facility] 60 mg 11/20/2019 12:00:00 AM EDT tablet 180 TAKE 1 & 1/2 TABLETS BY MOUTH FOUR TIMES A DAY TAKE 1 & 1/2 TABLETS BY MOUTH FOUR TIMES A DAY SOLD: 0 03/23/2020 [facility] 60 mg 11/20/2019 12:00:00 AM EDT tablet 180 TAKE 1 & 1/2 TABLETS BY MOUTH FOUR TIMES A DAY TAKE 1 & 1/2 TABLETS BY MOUTH FOUR TIMES A DAY SOLD: 1 [facility] 113-14 mcg/actuation 11/18/2019 12:00:00 AM EDT aerosol powdr breath activated 1 INHALE ONE PUFF BY MOUTH TWICE A DAY RINSE MOUTH AFTER USING INHALE ONE PUFF BY MOUTH TWICE A DAY RINSE MOUTH AFTER USING SOLD: 04/22/2020 [facility] 113-14 mcg/actuation 11/18/2019 12:00:00 AM EDT aerosol powdr breath activated 1 INHALE ONE PUFF BY MOUTH TWICE A DAY RINSE MOUTH AFTER USING INHALE ONE PUFF BY MOUTH TWICE A DAY RINSE MOUTH AFTER USING SOLD: 03/23/2020 [facility] 4 mg 11/15/2019 12:00:00 AM EDT tablet,disintegrating 2 5 DISSOLVE ONE TABLET ON THE TONGUE FOUR TIMES A DAY NEEDED FOR NAUSEA DISSOLVE ONE TABLET ON THE TONGUE FOUR TIMES A DAY NEEDED FOR NAUSEA SOLD: 03/23/2020 [facility] 4 mg 11/15/2019 12:00:00 AM EDT tablet,disintegrating 2 5 DISSOLVE ONE TABLET ON THE TONGUE FOUR TIMES A DAY NEEDED FOR NAUSEA DISSOLVE ONE TABLET ON THE TONGUE FOUR TIMES A DAY NEEDED FOR NAUSEA SOLD: 04/07/2020 [facility] Ondansetron 4 MG Disintegrating Oral Tab let Ondansetron 4 MG Oral Tablet Disintegrating Ondansetron 4 MG Oral Tablet Disintegrating 11/15/2019 12:00:00 AM EDT aborted ondansetron 4 MG Disintegrating Oral Tablet [facility] ([facility]) Nystatin 100 UNT/MG Topical Powder 100,000 unit/gram NYSTATI N 09/19/2019 12:00:00 AM EST powder 15 APPLY UNDER BOTH BREAST T WO TIMES A DAY APPLY UNDER BOTH BREAST TWO TIMES A DAY SOLD: 05/19/2020 [facility] Nystatin 100 UNT/MG Topical Powder 100,000 unit/gram NYSTATI N 09/19/2019 12:00:00 AM EST powder 15 APPLY UNDER BOTH BREAST T WO TIMES A DAY APPLY UNDER BOTH BREAST TWO TIMES A DAY SOLD: 04/22/2020 [facility] pantoprazole 40 MG Delayed Release Oral Tablet PANTOPRAZOLE SODIUM 08/02/2019 12:00:00 AM EST tablet,delayed release (DR/EC) 60 T CISCO ONE TABLET BY MOUTH TWICE A DAY TAKE ONE TABLET BY MOUTH TWICE A DAY SOLD: 03/23/2020 [facility] pantoprazole 40 MG Delayed Release Oral Tablet PANTOPRAZOLE SODIUM 08/02/2019 12:00:00 AM EST tablet,delayed release (DR/EC) 60 T CISCO ONE TABLET BY MOUTH TWICE A DAY TAKE ONE TABLET BY MOUTH TWICE A DAY SOLD: 04/22/2020 [facility] 0.25 mg 06/25/2019 12:00:00 AM EST tablet 90 TAKE ONE TABLET BY MOUTH EVERY MORNING AND 2 AT BEDTIME TAKE ONE TABLET BY MOUTH EVERY MORNING A ND 2 AT BEDTIME SOLD: 04/07/2020 [facility] 5 mg 05/21/2019 12:00:00 AM EST tablet 30 TAKE ONE TABLET BY MOUTH EVERY DAY TAKE ONE TABLET BY MOUTH EVERY DAY SOLD: 03/23/2020 [facility] 5 mg 05/21/2019 12:00:00 AM EST tablet 30 TAKE ONE TABLET BY MOUTH EVERY DAY TAKE ONE TABLET BY MOUTH EVERY DAY SOLD: 04/22/2020 [facility] Amlodipine 5 MG Oral Tablet amLODIPine Besylate 5MG Or al Tablet amLODIPine Besylate 5MG Oral Tablet 05/20/2019 12:00:00 AM EST 1 aborted amlodipine 5 MG Oral Tablet [facility] buspirone hydrochloride 10 MG Oral Tablet BUSPIRONE HCL 05/15/2019 12:00:00 AM EDT tablet 90 TAKE ONE TABLET BY MOUTH THR EE TIMES A DAY TAKE ONE TABLET BY MOUTH THREE TIMES A DAY SOLD: 04/22/2020 [facility] 30 gauge 05/15/2019 12:00:00 AM EDT misc 100 TEST ONCE TO TWICE DAILY TEST ONCE TO TWICE DAILY SOLD: 04/22/2020 [facility] BLOOD SUGAR DIAGNOSTIC 05/15/2019 12:00:00 AM EDT strip 100 TEST ONCE TO TWICE DAILY TEST ONCE TO TWICE DAILY SOLD: 03/12/2020 [facility] 145 mg 05/15/2019 12:00:00 AM EDT tablet 30 TAKE ONE TABLET BY MOUTH EVERY DAY TAKE ONE TABLET BY MOUTH EVERY DAY SOLD: 04/22/2020 [facility] 200 ACTUAT Albuterol 0.09 MG/ACTUAT Mete red Dose Inhaler [Ventolin] Ventolin HFA 108 (90 Base)MCG/ACT Inhalation Aerosol Solution Ventolin HFA 108 (90 Base)MCG/ACT Inhalation Aerosol Solution 05/15/2019 12:00:00 AM EDT 2 aborted [id number] 200 ACTUAT albuterol 0.09 MG/ACTUAT Metered Dose Inhaler [Ventolin] [facility] Sumatriptan 100 MG Oral Tablet SUMAtriptan Succinate 1 00MG Oral Tablet SUMAtriptan Succinate 100MG Oral Tablet 05/15/2019 12:00:00 AM EDT aborted [facility]riptan 100 MG [facility] Trazodone Hydrochloride 100 MG Oral Tablet traZODone H Cl 100MG Oral Tablet traZODone HCl 100MG Oral Tablet 05/15/2019 12:00:00 AM EDT 2 aborted trazodone hydrochloride 100 MG Oral Tablet [facility] ([facility]) 90 mcg/actuation 05/15/2019 12:00:00 AM EDT HFA aerosol inha ler 18 INHALE TWO PUFFS BY MOUTH EVERY 4 HOURS NEEDED INHALE TWO PUFFS BY MOUTH EVERY 4 HOURS NEEDED SOLD: 03/23/2020 [facility] pantoprazole 40 MG Delayed Release Oral Tablet Pantoprazole Sodium 40MG Oral Tablet Delayed Release Pantoprazole Sodium 40MG Oral Tablet Delayed Release 05/15/2019 12:00:00 AM EDT 1 aborted pantoprazole 40 MG Delayed Release Oral Tablet [facility] 24 HR Metformin hydrochloride 500 MG Ext ended Release Oral Tablet metFORMIN HCl ER 500MG Oral Tablet Extended Release 24 Hour metFORMIN HCl ER 500MG Oral Tablet Extended Release 24 Hour 05/15/2019 12:00:00 AM EDT 2 aborted 24 HR metformin hydrochloride 500 MG Extended Release Oral Tablet [facility] ([place] [facility]) Bisoprolol Fumarate 10 MG Oral Tablet Bisoprolol Fumar ate 10MG Oral Tablet Bisoprolol Fumarate 10MG Oral Tablet 05/15/2019 12:00:00 AM EDT 1 aborted bisoprolol fumarate 10 MG Oral T ablet [facility]AGE ([place] [facility]) 90 mcg/actuation 05/15/2019 12:00:00 AM EDT HFA aerosol inha ler 18 INHALE TWO PUFFS BY MOUTH EVERY 4 HOURS NEEDED INHALE TWO PUFFS BY MOUTH EVERY 4 HOURS NEEDED SOLD: 04/07/2020 [facility] BLOOD SUGAR DIAGNOSTIC 05/15/2019 12:00:00 AM EDT strip 100 TEST ONCE TO TWICE DAILY TEST ONCE TO TWICE DAILY SOLD: 04/22/2020 [facility] 500 mg 05/15/2019 12:00:00 AM EDT tablet extended release 24 hr 60 TAKE TWO TABLETS BY MOUTH EVERY EVENING TAKE TWO TABLETS BY MOUTH EVERY EVENING SOLD: 04/22/2020 [facility] 10 mg 05/15/2019 12:00:00 AM EDT tablet 30 TAKE ONE TABLET BY MOUTH EVERY DAY TAKE ONE TABLET BY MOUTH EVERY DAY SOLD: 03/23/2020 [facility] 100 mg 05/15/2019 12:00:00 AM EDT tablet 7 TAKE 1 TABLET BY MOUTH AT ONSET OF HEADACHE TAKE 1 TABLET BY MOUTH AT ONSET OF HEADACHE SOLD: 04/22/2020 [facility] 10 mg 05/15/2019 12:00:00 AM EDT tablet 30 TAKE ONE TABLET BY MOUTH EVERY DAY TAKE ONE TABLET BY MOUTH EVERY DAY SOLD: 04/22/2020 [facility] 500 mg 05/15/2019 12:00:00 AM EDT tablet extended release 24 hr 60 TAKE TWO TABLETS BY MOUTH EVERY EVENING TAKE TWO TABLETS BY MOUTH EVERY EVENING SOLD: 03/23/2020 [facility] Fenofibrate 145 MG Oral Tablet [Tricor] Tricor 145MG O ral Tablet Tricor 145MG Oral Tablet 05/15/2019 12:00:00 AM EDT 1 aborte d fenofibrate 145 MG Oral Tablet [Tricor] [facility]AL[facility]AGE ([facility]) buspirone hydrochloride 10 MG Oral Tablet BUSPIRONE HCL 05/15/2019 12:00:00 AM EDT tablet 90 TAKE ONE TABLET BY MOUTH THR EE TIMES A DAY TAKE ONE TABLET BY MOUTH THREE TIMES A DAY SOLD: 03/23/2020 [facility] 100 mg 05/15/2019 12:00:00 AM EDT tablet 60 TAKE TWO TABLETS BY MOUTH EVERY EVENING TAKE TWO TABLETS BY MOUTH EVERY EVENING SOLD: 03/23/2020 [facility] OneTouch Verio In Vitro Strip OneTouch Verio In Vitro Strip 05/15/2019 12:00:00 AM EDT aborted [facility] [employer] 100 mg 05/15/2019 12:00:00 AM EDT tablet 7 TAKE 1 TABLET BY MOUTH AT ONSET OF HEADACHE TAKE 1 TABLET BY MOUTH AT ONSET OF HEADACHE SOLD: 03/23/2020 [facility] Hydrochlorothiazide 25 MG / Losartan Pot assium 100 MG Oral Tablet Losartan Potassium-HCTZ 100-25MG Oral Tablet Losartan Potassium-HCTZ 100-25MG Oral Ta blet 05/15/2019 12:00:00 AM EDT 1 aborted hydrochlorothiazide 25 MG / losartan potassium 100 MG Oral Tablet [facility] ([place]) Fenofibrate 145 MG Oral Tablet FENOFIBRATE NANOCRYSTALLIZED 05/15/2019 12:00:00 AM EDT tablet 30 TAKE ONE TABLET BY MOUTH SOPHY RY DAY TAKE ONE TABLET BY MOUTH EVERY DAY SOLD: 03/23/2020 [facility] 1 ML medroxyprogesterone acetate 150 MG/ ML Prefilled Syringe Medroxyprogesterone (Depo-Provera) 150 MG/1 ML syringe Medroxyprogesterone (Depo-Provera) 150 M G/1 ML syringe 01/05/2018 03:35:00 PM EDT 150 MG completed [facility] BREO ELLIPTA 100-25 MCG INH 05/04/2017 10:22:00 AM EDT 1 EACH completed [facility] Pravastatin Sodium 10 MG Oral Tablet Pravastatin 04/28/2016 01:14: 00 PM EDT 1 TAB completed [facility] Naproxen 500 MG Oral Tablet [Naprosyn] Naproxen (Napro syn) 500 MG tablet Naproxen (Naprosyn) 500 MG tablet 10/29/2015 04:30:00 PM EDT 500 MG completed [facility] Acetaminophen 325 MG / Oxycodone Hydroch loride 5 MG Oral Tablet Oxycodone-Acetaminophen Oxycodone-Acetaminophen 10/29/2015 04:29:00 PM EDT 1 TAB completed [facility] Sumatriptan 50 MG Oral Tablet Sumatriptan Succinate Sumatrip moct[place] Succinate 10/29/2015 04:29:00 PM EDT 50 MG completed [facility] Pyridostigmine [place] 60 MG Oral Tablet Pyridostigmine Brom fely 10/29/2015 04:29:00 PM EDT 90 MG completed [facility] Insurance Providers Payer name Policy type / Coverage type Policy ID Covered republican ID Covered republican's relationship to braden Policy Braden Plan Information MEDICAID M [id number] Self [id number] [facility] I [id number] Self [id number] [facility] I [id number] Self [id number] [employer] Other AC[employer] [id number] Self [facility] United[employer]care Other AC[employer]Y [id number] [facility] [id number] [facility] [id number] Self [facility] Community Plan Commercial [id number] Self [id number] [facility] Community Plan Commercial [id number] Self [id number] [facility] Community Plan Commercial [id number] Self [id number] [facility] Community Plan Commercial [id number] Self [id number] [employer] Other 0 [id number] Self 0 [employer] Other 0 [id number] Self 0 [employer] Other 0 [id number] Self 0 [employer] Other 0 [id number] Self 0 ANSI-Commercial [id number] ANSI-Medicaid [id number] ANSI-Commercial [id number] ANSI-Medicaid [id number] ANSI-Commercial [id number] ANSI-Commercial [id number] ANSI-Medicaid [id number] [facility] Health Maintenance Organization (HMO) [id number] Self [id number] ANSI-Commercial [id number] [facility] [id number] ANSI-Commercial [id number] [facility]-Medicaid [id number] [facility]-Medicaid [id number] ANSI-Commercial [id number]-[id number] ANSI-Commercial [id number] [facility] [id number] [facility] [id number] ANSI-Commercial [id number] [facility]-Medicaid [id number] ANSI-Commercial [id number] ANSI-Medicaid [id number] ANSI-Commercial [id number]-[id number]-[id number] ANSI-Medicaid [id number] ANSI-Commercial [id number] [facility] [id number] ANSI-Commercial [id number] ANSI-Medicaid [id number] ANSI-Medicaid [id number] ANSI-Commercial [id number] [facility] [id number] [facility]-Medicaid [id number] [facility]-Commercial [id number] [facility]-Medicaid [id number] [facility] [id number] ANSI-Medicaid [id number] [facility] [id number] ANSI-Medicaid [id number] [facility]-Commercial [id number] [facility]-Medicaid [id number] [facility] [id number] ANSI-Medicaid [id number] ANSI-Commercial [id number] ANSI-Medicaid [id number] ANSI-Commercial [id number] ANSI-Medicaid [id number] ANSI-Medicaid [id number] ANSI-Commercial [id number] ANSI-Commercial [id number] ANSI-Medicaid [id number] [facility] Health Maintenance Organization ([facility]) [id number] Self [id number] [employer] E[employer] DIV [id number] SP [id number] [employer] COMMUNITY PLAN MCDO [id number] SP [id number] [facility] Medicar Commercial [id number] Self [id number] [employer] FAMILY HLTH PLUS [id number] SP [id number] [facility] Community Plan Health Maintenance Organization (HMO) [id number] Self [employer] [facility] P UNAVAILABLE C UNAVAILABLE BLUE CROSS WADDELL PLAN [id number] SP [id number] BLUE CHOICE OPTION O [id number] S [id number] MEDICAID W [id number] S [id number] HMO BLUE [id number] SP [id number] UNHC COMMUNITY PLAN MCDO [id number] SP [id number] [employer] [id number] SP [id number] [employer] Other 0 [id number] Self 0 [employer](MCAID) O [id number] S [id number] [employer] Other 0 [id number] Self 0 [employer] Other 0 [id number] Self 0 UNHC COMMUNITY PLAN MCDO [id number] SP [id number] UNHC COMMUNITY PLAN MCDHMO [id number] SP [id number] UNHC COMMUNITY PLAN MCDO [id number] SP [id number] [facility] MEDICAID [id number] S [id number] [employer] [id number] SP [id number] [facility] MEDICAID [id number] S [id number] ANSI-Medicaid [id number] ANSI-Commercial [id number] ANSI-Medicaid [id number] Problems, Conditions, and Diagnoses Code Display Name Description Problem Type Effective Dates Data Source(s) R20.0 Anesthesia of skin Anesthesia of skin Diagnosis 06/2021 01:37:02 PM EDT [facility] Z79.899 Other jail (current) drug therapy [facility] the[facility] (current[facility] drug therapy Diagnosis 12/31/2020 02:50:55 PM EDT [facility] Surgeries/Procedures Procedure Description Date Indications Data Source(s) BLOOD COUNT COMPLETE AUTO&AUTO DIFRNTL WBC COUNT <td>C BC AND DIFFERENTIAL</td><td>Routine</td><td>02/25/2021 2:00 PM EDT</td><td> Bilateral hand numbness Myasthenia gravis Encounter for jail use of mycophenolate mofetil</td><td> </td> 02/25/2021 02:00:00 PM EDT Encounter for jail use of mycopheno late mofetilMyasthenia gravisBilateral hand numbness [facility] 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 teacher 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 of mycopheno late mofetil Myasthenia gravis Bilateral hand numbness COMPREHENSIVE METABOLIC PANEL <td>COMPREHENSIVE METABO LIC PANEL</td><td>Routine</td><td>02/25/2021 2:00 PM EDT</td><td> Bilateral hand numbness Myasthenia gravis 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 mofetil</td><td> </td> 02/25/2021 02:00:00 PM EDT Encounter for jail use of mycopheno late mofetilMyasthenia gravisBilateral hand numbness [facility] 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 BASIC METABOLIC PANEL CALCIUM TOTAL <td>BASIC METABOLI C PANEL</td><td>Routine</td><td>09/17/2020 2:52 PM EST</td><td> Myasthenia gravis</td><td> </td> 09/17/2020 02:52:00 PM EST [facility] Myasthenia gravis Venipuncture (routine) Venipuncture (routine) 09/03/2020 12:00:00 A M [facility] ([facility]) HgbA1C HgbA1C 09/03/2020 12:00:00 AM EST [facility] ([facility]) BMP-Basic Metabolic Profile BMP-Basic Metabolic Profile 08/17 12:00:00 AM [facility] ([facility]) BLOOD COUNT COMPLETE AUTO&AUTO DIFRNTL WBC COUNT <td>C BC AND DIFFERENTIAL</td><td>Routine</td><td>04/23/2020 2:54 PM EDT</td><td> 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</td><td> </td> 04/23/2020 02:54:00 PM EDT 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 mofetil Health system 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 teacher use of mycopheno late mofetil BASIC METABOLIC PANEL CALCIUM TOTAL <td>BASIC METABOLI C PANEL</td><td>Routine</td><td>04/23/2020 2:54 PM EDT</td><td> Myasthenia gravis</td><td> </td> 04/23/2020 02:54:00 PM EDT Myasthenia gravis [facility] Myasthenia gravis -collection of capillary blood (fingerstick, heel ) -c ollection of capillary blood (fingerstick, heel ) 04/20/2020 12:00:00 AM EDT ELIZA PHILLIPS ([facility]) HgbA1C HgbA1C 04/20/2020 12:00:00 AM EDT Asuncion CRUM ([facility]) Results ID Date Data Source [id number] 04/27/2021 06:40:[address] [facility] ABDOMEN AND PELVIS WITH CONTRASTPain to the upper back and upper chest and left-sided lower back.History of abdominal aortic aneurysm.The chest space is grossly clear. There is normal contrast-enhanced CTappearance of the liver, spleen,pancreas, and adrenal glands. There is persistent lobulationof the kidneys. In the left kidney there is a 4 x 3 mm stone in therenal pelvis which is nonobstructive at the time but may causeintermittent obstruction via bulb valve effect. This stone may beginpassage at any time given its position.There is no gallbladder wall thickening or biliary duct dilatation. Thevisualized bowel is normal in caliber. No free air or free-fluid. Theappendix is normal. No bowel wall thickening. The bladder and pelvicorgans appear normal. No acute osseous abnormality. No lymphadenopathy.There is a large soft tissue contusion in the right lower quadrant.This measures at least 11.5 x 4.6 cm.IMPRESSION:1. NO ACUTE INTRAABDOMINAL PROCESS.2. NO EVIDENCE OF ABDOMINAL AORTIC ANEURYSM NOTED.3. LARGE SOFT TISSUE CONTUSION IN THE RIGHT LOWER QUADRANT MEASURING ATLEAST 11.5 X 4.6 CM.4. DIVERTICULOSIS WITHOUT DIVERTICULITIS.Dictated on 04/27/21 0640 by Saran Villareal M.D.Transcribed on 04/28/21 0900 by Jg Garcia by Saran Villareal M.D. on 04/28/21 1010Sign by: Saran Villareal M.D. Name Value Range Interpretation Code Description Data Jessika rce(s) Supporting Document(s) ID Date Data Source [id number] 04/27/2021 06:40:[address] [facility] ANGIOGRAPHY OF CHESTFindings: The ne ck space is clear.Lungs demonstrate mild subsegmental atelectasis in the lingula. No otherfocal infiltrate is noted. The heart is normal in size. Nolymphadenopathy. No pulmonary embolism or aortic dissection or aorticaneurysm. The visualized upper abdomen demonstrates no acuteabnormality. There is no acute osseous abnormality.IMPRESSION: NO EVIDENCE OF THORACIC AORTIC ANEURYSM OR DISSECTION NOTED.MILD SUBSEGMENTAL ATELECTASIS IN THE LINGULA.Dictated on 04/27/21639 by Saran Villareal M.D.Transcribed on 04/28/21 0858 by Jg Garcia by Saran Villareal M.D. on 04/28/21 1010Sign by: Saran Villareal M.D. Name Value Range Interpretation Code Description Data [facility](s) Supporting Document(s) ID Date Data Source [id number] 04/27/2021 06:40:[address] [facility] CERVICAL SPINE WITHOUT CONTRASTFindin gs: Alignment is maintained. Anterior vertebral body heightsmaintained. There is no fracture or dislocation. At C5-6 and C6-7 thereis mild loss of disc space height and degenerative disc osteophytecomplexes. There is no significant neural foraminal narrowing noted.IMPRESSION:1. NO ACUTE OSSEOUS ABNORMALITY OF THE CERVICAL SPINE.2. MILD DEGENERATIVE CHANGES AT C5-6 AND C6-7.Dictated on 04/27/21639 by Saran Villareal M.D.Transcribed on 04/28/21 0846 by Jg Garcia by Saran Villareal M.D. on 04/28/21 1010Sign by: Saran Villareal M.D. Name Value Range Interpretation Code Description Data [facility](s) ID Date Data Source [id number] 04/27/2021 06:40:00 AM EDT [facility]. RIGHT ELBOWFindings/Impression: There i s no fracture or dislocation. Nosignificant degenerative changes. No acute soft tissue abnormalities.Please note this lateral view is suboptimally positioned.Dictated on 04/27/21 0640 by Saran Villareal M.D.Transcribed on 04/28/21818 by Jg Garcia by Saran Villareal M.D. on 04/28/21 1010Sign by: Saran Villareal M.D. Name Value Range Interpretation Code Description Data Jessika rce(s) Supporting Document(s) ID Date Data Source [id number] 02/26/2021 12:13:44 PM EDT [facility] Name Value Range Interpretation Code Description Data Jessika rce(s) Supporting Document(s) Progress Note [facility] ZCZTXm0tXeYLLhGa36/QKZlyKKFof3GlPPyeSJd2ZLaoQRQnJ4QaWGG3cO4xIYF6FYaXRmCbIyBhJUJx [facility] CpBudIPoGcUZGjTdiNNjTpTBifLcefiILgUR2VdMI9CMMsK19zEZZnHZGcV0ToYOS1QyI+Bm5OIDTpwQ JvIO8FYwxT1A3Bn4nJXq0cQF5PH2NvHFJfl82rJDjk9BewkxZ0evKC0XOs3bIxhqKVzEa347pIXAvJuJ vYK1jsG5XFpaqQNANO5QBZeCVZzhu/29Bl3GkOtHf/ X/6SJHh0ircdi4Hd0uu23ehiU/YS+UPmeJJbC3W/Vqm0Fn3pp84sdfllhuRI5AVHrb1urmUXM3r5Z85c mfMfaU3eK6lFYjv5sAhdYmRf68/1JU7S8QvscZqUsBxI9N4QSA2P9nXF/WRYaMgQLgiZDxwn2gjJVFKK +iEfum4+NTYXCcoyU3C5dJWiM4yo/CoUb0n51Lm5g5 1k2/Ulises+4rNR/OjEFuT49isHVU0RSZVqZw25rHM1YI5keUgygpz3pwGvWi+xRZgYOnh4nKX4V6w8eQTsR [file] T0YNCg== ID Date Data Source [id number] 02/25/2021 06:50:29 PM EDT [facility] Name Value Range Interpretation Code Description Data Jessika rce(s) Supporting Document(s) Leukocytes [#/volume] in Blood by Automated count 5.7 10*3/uL 4-10 [facility] Erythrocytes [#/volume] in Blood by Automated count 4.45 10*6/uL 4.1- 5.3 [facility] Hemoglobin [Mass/volume] in Blood 13.1 g/dL 11.5-15.5 [facility] Hematocrit [Volume Fraction] of Blood by Automated count 39.8 % 3 6-45 [facility] Erythrocyte mean corpuscular volume [Entitic volume] by Auto mated count 89.5 fL 80-96 [facility] Erythrocyte mean corpuscular hemoglobin [Entitic mass] by Automated count 29.4 pg 27-33 [facility] Erythrocyte mean corpuscular hemoglobin concentration [Mass/volume] by Automated count 32.8 g/dL 32.0-[facility] distribution width [Ratio] by Automated count 13.5 % 11.5-14.5 [facility] Platelets [#/volume] in Blood by Automated count 312 10*3/uL 150-400 [facility] Differential cell count method - Blood [facility] Neutrophils/100 leukocytes in Blood by Automated count 49 % [facility] Lymphocytes/100 leukocytes in Blood by Automated count 40 % [facility] Monocytes/100 leukocytes in Blood by Automated count 7 % [facility] Eosinophils/100 leukocytes in Blood by Automated count 3 % [facility] Basophils/100 leukocytes in Blood by Automated count 1 % [facility] Neutrophils [#/volume] in Blood by Automated count 2.84 10*3/uL 1.8-7 .0 [facility] Lymphocytes [#/volume] in Blood by Automated count 2.24 10*3/uL 1.2-4 .0 [facility] Monocytes [#/volume] in Blood by Automated count 0.41 10*3/uL 0-0.8 [facility] Eosinophils [#/volume] in Blood by Automated count 0.14 10*3/uL 0-0.5 [facility] Basophils [#/volume] in Blood by Automated count 0.05 10*3/uL 0-0.2 [facility] Nucleated erythrocytes/100 leukocytes [Ratio] in Blood by Automated count 0 /100{WBCs} 0-0 [facility] ID Date Data Source [id number] 02/25/2021 07:17:55 PM EDT [facility] Name Value Range Interpretation Code Description Data Jessika rce(s) Supporting Document(s) Albumin [Mass/volume] in Serum or Plasma by Bromocresol green (BCG) dye binding method 4.0 g/dL 3.5-5.2 [facility] Bilirubin.total [Mass/volume] in Serum or Plasma 0.3 mg/dL <1.2 [facility] Calcium [Mass/volume] in Serum or Plasma 9.0 mg/dL 8.6-10.0 [facility] Chloride [Moles/volume] in Serum or Plasma 104 mmol/L 98-107 [facility] Creatinine [Mass/volume] in Serum or Plasma 0.60 mg/dL 0.50-0.90 [facility] Glucose [Mass/volume] in Serum or Plasma 117 mg/dL 70-140 [facility] Alkaline phosphatase [Enzymatic activity/volume] in Serum or Plasma 81 U/L 35-104 [facility] Potassium [Moles/volume] in Serum or Plasma 4.3 mmol/L 3.4-5.1 [facility] Protein [Mass/volume] in Serum or Plasma 7.2 g/dL 6.4-8.3 [facility] Sodium [Moles/volume] in Serum or Plasma 136 mmol/L 136-145 [facility] Aspartate aminotransferase [Enzymatic activity/volume] in Serum or Plasma 28 U/L <32 [facility] Urea nitrogen [Mass/volume] in Serum or Plasma 11 mg/dL 6-20 [facility] Osmolality of Serum or Plasma by calculation 283 mosm/kg 275-300 [facility] Creatinine/Urea nitrogen [Mass Ratio] in Serum or Plasma 18 [facility] Bicarbonate [Moles/volume] in Serum 21 mmol/L 22-29 L [facility] Alanine aminotransferase [Enzymatic activity/volume] in Seru m or Plasma 32 U/L <33 [facility] Anion gap 3 in Serum or Plasma 12 mmol/L 8-15 [facility] Glomerular filtration rate/1.73 sq M pre dicted among non-blacks [Volume Rate/Area] in Serum or Plasma by Creatinine-based formula (MDRD) >6 0 [facility] Glomerular filtration rate/1.73 sq M pre dicted among blacks [Volume Rate/Area] in Serum or Plasma by Creatinine-based formula (MDRD) >60 [facility] ID Date Data Source [id number] 12/31/2020 03:08:18 PM EDT [facility] Name Value Range Interpretation Code Description Data Jessika rce(s) Supporting Document(s) Progress Note [facility] HJBNRd0gQkPEZtJg67/WQOqcALMlh0GjYPyaKMf7XOqzWTIrL2ZeLUU5zY6aNUB2NLxGRvPqJcObHnT7 [facility] [file] nl+HwlXr/e7axW4/[employer]+HW1bRqrKB+7z155rfkUt8sM [file] ogICAgICAgICAgICAgICAgICAgICAgICAgICAgICAgICAgICAgICAgICAgICAgICAgICAgICAgICAgIC AgICAgICAgICAgICAgICAgICAgICAgICAgICAgICAgICAgICAgICAgDQogICAgICAgICAgICAgICAgIC AgICAgICAgICAgICAgICAgICAgICAgICAgICAgICAg ICAgICAgICAgICAgICAgICAgICAgICAgICAgICAgICAgICAgICAgICAgICAgICAgICAgDQogICAgICAg ICAgICAgICAgICAgICAgICAgICAgICAgICAgICAgICAgICAgICAgICAgICAgICAgICAgICAgICAgICAg ICAgICAgICAgICAgICAgICAgICAgICAgICAgICAgIC AgDQogICAgICAgICAgICAgICAgICAgICAgICAgICAgICAgICAgICAgICAgICAgICAgICAgICAgICAgIC AgICAgICAgICAgICAgICAgICAgICAgICAgICAgICAgICAgICAgICAgICAgDQogICAgICAgICAgICAgIC AgICAgICAgICAgICAgICAgICAgICAgICAgICAgICAg ICAgICAgICAgICAgICAgICAgICAgICAgICAgICAgICAgICAgICAgICAgICAgICAgICAgICAgDQogICAg ICAgICAgICAgICAgICAgICAgICAgICAgICAgICAgICAgICAgICAgICAgICAgICAgICAgICAgICAgICAg ICAgICAgICAgICAgICAgICAgICAgICAgICAgICAgIC AgICAgDQogICAgICAgICAgICAgICAgICAgICAgICAgICAgICAgICAgICAgICAgICAgICAgICAgICAgIC AgICAgICAgICAgICAgICAgICAgICAgICAgICAgICAgICAgICAgICAgICAgICAgDQogICAgICAgICAgIC AgICAgICAgICAgICAgICAgICAgICAgICAgICAgICAg ICAgICAgICAgICAgICAgICAgICAgICAgICAgICAgICAgICAgICAgICAgICAgICAgICAgICAgICAgDQog ICAgICAgICAgICAgICAgICAgICAgICAgICAgICAgICAgICAgICAgICAgICAgICAgICAgICAgICAgICAg ICAgICAgICAgICAgICAgICAgICAgICAgICAgICAgIC AgICAgICAgDQogICAgICAgICAgICAgICAgICAgICAgICAgICAgICAgICAgICAgICAgICAgICAgICAgIC HrFQEaRZYbRUWaOJMsPQRhXOJyITNvMLHrQCLkHDJsTUOhRGGqWHHjNKZhFKUsBGPuIGg5H4ncVALwDH MtYH2pYJo3Nl1+VEiEKoIxEGO9yyYvnB9FOS9kk3Qe QRweMUNaf5HtEYo7TI4BHWCiVZkzWD1EEKjmit6KBTLtGCSmaETAf8ccVmDuORX8FWAcNkhgGB9MGEDe W1uymeJaQQJiPBNDIYdzGPCHDMhkREBJAPRtWNJgBrLeGoTiIXElCX5TJAQtB712djUdET6QWl0BCeKx MR4bfq9BAfmkALOhYsmKPyr0YZpyTX2YnGWieTSiYT MgKUJMBgLlT4niu4AbGwbnMPEIQLglAB8Cf8LopNBiKHm+Tu1FVY2of6AgFNmfNULtJV9nlp2HINqXPj QvP2XtjMnfGDZud6qrHTSnBY6mlWStBYD7WHXueUHjOD3qrYVcZOCjKBXUlI4Tj0koDBncOEYiGWLfLl 6aMo0eLKRxCNFgQmCrHPJKQP7FWYNpAILltTNfWWXh NBEVUF3RIQqyHPN0BXBmzdKnhNJmLQtnPG3ZEEGofvWjLnpgKBMNRPu+Ni1IJW2er4IqLWdsFESmUY0d gn5QSNdEQjOxS2Y1bQInJ0G2YLhpKi1JLEEhJHTbIhYhQQZGVOlzZT9ACK3wjxU4SU8AyVLyEYYpDZHt uZNnHIs3V41hxWIkZZueZI6RULQ+Edmundo+Gu5KNPVtZY HcSEIpBxDkLMVWWkJzW9QrP3WHd5NyP5CfGI19hBycotWwGHklFJ8VLZ5jGOLaITAWME6IvHHweA5jbi PnFtWjJXGFYjSmH48klKQpZUHqAES8VVVxYy7GKRJiO8PbaaWebRxwneUkBUTjIAVUJD5RVHnjstAoeT GgrJzrKV83yVsnSG9HUt8GInRaQE9kkx6QmNAqRb1K KMLzZK3GXNWjBVRaZOSyHZP0APYwHpCsYXimAIIgRDQgUUR4LORqEQGeGB0QXwNmKIKeQhN4IPEeDNWk MFQppx6IRJWiUFSmMpYfNEErBMAgDWZoKOfmXFZqBPIuWWM4HTXtFIPdLY0FCqYmMQMxTHOeTYimKVDc QSUtnh6POXLuSLXyOBNpUEIyKLRzLQNuSDwvORNjRR W7XZQ5GEAeHOOcQR7IUxNbCIHnFPruFdnyBGAhGKOmvk2EDYEyRPLiCYLfEbDgFGOeRYUqGEnhFNAuTM PyYeCtVKFbBTErNV8FYsSyZPCmPNY9EHUhCRDkMFWiei4MZPWoGHJvOvpaMbNvWLLzCCHuNQaeFOHyYQ Z6JdB6XSKzVTEdQM7UYqEuPTFsLFI6LMYsNALiDLBl rj1DJVPvFNJmShviFGSzNCVnSPDbMTudEVMkCTD5LCSbTBHvJHLpKR2KLbUlSRSaOCkwOMOaPGLyCFMs ru0CWXTcQKAiEGN6WCAkHTIqQRHuUAblNAPgPQR2XdX5ZENqNANgUV2KWpGtQAAyIAs4YjLwNGFwXZGt ct8VPHFpQAEoESp4VYBsTBMwUFVrEDlgWHUfNVHhEp b5JVJmQQPyIB4UOjIzVPJrXbK1YTxfNPHiXITtzs8WFRTyUZPoFFh2HSPvBCZsSCPnPNplIGJeQGUlKW t8SAPuXBSnBJ9GLvIwLPUiOqIpZVTgYBNzCAKeip7BSSUcKTAwAft1MPJvENAfOGCdGAwyAICpBBJgXZ XlKEWtBQDbFV1JSpUfEEAcWcN4IArzQAYiAODhce9Y hFNptKuvyd5KWGbANs7XcRizLRLnCZbmZm8qsCDlFNAlRLOHPb3MtxNhZUTfLZUDDHinVVZkLPFsMVRs EmL9LvKqS3ZhZmG7X2E2WKJcMgc0D7UuJNS2PiM0XRCwMeY2SKv3WTYxKMTbHFk4TBH4WFYrPFY8AIPb Yzc+GF0yFIs+Fi1Ju3MgbmK3lkHpFYztDCLmTy2PMDOOM4HWAy== ID Date Data Source [id number] 10/09/2020 10:30:00 AM EDT [facility] LAST MENSTRUAL PERIOD [id number] lection Technique: BRUSH-ALONEPATIENT INFORMATION: [id number] CYTOLOGY: NEGATIVEDATES AND RESULTS: 10/24/17 negativePREVIOUS TREATMENT: NONEBody Site: CERVIX Name Value Range Interpretation Code Description Data Jessika rce(s) Supporting Document(s) Microscopic observation [Identifier] in Cervix by Cyto stain.thin pre p [facility] ID Date Data Source [id number] 10/01/2020 01:20:00 PM EDT [facility] Patient Name: Megan Marcano : 1975 Sex: F Pt Unit #: [id number] [facility] Provider: Visit Date/Time: 10/01/20 Primary Insurance: [facility] Secondary Insurance: Self Pay Intake Vital Signs 10/01/20 13:23 Current Height 5 ft 6 in Current Weight 250 lb 8 oz Weight Measurement Method Standing Scale BMI 40.4 BP 138/90 Blood Pressure Location Lt brachial Position Sitting Respiration 18 Pulse 85 Pulse Strength Normal Pulse Source Pulse Oximeter Temp 97.7 F Temp Source Tympanic Pulse Oximetry (%) 96 Oxygen Delivery Method room air Intake Visit Reasons: [employer]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 . Last mammo 01/28/20. her last pap was 10/24/17 neg.Lmp was . She has arthritis, MD, fibromyalgia. no other questions or concerns. Family Practice Nurse Practitioner Required: No Accompanied by: Self / Same as Patient Is patient in pain?: Yes (all over) Pain scale (1-10): 7 Allergies aspartame Allergy (Severe, Unverified 11/21/16 12:48) Anaphylaxis GARLIC Allergy (Mild, Unverified 09/16/20 13:43) Nausea/Vomit/Gastric hydromorphone [From Dilaudid] Allergy (Mild, Unverified 09/16/20 13:43) Hives ONIONS Allergy (Mild, Unverified 09/16/20 13:43) Nausea/Vomit/Gastric SMOKED FOODS Allergy (Mild, Unverified 09/16/20 13:43) Nausea/Vomit/Gastric fentanyl Adverse Reaction (Intermediate, Unverified 11/21/16 12:48) GI Upset morphine Adverse Reaction (Intermediate, Unverified 11/21/16 12:48) GI Upset cats Allergy (Mild, Uncoded 08/01/17 14:47) asthma Is last menstrual period known: Yes Last menstrual period: 09/14/20 Post menopausal: No Patient : No Vision Wearing glasses?: Yes Fall Risk History of falls: No Ambulatory Aid:: None Gait/Transferring:: Normal Medications:: Antihypertensives PHQ-2/9 Over the last 2 weeks, how often have you been bothered by any of the following problems? 1. Little interest or pleasure in doing things: not at all 2. Feeling down, depressed, or hopeless: not at all Total score: 0 HIV Testing Offer - ages 13-64 HIV testing Offer: No Requirement for HIV testing offer been met?: Declines today. Pretest education received and acknowledged SBIRT Annual Questionnaire Are you currently in recovery for alcohol or substance use?: No How many times in the past year have you had 4 or more drinks in a day?: None How many times in the past year have you used a recreational drug or used a prescription medication for nonmedical reasons?: None Do you need a note to return Do you need a note to return to daycare/school/sports/work: No Coronavirus Screening Screening Are you currently positive or on isolation for COVID ?: No Do you have any NEW signs of one or more of the following?: no symptoms Do you have NEW signs of at least two of the following?: no symptoms 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 History Hx Age of Menarche: 10 Date of Last Menstrual Period: 09/14/20 Menstrual pattern Duration of menses: 6-7 days Menstrual flow: Normal Sanitary products used: pads and tampons Per hour, how often product changed during heaviest flow?: 2 Activities missed dure to cycle: No Associated symptoms: breast tenderness, mood swing and headache Menstrual pain: moderate Menstrual regularity: regular Gynecologic pain symptoms: Reports none Contraception control method: none Previous methods tried?: none Cervical and Vaginal Cytology Ever treated for STI: No STD Screening: No Data to Display Hx Sexually Transmitted Disorders: No HIV risk evaluation: low risk Hepatitis B risk evaluation: low risk Sexual History Sexually active: No Do you think of yourself as: straight/heterosexual Number of lifetime partners: 1 Number of partners in last 3 months [.AM.PEHCOMP]: 1 Condom use: never Sexual concerns: None Sexual abuse: No Ever a victim of rape/sexual assault: no History History 2 Number of Living Children 0 Hx # Term Pregnancies 2 Hx # Pregnancies 0 Hx Total # of Abortions (Spontaneous Elective) 0 Ectopic pregnancies 0 PFSH Medical History Asthma B12 deficiency Bursitis Degenerative disk disease Depression Diabetes Gastroesophageal reflux disease Glaucoma Headache Hyperlipidemia Hypertension Memory loss Sleep apnea Surgical History H/O endoscopy History of - surgery Hx of colonoscopy S/P cataract surgery Family History Other Alcoholism Asthma Dementia Depression Diabetes Heart disease Hyperlipidemia Hypertension Hypothyroidism Kidney disease Social History Does the Patient have a Healthcare Proxy: No Does Patient have a DNR?: No Does Patient have a Living Will?: No adopted: No caregiver/support person: No foster care: No household members: spouse and children housing: house marital status : lives independently: Yes number of children: 2 number of grandchildren: 0 highest education level completed: some college, no degree current occupational status: disabled pets and animals: Yes pets and animals: cat(s) Hx Recent Travel (where): No sexually active: No do you think of yourself as: straight/heterosexual current gender identity: female Smoking Status: Never smoker passive smoking exposure: Yes second hand exposure: Yes alcohol intake: current alcohol intake frequency: holidays/special occasions only substance use type: does not use counseling given: No seatbelt use: always do you feel safe at home: Yes victim of physical abuse: No victim of emotional abuse: No victim of sexual abuse: No Female Reproductive History Menstrual Age of Menarche: 10 Duration of menses: 6-7 days Date of last menstrual period: 09/14/20 control method: none Total pregnancies: 2 Full term: 2 Premature: 0 Ab induced: 0 Ab spontaneous: 0 Ectopics: 0 Multiple births: 0 Review of Systems Const Reports system reviewed and no additional complaints, except as documented, Denies chills, Denies fever(s) and Denies headache(s) Eyes Denies blurry vision and Denies spots in vision ENT Denies dizziness and Denies headache(s) Details: Glaucoma, stable Card Denies chest pain and Denies palpitations Resp Denies cough and Denies wheezing GI Denies constipation, Denies diarrhea, Denies nausea and Denies vomiting Details: GERD symptoms Genitourinary: Reports as per HPI; Denies nipple discharge, vaginal discharge, vaginal odor or vaginal pruritus Musc Denies back pain and Denies arthralgias Skin/Breast Denies hirsutism, Denies alopecia, Denies nipple discharge and Denies rash Neuro Denies dizziness and Denies headache(s) Details: Myasthenia gravis - frequently evaluated for stroke due to lid lag. Frustrated by this. Psych Denies anxiety and Denies depression Endo Denies cold intolerance, Denies heat intolerance and Denies palpitations Details: DMII on metformin Sonido/Lymph Denies easy bleeding and Denies easy bruising Aller/Immun Denies wheezing Exam Const General: cooperative, healthy appearing, comfortable, no acute distress and well groomed Orientation: alert and oriented x3 HENMT Head: normocephalic and atraumatic Eyes General: appearance normal, both eyes and all related structures Conjunctivae: conjunctivae normal Sclera: sclerae normal Neck Neck: full ROM and trachea midline Chest Other: The patient had been provided an opportunity to gown in private. With nursing carton forming machine tender present a full breast exam was performed while reviewing the elements of breast self- exam with the patient. A light touch exam in a clockwise pattern was first performed searching for any evidence of protrusions or lesions palpable at the skin level. Next a deep compressive exam in the same pattern was performed, identifying islands of normal breast tissue which the patient was taught to palpate and appreciate. There were no dominant masses, and no irregular findings. The patient was taught to appreciate a few of the cystic structures within her own breast tissue, pointing out that these were rubbery smooth, sometimes tender and not fixed to adjacent tissue. Patient was taught that a nontender firm nodule that was in fact stuck to the overlying skin or the under lying body wall was of greater concern. Finally the patient's axilla and supraclavicular nodes were examined bilaterally. She was taught to do this herself, with the explanation that breast tissue drains up and out so infections or more worrisome conditions will commonly result and an enlarged lymph node. Both nipples were everted and there was no abnormal discharge present. Resp Effort Inspection: normal respiratory effort, able to speak in complete sentences, no audible wheezes and no cough Cardio Jugular venous pressure: no JVD Rate: regular rate Other: The patient was allowed privacy to drape for an exam, after which the physician returned to the room accompanied by a nursing carton forming machine tender. The patient was assisted into lithotomy position. A lighted and lubricated speculum was then used to perform a gentle exam. The cervix appeared normal to visual inspection and the transformation zone was visible. No ectropion or nabothian cyst was seen. A small amount of physiologic discha rge was noted. Vaginal mucosa was pink and rugated. No lesions were visible. No blood was present. Whiff test was negative. Pap was obtained with broom and brush and elicited only slight spotting. This was all well-tolerated by the patient. Musc Cervical Spine: cervical ROM normal Thoracic/Lumbar Spine: thoraco-lumbar ROM normal Skin Lesions: no lesions Rashes: no rashes Hair: normal Neuro General: patient alert and patient oriented x3 Cognition: normal cognition Speech: speech normal Gait: normal gait Sensory Exam: no sensory deficits noted Extrem General: normal to inspection, full ROM, no clubbing, cyanosis or edema and normal gait Psych Mental Status: mental status grossly normal Speech and Movement: speech and movement normal Mood: congruent mood Affect: normal affect Attitude: cooperative Thought Process: normal Thought Content: normal Insight: insight good Judgment: judgment good Assessment Plan Assessment Plan (1) Encounter for Routine Gynecological Examination: Code(s): Z01.419 - Encounter for gynecological examination (general) (routine) without abnormal findings Plan - Cedrick Valdovinos MD: We did review in detail the process of breast self-exam, emphasizing a systematic exam of the breast first by light touch and then by deep compressive exam. It was emphasized that she needs to compress the tissue between her examining fingers and her body wall to allow her to characterize the texture and mobility of any masses felt. We reviewed the characteristics of a probably benign versus worrisome type of mass. In general a tender, mobile, smooth mass is likely a benign cyst and she could simply monitor this for a few weeks or couple of months and bring it to attention only if it did not resolve. In contrast a firm fixed and often nontender mass is of greater concern and if it persists should definitely be brought to the attention of a provider. She was also taught to examine her axillae and the supraclavicular lymph node chain searching for masses as described above. Patient was advised of current guidelines, which recommend that a patient in her age group undergo co-testing, and, if negative for HPV, return for a repeat pap in five years. Paps can be discontinued at age 65. We discussed mammography recommendations as summarized in the UpToDate EBM database, which included citations to relevant articles which I have reviewed and offered to discuss with the patient. Edited portions of the UTD review include the following: "Age 40 to 49 - Most expert groups encourage shared decision-making for women in their 40s because of trade-offs between benefits and harms). For average-risk women in their 40s, we raise the topic of screening for breast cancer to answer any questions the women might have. Raising the topic is different from strongly "recommending" screening; we engage in shared decision-making to encourage women to individualize the decision based on the benefits and harms of screening and their personal values and preferences. For women who decide to initiate screening in their 40s, we typically suggest screening mammography every two years. Decisions on screening in this age group are highly dependent on a patients values and preferences. As an example, shared decision-making may result in a 40-year-old woman at average risk choosing to be screened if she has substantial concerns about breast cancer and is willing to accept the possibility of either a false-positive result or overdiagnosis and the resulting evaluation and treatment. On the other hand, a different 40-year-old woman may find that the information gathered during shared decision-making, including the frequency of false positives and overdiagnosis, provides her with a compelling reason to decide to defer mammography screening." "Age 50 to 74 - We suggest breast cancer screening with mammography for average-risk women aged 50 to 74 years. We typically screen every two years, unless the prior screening identified a finding for which more frequent breast imaging was advised. Systematic reviews of multiple randomized trials over the past 50 years found that mammogram screening for women aged 50 to 70 decreases the risk of breast cancer mortality. A 2016 systematic review of screening mammography found fair- quality evidence that mammography decreases the RR for breast cancer mortality for women 50 to 59 years (RR 0.86, 95% CI 0.68-0.97, seven trials), with a more significant reduction for women 60 to 69 years (RR 0.67, 95% CI 0.54-0.83, five trials). Screening also reduced the risk of advanced breast cancer in women aged 50 years and older (RR 0.62, 95% CI 0.46-0.83). These benefits are generally thought to outweigh the harms of screening for average-risk women in this age gr oup. All expert groups recommend routine screening with mammography for women at average risk who are age 50 or older, and most agree to continue screening through age 74 years (at least). However, recommendations on the frequency of mammography screening for this age group vary." Patient will receive a letter with her Pap smear results, within 10 to 14 days. Orders Other Orders: Orders: 3D DIG MAMMO SCREEN BILAT 5 Months Z12.31 PAP w HPV-Genotype if Positive Today Z12.4 Coding Level of Care Code 23167 Well 40-64 (Est) Exam Expanded Problem Focused Diagnoses Encounter for Routine Gynecological Examination Z01.419 <Electronically signed by Cedrick Valdovinos MD> 10/01/20 2311 Name Value Range Interpretation Code Description Data Jessika rce(s) Supporting Document(s) ID Date Data Source [id number] 09/20/2020 11:17:04 PM EST [facility] Name Value Range Interpretation Code Description Data Jessika rce(s) Supporting Document(s) Progress Note [facility] QEEWMh2xDqYCMpPh54/UJUoyMNUta4RyEFneCVi6AJsbBXJbN1ArIFW8gP7cUPA8UPcCYkMtBaUkDvK4 lbm [file] MDAxMDIwNSAwMDAwMCBuDQowMDAwMDEzMjMwIDAwMD TnQT6SVbAaGZLgOQB1ZpSnLKXjYSKxij6NGLRuBKCiXea5DnAnQDSoPRPxQSbeZFOqSNT8CUd6SNExEX ZoEY0SFsGeXEKuCYp2IUPcAUDeAERmzo2TEGJcCQEzFep3HaQiMFCpZYKyYQybLJIoTXM5QZVsQXBvJN DwDS5DCxOzZIOeWLodOBozKCRpVJTigo8ZONUfWEXp WSQnCaTqDWCaWAUzRGsgVVEbZTIdSjQeEWUpNPXsLB9QQtReYIPmXmA2DgPjGWDlDVQojc2KCFIpSZBj IBG5CYOqMCKqGMPkYTwlGSWgSXLuVIkhGIXqMKTuRV6UKtTlJYWaFxQ8YWWuYDKhTRGnjn8WOXMqFFUd KlNpIJLoJVKmRDUpKIxkHCLlVADcXTA6RBCvYCAcCH 9EUzUmFWQxXfWkQPZrTCFoWKIvmp1OGRNcSTKqAyYnTeXwVOIzSVPeTNdeNCEdKQN6MBllCXTiGEFoIR 4XFtGlHBNdBbY8UQPhTKVrONMvbd2FABIqVATdRFDfYrUcABJfDALsBAb5ggKwrWZoBSg9GW1RV9Ppnc XyWiHXOq0Or260FKDzYVPcUe8OA3gvZy8fQVXjGAOS Fr2BXOo8OsW8ZNnaOsKvPabtFEUuZBHgRLD5DyswZlJlUVn6IrR+GZtsASL9IYSnW9SfO0N1FuUlPFZ1 LmQ4F8ScWbZsYShfGf8lNRNJHa6+UBpagLTapPynMTTYVxE4GkV4MQutUELCVd5B ID Date Data Source [id number] 09/17/2020 07:47:19 PM [facility] Name Value Range Interpretation Code Description Data Jessika rce(s) Supporting Document(s) Leukocytes [#/volume] in Blood by Automated count 5.5 10*3/uL 4-10 [facility] Erythrocytes [#/volume] in Blood by Automated count 4.51 10*6/uL 4.1- 5.3 [facility] Hemoglobin [Mass/volume] in Blood 13.1 g/dL 11.5-15.5 [facility] Hematocrit [Volume Fraction] of Blood by Automated count 40.3 % 3 6-45 [facility] Erythrocyte mean corpuscular volume [Entitic volume] by Auto mated count 89.4 fL 80-96 [facility] Erythrocyte mean corpuscular hemoglobin [Entitic mass] by Automated count 29.1 pg 27-33 [facility] Erythrocyte mean corpuscular hemoglobin concentration [Mass/volume] by Automated count 32.5 g/dL 32.0-[facility] E[facility]throcyte distribution width [Ratio] by Automated count 13.3 % 11.5-14.5 [facility] Platelets [#/volume] in Blood by Automated count 307 10*3/uL 150-400 [facility] Differential cell count method - Blood [facility] Neutrophils/100 leukocytes in Blood by Automated count 49 % [facility] Lymphocytes/100 leukocytes in Blood by Automated count 41 % [facility] Monocytes/100 leukocytes in Blood by Automated count 7 % [facility] Eosinophils/100 leukocytes in Blood by Automated count 3 % [facility] Basophils/100 leukocytes in Blood by Automated count 0 % [facility] Neutrophils [#/volume] in Blood by Automated count 2.70 10*3/uL 1.8-7 .0 [facility] Lymphocytes [#/volume] in Blood by Automated count 2.23 10*3/uL 1.2-4 .0 [facility] Monocytes [#/volume] in Blood by Automated count 0.39 10*3/uL 0-0.8 [facility] Eosinophils [#/volume] in Blood by Automated count 0.14 10*3/uL 0-0.5 [facility] Basophils [#/volume] in Blood by Automated count 0.02 10*3/uL 0-0.2 [facility] Nucleated erythrocytes/100 leukocytes [Ratio] in Blood by Automated count 0 /100{WBCs} 0-0 [facility] ID Date Data Source [id number] 09/17/2020 08:03:13 PM [facility] Name Value Range Interpretation Code Description Data Jessika rce(s) Supporting Document(s) Bicarbonate [Moles/volume] in Serum 21 mmol/L 22-29 L [facility] Chloride [Moles/volume] in Serum or Plasma 108 mmol/L 98-107 H [facility] Creatinine [Mass/volume] in Serum or Plasma 0.62 mg/dL 0.50-0.90 [facility] Glucose [Mass/volume] in Serum or Plasma 108 mg/dL 70-140 [facility] Potassium [Moles/volume] in Serum or Plasma 3.6 mmol/L 3.4-5.1 [facility] Sodium [Moles/volume] in Serum or Plasma 140 mmol/L 136-145 [facility] Urea nitrogen [Mass/volume] in Serum or Plasma 8 mg/dL 6-20 [facility] Anion gap 3 in Serum or Plasma 11 mmol/L 8-15 [facility] Osmolality of Serum or Plasma by calculation 289 mosm/kg 275-300 [facility] Creatinine/Urea nitrogen [Mass Ratio] in Serum or Plasma 13 [facility] Calcium [Mass/volume] in Serum or Plasma 8.4 mg/dL 8.6-10.0 L [facility] Glomerular filtration rate/1.73 sq M pre dicted among non-blacks [Volume Rate/Area] in Serum or Plasma by Creatinine-based formula (MDRD) >6 0 [facility] Glomerular filtration rate/1.73 sq M pre dicted among blacks [Volume Rate/Area] in Serum or Plasma by Creatinine-based formula (MDRD) >60 [facility] ID Date Data Source [id number] 09/16/2020 01:38:00 PM [facility] Patient Name: Megan Marcano : 1975 Sex: F Pt Unit #: [id number] Location:[facility] Provider: Visit Date/Time: 09/16/20 Primary Insurance: [facility] Secondary Insurance: Self Pay Intake Vital Signs 09/16/20 13:39 Current Height 5 ft 6 in Current Weight 246 lb Weight Measurement Method Standing Scale BMI 39.6 BP 138/90 Blood Pressure Location Lt brachial Position Sitting Respiration 18 Pulse 91 Pulse Strength Normal Pulse Source Pulse Oximeter Temp 97.5 F L Temp Source Tympanic Pulse Oximetry (%) 97 Oxygen Delivery Method room air Intake Visit 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 She had a Ct that showed an ovarian cyst. She was referred from Dr. Delgado. LMP was 09/13/20. When they push the left side she does have pain. She has fibromyalgia so not sure what the pain is from. Her last pap was 10/24/17 negative no hpv. no other questions or concerns. Family Practice Nurse Practitioner Required: No Accompanied by: Self / Same as Patient Is patient in pain?: Yes (all over pain) Pain scale (1-10): 7 Allergies aspartame Allergy (Severe, Unverified 03/02 12:48) Anaphylaxis GARLIC Allergy (Mild, Unverified 09/16/20 13:43) Nausea/Vomit/Gastric hydromorphone [From Dilaudid] Allergy (Mild, Unverified 09/16/20 13:43) Hives ONIONS Allergy (Mild, Unverified 09/16/20 13:43) Nausea/Vomit/Gastric SMOKED FOODS Allergy (Mild, Unverified 09/16/20 13:43) Nausea/Vomit/Gastric fentanyl Adverse Reaction (Intermediate, Unverified 12:48) GI Upset morphine Adverse Reaction (Intermediate, Unverified 11/21/16 12:48) GI Upset cats Allergy (Mild, Uncoded 08/01/17 14:47) asthma Is last menstrual period known: Yes Last menstrual period: 09/13/20 Post menopausal: No Patient : No Vision Wearing glasses?: Yes Fall Risk History of falls: Yes (2 days ago due to Myastenia gravis) Ambulatory Aid:: Crutches Cane or Walker Gait/Transferring:: Weak Medications:: Analgesics and Antihypertensives HIV Testing Offer - ages 13-64 HIV testing Offer: No Requirement for HIV testing offer been met?: Declines today. Pretest education received and acknowledged SBIRT Annual Questionnaire Are you currently in recovery for alcohol or substance use?: No How many times in the past year have you had 4 or more drinks in a day?: None How many times in the past year have you used a recreational drug or used a prescription medication for nonmedical reasons?: None Do you need a note to return Do you need a note to return to daycare/school/sports/work: No Coronavirus Screening Screening Are you currently positive or on isolation for COVID ?: No Do you have any NEW signs of one or more of the following?: no symptoms Do you have NEW signs of at least two of the following?: no symptoms 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 History Hx Age of Menarche: 10 Date of Last Menstrual Period: 09/13/20 Menstrual pattern Duration of menses: 6-7 days Menstrual flow: Normal Sanitary products used: pads and tampons Per hour, how often product changed during heaviest flow?: 4 Associated symptoms: breast tenderness, mood swing and headache Intermenstrual bleeding?: No Menstrual regularity: regular Gynecologic pain symptoms: Reports none and pelvic pressure Contraception control method: none Previous methods tried?: none Cervical and Vaginal Cytology Ever treated for STI: No STD Screening: No Data to Display Hx Sexually Transmitted Disorders: No HIV risk evaluation: low risk Hepatitis B risk evaluation: low risk Sexual History Sexually active: No Age at first sexual contact: 19 Do you think of yourself as: straight/heterosexual Number of lifetime partners: 1 Number of partners in last 3 months [.AM.PEHCOMP]: 1 Condom use: never Sexual concerns: None Sexual abuse: No Ever a victim of rape/sexual assault: no History History 2 Number of Living Children 0 Hx # Term Pregnancies 2 Hx # Pregnancies 0 Hx Total # of Abortions (Spontaneous Elective) 0 Ectopic pregnancies 0 PFSH Medical History Asthma B12 deficiency Bursitis Degenerative disk disease Depression Diabetes Gastroesophageal reflux disease Glaucoma Headache Hyperlipidemia Hypertension Memory loss Sleep apnea Surgical History H/O endoscopy History of - surgery Hx of colonoscopy S/P cataract surgery Family History (Updated 10/29/15 @ 16:40 by Kaylin Kay) Other Alcoholism Asthma Dementia Depression Diabetes Heart disease Hyperlipidemia Hypertension Hypothyroidism Kidney disease Social History Does the Patient have a Healthcare Proxy: No Does Patient have a DNR?: No Does Patient have a Living Will?: No adopted: No caregiver/support person: No foster care: No household members: spouse and children housing: house marital status : lives independently: Yes number of children: 2 number of grandchildren: 0 highest education level completed: some college, no degree current occupational status: disabled pets and animals: Yes pets and animals: cat(s) Hx Recent Travel (where): No sexually active: No do you think of yourself as: straight/heterosexual current gender identity: female Smoking Status: Never smoker passive smoking exposure: Yes second hand exposure: Yes alcohol intake: current alcohol intake frequency: holidays/special occasions only substance use type: does not use counseling given: No seatbelt use: always do you feel safe at home: Yes victim of physical abuse: No victim of emotional abuse: No victim of sexual abuse: No Female Reproductive History Menstrual Age of Menarche: 10 Duration of menses: 6-7 days Date of last menstrual period: 09/13/20 control method: none Total pregnancies: 2 Full term: 2 Premature: 0 Ab induced: 0 Ab spontaneous: 0 Ectopics: 0 Multiple births: 0 Review of Systems Const Reports system reviewed and no additional complaints, except as documented, Denies chills, Denies fever(s), Reports headache(s) and Reports weight gain Eyes Denies blurry vision and Denies spots in vision ENT Denies dizziness and Reports headache(s) Card Denies chest pain and Denies palpitations Resp Denies cough and Denies wheezing Details: No current wheezing, SOB or FELICIANO GI Denies constipation, Denies diarrhea, Denies nausea and Denies vomiting Genitourinary: Reports as per HPI; Denies nipple discharge, vaginal discharge, vaginal odor or vaginal pruritus Musc Denies back pain, Denies arthralgias, Reports limited range of motion and Reports stiffness Details: bursitis active. Myasthenia - which she notes leads to frequent detailed evaluation in the ED to rule out CVA. Skin/Breast Denies hirsutism, Denies alopecia, Denies nipple discharge and Denies rash Neuro Denies dizziness and Reports headache(s) Psych Denies anxiety and Denies depression Endo Denies cold intolerance, Denies heat intolerance and Denies palpitations Details: Stable on metformin. Sonido/Lymph Denies easy bleeding and Denies easy bruising Aller/Immun Denies wheezing Exam Const General: cooperative, healthy appearing, comfortable, no acute distress and well groomed Nutritional Appearance: overweight Orientation: alert and oriented x3 HENMT Head: normocephalic and atraumatic Eyes General: appearance normal, both eyes and all related structures Conjunctivae: conjunctivae normal Sclera: sclerae normal Neck Neck: full ROM and trachea midline Resp Effort Inspection: normal respiratory effort, able to speak in complete sentences, no audible wheezes and no cough Cardio Jugular venous pressure: no JVD Rate: regular rate Musc Cervical Spine: cervical ROM normal Thoracic/Lumbar Spine: thoraco- lumbar ROM normal Skin Lesions: no lesions Rashes: no rashes Hair: normal Neuro General: patient alert and patient oriented x3 Cognition: normal cognition Speech: speech normal Gait: normal gait Sensory Exam: no sensory deficits noted Extrem General: normal to inspection, full ROM, no clubbing, cyanosis or edema and normal gait Psych Mental Status: mental status grossly normal Speech and Movement: speech and movement normal Mood: congruent mood Affect: normal affect Attitude: cooperative Thought Process: normal Thought Content: normal Insight: insight good Judgment: judgment good Assessment Plan Assessment Plan (1) Encounter to establish care: Code(s): Z76.89 - Persons encountering health services in other specified circumstances Plan - Cedrick Valdovinos MD: Patient is here to reestablish care and as follow-up for incidental finding of a slightly enlarged ovary on CT. Patient is well-informed and well aware of that where they are concerned about this ovary the proper imaging would have been ultrasound probably including a tr ansvaginal probe. She is decidedly uninterested in this. She has many other sources of pain and notes that it is uncomfortable if her left side is probed deeply but there are many other explanations for that. We left it that should she ever become interested in pursuing this or her symptoms flare the recommendation would be for an ultrasound study. We spent a lot of time debriefing her on her experience is a patient with myasthenia gravis, which apparently leads to a lot of consternation and elaborate work-ups when she presents emergency department for other reasons. 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 Finally she is due for a Pap smear but since she is currently menstruating she prefer to reschedule for that procedure in a week or 2. [place] [address] New Pt Extended Comp Patient Type New Exam Expanded Problem Focused Diagnoses Encounter to establish care Z76.89 <Electronically signed by Cedrick Valdovinos MD> 09/16/20 1459 Name Value Range Interpretation Code Description Data Jessika rce(s) Supporting Document(s) ID Date Data Source [id number] 09/03/2020 02:42:00 PM EST [facility] ([facility]) Name Value Range Interpretation Code Description Data Jessika rce(s) Supporting Document(s) Hemoglobin A1c/Hemoglobin.total in Blood 5.6 na Hgba1c [facility] ([facility]) Note: Responsible Observer: KM ID Date Data Source [id number] 09/03/2020 02:42:00 PM EST [facility] ([facility]) Name Value Range Interpretation Code Description Data Jessika rce(s) Supporting Document(s) Urea nitrogen [Moles/volume] in Blood 6 mg/dl Urea Nitrogen [facility] ([facility]) Note: Responsible Observer: KM Calcium [Moles/volume] in Urine collected for unspecified durati on 9.9 mg/dl Calcium [facility] ([facility]) Note: Responsible Observer: KM CO2 24 mmol/L CO2 [facility] ([facility]) Note: Responsible Observer: KM Chloride [Moles/volume] in Serum, Plasma or Blood 105 mmol/L Chloride [facility] ([facility]) Note: Responsible Observer: KM Creatinine [Moles/volume] in Vitreous fluid 0.4 mg/dl Below low normal Creatinine [facility] ([facility]) Note: Responsible Observer: KM EGFR - AfricanAm > 60 N/A EGFR - AfricanAm [facility] ([facility]) Note: Responsible Observer: KM EGFR - Non AF AM > 60 N/A EGFR - Non AF AM [facility] ([facility]) Note: Responsible Observer: KM Glucose [Mass/volume] in Urine collected for unspecified duratio n 115 mg/dl Above high normal Glucose [facility] ([facility]) Note: Responsible Observer: KM Potassium [Mass/volume] in Blood 4.2 mmol/L Pot assium [facility] ([facility]) Note: Responsible Observer: KM Sodium [Moles/volume] in Serum, Plasma or Blood 140 mmol/L Sodium [facility] ([facility]) Note: Responsible Observer: KM ID Date Data Source [id number] 05/28/2020 03:05:00 PM EST [facility] ([facility]) Name Value Range Interpretation Code Description Data Jessika rce(s) Supporting Document(s) FVC-Pred 3.84 L [facility] ([facility]) Do the PFT on maintenance inhaled medi cations. PDFReport Laboratory test result [facility] Do the PFT on maintenance inhaled medi cations. FVC-%Pred-Pre 74 L [facility] ([facility]) Do the PFT on maintenance inhaled medi cations. FVC-Pre 2.85 L [facility] ([facility]) Do the PFT on maintenance inhaled medi cations. FVC-LLN 3.10 L [facility] ([facility]) Do the PFT on maintenance inhaled medi cations. Fev1-%Pred-Pre 77 L [facility] ([facility]) Do the PFT on maintenance inhaled medi cations. Fev1-Pre 2.37 L [facility] ([facility]) Do the PFT on maintenance inhaled medi cations. Fev1-Pred 3.07 L [facility] ([facility]) Do the PFT on maintenance inhaled medi cations. Fev1-LLN 2.44 L [facility] ([facility]) Do the PFT on maintenance inhaled medi cations. Fev6-Pred 3.75 L [facility] ([facility]) Do the PFT on maintenance inhaled medi cations. Fev6-Pre 2.85 L [facility] ([facility]) Do the PFT on maintenance inhaled medi cations. Fev6-%Pred-Pre 76 L [facility] ([facility]) Do the PFT on maintenance inhaled medi cations. Pnj9oqn-Jqak 81 % [facility] ([facility]) Do the PFT on maintenance inhaled medi cations. Fev6-LLN 3.03 L [facility] ([facility]) Do the PFT on maintenance inhaled medi cations. Mem4ixh-OYL 71 % [facility] ([facility]) Do the PFT on maintenance inhaled medi cations. Dzi0hkb-Lil 83 % [facility] ([facility]) Do the PFT on maintenance inhaled medi cations. Mug9rlh-%Pred-Pre 102 % [facility] ([facility]) Do the PFT on maintenance inhaled medi cations. Edi7ymh-%Pred-Pre 102 % [facility] ([facility]) Do the PFT on maintenance inhaled medi cations. Alu3beh-Bgid 98 % [facility] ([facility]) Do the PFT on maintenance inhaled medi cations. Ihw0dgk-Lif 100 % [facility] ([facility]) Do the PFT on maintenance inhaled medi cations. FEFMax-%Pred-Pre 89 L/E/sec [facility] ([facility]) Do the PFT on maintenance inhaled medi cations. FEFMax-Pred 7.14 L/E/sec [facility] ([facility]) Do the PFT on maintenance inhaled medi cations. FEFMax-Pre 6.42 L/E/sec [facility] ([facility]) Do the PFT on maintenance inhaled medi cations. FEFMax-LLN 5.31 L/E/sec [facility] ([facility]) Do the PFT on maintenance inhaled medi cations. Djl7473-Qkm 2.61 L/E/sec [facility] ([facility]) Do the PFT on maintenance inhaled medi cations. Vfd4058-%Pred-Pre 87 L/E/sec [facility] ([facility]) Do the PFT on maintenance inhaled medi cations. Umg4045-Cufc 2.99 L/E/sec [facility] ([facility]) Do the PFT on maintenance inhaled medi cations. Xmg6671-TOS 1.67 L/E/sec [facility] ([facility]) Do the PFT on maintenance inhaled medi cations. ExpTime-Pre 5.65 sec [facility] ([facility]) Do the PFT on maintenance inhaled medi cations. Eru6emj0-Xsde 83 % [facility] ([facility]) Do the PFT on maintenance inhaled medi cations. Fxp6ztk0-[place]Y 74 % [facility] ([facility]) Do the PFT on maintenance inhaled medi cations. Vtk8nru3-%Pred-Pre 100 % [facility] ([facility]) Do the PFT on maintenance inhaled medi cations. Jum7frq6-Xvo 83 % [facility] ([facility]) Do the PFT on maintenance inhaled medi cations. ID Date Data Source [id number] 04/23/2020 04:25:14 PM EDT [facility] Name Value Range Interpretation Code Description Data Jessika rce(s) Supporting Document(s) Progress Note [facility] [id number] [facility] [file] [id number] ID Date Data Source [id number] 04/20/2020 03:29:00 PM EDT [facility] ([facility]) Name Value Range Interpretation Code Description Data Jessika rce(s) Supporting Document(s) Hemoglobin A1c/Hemoglobin.total in Blood 5.9 na Hgba1c [facility] ([facility]) Note: Responsible Observer: ASHLYN Procedure Social History Code Duration Value Status Description Data Source(s ) Alcohol intake 02/25/2021 12:00:00 AM EDT Current non-d nieves of alcohol (finding) completed Current non-drinker of alcohol (finding) [facility] Tobacco use and exposure 02/25/2021 12:00:00 AM EDT Never used co mpleted Never used [facility] Smoking 02/25/2021 12:00:00 AM EDT Never smoker completed Never s [facility] Alcohol intake 09/17/2020 12:00:00 AM EST Current non-d nieves of alcohol (finding) completed Current non-drinker of alcohol (finding) [facility] 09/16/2020 02:09:43 PM EST Never smoker completed Never s [facility] Smoking 09/16/2020 01:09:00 PM EST Never smoker completed Never [facility] Smoking 05/28/2020 12:00:00 AM EST Patient has never smoked co mpleted Patient has never smoked [facility] ([facility]) Alcohol intake 04/23/2020 12:00:00 AM EDT Current non-d nieves of alcohol (finding) completed Current non-drinker of alcohol (finding) [facility] Vital Signs ID Date Data Source UNK Name Value Range Interpretation Code Description Data Source(s) Systolic blood pressure 150 mm[Hg] 150 mm[Hg] Asuncion CRUM ([facility]) MD recheck Diastolic blood pressure 105 mm[Hg] 105 mm[Hg] [facility] ([facility]) recheck Systolic blood pressure 169 mm[Hg] 169 mm[Hg] [facility] Diastolic blood pressure 118 mm[Hg] 118 mm[Hg] [facility] ([facility]) Heart rate 87 /min 87 /min [facility] ([facility]) Body height 67 [in_i] 67 [in_i] [facility] ([facility]) Body weight 241 [lb_av] 241 [lb_av] [facility] ([facility]) Body mass index (BMI) [Ratio] 37.7 kg/m2 37.7 k g/m2 [facility] ([facility]) Body surface area Derived from formula 2.19 m2 2.19 m2 [facility] ([facility]) Systolic blood pressure 130 mm[Hg] 130 mm[Hg] M [facility] ([facility], ) Diastolic blood pressure 70 mm[Hg] 70 mm[Hg] [facility] ([facility], ) Heart rate 74 /min 74 /min [facility] ([facility], ) Oxygen saturation in Arterial blood by Pulse oximetry 96 % 96 % [facility] ([facility], ) Body temperature 98.2 [degF] 98.2 [degF] [facility] ([facility]) Body height 66 [in_i] 66 [in_i] [facility] ([facility]) 5'6" Body weight 260.00 [lb_av] 260.00 [lb_av] [facility] T ([facility], ) Body mass index (BMI) [Ratio] 42.0 kg/m2 42.0 k g/m2 [facility] ([facility]) [place] body weight 130 [lb_av] 130 [lb_av] [facility] T ([facility], ) Body weight 117.936 kg 117.936 kg [facility] ([facility]) Systolic blood pressure 110 mm[Hg] 110 mm[Hg] [facility] Diastolic blood pressure 80 mm[Hg] 80 mm[Hg] [facility] ([facility]) Heart rate 78 /min 78 /min [facility] ([facility]) Respiratory rate 24 /min 24 /min [facility] ([facility]) Body height 67 [in_i] 67 [in_i] [facility] ([facility]) Body weight 258 [lb_av] 258 [lb_av] [facility] ([facility]) Body mass index (BMI) [Ratio] 40.4 kg/m2 40.4 k g/m2 [facility] ([facility]) Body surface area Derived from formula 2.25 m2 2.25 m2 [facility] ([facility]) ID Date Data Source [id number] 02/25/2021 10:54:18 AM EDT [facility] Name Value Range Interpretation Code Description Data Source(s) CONTACT SPECIFIC IDENTITY ID [id number] AUT [id number] [facility] ID Date Data Source [id number] 02/23/2021 03:17:46 PM EDT [facility] Name Value Range Interpretation Code Description Data Source(s) CONTACT SPECIFIC IDENTITY ID [id number] AUT [id number] [facility] ID Date Data Source [id number] 12/28/2020 09:16:37 AM EDT [facility] Name Value Range Interpretation Code Description Data Source(s) PREFERRED NAME [facility] ID Date Data Source [id number] 12/31/2020 03:08:18 PM EDT [facility] Name Value Range Interpretation Code Description Data Source(s) PREFERRED NAME [facility] ID Date Data Source [id number] 11/03/2020 01:22:22 PM EDT [facility] Name Value Range Interpretation Code Description Data Source(s) PREFERRED NAME [facility] ID Date Data Source [id number] 09/20/2020 11:17:04 PM EST [facility] Name Value Range Interpretation Code Description Data Source(s) WEIGHT RECORDED 246 lb 246 lb [facility] ID Date Data Source [id number] 04/23/2020 04:25:14 PM EDT [facility] Name Value Range Interpretation Code Description Data Source(s) WEIGHT RECORDED 254 lb 254 lb [facility] Patient Treatment Plan of Care Planned Activity Planned Date Details Description Data Source (s) mycophenolate mofetil 250 MG Oral Capsule 01/15/2021 12:00:00 AM [facility] Pyridostigmine [place] 60 MG Oral Tablet 12/28/2020 12:00:00 AM [facility] mycophenolate mofetil 250 MG Oral Capsule 10/19/2020 12:00:00 AM [facility] Amlodipine 5 MG Oral Tablet 09/03/2020 12:00:00 AM [facility]) buspirone hydrochloride 10 MG Oral Tablet 08/25/2020 12:00:00 AM [facility]) mycophenolate mofetil 250 MG Oral Capsule 08/05/2020 12:00:00 AM [facility] Sumatriptan 100 MG Oral Tablet 07/27/2020 12:00:00 AM [facility]) [place] Lancets 33G Miscellaneous 07/20/2020 12:00:00 AM [facility]) Trazodone Hydrochloride 100 MG Oral Tablet 07/20/2020 12:00:00 AM [facility] ([facility]) Pyridostigmine [place] 60 MG Oral Tablet 05/25/2020 12:00:[address] [facility] [place] Verio In Vitro Strip 05/20/2020 12:00:00 AM [facility]) 60 ACTUAT Albuterol 0.09 MG/ACTUAT Metered Dose Inhale r 04/29/2020 12:00:00 AM [facility] ([facility]) buspirone hydrochloride 10 MG Oral Tablet 04/20/2020 12:00:00 AM [facility]) Amlodipine 5 MG Oral Tablet 04/20/2020 12:00:00 AM [facility] ([facility]) Trazodone Hydrochloride 100 MG Oral Tablet 04/20/2020 12:00:00 AM [facility]) Ondansetron 4 MG Disintegrating Oral Tablet 04/20/2020 12:00:00 AM [facility] ([facility]) Bisoprolol Fumarate 10 MG Oral Tablet 04/20/2020 12:00:00 AM [facility]) Hydrochlorothiazide 25 MG / Losartan Potassium 100 MG Oral Tablet 04/20/2020 12:00:00 AM [facility] ([facility]) Fenofibrate 145 MG Oral Tablet [Tricor] 04/20/2020 12:00:00 AM [facility]) 24 HR Metformin hydrochloride 500 MG Extended Release Oral Tablet 04/20/2020 12:00:00 AM [facility] ([facility]) pantoprazole 40 MG Delayed Release Oral Tablet 04/20/2020 12:00:00 AM [facility]) Hydrochlorothiazide 25 MG Oral Tablet 03/03/2020 12:00:00 AM [facility]) Ondansetron 4 MG Disintegrating Oral Tablet 11/15/2019 12:00:00 AM [facility]) Amlodipine 5 MG Oral Tablet 05/20/2019 12:00:00 AM [facility]) Bisoprolol Fumarate 10 MG Oral Tablet 05/15/2019 12:00:00 AM [facility]) 24 HR Metformin hydrochloride 500 MG Extended Release Oral Tablet 05/15/2019 12:00:00 AM [facility] ([facility]) pantoprazole 40 MG Delayed Release Oral Tablet 05/15/2019 12:00:00 AM [facility]) Sumatriptan 100 MG Oral Tablet 05/15/2019 12:00:00 AM [facility]) Trazodone Hydrochloride 100 MG Oral Tablet 05/15/2019 12:00:00 AM E [facility]) 200 ACTUAT Albuterol 0.09 MG/ACTUAT Metered Dose Inhal er [Ventolin] 05/15/2019 12:00:00 AM [facility] ([facility]) Hydrochlorothiazide 25 MG / Losartan Potassium 100 MG Oral Tablet 05/15/2019 12:00:00 AM [facility] ([facility]) OneTouch Verio In Vitro Strip 05/15/2019 12:00:00 AM [facility]) Fenofibrate 145 MG Oral Tablet [Tricor] 05/15/2019 12:00:00 AM [facility])
--- NOTE | 2021-05-05 16:31 | REP ---
INDICATION: rib pain left. COMPARISON: None. TECHNIQUE: Four views of the left ribs were obtained. FINDINGS: Only one view shows the lower ribs. That single view shows fractures involving the anterior ends of the 8th through 10th ribs. IMPRESSION: As above <Electronically signed by Sean Reyes > 05/05/21 [id number]
[2021-05-05 19:30] LABS: BASO % 0.5 % (0.0-1.0); EOS # 0.1 10^3/uL (0.0-0.5); EOS % 1.6 % (0.0-3.0); HEMATOCRIT 42.6 % (36.0-47.0); HEMOGLOBIN 13.9 g/dl (12.0-15.5); LYMPH # 1.9 10^3/uL (1.5-5.0); LYMPH % 23.7 % (24.0-44.0); MEAN CORPUSCULAR HEMOGLOBIN 28.5 pg (27.0-33.0); MEAN CORPUSCULAR HGB CONC 32.6 g/dl (32.0-36.5); MEAN CORPUSCULAR VOLUME 87.5 fl (80.0-96.0); MONO # 0.6 10^3/uL (0.0-0.8); MONO % 6.9 % (2.0-8.0); NEUTROPHILS # 5.4 10^3/uL (1.5-8.5); PLATELET COUNT, AUTOMATED 373 10^3/uL (150-450); RED BLOOD COUNT 4.87 10^6/uL (4.00-5.40)
--- OUTSIDE RECORDS SUMMARY | 2021-05-05 19:34 | CCD ---
Author Author [facility] Organization [facility] Address Unknown Phone Unavailable Care Team Providers Care Ophthalmic Nurse Name Role Phone Stephanie Delgado MD Unavailable [...] Unavailable Unavailable LyndaStephanie white MD Unavailable Unavailable Stephanie Delgado MD Unavailable [...] Palmer M.D. Unavailable Unavailable MUHA, M SAMANTA CHIEF MAINTENANCE SUPERVISOR Unavailable Unavailable MUHA, M SAMANTA CHIEF MAINTENANCE SUPERVISOR Unavailable Unavailable MUHA, M SAMANTA CHIEF MAINTENANCE SUPERVISOR Unavailable Unavailable MUHA, M SAMANTA CHIEF MAINTENANCE SUPERVISOR Unavailable Unavailable MUHA, M SAMANTA CHIEF MAINTENANCE SUPERVISOR Unavailable Unavailable MUHA, M SAMANTA CHIEF MAINTENANCE SUPERVISOR Unavailable Unavailable MUHA, M SAMANTA CHIEF MAINTENANCE SUPERVISOR Unavailable Unavailable MUHA, M SAMANTA CHIEF MAINTENANCE SUPERVISOR Unavailable Unavailable MUHA, M SAMANTA CHIEF MAINTENANCE SUPERVISOR Unavailable Unavailable MUHA, M SAMANTA CHIEF MAINTENANCE SUPERVISOR Unavailable Unavailable MUHA, M SAMANTA CHIEF MAINTENANCE SUPERVISOR Unavailable Unavailable MUHA, M SAMANTA CHIEF MAINTENANCE SUPERVISOR Unavailable Unavailable MUHA, M SAMANTA CHIEF MAINTENANCE SUPERVISOR Unavailable Unavailable MUHA, M SAMANTA CHIEF MAINTENANCE SUPERVISOR Unavailable Unavailable MUHA, M SAMANTA CHIEF MAINTENANCE SUPERVISOR Unavailable Unavailable MUHA, M SAMANTA CHIEF MAINTENANCE SUPERVISOR Unavailable Unavailable MUHA, M SAMANTA CHIEF MAINTENANCE SUPERVISOR Unavailable Unavailable MUHA, M SAMANTA CHIEF MAINTENANCE SUPERVISOR Unavailable Unavailable MUHA, M SAMANTA CHIEF MAINTENANCE SUPERVISOR Unavailable Unavailable MUHA, M SAMANTA CHIEF MAINTENANCE SUPERVISOR Unavailable Unavailable MUHA, M SAMANTA CHIEF MAINTENANCE SUPERVISOR Unavailable Unavailable MUHA, M SAMANTA CHIEF MAINTENANCE SUPERVISOR Unavailable Unavailable MUHA, M SAMANTA CHIEF MAINTENANCE SUPERVISOR Unavailable Unavailable MUHA, M SAMANTA CHIEF MAINTENANCE SUPERVISOR Unavailable Unavailable MUHA, M SAMANTA CHIEF MAINTENANCE SUPERVISOR Unavailable Unavailable MUHA, M SAMANTA CHIEF MAINTENANCE SUPERVISOR Unavailable Unavailable MUHA, M SAMANTA CHIEF MAINTENANCE SUPERVISOR Unavailable Unavailable MUHA, M SAMANTA CHIEF MAINTENANCE SUPERVISOR Unavailable Unavailable MUHA, M SAMANTA CHIEF MAINTENANCE SUPERVISOR Unavailable Unavailable MUHA, M SAMANTA CHIEF MAINTENANCE SUPERVISOR Unavailable Unavailable MUHA, M SAMANTA CHIEF MAINTENANCE SUPERVISOR Unavailable Unavailable MUHA, M SAMANTA CHIEF MAINTENANCE SUPERVISOR Unavailable Unavailable MUHA, M SAMANTA CHIEF MAINTENANCE SUPERVISOR Unavailable Unavailable MUHA, M SAMANTA CHIEF MAINTENANCE SUPERVISOR Unavailable Unavailable MUHA, M SAMANTA CHIEF MAINTENANCE SUPERVISOR Unavailable Unavailable MUHA, M SAMANTA CHIEF MAINTENANCE SUPERVISOR Unavailable Unavailable MUHA, M SAMANTA CHIEF MAINTENANCE SUPERVISOR Unavailable Unavailable MUHA, M SAMANTA CHIEF MAINTENANCE SUPERVISOR Unavailable Unavailable MUHA, M SAMANTA CHIEF MAINTENANCE SUPERVISOR Unavailable Unavailable MUHA, M SAMANTA CHIEF MAINTENANCE SUPERVISOR Unavailable Unavailable MUHA, M SAMANTA CHIEF MAINTENANCE SUPERVISOR Unavailable Unavailable MUHA, M SAMANTA CHIEF MAINTENANCE SUPERVISOR Unavailable Unavailable MUHA, M SAMANTA CHIEF MAINTENANCE SUPERVISOR Unavailable Unavailable MUHA, M SAMANTA CHIEF MAINTENANCE SUPERVISOR Unavailable Unavailable MUHA, M SAMANTA CHIEF MAINTENANCE SUPERVISOR Unavailable Unavailable MUHA, M SAMANTA CHIEF MAINTENANCE SUPERVISOR Unavailable Unavailable MUHA, M SAMANTA CHIEF MAINTENANCE SUPERVISOR Unavailable Unavailable MUHA, M SAMANTA CHIEF MAINTENANCE SUPERVISOR Unavailable Unavailable MUHA, M SAMANTA CHIEF MAINTENANCE SUPERVISOR Unavailable Unavailable MUHA, M SAMANTA CHIEF MAINTENANCE SUPERVISOR Unavailable Unavailable MUHA, M SAMANTA CHIEF MAINTENANCE SUPERVISOR Unavailable Unavailable MUHA, M SAMANTA CHIEF MAINTENANCE SUPERVISOR Unavailable Unavailable MUHA, M SAMANTA CHIEF MAINTENANCE SUPERVISOR Unavailable Unavailable MUHA, M SAMANTA CHIEF MAINTENANCE SUPERVISOR Unavailable Unavailable Paco Vasques MD Unavailable Unavail [...] Rodriguez MD Unavailable Unavail able El-Dokla, Paco Ahmed Mohamed MD Unavailable Unavail able Suraj-Dosabra, Paco Rodriguez MD Unavailable Unavail able Suraj-Doklsandy, Paco Rodriguez MD Unavailable Unavail able Suraj-Dosabra, Paco Rodriguez MD Unavailable Unavail able Suraj-Bessie, Paco Rodriguez MD Unavailable Unavail able Paco Vasques MD Unavailable Unavail able Stephanie Delgado MD [...] Unavailable Unavailable LyndaStephanie white MD Unavailable Unavailable Danny, Stephanie Olsen MD Unavailable Unavailable Lyndonaldo, L Raúl NOVAK Unavailable Unavailable Lyndacindy, L Raúl NOVAK Unavailable Unavailable Lyndacindy, L Raúl NOVAK Unavailable Unavailable Lyndacindy, L Raúl NOVAK Unavailable Unavailable Lyndacindy, L Raúl NOVAK Unavailable Unavailable Lyndonaldo, L Raúl NOVAK Unavailable Unavailable Will Valdovinos MD Unavailable Unavailable [...] is protected by Article 27-F of the [facility] Public Health law. If you continue you may have access to information: Regarding HIV / AIDS; Provided by facilities licensed or operated by the [facility] Office of Mental Health; or Provided by the [facility] Office for People With Developmental Disabilities. If such information is present, then the following [facility] mandated warning applies: This information has [...] reactions Propensity to adverse reactions hyd romorphone [facility]. Propensity to adverse reactions Propensity to adverse reactions fenta nyl [facility]. Propensity to adverse reactions Propensity to adverse reactions Morph ine [facility]. Propensity to adverse reactions HYDROMORPHONE HYDROMORPHONE [facility] Drug allergy hydromorphone hydromorphone Hives MO [facility] Food allergy GARLIC GARLIC Nausea/Vomit/Gastric [facility] Food allergy SMOKED FOODS SMOKED FOODS Nausea/Vomit/Gastric [facility] Food allergy ONIONS ONIONS Nausea/Vomit/Gastric [facility] Family History Family Member Name Family Member Gender Family Member Status Date o f Status Description Data Source(s) Unknown Condition [facility] Unknown Condition [facility] Unknown Condition [facility] Unknown Condition [facility] Unknown Condition [facility] Unknown Condition [facility] Unknown Condition [facility] Unknown Condition [facility] Unknown Condition [facility] Unknown Condition [facility] Encounters Encounter Providers Location Date Indications Data Source(s ) Outpatient Attender: Lore Vasques MD 06/03/2021 12:00:00 AM [facility] Emergency Attender: Tara Palmer M.D. SURG-ER 04/27/2021 03:38:0 0 PM EDT [facility] Patient discharged. Emergency Attender: Tara Palmer M.D. SURG-ER 06/2021 03:38:00 PM EDT - 04/27/2021 07:19:00 PM EDT [facility] Outpatient Attender: Lore barrett MDReferrer: Lore Vasques MD 04/19/2021 12:00:00 AM EDT [facility] Outpatient Attender: Lore Vasques MD [id number] 02/25/2021 12:00:00 AM EDT - 02/25/2021 01:52:45 PM [facility] Outpatient Attender: Lore barrett MDReferrer: Lore Vasques MD 02/25/2021 12:00:00 AM EDT Anesthesia of skin [facility] Anesthesia of skin Outpatient 02/25/2021 12:00:00 AM EDT [facility] Outpatient 02/25/2021 12:00:00 AM [facility] Outpatient Attender: Lore Vasques MD 02/18/2021 12:00:00 AM [facility] Outpatient Attender: Lore Vasques MD [id number] 12/31/2020 12:00:00 AM EDT - 12/31/2020 02:50:44 PM [facility] Outpatient Attender: Lore Vasques MD 12/31/2020 12:00:00 AM [facility] Outpatient Attender: Lore barrett MDReferrer: Lore Vasques MD 11/03/2020 12:00:00 AM EDT Myasthenia gravis wit hout (acute) exacerbation [facility] Myasthenia gravis without (acute) exacer bation Outpatient Attender: Cedrick Valdovinos MD 10/01/2020 05:44: 00 PM [facility] Outpatient Attender: Cedrick Valdovinos MDReferrer: Raúl sauer MD 10/01/2020 01:16:00 PM EDT - 10/01/2020 02:18:00 PM [facility] Outpatient Attender: Lore Vasques MD [id number] 09/17/2020 12:00:00 AM EST - 09/17/2020 02:46:58 PM [facility] Outpatient Attender: Lore barrett MDReferrer: Lore Vasques MD 09/17/2020 12:00:00 AM [facility] G70.00 [facility] G70.00 Outpatient Attender: Cedrick Valdovinos MDReferrer: Raúl sauer MD 09/16/2020 01:22:00 PM EST - 09/16/2020 02:33:00 PM [facility] Outpatient<td ID="encounterTypeDescripti onID0">followup</td><td>Raúl Delgado MD</td><td>[facility], [facility]</td><td>09/03/2020</td><td>2:47PM</td><td>3:23PM</td><td><content ID="encounterDiagnosisID0-0">Iliotibial Band Friction Syndrome Left Knee</content>, <content ID="encounterDiagnosisID0-1">Bursitis Trochanteric Left</content>, <content ID="encounterDiagnosisID0-2">Essential Hypertension</content>, <content ID="encounterDiagnosisID0-3">Ovarian Cyst Left</content></td> Attender: Raúl Delgado MD [facility] 09/03/2020 02:47:00 PM EST - 09/03/2020 03:23:00 PM ES T Ovarian Cyst LeftBursitis Trochanteric LeftIliotibial Band Friction Syndrome Left KneeEssential Hypertension JEREMY ([facility]) Ovarian Cyst Left Bursitis Trochanteric Left Iliotibial Band Friction Syndrome Left K nee [facility] Outpatient Attender: Lore Vasques MD 08/20/2020 12:00:00 AM [facility] Outpatient Attender: Lore Vasques MD 08/06/2020 12:00:00 AM [facility] Outpatient Referrer: Lore Vasques MD 04/23 02:53:52 PM EDT Other [facility] (current) drug therapy [facility] Other [facility] (current) drug therapy Outpatient Attender: Lore Vasques MD [id number] 04/23/2020 12:00:00 AM EDT - 04/23/2020 02:36:05 PM EDT [facility] Outpatient<td ID="encounterTypeDescripti onID1">incident to previous visit- </td><td>Samanta M Eboni CHIEF MAINTENANCE SUPERVISOR-</td><td>[facility], [facility]</td><td>04/20/2020</td><td>2:50PM</td><td>3:20PM</td><td><content ID="encounterDiagnosisID1-0">Essential Hypertension</content>, <content ID="encounterDiagnosisID1-1">Diabetes Mellitus Type 2 - Uncomplicated, Controlled</content>, <content ID="encounterDiagnosisID1-2">Myasthenia Gravis Without Acute Exacerbation</content>, <content ID="encounterDiagnosisID1- 3">Assessment of Morbid Obesity (>100% Overweight)</content></td> [facility] 02:50:00 P M EDT - 04/20/2020 03:20:00 PM EDT Assessment of Morbid Obesity (>100% Overweight)Diabetes Mellitus Type 2 - Uncomplicated, ControlledAssessment of Morbid Obesity (>100% Overweight)Diabetes Mellitus Type 2 - Uncomplicated, ControlledMyasthenia Gravis Without Acute ExacerbationMyasthenia Gravis Without Acute ExacerbationEssential HypertensionEssential Hypertension JEREMY ([facility]) Assessment of Morbid Obesity (>100% Over weight) Diabetes Mellitus Type 2 - Uncomplicated , Controlled Assessment of Morbid Obesity (>100% Over weight) Diabetes Mellitus Type 2 - Uncomplicated , Controlled Myasthenia Gravis Without Acute Exacerba tion Myasthenia Gravis Without Acute Exacerba tion [facility] Outpatient Attender: Lore Vasques MD 03/26/2020 12:00:00 AM [facility] Outpatient Attender: Lore Vasques MD 03/26/2020 12:00:00 AM [facility] Medications Medication Brand Name Start Date Product Form Dose Route Admi nistrative Instructions Pharmacy Instructions Status Indications Reaction Description Data Source(s) 200 mg 04/28/2021 12:00:00 AM EDT capsule 60 TAKE ONE CAPSULE BY MOUTH TWICE A DAY MAXIMUM DAILY DOSE = 2 TAKE ONE CAPSULE BY MOUTH TWICE A DAY MA XIMUM DAILY DOSE = 2 SOLD: 04/30/2021 [facility] 5-325 mg 04/27/2021 12:00:00 AM EDT tablet 12 TAKE ONE TABLET BY MOUTH EVERY 6 HOURS NEEDED MAXIMUM DAILY DOSE = 4 TAKE ONE TABLET BY MOUTH EVERY 6 HOURS NEEDED MAXIMUM DAILY DOSE = 4 SOLD: 04/30/2021 [facility] Ondansetron 4 MG Disintegrating Oral Tablet ONDANSETRON [...] TABLETS BY MOUTH AT BEDTIME SOLD: 04/20/2021 [facility] buspirone hydrochloride 10 MG Oral [...] EVERY 4 HOURS NEEDED SOLD: 04/30/2021 [facility] 90 mcg/actuation 03/20/2021 12:00:00 AM EDT HFA [...] DAILY DOSE = 6 TABLETS SOLD: 02/17/2021 [facility] 10-325 mg 01/18/2021 12:00:00 AM [...] VERY MORNING AND 3 CAPSULES EVERY EVENING [facility] Myasthenia gravis without exacerbation Trazodone Hydrochloride 100 [...] DOSE = 2 TABLETS SOLD: 01/15/2021 [facility] 60 mg 12/28/2020 12:00:00 AM EDT tablet 180 TAKE 1 & 1/2 TABLETS BY MOUTH FOUR TIMES A DAY TAKE 1 & 1/2 TABLETS BY MOUTH FOUR TIMES A DAY SOLD: 0 03/23/2021 [facility] Pyridostigmine [place] 60 MG Oral Tablet Pyridostigmine [place] 60 MG Oral Tablet (Mestinon) Pyridostigmine [place] 60 MG Oral Tablet (Mestinon) 12:00:00 AM EDT 90 mg Oral active Take 1.5 tablets by mouth Four times daily [facility] 60 mg 12/28/2020 12:00:00 AM EDT tablet [...] MOUTH TWICE A DAY SOLD: 11/17/2020 [facility] Ondansetron 4 MG Disintegrating Oral [...] DOS E = TWO TABLETS SOLD: 10/22/2020 [facility] 10-325 mg 10/20/2020 12:00:00 AM EDT tablet 180 TAKE ONE TO TWO TABLETS BY MOUTH THREE TIMES A DAY NEEDED FOR PAIN MAXIMUM DAILY DOSE = SIX TABLETS TAKE ONE TO TWO TABLETS BY MOUTH THREE TIMES A DAY NEEDED FOR PAIN MAXIMUM DAILY DOSE = SIX TABLETS SOLD: 10/22/2020 [facility] mycophenolate mofetil 250 MG Oral Capsul e Mycophenolate Mofetil 250 MG Oral Capsule (CELLCEPT) Mycophenolate Mofetil 250 MG Oral Capsule (CELLCEPT) 10/19/2020 12:00:00 AM EDT act sujatha Myasthenia gravis without exacerbation TAKE TWO CAPSULES BY MOUTH E VERY MORNING AND 3 CAPSULES EVERY EVENING [facility] Myasthenia gravis without exacerbation buspirone hydrochloride 10 MG Oral Tablet BUSPIRONE HCL 09/20/2020 12:00:00 AM EST tablet 90 TAKE ONE TABLET BY MOUTH THR EE TIMES A DAY TAKE ONE TABLET BY MOUTH THREE TIMES A DAY SOLD: 11/17/2020 [facility] buspirone hydrochloride 10 MG Oral Tablet BUSPIRONE HCL 09/20/2020 12:00:00 AM EST tablet 90 TAKE ONE TABLET BY MOUTH THR EE TIMES A DAY TAKE ONE TABLET BY MOUTH THREE TIMES A DAY SOLD: 09/22/2020 [facility] buspirone hydrochloride 10 MG Oral Tablet BUSPIRONE HCL 09/20/2020 12:00:00 AM EST tablet 90 TAKE ONE TABLET BY MOUTH THR EE TIMES A DAY TAKE ONE TABLET BY MOUTH THREE TIMES A DAY SOLD: 10/22/2020 [facility] 10-325 mg 09/18/2020 12:00:00 AM EST tablet 180 TAKE 1-2 TABLETS BY MOUTH NEEDED FOR PAIN MAXIMUM DAILY DOSE = SIX TABLETS TAKE 1-2 TABLETS BY MOUTH NEEDED FOR PAIN MAXIMUM DAILY DOSE = SIX TABLETS SOLD: 09/22/2020 [facility] Oxycodone Hydrochloride 30 MG Oral Tablet OXYCODONE HCL 09/18/2020 12:00:00 AM EST tablet 60 TAKE ONE TABLET BY MOUTH TWICE A DAY NEEDED FOR PAIN MAXIMUM DAILY DOSE = TWO TABLETS TAKE ONE TABLET BY MOUTH TWICE A DAY NEEDED FOR PAIN MAXIMUM DAILY DOSE = TWO TABLETS SOLD: 09/22/2020 [facility] latanoprost 0.05 MG/ML Ophthalmic Solution Latanoprost Latan oprost 09/16/2020 01:53:06 PM EST 1 DROPS completed [facility] Albuterol 0.83 MG/ML Inhalant Solution Albuterol Sulfate Alb uterol Sulfate 09/16/2020 01:52:22 PM EST 2.5 MG completed [facility] Metformin hydrochloride 500 MG Oral Tablet Metformin 09/16 01:52:03 PM EST 500 MG completed [facility] Amlodipine 10 MG Oral Tablet Amlodipine 09/16/2020 01:51:34 PM EST [address] [facility] Bisoprolol Fumarate 10 MG Oral Tablet Bisoprolol Fumarate 01:51:06 PM EST 10 MG completed [facility] ropinirole 0.25 MG Oral Tablet Ropinirole (Requip) 0.2 5 mg tablet Ropinirole (Requip) 0.25 mg tablet 09/16/2020 01:50:02 PM EST [facility]25 [facility] MG Oral Tablet Sumatriptan Succinate Sumatrip moctezuma Succinate 09/16/2020 01:49:56 PM EST 100 MG completed [facility] Pyridostigmine [place] 60 MG Oral Tablet Pyridostigmine Brom fely 09/16/2020 01:49:36 PM EST 90 MG completed [facility] atorvastatin 10 MG Oral Tablet Atorvastatin Atorvastatin 09/16/2020 01:48:38 PM EST 10 MG completed [facility] Acetaminophen 325 MG / Oxycodone Hydroch loride 10 MG Oral Tablet Oxycodone- Acetaminophen (Percocet) 10-325 mg tablet Oxycodone-Acetaminophen (Percocet) 10- 325 mg tablet 09/16/2020 01:45:22 PM EST 1 TAB completed [facility] Fluticasone Propionate 09/16/2020 01:44:14 PM EST 1 INH completed [facility] Trazodone Hydrochloride 100 MG Oral Tablet [...] BREAST TWO TIMES A DAY SOLD: 03/23/2021 [facility] Nystatin 100 UNT/MG Topical Powder [...] BREAST TWO TIMES A DAY SOLD: 10/22/2020 [facility] Nystatin 100 UNT/MG Topical Powder 100,000 unit/gram NYSTATI N 09/16/2020 12:00:00 AM EST powder 15 APPLY UNDER THE BREAST TW O TIMES A DAY APPLY UNDER THE BREAST TWO TIMES A DAY SOLD: 01/15/2021 [facility] Trazodone Hydrochloride 100 MG Oral Tablet [...] LIGHTHEADED ON ONCE DAILY DOSING SOLD: 09/07/2020 [facility] Amlodipine 5 MG Oral Tablet amLODIPine Besylate 5 MG O ral Tablet amLODIPine Besylate 5 MG Oral Tablet 09/03/2020 12:00:00 AM EST 1 active amlodipine 5 MG Oral Tablet [facility] [employer] buspirone hydrochloride 10 MG Oral Tablet BUSPIRONE HCL 08/27/2020 12:00:00 AM EST tablet 90 TAKE ONE TABLET BY MOUTH THR EE TIMES A DAY TAKE ONE TABLET BY MOUTH THREE TIMES A DAY SOLD: 09/01/2020 [facility] buspirone hydrochloride 10 MG Oral Tablet busPIRone HC l 10 MG Oral Tablet busPIRone HCl 10 MG Oral Tablet 08/25/2020 12:00:00 AM EST 1 active buspirone hydrochloride 10 MG Oral Tablet [facility] 200 mg 08/19/2020 12:00:00 AM EST capsule 60 TAKE ONE CAPSULE BY MOUTH TWICE A DAY MAXIMUM DAILY DOSE = 2 CAPSULE TAKE ONE CAPSULE BY MOUTH TWICE A DAY MAXIMUM DAILY DOSE = 2 CAPSULE SOLD: 11/17/2020 [facility] 10-325 mg 08/19/2020 12:00:00 AM EST tablet 180 TAKE 1-2 TABLETS BY MOUTH THREE TIMES A DAY NEEDED FOR PAIN MAXIMUM DAILY DOSE = SIX TABLETS TAKE 1-2 TABLETS BY MOUTH THREE TIMES A DAY NEEDED FOR PAIN MAXIMUM DAILY DOSE = SIX TABLETS SOLD: 08/21/2020 [facility] 200 mg 08/19/2020 12:00:00 AM EST capsule 60 TAKE ONE CAPSULE BY MOUTH TWICE A DAY MAXIMUM DAILY DOSE = 2 CAPSULE TAKE ONE CAPSULE BY MOUTH TWICE A DAY MAXIMUM DAILY DOSE = 2 CAPSULE SOLD: 08/21/2020 [facility] Oxycodone Hydrochloride 30 MG Oral Tablet OXYCODONE [...] TAKE THREE CAPSULES BY MOUTH EVERY EVENING [facility] Myasthenia gravis without exacerbation 100 mg 07/28/2020 [...] sumatriptan 100 MG Oral Tablet [facility] ([facility]) 33 gauge 07/21/2020 12:00:00 AM [...] TABLETS BY MOUTH AT BEDTIME SOLD: 07/23/2020 [facility] Oxycodone Hydrochloride 30 MG Oral [...] EST acti ve [employer] 33G JEREMY ([facility]) Trazodone Hydrochloride 100 MG Oral Tablet traZODone H Cl 100 MG Oral Tablet traZODone HCl 100 MG Oral Tablet 07/20/2020 12:00:00 AM EST 1 active trazodone hydrochloride 100 MG Oral Tablet [facility] ([facility]) 10-325 mg 07/20/2020 12:00:00 AM EST tablet 180 TAKE ONE TO TWO TABLETS BY MOUTH THREE TIMES A DAY NEEDED FOR PAIN MAXIMUM DAILY DOSE = SIX TABLETS TAKE ONE TO TWO TABLETS BY MOUTH THREE TIMES A DAY NEEDED FOR PAIN MAXIMUM DAILY DOSE = SIX TABLETS SOLD: 07/21/2020 [facility] 10-325 mg 06/21/2020 12:00:00 AM [...] 05/28/2020 12:00:00 AM EST RESPIRATORY active [facility] ([facility] ) 60 mg 05/25/2020 12:00:00 AM [...] DAY SOLD: 1 08/23/2019 [facility] Pyridostigmine [place] 60 MG Oral Tablet Pyridostigmine [place] 60 MG Oral Tablet (MESTINON) Pyridostigmine [place] 60 MG Oral Tablet (MESTINON) 12:00:00 AM EST active Myasthenia gravi s without exacerbation TAKE 1 & 1/2 TABLETS BY MOUTH FOUR TIMES A DAY [facility] Myasthenia gravis without exacerbation 30 mg 05/24/2020 [...] 05/20/2020 12:00:00 AM EST active [facility] ([facility]) pantoprazole 40 MG Delayed Release Oral Tablet PANTOPRAZOLE SODIUM 05/18/2020 12:00:00 AM EST tablet,delayed release (DR/EC) 60 T CISCO ONE TABLET BY MOUTH TWICE A DAY TAKE ONE TABLET BY MOUTH TWICE A DAY SOLD: 01/15/2021 [facility] 5 mg 05/18/2020 12:00:00 AM [...] TABLET BY MOUTH EVERY DAY SOLD: 10/22/2020 [facility] 10 mg 05/18/2020 12:00:00 AM EST [...] BY MOUTH EVERY EVENING SOLD: 06/18/2020 [facility] atorvastatin 10 MG Oral Tablet [...] BY MOUTH EVERY DAY SOLD: 08/21/2020 [facility] pantoprazole 40 MG Delayed Release Oral Tablet PANTOPRAZOLE SODIUM 05/18/2020 12:00:00 AM EST tablet,delayed release (DR/EC) 60 T CISCO ONE TABLET BY MOUTH TWICE A DAY TAKE ONE TABLET BY MOUTH TWICE A DAY SOLD: 10/22/2020 [facility] 10 mg 05/18/2020 12:00:00 AM EST tablet 30 TAKE ONE TABLET BY MOUTH EVERY DAY TAKE ONE TABLET BY MOUTH EVERY DAY SOLD: 09/22/2020 [facility] atorvastatin 10 MG Oral Tablet ATORVASTATIN CALCIUM 05/18/2020 1 2:00:00 AM EST tablet 30 TAKE ONE TABLET BY MOUTH IN THE EVENING TAKE ONE TABLET BY MOUTH IN THE EVENING SOLD: 09/22/2020 [facility] buspirone hydrochloride 10 MG Oral Tablet BUSPIRONE HCL 05/18/2020 12:00:00 AM EST tablet 90 TAKE ONE TABLET BY MOUTH THR EE TIMES A DAY TAKE ONE TABLET BY MOUTH THREE TIMES A DAY SOLD: 05/19/2020 [facility] 500 mg 05/18/2020 12:00:00 AM EST tablet extended release 24 hr 60 TAKE TWO TABLETS BY MOUTH EVERY EVENING TAKE TWO TABLETS BY MOUTH EVERY EVENING SOLD: 07/23/2020 [facility] 145 mg 05/18/2020 12:00:00 AM EST tablet 30 TAKE ONE TABLET BY MOUTH EVERY DAY TAKE ONE TABLET BY MOUTH EVERY DAY SOLD: 06/18/2020 [facility] pantoprazole 40 MG Delayed Release Oral Tablet PANTOPRAZOLE SODIUM 05/18/2020 12:00:00 AM EST tablet,delayed release (DR/EC) 60 T CISCO ONE TABLET BY MOUTH TWICE A DAY TAKE ONE TABLET BY MOUTH TWICE A DAY SOLD: 09/22/2020 [facility] atorvastatin 10 [...] TABLET BY MOUTH EVERY DAY SOLD: 05/19/2020 [facility] 10 mg 05/18/2020 12:00:00 AM [...] BY MOUTH EVERY DAY SOLD: 01/15/2021 [facility] atorvastatin 10 MG Oral Tablet ATORVASTATIN CALCIUM 05/18/2020 1 2:00:00 AM EST tablet 30 TAKE ONE TABLET BY MOUTH IN THE EVENING TAKE ONE TABLET BY MOUTH IN THE EVENING SOLD: 01/15/2021 [facility] pantoprazole 40 MG Delayed [...] TABLET BY MOUTH EVERY DAY SOLD: 05/19/2020 [facility] 500 mg 05/18/2020 12:00:00 AM EST tablet extended release 24 hr 60 TAKE TWO TABLETS BY MOUTH EVERY EVENING TAKE TWO TABLETS BY MOUTH EVERY EVENING SOLD: 09/22/2020 [facility] pantoprazole 40 MG Delayed Release Oral Tablet PANTOPRAZOLE SODIUM 05/18/2020 12:00:00 AM EST tablet,delayed release (DR/EC) 60 T CISCO ONE TABLET BY MOUTH TWICE A DAY TAKE ONE TABLET BY MOUTH TWICE A DAY SOLD: 07/23/2020 [facility] atorvastatin 10 MG Oral Tablet ATORVASTATIN CALCIUM 05/18/2020 1 2:00:00 AM EST tablet 30 TAKE ONE TABLET BY MOUTH IN THE EVENING TAKE ONE TABLET BY MOUTH IN THE EVENING SOLD: 12/21/2020 [facility] 10 mg 05/18/2020 12:00:00 AM EST tablet 30 TAKE ONE TABLET BY MOUTH EVERY DAY TAKE ONE TABLET BY MOUTH EVERY DAY SOLD: 02/17/2021 [facility] atorvastatin 10 MG Oral Tablet ATORVASTATIN CALCIUM 05/18/2020 1 2:00:00 AM EST tablet 90 TAKE ONE TABLET BY MOUTH IN THE EVENING TAKE ONE TABLET BY MOUTH IN THE EVENING SOLD: 05/19/2020 [facility] 145 mg 05/18/2020 12:00:00 AM EST tablet 30 TAKE ONE TABLET BY MOUTH EVERY DAY TAKE ONE TABLET BY MOUTH EVERY DAY SOLD: 01/15/2021 [facility] Trazodone Hydrochloride 100 MG Oral Tablet TRAZODONE HCL 05/18/2020 12:00:00 AM EST tablet 60 TAKE TWO TABLETS BY MOUTH AT BEDTIME TAKE TWO TABLETS BY MOUTH AT BEDTIME SOLD: 05/19/2020 [facility] 0.25 mg 05/18/2020 12:00:00 AM EST tablet 90 TAKE ONE TABLET BY MOUTH EVERY MORNING AND 2 AT BEDTIME TAKE ONE TABLET BY MOUTH EVERY MORNING A ND 2 AT BEDTIME SOLD: 05/19/2020 [facility] pantoprazole 40 MG Delayed Release Oral Tablet PANTOPRAZOLE SODIUM 05/18/2020 12:00:00 AM EST tablet,delayed release (DR/EC) 60 T CISCO ONE TABLET BY MOUTH TWICE A DAY TAKE ONE TABLET BY MOUTH TWICE A DAY SOLD: 02/19/2021 [facility] 145 mg 05/18/2020 12:00:00 AM EST tablet 30 TAKE ONE TABLET BY MOUTH EVERY DAY TAKE ONE TABLET BY MOUTH EVERY DAY SOLD: 07/23/2020 [facility] 24 HR Metformin hydrochloride 500 MG Extended [...] TABLETS BY MOUTH EVERY EVENING SOLD: 01/15/2021 [facility] 500 mg 05/18/2020 12:00:00 AM [...] MOUTH EVERY DAY SOLD: 03/23/2021 [facility] 90 mcg/actuation 05/04/2020 12:00:00 AM EDT [...] Solution 04/29/2020 12:00:00 AM EDT 2 active [id number] 60 ACTUAT albuterol 0. 09 MG/ACTUAT Metered Dose Inhaler [facility] ([facility]) 90 mcg/actuation 04/29/2020 12:00:00 AM [...] hydrochloride 500 MG Extended Release Oral Tablet [facility] ([facility]) pantoprazole 40 MG Delayed Release Oral Tablet Pantoprazole Sodium 40 MG Oral Tablet Delayed Release Pantoprazole Sodium 40 MG Oral Tablet Delayed Release 04/20/2020 12:00:00 AM EDT 1 active pantoprazole 40 MG Delayed Release Oral Tablet [facility] ([facility]) Hydrochlorothiazide 25 MG / Losartan Potassium 100 MG Oral Tablet 100-25 mg LOSARTAN POTASSIUM/HYDROCHLOROTHIAZIDE 04/20/2020 12:00:00 AM EDT tablet 3 0 TAKE ONE TABLET BY MOUTH EVERY DAY TAKE ONE TABLET BY MOUTH EVERY DAY SOLD: 04/22/2020 [facility] buspirone hydrochloride 10 MG Oral Tablet busPIRone HC l 10 MG Oral Tablet busPIRone HCl 10 MG Oral Tablet 04/20/2020 12:00:00 AM EDT 1 aborted buspirone hydrochloride 10 MG Oral Tablet [facility] ([facility]) Trazodone Hydrochloride 100 MG Oral Tablet traZODone H Cl 100 MG Oral Tablet traZODone HCl 100 MG Oral Tablet 04/20/2020 12:00:00 AM EDT 1 aborted trazodone hydrochloride 100 MG Oral Tablet JEREMY ([facility]) Ondansetron 4 MG Disintegrating Oral Tab let Ondansetron 4 MG Oral Tablet Disintegrating Ondansetron 4 MG Oral Tablet Disintegrating 04/20/2020 12:00:00 AM EDT active ondansetron 4 MG Disintegrating Oral Tablet [facility] Hydrochlorothiazide 25 MG / Losartan Potassium 100 MG Oral Tablet 100-25 mg LOSARTAN POTASSIUM/HYDROCHLOROTHIAZIDE 04/20/2020 12:00:00 AM EDT tablet 3 0 TAKE ONE TABLET BY MOUTH EVERY DAY TAKE ONE TABLET BY MOUTH EVERY DAY SOLD: 08/21/2020 [facility] Amlodipine 5 MG Oral Tablet amLODIPine Besylate 5 MG O ral Tablet amLODIPine Besylate 5 MG Oral Tablet 04/20/2020 12:00:00 AM EDT 1 aborted amlodipine 5 MG Oral Tablet [facility] Hydrochlorothiazide 25 MG / Losartan Potassium 100 MG Oral Tablet 100-25 mg LOSARTAN POTASSIUM/HYDROCHLOROTHIAZIDE 04/20/2020 12:00:00 AM EDT tablet 3 0 TAKE ONE TABLET BY MOUTH EVERY DAY TAKE ONE TABLET BY MOUTH EVERY DAY SOLD: 05/19/2020 [facility] Bisoprolol Fumarate 10 MG Oral Tablet Bisoprolol Fumarate 10 MG Oral Tablet 04/20/2020 12:00:00 AM EDT 1 active bisoprolol fumarate 10 MG Oral Tablet [facility] Hydrochlorothiazide 25 MG / Losartan Potassium 100 MG Oral Tablet 100-25 mg LOSARTAN POTASSIUM/HYDROCHLOROTHIAZIDE 04/20/2020 12:00:00 AM EDT tablet 3 0 TAKE ONE TABLET BY MOUTH EVERY DAY TAKE ONE TABLET BY MOUTH EVERY DAY SOLD: 07/23/2020 [facility] Hydrochlorothiazide 25 MG / Losartan Pot assium 100 MG Oral Tablet Losartan Potassium-HCTZ 100-25 MG Oral Tablet Losartan Potassium-HCTZ 100-25 MG Oral Tablet 04/20/2020 12:00:00 AM EDT 1 active hydrochlorothiazide 25 MG / losartan potassium 100 MG Oral Tablet [facility] Fenofibrate 145 MG Oral Tablet [Tricor] Tricor 145 MG Oral Tablet Tricor 145 MG Oral Tablet 04/20/2020 12:00:00 AM EDT 1 active fenofibrate 145 MG Oral Tablet [Tricor] [facility] Hydrochlorothiazide 25 MG / Losartan [...] EDT aborted hydrochlorothiazide 25 MG Oral T [facility] ([facility]) 2.5 mg /3 mL (0.083 [...] trazodone hydrochloride 100 MG Oral Tablet JEREMY ([facility]) buspirone hydrochloride 10 MG Oral Tablet busPIRone HC l 10 MG Oral Tablet busPIRone HCl 10 MG Oral Tablet 01/14/2020 12:00:00 AM EDT 1 aborted buspirone hydrochloride 10 MG Oral Tablet [facility] ([facility]) 200 mg 12/27/2019 12:00:00 AM EDT capsule [...] aborted ondansetron 4 MG Disintegrating Oral Tablet JEREMY ([facility]) Nystatin 100 UNT/MG Topical Powder [...] 1 aborted amlodipine 5 MG Oral Tablet [facility] buspirone hydrochloride 10 MG Oral [...] Solution 05/15/2019 12:00:00 AM EDT 2 aborted [id number] 200 ACTUAT albuterol 0.09 MG/ACTUAT Metered Dose Inhaler [Ventolin] [facility] Sumatriptan 100 MG Oral Tablet SUMAtriptan Succinate 1 00MG Oral Tablet SUMAtriptan Succinate 100MG Oral Tablet 05/15/2019 12:00:00 AM EDT aborted sumatriptan 100 MG [facility] Trazodone Hydrochloride 100 MG Oral Tablet traZODone H Cl 100MG Oral Tablet traZODone HCl 100MG Oral Tablet 05/15/2019 12:00:00 AM EDT 2 aborted trazodone hydrochloride 100 MG Oral Tablet JEREMY ([facility]) 90 mcg/actuation 05/15/2019 12:00:00 AM EDT [...] pantoprazole 40 MG Delayed Release Oral Tablet [facility] ([facility]) 24 HR Metformin hydrochloride 500 MG Ext ended Release Oral Tablet metFORMIN HCl ER 500MG Oral Tablet Extended Release 24 Hour metFORMIN HCl ER 500MG Oral Tablet Extended Release 24 Hour 05/15/2019 12:00:00 AM EDT 2 aborted 24 HR metformin hydrochloride 500 MG Extended Release Oral Tablet [facility] ([facility]) Bisoprolol Fumarate 10 MG Oral Tablet Bisoprolol Fumar ate 10MG Oral Tablet Bisoprolol Fumarate 10MG Oral Tablet 05/15/2019 12:00:00 AM EDT 1 aborted bisoprolol fumarate 10 MG Oral T ablet [facility] ([facility]) 90 mcg/actuation 05/15/2019 12:00:00 AM EDT [...] d fenofibrate 145 MG Oral Tablet [Tricor] [facility] buspirone hydrochloride 10 MG Oral Tablet BUSPIRONE [...] 12:00:00 AM EDT aborted [facility] [employer] [facility] REEC[facility]OL ([facility]) 100 mg 05/15/2019 12:00:00 AM EDT [...] / losartan potassium 100 MG Oral Tablet [facility] [employer] [employer]) Fenofibrate 145 MG Oral Tablet FENOFIBRATE NANOCRYSTALLIZED 05/15/2019 12:00:00 AM EDT tablet 30 TAKE ONE TABLET BY MOUTH SOPHY RY DAY TAKE ONE TABLET BY MOUTH EVERY DAY SOLD: 03/23/2020 [facility] 1 ML medroxyprogesterone acetate 150 MG/ ML Prefilled Syringe Medroxyprogesterone (Depo-Provera) 150 MG/1 ML syringe Medroxyprogesterone (Depo-Provera) 150 M G/1 ML syringe 01/05/2018 03:35:00 PM EDT 150 MG completed [facility] BREO ELLIPTA 100-25 MCG INH 05/04/2017 10:22:00 AM EDT 1 EACH completed [facility] Pravastatin Sodium 10 MG Oral Tablet Pravastatin 04/28/2016 01:14: 00 PM EDT 1 TAB completed [facility] Naproxen 500 MG Oral Tablet [Naprosyn] Naproxen (Napro syn) 500 MG tablet Naproxen (Naprosyn) 500 MG tablet 10/29/2015 04:30:00 PM EDT 500 MG completed [facility] Acetaminophen 325 MG / Oxycodone Hydroch loride 5 MG Oral Tablet Oxycodone-Acetaminophen Oxycodone-Acetaminophen 10/29/2015 04:29:00 PM EDT 1 TAB completed [facility] Sumatriptan 50 MG Oral Tablet Sumatriptan Succinate Sumatrip moctezuma Succinate 10/29/2015 04:29:00 PM EDT 50 MG completed [facility] Pyridostigmine [place] 60 MG Oral Tablet Pyridostigmine Brom fely 10/29/2015 04:29:00 PM EDT 90 MG completed [facility] Insurance Providers Payer name Policy type / Coverage type Policy ID Covered democrat ID Covered democrat's relationship to braden Policy Braden Plan Information MEDICAID M [id number] Self [id number] [facility] I [id number] Self [id number] [facility] I [id number] Self [id number] UnitedHealthcare Other ACUNY [id number] Self [facility] UnitedHealthcare Other ACUNY [id number] Self [facility] UnitedHealthcare Other ACUNY [id number] Self [facility] UnitedHealthcare Other ACUNY [id number] Self [facility] Community Plan Commercial [id number] Self [id number] [facility] Community Plan Commercial [id number] Self [id number] [facility] Community Plan Commercial [id number] Self [id number] [facility] Community Plan Commercial [id number] Self [id number] UnitedHealthcare Other 0 [id number] Self 0 UnitedHealthcare Other 0 [id number] Self 0 UnitedHealthcare Other 0 [id number] Self 0 UnitedHealthcare Other 0 [id number] Self 0 ANSI-Medicaid [id number] ANSI-Commercial [id number] ANSI-Medicaid [id number] ANSI-Commercial [id number] ANSI-Medicaid [id number] ANSI-Commercial [id number] ANSI-Commercial [id number] ANSI-Medicaid [id number] [facility] Health Maintenance Organization (O) [id number] [id number] Self [id number] [employer] United [id number] ANSI-Medicaid [id number] ANSIResults United [id number] ANSI-Medicaid [id number] ANSI-Medicaid [id number] [employer] United [id number] ANSIResults United [id number] DataXuI-Medicaid [id number] DataXuI-Medicaid [id number] ANSIResults United [id number] ANSI-Medicaid [id number] ANSI-Commercial [id number] ANSI-Medicaid [id number] ANSI-Commercial [id number] ANSI-Medicaid [id number] ANSI-Commercial [id number] [facility] O [id number] ANSI-Commercial [id number] ANSI-Medicaid [id number] ANSI-Medicaid [id number] ANSI-Commercial [id number] ANSI-Commercial [id number] [facility]-Medicaid [id number] [facility] [id number] ANSI-Medicaid [id number] [facility] [id number] [facility]-Medicaid [id number] [facility] [id number] [facility]-Medicaid [id number] [facility] [id number] ANSI-Medicaid [id number] ANSI-Commercial [id number] ANSI-Medicaid [id number] ANSI-Commercial [id number] ANSI-Medicaid [id number] ANSI-Commercial [id number] ANSI-Medicaid [id number] ANSI-Medicaid [id number] ANSI-Commercial [id number] ANSI-Commercial [id number] ANSI-Medicaid [id number] [facility] Health Maintenance Organization (HMO) [id number] Self [id number] BS EMPIREduar CHETAN DIV [id number] SP [id number] UN COMMUN[facility] [id number] SP [id number] [facility] Medicar Commercial [id number] Self [id number] [facility]TH PLUS [id number] SP [id number] [facility] Health Maintenance Organization (HMO) [id number] Self [employer] [facility] P UNAVAILABLE C UNAVAILABLE BLUE CROSS [employer] PLAN [id number] SP [id number] BLUE CHOICE OPTION O [id number] S [id number] MEDICAID W [id number] O BLUE [id number] SP [id number] [employer] NO FAULT [id number] SP [id number] [facility]ITY PLAN [facility] [id number] SP [id number] [employer] [id number] SP [id number] UnitedHealthcare Other 0 [id number] Self 0 UNITED HEALTHCARE(MCAID) O [id number] S [id number] UnitedHealthcare Other 0 [id number] Self 0 UnitedHealthcare Other 0 [id number] Self 0 UNHC COMMUNITY PLAN [facility] [id number] SP [id number] [facility] COMMUNITY PLAN [facility] [id number] SP [id number] [facility] COMMUNITY PLAN [facility] [id number] SP [id number] [employer] MEDICAID [id number] S [id number] UNITED HE[employer]ARE [id number] SP [id number] [facility] MEDICAID [id number] S [id number] ANS-Medicaid [id number] ANSI-Commercial [id number] Problems, Conditions, and Diagnoses Code Display Name Description Problem Type Effective Dates Data Source(s) R20.0 Anesthesia of skin Anesthesia of skin Diagnosis 06/2021 01:37:02 PM EDT [facility] Z79.899 Other mcfp (current) drug therapy 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 vermin exterminator (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) drug therapy Diagnosis 12/31/2020 02:50:55 PM EDT [facility] Surgeries/Procedures Procedure Description Date Indications Data Source(s) BLOOD COUNT COMPLETE AUTO&AUTO DIFRNTL WBC COUNT <td>C BC AND DIFFERENTIAL</td><td>Routine</td><td>02/25/2021 2:00 PM EDT</td><td> Bilateral hand numbness Myasthenia gravis Encounter for vermin exterminator use of mycophenolate mofetil</td><td> </td> 02/25/2021 02:00:00 PM EDT Encounter for mcfp use of mycopheno late mofetilMyasthenia gravisBilateral hand numbness [facility] Encounter for vermin exterminator use of mycopheno late mofetil Myasthenia gravis Bilateral hand numbness COMPREHENSIVE METABOLIC PANEL <td>COMPREHENSIVE METABO LIC PANEL</td><td>Routine</td><td>02/25/2021 2:00 PM EDT</td><td> Bilateral hand numbness Myasthenia gravis Encounter for mcfp use of mycophenolate mofetil</td><td> </td> 02/25/2021 02:00:00 PM EDT Encounter for m[facility]p use of mycopheno late mofetilMyasthenia gravisBilateral hand numbness [facility] Encounter for vermin exterminator use of mycopheno late mofetil Myasthenia gravis Bilateral hand numbness ELECTROMYOGRAPHY WITH NERVE CONDUCTION <td>ELECTROMYOG AJ WITH NERVE CONDUCTION</td><td>Routine</td><td>11/03/2020 2:15 PM EDT</td><td> Myasthenia gravis</td><td> </td> 11/03/2020 02:15:00 PM EDT Myasthenia gravis [facility] Myasthenia gravis BLOOD COUNT COMPLETE AUTO&AUTO DIFRNTL WBC COUNT <td>C BC AND DIFFERENTIAL</td><td>Routine</td><td>09/17/2020 2:52 PM EST</td><td> Myasthenia gravis</td><td> </td> 09/17/2020 02:52:00 PM [facility] BASIC METABOLIC PANEL CALCIUM TOTAL <td>BASIC METABOLI C PANEL</td><td>Routine</td><td>09/17/2020 2:52 PM EST</td><td> Myasthenia gravis</td><td> </td> 09/17/2020 02:52:[address] [facility] Myasthenia gravis Venipuncture (routine) Venipuncture (routine) 09/03/2020 12:00:00 A M [facility] ([facility]) HgbA1C HgbA1C 09/03/2020 12:00:00 AM EST [facility] ([facility]) BMP-Basic Metabolic Profile BMP-Basic Metabolic Profile 08/17 12:00:00 AM [facility] ([facility]) BLOOD COUNT COMPLETE AUTO&AUTO DIFRNTL WBC COUNT <td>C BC AND DIFFERENTIAL</td><td>Routine</td><td>04/23/2020 2:54 PM EDT</td><td> Encounter for [facility]p use of mycophenolate mofetil</td><td> </td> 04/23/2020 02:54:00 PM EDT Encounter for [facility] use of mycophenolate mofetil [facility] Encounter for vermin exterminator use of mycopheno late mofetil BASIC METABOLIC PANEL CALCIUM TOTAL <td>BASIC METABOLI C PANEL</td><td>Routine</td><td>04/23/2020 2:54 PM EDT</td><td> Myasthenia gravis</td><td> </td> 04/23/2020 02:54:00 PM EDT Myasthenia gravis [facility] Myasthenia gravis -collection of capillary blood (fingerstick, heel ) -c ollection of capillary blood (fingerstick, heel ) 04/20/2020 12:00:00 AM EDT [facility] ([facility]) HgbA1C HgbA1C 04/20/2020 12:00:00 AM EDT As[facility] ([facility]) Results ID Date Data Source [id number] 04/27/2021 06:40:00 AM EDT [facility]. CT ABDOMEN AND PELVIS WITH CONTRASTPain to [...] rce(s) Supporting Document(s) ID Date Data Source [id number] 04/27/2021 06:40:00 AM EDT [facility]. CT ANGIOGRAPHY OF CHESTFindings: The ne ck [...] rce(s) Supporting Document(s) ID Date Data Source [id number] 04/27/2021 06:40:00 AM EDT [facility]. CT CERVICAL SPINE WITHOUT CONTRASTFindin gs: Alignment [...] rce(s) Supporting Document(s) ID Date Data Source [id number] 04/27/2021 06:40:00 AM EDT [facility]. RIGHT ELBOWFindings/Impression: There i s no fracture or dislocation. Nosignificant degenerative changes. No acute soft tissue abnormalities.Please note this lateral view is suboptimally positioned.Dictated on 04/27/2140 by Saran Villareal M.D.Transcribed on 04/28/21818 by Jg Garcia by Saran Villareal M.D. on 04/28/21 1010Sign by: Saran Villareal M.D. Name Value Range Interpretation Code Description Data Jessika rce(s) Supporting Document(s) ID Date Data Source [id number] 02/26/2021 12:13:44 PM T [facility] Name Value Range Interpretation Code Description Data Jessika rce(s) Supporting Document(s) Progress Note [facility] SWIPRz3oKzNGPuRl36/RHLlcJOOeb8BtZFbnNPa8IWpaNCDcZ8SbFYX5tY7vWUN3QTlELqMhRdWrUJZg [facility] XnNpbEDfXnCXWqXbzAKtFqVTddAmlrcVDkVO7IuUF8PMOpJ18vZGYdBROpV1ImVRR2GmH+Dj2TLBTluD DtGU4EOweD6C9En1eDZy6rHE2IL1ShYZXap34hOKbl4IlqfuJ4ypCG4KRz2cVskdEXtDr215nZKYwZoZ pRC3kkY0TVksqJDECL5PJFnGMOwkc/53Mf1LlSiUi/ X/4JGAw8vdrhv6Hn6uk84ipcB/YS+XNkaNMkC6T/Ety9Ta9if32wunzbakJV5GSIif9bxhPEX9o9E18s mqBneT0pT5uZSak9rWzyDyLc36/2DL0T1AtkrNxRnQaJ4A9QMI6R7iRQ/XMDpZgKOfiARxsf0ooHQDSX +iEfum4+GNFOInstT6F2aQNwO8es/WqLt3y08Sa0l6 1k2/Ulises+4rNR/WoAAxF24nlVLP5WEIBwJw68mIL0GS4oiYtajmb1doPnEy+zWWlLIrh2qAN9L1z0wRIeJ [file] [id number]== ID Date Data Source [id number] 02/25/2021 06:50:29 PM EDT [facility] Name Value Range Interpretation Code Description Data Jessika rce(s) Supporting Document(s) Leukocytes [#/volume] in Blood by Automated count 5.7 10*3/uL 4-10 [facility] Erythrocytes [#/volume] in Blood by Automated count 4.45 10*6/uL 4.1- 5.3 [facility] Hemoglobin [Mass/volume] in Blood 13.1 g/dL 11.5-15.5 [facility] Hematocrit [Volume Fraction] of Blood by Automated count 39.8 % 3 6-45 [facility] Erythrocyte mean corpuscular volume [Entitic volume] by Auto mated count 89.5 fL 80-96 [facility] Erythrocyte mean corpuscular hemoglobin [Entitic mass] by Automated count 29.4 pg 27-33 [facility] Erythrocyte mean corpuscular hemoglobin concentration [Mass/volume] by Autom[facility] 32.8 g/dL [facility].0[facility] width [Ratio] by Automated count 13.5 % 11.5-14.5 [facility] Platelets [#/volume] in Blood by Automated count 312 10*3/uL 150-400 [facility] Differential cell count method - Blood [facility] Neutrophils/100 leukocytes in Blood by Automated count 49 % [facility] Lymphocytes/100 leukocytes in Blood by Automated count 40 % [facility] Monocytes/100 leukocytes in Blood by Automated count 7 % [facility] Eosinophils/100 leukocytes in Blood by Automated count 3 % [facility] Basophils/100 leukocytes in Blood by Automated count 1 % [facility] Neutrophils [#/volume] in Blood by Automated count 2.84 10*3/uL 1.8-7 .0 [facility] Lymphocytes [#/volume] in Blood by Automated count 2.24 10*3/uL 1.2-4 .0 [facility] Monocytes [#/volume] in Blood by Automated count 0.41 10*3/uL 0-0.8 [facility] Eosinophils [#/volume] in Blood by Automated count 0.14 10*3/uL 0-0.5 [facility] Basophils [#/volume] in Blood by Automated count 0.05 10*3/uL 0-0.2 [facility] Nucleated erythrocytes/100 leukocytes [Ratio] in Blood by Automated count 0 /100{WBCs} 0-0 [facility] ID Date Data Source [id number] 02/25/2021 07:17:55 PM EDT [facility] Name Value Range Interpretation Code Description Data Jessika rce(s) Supporting Document(s) Albumin [Mass/volume] in Serum or Plasma by Bromocresol green (BCG) dye binding method 4.0 g/dL 3.5-5.2 [facility] Bilirubin.total [Mass/volume] in Serum or Plasma 0.3 mg/dL <1.2 [facility] Calcium [Mass/volume] in Serum or Plasma 9.0 mg/dL 8.6-10.0 [facility] Chloride [Moles/volume] in Serum or Plasma 104 mmol/L 98-107 [facility] Creatinine [Mass/volume] in Serum or Plasma 0.60 mg/dL 0.50-0.90 [facility] Glucose [Mass/volume] in Serum or Plasma 117 mg/dL 70-140 [facility] Alkaline phosphatase [Enzymatic activity/volume] in Serum or Plasma 81 U/L 35-104 [facility] Potassium [Moles/volume] in Serum or Plasma 4.3 mmol/L 3.4-5.1 [facility] Protein [Mass/volume] in Serum or Plasma 7.2 g/dL 6.4-8.3 [facility] [facility] Sodium [Moles/volume] in Serum or Plasma 136 mmol/L 136-145 [facility] Aspartate aminotransferase [Enzymatic activity/volume] in Serum or Plasma 28 U/L <32 [facility] Urea nitrogen [Mass/volume] in Serum or Plasma 11 mg/dL 6-20 [facility] Osmolality of Serum or Plasma by calculation 283 mosm/kg 275-300 [facility] Creatinine/Urea nitrogen [Mass Ratio] in Serum or Plasma 18 [facility] Bicarbonate [Moles/volume] in Serum 21 mmol/L 22-29 L [facility] Alanine aminotransferase [Enzymatic activity/volume] in Seru m or Plasma 32 U/L <33 [facility] Anion gap 3 in Serum or Plasma 12 mmol/L 8-15 [facility] Glomerular filtration rate/1.73 sq M pre dicted among non-blacks [Volume Rate/Area] in Serum or Plasma by Creatinine-based formula (MDRD) >6 0 [facility] Glomerular filtration rate/1.73 sq M pre dicted among blacks [Volume Rate/Area] in Serum or Plasma by Creatinine-based formula (MDRD) >60 [facility] ID Date Data Source [id number] 12/31/2020 03:08:18 PM EDT [facility] Name Value Range Interpretation Code Description Data Jessika rce(s) Supporting Document(s) Progress Note [facility] JWCSZy6vNvGODaMc79/GETdoJUNrc5NjBKifPDu0IJxtSQKnV5NoKEU6uY1jNZP7COwKSpIsZwSbJrB2 [facility] [file] nl+HwlXr/e7axW4/[employer]ING [employer]ER+ZW7aEmqMW+7m218gueLv2rK [file] ogICAgICAgICAgICAgICAgICAgICAgICAgICAgICAgICAgICAgICAgICAgICAgICAgICAgICAgICAgIC AgICAgICAgICAgICAgICAgICAgICAgICAgICAgICAgICAgICAgICAgDQogICAgICAgICAgICAgICAgIC AgICAgICAgICAgICAgICAgICAgICAgICAgICAgICAg ICAgICAgICAgICAgICAgICAgICAgICAgICAgICAgICAgICAgICAgICAgICAgICAgICAgDQogICAgICAg ICAgICAgICAgICAgICAgICAgICAgICAgICAgICAgICAgICAgICAgICAgICAgICAgICAgICAgICAgICAg ICAgICAgICAgICAgICAgICAgICAgICAgICAgICAgIC AgDQogICAgICAgICAgICAgICAgICAgICAgICAgICAgICAgICAgICAgICAgICAgICAgICAgICAgICAgIC AgICAgICAgICAgICAgICAgICAgICAgICAgICAgICAgICAgICAgICAgICAgDQogICAgICAgICAgICAgIC AgICAgICAgICAgICAgICAgICAgICAgICAgICAgICAg ICAgICAgICAgICAgICAgICAgICAgICAgICAgICAgICAgICAgICAgICAgICAgICAgICAgICAgDQogICAg ICAgICAgICAgICAgICAgICAgICAgICAgICAgICAgICAgICAgICAgICAgICAgICAgICAgICAgICAgICAg ICAgICAgICAgICAgICAgICAgICAgICAgICAgICAgIC AgICAgDQogICAgICAgICAgICAgICAgICAgICAgICAgICAgICAgICAgICAgICAgICAgICAgICAgICAgIC AgICAgICAgICAgICAgICAgICAgICAgICAgICAgICAgICAgICAgICAgICAgICAgDQogICAgICAgICAgIC AgICAgICAgICAgICAgICAgICAgICAgICAgICAgICAg ICAgICAgICAgICAgICAgICAgICAgICAgICAgICAgICAgICAgICAgICAgICAgICAgICAgICAgICAgDQog ICAgICAgICAgICAgICAgICAgICAgICAgICAgICAgICAgICAgICAgICAgICAgICAgICAgICAgICAgICAg ICAgICAgICAgICAgICAgICAgICAgICAgICAgICAgIC AgICAgICAgDQogICAgICAgICAgICAgICAgICAgICAgICAgICAgICAgICAgICAgICAgICAgICAgICAgIC CaKMGdNOUmNLUmXAOjZLGnSQLpOTHaYXIeDWNgJWPhDSVfSNGnDRKzTLRlVNYbSQDiDPj2V8emKYNyYG LdLH3vSCk4Ac0+TZvXJxFtTYV1drFxbK8WIX4do4Ua UWgxEWEcq2ZrYGb5LH0GAIGbGChxMJ6KVBvqbo0BZXDfHKMraNOYu5mvQpGkYYT6THXiTzjfMD2TJTOy H5hsxwAkTENdKGPWQEdhVEAYTAeoLXNHFIWhAQLuEqFpQdDjGZVhYE6HTSUhX380viNgSL7HJi4ONyNi UV4akr8MZuplYEZkLzyTXbt9GKygOZ1QyIQaqFDfFD EeQDXUKiMyJ0cnp1UoIwcuILOIOPkbQV2Yb3ChwSTfGEc+Kl2VNU1bd8GqIUliZJNjGR2hri4BSUtJKm ZiP7XroIrvKJWwf6dzNRKnSH4yuKGtFWA8VTDgzBKlMD8pmPInUOCqAGLYvT0Io7ceSIcfXBNaZYFjWg 3gMa9mXQIhWZFjIlZbLVPZRC5WQGWeLCWupVQqTGCi GDLHMG4FGKgnGEW3TTBxyqNalQRlMRpbKG4SRDAudxByLxegEMGZKNv+Ex9WBF1xh0EsFCtfPBLpAS0k ie6OHZmHRoQeY7U2uEDzQ2L4ACtgEf1HZASpKNHpWoZvZHWCZOirEB8OOD6hwrZ3NV5AgCPkKRZlXGWr yFEtXTe7O99ttWRaFJqcSL9TNXL+Edmundo+Aw5PGLGhCD UyYMKqGnLoOUPQUxWsT3CiL5EFa2ZfW5JsPB16cRipinZaWJotBT4GHE7uGZYqBMGVUD8UzLKkiC1qkr PxCjGgYSXJXzXuE32pcBSnFERqJQW0BEDoVv7YNLWcV4VkfuLrjPijqmUjMVYwNMFMUT6EKRnsliNbtV DlbYxgES75gWwoHL8JFt6SVdQvDM3ppy3VlIAvEc5A NPDgDZ4DVBVuRBDaVONsZEH8ZRVpQxEgGQyeIFRqBCZsZIQ2LVSyFHIjQY0KLhVpPIVtIsF4DIDuZRVf FRKosy2ZIHIyWBKvGmLfZRViAHWeCKLzBOctWCOhJMJkMOE2KSYkFNAoFK2ZVoBbEHKrXLAqIRrkZPGr PDUyuj4NBPUlSLBuSUJzSQMaCNMwXPBbGFabUXScHB Q7YIQ5FCKpNMGhJN1VIxWtYWUvKMgcJwbxBSLrUTMldb9IDDWuYBPqMKPtRbElSDWyZNDgKMljPZYfAZ ObMtXiZZEcFQMgQK5MTjWaSLOzFGX9EIRrUIUlYHUctv2KLENdOXHaQwwaSxLfPWVkWRUvOIgzOLIiGW I1QkM8QTXsQEEcEG9IOtYaNKNrBOU1NLStNNEqRIOe ay6JDLTsJLJbHlvcGIBkWVZcPVUeBHduUDNiSJZ9DGMeHKErGEZvQN1GLdNoVFFcLMnjKKAeKLIyUNSp pw7QEDPoXXJsKJC0WSQdVDElMAXhXGkeZGJgKTS6EmR7BIQwLAZbIZ5KEaQyHYHuPTz1NzGxWEWuRGSp qs7QLVSzSJZcGOm4CMStJCNvSSMfECyfRTUhBYAsUu r1EVGvPIPuEX3VRtBmHXNgJnG9RRzaKVMnHXZnik6IGHYkNOUcXOj5JSAxFXYwHKCfBPtyFSIhCFKfDD c1BVQyOSHwKN5NSoOiCRDwZcCmYUUzOSTwXPDpei9XCSOmBDLwPxu3RSNuWIAcSVDhGYsfAPNnBUXmVU FaVXMkPHTkBA8KJrQsQWTcIvX8OHkiKZTyEALvvs5D dUUvuYllmc6BFOrHXa4SjKmtZPJpJNsaHf5buECxROTuCJSOWc9LdiMdNBQiJIHAJNreVLLmXWFdYEHq EjJ7LzNqO1VqLiO0B7G5CBHeKoz1H2NxOUH6UdN1MHVgIzT3KWf9CGPgRAPiLDu9CCO5JCCkGVA6EPDe Yzc+DI1sHKs+Dd3Ae6WsbhK3xsNtIJnvNQDpCv5WHWBGI8XYTf== ID Date Data Source [id number] 10/09/2020 10:30:00 AM [facility] LAST MENSTRUAL PERIOD 09/14/2027GYQ68-441Ebr lection Technique: BRUSH-ALONEPATIENT INFORMATION: LHH-DTNIZ-ROMVHGLWXJQ CYTOLOGY: NEGATIVEDATES AND RESULTS: 10/24/17 negativePREVIOUS TREATMENT: NONEBody Site: CERVIX Name Value Range Interpretation Code Description Data Jessika rce(s) Supporting Document(s) Microscopic observation [Identifier] in Cervix by Cyto stain.thin pre p [facility] ID Date Data Source [id number] 10/01/2020 01:20:00 PM [facility] Patient Name: Megan Marcano : 1975 Sex: F Pt Unit #: [id number] Location[facility] Provider: Visit Date/Time: 10/01/20 Primary Insurance: [facility] Secondary Insurance: Self Pay Intake Vital Signs [...] Delivery Method room air Intake Visit Reasons: CERTIFIED NURSING ASSISTANT Office Visit, CERTIFIED NURSING ASSISTANT annual exam Nurse Note: Patient is here for annual exam. . Last mammo 01/28/20. her last pap was 10/24/17 neg.Lmp was . She has arthritis, MD, fibromyalgia. no other questions or concerns. [employer] Utility Worker Required: No Accompanied by: Self / Same [...] least two of the following?: no symptoms CERTIFIED NURSING ASSISTANT History Menstrual History Hx Age of Menarche: [...] opportunity to gown in private. With nursing reconciliation analyst present a full breast exam was performed [...] to the room accompanied by a nursing reconciliation analyst. The patient was assisted into lithotomy position. [...] Today Z12.4 Coding Level of Care Code 19100 Well 40-64 (Est) Exam Expanded Problem Focused Diagnoses Encounter for Routine Gynecological Examination Z01.419 <Electronically signed by Cedrick Valdovinos MD> 10/01/20 2311 Name Value Range Interpretation Code Description Data Jessika rce(s) Supporting Document(s) ID Date Data Source [id number] 09/20/2020 11:17:04 PM EST [facility] Name Value Range Interpretation Code Description Data Jessika rce(s) Supporting Document(s) Progress Note [facility] CNNXRl8gDjECMtTp12/MGEanOXUbh6TeNXwqCHm6UNviUQAvU1CoTJE3jC2mVZU8OYjAXgUiToNuThK1 lbm [file] MDAxMDIwNSAwMDAwMCBuDQowMDAwMDEzMjMwIDAwMD FuJL4MBgDrBJTbIIU4XhFfAPZjMFIsme3IMHNmZARcPjs1MjBjWMXhNVOjWEkzTHAfWRG8BAe6TLXwSO WxET7IPkKuPCXdEEp4PGHgZKHeICOgxd1RURXnTXEnEoa3UjPdUOHqBXXrDUpgQFAnAGV2ZJCrJOIoYU JgUY3ICeMcVEZkLOgzLKofRBWyJKUwuu8SOSBlJLGz SIWfKvIeBKVoGMKeVVtaFDPaJUOsMqZoFNZlLLBqTP9BSeIsUJOsSyH9BiAsSFTmIMFxck0LKUBsVWEf LKB7PPFhGLAtFBJhZJacFXReXADzBLodTCUgLHBhAJ4IWpJgTIRjLwS6JMOoHSScOVZede6IIZUfPTQw EjHuYKDbSXBdNTZfMYglFJAhMCQpJSF3ZXNmAXXjCN 9QCuLsPMBcSdAtVJSnZNRrOYFlre1EMUHpSRIhJjYbMbSmURQhEUWfTYoqQEIqRGV1PQwxJFBzBQOoJB 8PYdUxLQMfYuR8RMQeQYFcILTndj6LNENaBGJgMKFfIeBlYNMtWVJhLJy0whWdgVRpBGb4TS7XD4Pdwv UsJhSZKj7Qp168CFOyLZNcJc9TK2xmZg6oCKUhJXUI Nd9DNPo2AsK9YXhzWaZxQagyPMNySKYjOOO7CizzCrOpTGy2ZoQ+JNwmAMQ0WOVxT0WgE7S6RjBhHFB0 BqG0L3SeXzTqRNowZc8mIMKTFm4+IFezdBUzbMnoXUQJPzC0OrZ4BBkiZFIIMa3Y ID Date Data Source [id number] 09/17/2020 07:47:19 PM [facility] Name Value Range Interpretation Code Description Data Jessika rce(s) Supporting Document(s) Leukocytes [#/volume] in Blood by Automated count 5.5 10*3/uL 4-10 [facility] Erythrocytes [#/volume] in Blood by Automated count 4.51 10*6/uL 4.1- 5.3 [facility] Hemoglobin [Mass/volume] in Blood 13.1 g/dL 11.5-15.5 [facility] Hematocrit [Volume Fraction] of Blood by Automated count 40.3 % 3 6-45 [facility] Erythrocyte mean corpuscular volume [Entitic volume] by Auto mated count 89.4 fL 80-96 [facility] Erythrocyte mean corpuscular hemoglobin [Entitic mass] by Automated count 29.1 pg 27-33 [facility] Erythrocyte mean corpuscular hemoglobin concentration [Mass/volume] by Automated count 32.5 g/dL [facility].0[facility] width [Ratio] by Automated count 13.3 % 11.5-14.5 [facility] Platelets [#/volume] in Blood by Automated count 307 10*3/uL 150-400 [facility] Differential cell count method - Blood [facility] Neutrophils/100 leukocytes in Blood by Automated count 49 % [facility] Lymphocytes/100 leukocytes in Blood by Automated count 41 % [facility] Monocytes/100 leukocytes in Blood by Automated count 7 % [facility] Eosinophils/100 leukocytes in Blood by Automated count 3 % [facility] Basophils/100 leukocytes in Blood by Automated count 0 % [facility] Neutrophils [#/volume] in Blood by Automated count 2.70 10*3/uL 1.8-7 .0 [facility] Lymphocytes [#/volume] in Blood by Automated count 2.23 10*3/uL 1.2-4 .0 [facility] Monocytes [#/volume] in Blood by Automated count 0.39 10*3/uL 0-0.8 [facility] Eosinophils [#/volume] in Blood by Automated count 0.14 10*3/uL 0-0.5 [facility] Basophils [#/volume] in Blood by Automated count 0.02 10*3/uL 0-0.2 [facility] Nucleated erythrocytes/100 leukocytes [Ratio] in Blood by Automated count 0 /100{WBCs} 0-0 [facility] ID Date Data Source [id number] 09/17/2020 08:03:13 PM [facility] Name Value Range Interpretation Code Description Data Jessika rce(s) Supporting Document(s) Bicarbonate [Moles/volume] in Serum 21 mmol/L 22-29 L [facility] Chloride [Moles/volume] in Serum or Plasma 108 mmol/L 98-107 H [facility] Creatinine [Mass/volume] in Serum or Plasma 0.62 mg/dL 0.50-0.90 [facility] Glucose [Mass/volume] in Serum or Plasma 108 mg/dL 70-140 [facility] Potassium [Moles/volume] in Serum or Plasma 3.6 mmol/L 3.4-5.1 [facility] Sodium [Moles/volume] in Serum or Plasma 140 mmol/L 136-145 [facility] Urea nitrogen [Mass/volume] in Serum or Plasma 8 mg/dL 6-20 [facility] Anion gap 3 in Serum or Plasma 11 mmol/L 8-15 [facility] Osmolality of Serum or Plasma by calculation 289 mosm/kg 275-300 [facility] Creatinine/Urea nitrogen [Mass Ratio] in Serum or Plasma 13 [facility] Calcium [Mass/volume] in Serum or Plasma 8.4 mg/dL 8.6-10.0 L [facility] Glomerular filtration rate/1.73 sq M pre dicted among non-blacks [Volume Rate/Area] in Serum or Plasma by Creatinine-based formula (MDRD) >6 0 [facility] Glomerular filtration rate/1.73 sq M pre dicted among blacks [Volume Rate/Area] in Serum or Plasma by Creatinine-based formula (MDRD) >60 [facility] ID Date Data Source [id number] 09/16/2020 01:38:00 PM [facility] Patient Name: Megan Marcano : 1975 Sex: F Pt Unit #: [id number] Location:[facility] Provider: Visit Date/Time: 09/16/20 Primary Insurance: [facility] Secondary Insurance: Self Pay Intake Vital Signs [...] Intake Visit Reasons: Encounter to establish care, CERTIFIED NURSING ASSISTANT Office Visit Nurse Note: Patient is here to establish care. She had a Ct that showed an ovarian cyst. She was referred from Dr. Delgado. LMP was 09/13/20. When they push the left side she does have pain. She has fibromyalgia so not sure what the pain is from. Her last pap was 10/24/17 negative no hpv. no other questions or concerns. [employer] Utility Worker Required: No Accompanied by: Self / Same [...] least two of the following?: no symptoms CERTIFIED NURSING ASSISTANT History Menstrual History Hx Age of Menarche: [...] Number of partners in last 3 months [[facility] 1 Condom use: never Sexual concerns: None [...] Appearance: overweight Orientation: alert and oriented x3 HENOH Head: normocephalic and atraumatic Eyes General: appearance [...] had anything that might be considered a CERTIFIED NURSING ASSISTANT complaint that she should either get to see us here in the office or she felt it necessary to go to the emergency room simply reach out to the practice or the nutrition specialist provider and see if I was available to meet her in the emergency department to try to facilitate her work- up. Finally she is due for a Pap smear but since she is currently menstruating she prefer to reschedule for that procedure in a week or 2. [place] [address] New Pt Extended Comp Patient Type New Exam Expanded Problem Focused Diagnoses Encounter to establish care Z76.89 <Electronically signed by Cedrick Valdovinos MD> 09/16/20 1459 Name Value Range Interpretation Code Description Data Jessika rce(s) Supporting Document(s) ID Date Data Source [id number] 09/03/2020 02:42:00 PM EST [facility] ([facility]) Name Value Range Interpretation Code Description Data Jessika rce(s) Supporting Document(s) Hemoglobin A1c/Hemoglobin.total in Blood 5.6 na Hgba1c [facility] ([facility]) Note: Responsible Observer: KM ID Date Data Source [id number] 09/03/2020 02:42:00 PM EST [facility] ([facility]) Name Value Range Interpretation Code Description Data Jessika rce(s) Supporting Document(s) Urea nitrogen [Moles/volume] in Blood 6 mg/dl Urea Nitrogen [facility] ([facility]) Note: Responsible Observer: KM Calcium [Moles/volume] in Urine collected for unspecified durati on 9.9 mg/dl Calcium [facility] ([facility]) Note: Responsible Observer: KM CO2 24 mmol/L CO2 [facility] ([facility]) Note: Responsible Observer: KM Chloride [Moles/volume] in Serum, Plasma or Blood 105 mmol/L Chloride [facility] ([facility]) Note: Responsible Observer: KM Creatinine [Moles/volume] in Vitreous fluid 0.4 mg/dl Below low normal Creatinine [facility] ([facility]) Note: Responsible Observer: KM EGFR - AfricanAm > 60 N/A EGFR - AfricanAm [facility] ([facility]) Note: Responsible Observer: KM EGFR - Non AF AM > 60 N/A EGFR - Non AF AM [facility] ([facility]) Note: Responsible Observer: KM Glucose [Mass/volume] in Urine collected for unspecified duratio n 115 mg/dl Above high normal Glucose [facility] ([facility]) Note: Responsible Observer: KM Potassium [Mass/volume] in Blood 4.2 mmol/L Pot assium [facility] ([facility]) Note: Responsible Observer: KM Sodium [Moles/volume] in Serum, Plasma or Blood 140 mmol/L Sodium [facility] ([facility]) Note: Responsible Observer: KM ID Date Data Source [id number] 05/28/2020 03:05:00 PM EST [facility] ([facility]) Name Value Range Interpretation Code Description Data Jessika rce(s) Supporting Document(s) FVC-Pred 3.84 L [facility] ([facility]) Do the PFT on maintenance inhaled medi cations. PDFReport Laboratory test [facility] Do the PFT on maintenance inhaled medi cations. FVC-%Pred-Pre 74 L [facility] ([facility]) Do the PFT on maintenance inhaled medi cations. FVC-Pre 2.85 L [facility] ([facility]) Do the PFT on maintenance inhaled medi cations. [facility]LLN 3.10 [facility] Do the PFT on maintenance inhaled medi cations. Fev1-%Pred-Pre 77 L [facility] ([facility]) Do the PFT on maintenance inhaled medi cations. Fev1-Pre 2.37 L [facility] ([facility]) Do the PFT on maintenance inhaled medi cations. Fev1-Pred 3.07 L [facility] ([facility]) Do the PFT on maintenance inhaled medi cations. Fev1-LLN 2.44 L [facility] ([facility]) Do the PFT on maintenance inhaled medi cations. Fev6-Pred 3.75 L [facility] ([facility]) Do the PFT on maintenance inhaled medi cations. Fev6-Pre 2.85 L [facility] ([facility]) Do the PFT on maintenance inhaled medi cations. Fev6-%Pred-Pre 76 L [facility] ([facility]) Do the PFT on maintenance inhaled medi cations. Jew8lib-Ahdu 81 % [facility] ([facility]) Do the PFT on maintenance inhaled medi cations. Fev6-LLN 3.03 L [facility] ([facility]) Do the PFT on maintenance inhaled medi cations. Wmu2ckw-FRH 71 % [facility] ([facility]) Do the PFT on maintenance inhaled medi cations. Hxt9gro-Wuv 83 % [facility] ([facility]) Do the PFT on maintenance inhaled medi cations. Adg2cdj-%Pred-Pre 102 % [facility] ([facility]) Do the PFT on maintenance inhaled medi cations. Kay4ifj-%Pred-Pre 102 % [facility] ([facility]) Do the PFT on maintenance inhaled medi cations. Hqy8cuj-Cywx 98 % [facility] ([facility]) Do the PFT on maintenance inhaled medi cations. Tll0ucs-Cko 100 % [facility] ([facility]) Do the PFT on maintenance inhaled medi cations. FEFMax-%Pred-Pre 89 L/E/sec [facility] ([facility]) Do the PFT on maintenance inhaled medi cations. FEFMax-Pred 7.14 L/E/sec [facility] ([facility]) Do the PFT on maintenance inhaled medi cations. FEFMax-Pre 6.42 L/E/sec [facility] ([facility]) Do the PFT on maintenance inhaled medi cations. FEFMax-LLN 5.31 L/E/sec [facility] ([facility]) Do the PFT on maintenance inhaled medi cations. Soi0659-Tuc 2.61 L/E/sec [facility] ([facility]) Do the PFT on maintenance inhaled medi cations. Tpp9340-%Pred-Pre 87 L/E/sec [facility] ([facility]) Do the PFT on maintenance inhaled medi cations. Cfj2051-Tgnx 2.99 L/E/sec [facility] ([facility]) Do the PFT on maintenance inhaled medi cations. Kle0796-IYZ 1.67 L/E/sec [facility] ([facility]) Do the PFT on maintenance inhaled medi cations. ExpTime-Pre 5.65 sec [facility] ([facility]) Do the PFT on maintenance inhaled medi cations. Mrz8nnd2-Nfjh 83 % [facility] ([facility]) Do the PFT on maintenance inhaled medi cations. Imn5oze9-AVW 74 % [facility] ([facility]) Do the PFT on maintenance inhaled medi cations. Sdh4wxb6-%Pred-Pre 100 % [facility] ([facility]) Do the PFT on maintenance inhaled medi cations. Zpx1cfv9-Lci 83 % [facility] ([facility]) Do the PFT on maintenance inhaled medi cations. ID Date Data Source [id number] 04/23/2020 04:25:14 PM EDT [facility] Name Value Range Interpretation Code Description Data Jessika rce(s) Supporting Document(s) Progress Note [facility] KMLQDq2wWhJZPcOa60/HQNimAEEii2OvJRspQUz0RUxcIWZoW1RxKGJ3uL8zRAU7ZGaYLlFnLuKoLEW4 [facility] [file] [id number]+VEvflZJvuOfrPICFArI7DJF4APfoHFEQJn8J ID Date Data Source [id number] 04/20/2020 03:29:00 PM EDT [facility] ([facility]) Name Value Range Interpretation Code Description Data Jessika rce(s) Supporting Document(s) Hemoglobin A1c/Hemoglobin.total in Blood 5.9 na Hgba1c [facility] ([facility]) Note: Responsible Observer: ASHLYN Procedure Social History Code Duration Value Status Description Data Source(s ) Alcohol intake 02/25/2021 12:00:00 AM EDT Current non-d nieves of alcohol (finding) completed Current non-drinker of alcohol (finding) [facility] Tobacco use and exposure 02/25/2021 12:00:00 AM EDT Never used co mpleted Never used [facility] Smoking 02/25/2021 12:00:00 AM EDT Never smoker completed Never [facility] Alcohol intake 09/17/2020 12:00:00 AM EST Current non-d nieves of alcohol (finding) completed Current non-drinker of alcohol (finding) [facility] 09/16/2020 02:09:43 PM EST Never smoker completed Never [facility] Smoking 09/16/2020 01:09:00 PM EST Never smoker completed Never [facility] Smoking 05/28/2020 12:00:00 AM EST Patient has never smoked co mpleted Patient has never smoked [facility] ([facility] ) Alcohol intake 04/23/2020 12:00:00 AM EDT Current non-d nieves of alcohol (finding) completed Current non-drinker of alcohol (finding) [facility] Vital Signs ID Date Data Source UNK Name Value Range Interpretation Code Description Data Source(s) Systolic blood pressure 150 mm[Hg] 150 mm[Hg] Asuncion [facility] ([facility]) MD gray Diastolic blood pressure 105 mm[Hg] 105 mm[Hg] [facility] ([facility]) MD recheck Systolic blood pressure 169 mm[Hg] 169 mm[Hg] [facility] Diastolic blood pressure 118 mm[Hg] 118 mm[Hg] [facility] ([facility]) Heart rate 87 /min 87 /min [facility] ([facility]) Body height 67 [in_i] 67 [in_i] [facility] ([facility]) Body weight 241 [lb_av] 241 [lb_av] [facility] ([facility]) Body mass index (BMI) [Ratio] 37.7 kg/m2 37.7 k g/m2 [facility] ([facility]) Body surface area Derived from formula 2.19 m2 2.19 m2 [facility] ([facility]) Systolic blood pressure 130 mm[Hg] 130 mm[Hg] [facility] Diastolic blood pressure 70 mm[Hg] 70 mm[Hg] [facility] ([facility], ) Heart rate 74 /min 74 /min [facility] ([facility], ) Oxygen saturation in Arterial blood by Pulse oximetry 96 % 96 % [facility] ([facility], ) Body temperature 98.2 [degF] 98.2 [degF] [facility] ([facility], ) Body height 66 [in_i] 66 [in_i] [facility] ([facility]) 5'6" Body weight 260.00 [lb_av] 260.00 [lb_av] [facility] ([facility], ) Body mass index (BMI) [Ratio] 42.0 kg/m2 42.0 k g/m2 [facility] ([facility]) [place] body weight 130 [lb_av] 130 [lb_av] [facility] ([facility], ) Body weight 117.936 kg 117.936 kg [facility] ([facility]) Systolic blood pressure 110 mm[Hg] 110 mm[Hg] [facility] Diastolic blood pressure 80 mm[Hg] 80 mm[Hg] [facility] ([facility]) Heart rate 78 /min 78 /min [facility] ([facility]) Respiratory rate 24 /min 24 /min [facility] ([facility]) Body height 67 [in_i] 67 [in_i] [facility] ([facility]) Body weight 258 [lb_av] 258 [lb_av] [facility] ([facility]) Body mass index (BMI) [Ratio] 40.4 kg/m2 40.4 k g/m2 [facility] ([facility]) Body surface area Derived from formula 2.25 m2 2.25 m2 [facility] ([facility]) ID Date Data Source [id number] 02/25/2021 10:54:18 AM EDT [facility] Name Value Range Interpretation Code Description Data Source(s) CONTACT SPECIFIC IDENTITY ID [id number] AUT [id number] [facility] ID Date Data Source [id number] 02/23/2021 03:17:46 PM EDT [facility] Name Value Range Interpretation Code Description Data Source(s) CONTACT SPECIFIC IDENTITY ID [id number] AUT [id number] [facility] ID Date Data Source [id number] 12/28/2020 09:16:37 AM EDT [facility] Name Value Range Interpretation Code Description Data Source(s) PREFERRED NAME [facility] ID Date Data Source [id number] 12/31/2020 03:08:18 PM EDT [facility] Name Value Range Interpretation Code Description Data Source(s) PREFERRED NAME [facility] ID Date Data Source [id number] 11/03/2020 01:22:22 PM EDT [facility] Name Value Range Interpretation Code Description Data Source(s) PREFERRED NAME [facility] ID Date Data Source [id number] 09/20/2020 11:17:04 PM EST [facility] Name Value Range Interpretation Code Description Data Source(s) WEIGHT RECORDED 246 lb 246 lb [facility] ID Date Data Source [id number] 04/23/2020 04:25:14 PM EDT [facility] Name Value Range Interpretation Code Description Data Source(s) WEIGHT RECORDED 254 lb 254 lb [facility] Patient Treatment Plan of Care Planned Activity Planned Date Details Description Data Source (s) mycophenolate mofetil 250 MG Oral Capsule 01/15/2021 12:00:00 AM [facility] Pyridostigmine [place] 60 MG Oral Tablet 12/28/2020 12:00:00 AM [facility] mycophenolate mofetil 250 MG Oral Capsule 10/19/2020 12:00:00 AM [facility] Amlodipine 5 MG Oral Tablet 09/03/2020 12:00:[address] [facility]) buspirone hydrochloride 10 MG Oral Tablet 08/25/2020 12:00:00 AM [facility] ([facility]) mycophenolate mofetil 250 MG Oral Capsule 08/05/2020 12:00:00 AM [facility] Sumatriptan 100 MG Oral Tablet 07/27/2020 12:00:[address] [facility]) Albert Delalla Lancets 33G Miscellaneous 07/20/2020 12:00:00 AM [facility] ([facility]) Trazodone Hydrochloride 100 MG Oral Tablet 07/20/2020 12:00:00 AM [facility] ([facility]) Pyridostigmine [place] 60 MG Oral Tablet 05/25/2020 12:00:00 AM [facility] OneTouch Verio In Vitro Strip 05/20/2020 12:00:[address] [facility]) 60 ACTUAT Albuterol 0.09 MG/ACTUAT Metered Dose Inhale r 04/29/2020 12:00:00 AM [facility] ([facility]) buspirone hydrochloride 10 MG Oral Tablet 04/20/2020 12:00:00 AM [facility]) Amlodipine 5 MG Oral Tablet 04/20/2020 12:00:00 AM [facility] ([facility]) Trazodone Hydrochloride 100 MG Oral Tablet 04/20/2020 12:00:00 AM [facility]) Ondansetron 4 MG Disintegrating Oral Tablet 04/20/2020 12:00:00 AM [facility] ([facility]) Bisoprolol Fumarate 10 MG Oral Tablet 04/20/2020 12:00:00 AM [facility]) Hydrochlorothiazide 25 MG / Losartan Potassium 100 MG Oral Tablet 04/20/2020 12:00:00 AM [facility] ([facility]) Fenofibrate 145 MG Oral Tablet [Tricor] 04/20/2020 12:00:00 AM [facility]) 24 HR Metformin hydrochloride 500 MG Extended Release Oral Tablet 04/20/2020 12:00:00 AM [facility] ([facility]) pantoprazole 40 MG Delayed Release Oral Tablet 04/20/2020 12:00:00 AM [facility]) Hydrochlorothiazide 25 MG Oral Tablet 03/03/2020 12:00:00 AM [facility]) Ondansetron 4 MG Disintegrating Oral Tablet 11/15/2019 12:00:00 AM [facility]) Amlodipine 5 MG Oral Tablet 05/20/2019 12:00:[address] [facility]) Bisoprolol Fumarate 10 MG Oral Tablet 05/15/2019 12:00:00 AM [facility]) 24 HR Metformin hydrochloride 500 MG Extended Release Oral Tablet 05/15/2019 12:00:00 AM [facility] ([facility]) pantoprazole 40 MG Delayed Release Oral Tablet 05/15/2019 12:00:00 AM [facility]) Sumatriptan 100 MG Oral Tablet 05/15/2019 12:00:00 AM [facility] ([facility]) Trazodone Hydrochloride 100 MG Oral Tablet 05/15/2019 12:00:00 AM [facility]) 200 ACTUAT Albuterol 0.09 MG/ACTUAT Metered Dose Inhal er [Ventolin] 05/15/2019 12:00:00 AM [facility] ([facility]) Hydrochlorothiazide 25 MG / Losartan Potassium 100 MG Oral Tablet 05/15/2019 12:00:00 AM [facility] ([facility]) OneTouch Verio In Vitro Strip 05/15/2019 12:00:00 AM [facility]) Fenofibrate 145 MG Oral Tablet [Tricor] 05/15/2019 12:00:00 AM [facility])
[2021-05-05] MEDS ORDERED: oxyCODONE 5MG TAB PO ONE ×2 (19:40→20:50)
[2021-05-05 19:49] LABS: INR 0.99; PROTHROMBIN TIME 13.5 SECONDS (12.7-14.5)
[2021-05-05 19:50] LABS: PARTIAL THROMBOPLASTIN TIME 30.6 SECONDS (25.9-37.0)
[2021-05-05 20:01] LABS: ALBUMIN 3.9 GM/DL (3.2-5.2); ALT/SGPT 40 U/L (12-78); BILIRUBIN,DIRECT 0.2 MG/DL (0.0-0.2); BILIRUBIN,TOTAL 0.7 MG/DL (0.2-1.0); LIPASE 136 U/L (73-393); TOTAL PROTEIN 8.3 GM/DL (6.4-8.2)
[2021-05-05 20:49] LABS: HCG, SERUM QUALITATIVE NEGATIVE (NEGATIVE)
[2021-05-05 21:37] LABS: BLOOD UREA NITROGEN 7 MG/DL (7-18); CALCIUM LEVEL 9.1 MG/DL (8.5-10.1); CARBON DIOXIDE LEVEL 26 MEQ/L (21-32); CHLORIDE LEVEL 106 MEQ/L (98-107); CREATININE FOR GFR 0.66 MG/DL (0.55-1.30); GLOMERULAR FILTRATION RATE > 60.0 (>58); GLUCOSE, FASTING 88 MG/DL (70-100); POTASSIUM SERUM 3.8 MEQ/L (3.5-5.1); SODIUM LEVEL 140 MEQ/L (136-145)
[2021-05-05] MEDS ORDERED: ISOVUE-370 76% 100ML VIAL As Ordered ONE (21:40)
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
[2021-05-06 00:17] LABS: RSV AMPLIFICATION NEGATIVE (NEGATIVE)
[2021-05-06] MEDS ORDERED: XALA0.007 OU (01:08)
[2021-05-06] MEDS ORDERED: AMLO1TAB25 PO (01:08)
[2021-05-06] MEDS ORDERED: BUSP-29 PO (01:08)
[2021-05-06] MEDS ORDERED: FLUT1INH3 INH (01:08)
[2021-05-06] MEDS ORDERED: LOSA100T50 PO (01:08)
[2021-05-06] MEDS ORDERED: NYST1POW9 TOP (01:08)
[2021-05-06] MEDS ORDERED: VITMTA PO (01:08)
[2021-05-06] MEDS ORDERED: POTA99TA14 PO (01:08)
[2021-05-06] MEDS ORDERED: MYCO250C PO (01:08)
[2021-05-06] MEDS ORDERED: C 50TAB PO (01:08)
[2021-05-06] MEDS ORDERED: HOME MED LIST COMPLETE! XX SCH (01:10)
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
[2021-05-06] MEDS ORDERED: ALBUTEROL SULFATE 2.5 MG/0.5 ML INH NEB SOLN NEB PRN (02:00)
[2021-05-06] MEDS ORDERED: LORATADINE 10 MG TAB PO PRN (02:00)
[2021-05-06] MEDS ORDERED: ALBUTEROL 90 MCG/ACT 8GM HFA INHALER INH PRN (02:00)
[2021-05-06] MEDS ORDERED: GLUCOSE 4GM CHEW TABLET PO PRN (02:00)
[2021-05-06] MEDS ORDERED: GLUCAGON INJ 1MG VIAL SC PRN (02:00)
[2021-05-06] MEDS ORDERED: DEXTROSE 50% 50 ML SYRINGE IV PRN (02:00)
[2021-05-06] MEDS ORDERED: ACETAMINOPHEN TAB 650MG DOSE (2X325MG) PO PRN (02:00)
--- OUTSIDE RECORDS SUMMARY | 2021-05-06 02:22 | CCD ---
Author Author [facility] Organization [facility] Address Unknown Phone Unavailable Care Team Providers Care Automation Lead Name Role Phone Stephanie Delgado MD Unavailable [...] Unavailable Unavailable LyndaStephanie white MD Unavailable Unavailable LyndaStpehanie white MD Unavailable Unavailable LyndaStephanie white MD [...] Unavailable Lyndaker, L Raúl MD Unavailable Unavailable LynStephanie fulton MD Unavailable Unavailable Stephanie Delgado MD Unavailable Unavailable Stephanie Delgado MD Unavailable Unavailable LynStephanie fulton MD Unavailable Unavailable LynStephanie fulton MD Unavailable Unavailable LynStephanie fulton MD Unavailable Unavailable LynStephanie fulton MD Unavailable Unavailable LynStephanie fulton MD Unavailable Unavailable LynStephanie fulton MD Unavailable Unavailable LynStephanie fulton MD Unavailable Unavailable LynStephanie fulton MD Unavailable Unavailable LynStephanie fulton MD Unavailable Unavailable LynStephanie fulton MD Unavailable Unavailable LynStephanie fulton MD Unavailable Unavailable Stephanie Delgado MD Unavailable [...] Palmer M.D. Unavailable Unavailable MUHA, M SAMANTA MANAGER BASKETBALL Unavailable Unavailable MUHA, M SAMANTA MANAGER BASKETBALL Unavailable Unavailable MUHA, M SAMANTA MANAGER BASKETBALL Unavailable Unavailable MUHA, M SAMANTA MANAGER BASKETBALL Unavailable Unavailable MUHA, M SAMANAT MANAGER BASKETBALL Unavailable Unavailable MUHA, M SAMANTA MANAGER BASKETBALL Unavailable Unavailable MUHA, M SAMANTA MANAGER BASKETBALL Unavailable Unavailable MUHA, M SAMANTA MANAGER BASKETBALL Unavailable Unavailable MUHA, M SAMANTA MANAGER BASKETBALL Unavailable Unavailable MUHA, M SAMANTA MANAGER BASKETBALL Unavailable Unavailable MUHA, M SAMANTA MANAGER BASKETBALL Unavailable Unavailable MUHA, M SAMANTA MANAGER BASKETBALL Unavailable Unavailable MUHA, M SAMANTA MANAGER BASKETBALL Unavailable Unavailable MUHA, M SAMANTA MANAGER BASKETBALL Unavailable Unavailable MUHA, M SAMANTA MANAGER BASKETBALL Unavailable Unavailable MUHA, M SAMANTA MANAGER BASKETBALL Unavailable Unavailable MUHA, M SAMANTA MANAGER BASKETBALL Unavailable Unavailable MUHA, M SAMANTA MANAGER BASKETBALL Unavailable Unavailable MUHA, M SAMANTA MANAGER BASKETBALL Unavailable Unavailable MUHA, M SAMANTA MANAGER BASKETBALL Unavailable Unavailable MUHA, M SAMANTA MANAGER BASKETBALL Unavailable Unavailable MUHA, M SAMANTA MANAGER BASKETBALL Unavailable Unavailable MUHA, M SAMANTA MANAGER BASKETBALL Unavailable Unavailable MUHA, M SAMANTA MANAGER BASKETBALL Unavailable Unavailable MUHA, M SAMANTA MANAGER BASKETBALL Unavailable Unavailable MUHA, M SAMANTA MANAGER BASKETBALL Unavailable Unavailable MUHA, M SAMANTA MANAGER BASKETBALL Unavailable Unavailable MUHA, M SAMANTA MANAGER BASKETBALL Unavailable Unavailable MUHA, M SAMANTA MANAGER BASKETBALL Unavailable Unavailable MUHA, M SAMANTA MANAGER BASKETBALL Unavailable Unavailable MUHA, M SAMANTA MANAGER BASKETBALL Unavailable Unavailable MUHA, M SAMANTA MANAGER BASKETBALL Unavailable Unavailable MUHA, M SAMANTA MANAGER BASKETBALL Unavailable Unavailable MUHA, M SAMANTA MANAGER BASKETBALL Unavailable Unavailable MUHA, M SAMANTA MANAGER BASKETBALL Unavailable Unavailable MUHA, M SAMANTA MANAGER BASKETBALL Unavailable Unavailable MUHA, M SAMANTA MANAGER BASKETBALL Unavailable Unavailable MUHA, M SAMANTA MANAGER BASKETBALL Unavailable Unavailable MUHA, M SAMANTA MANAGER BASKETBALL Unavailable Unavailable MUHA, M SAMANTA MANAGER BASKETBALL Unavailable Unavailable MUHA, M SAMANTA MANAGER BASKETBALL Unavailable Unavailable MUHA, M SAMANTA MANAGER BASKETBALL Unavailable Unavailable MUHA, M SAMANTA MANAGER BASKETBALL Unavailable Unavailable MUHA, M SAMANTA MANAGER BASKETBALL Unavailable Unavailable MUHA, M SAMANTA MANAGER BASKETBALL Unavailable Unavailable MUHA, M SAMANTA MANAGER BASKETBALL Unavailable Unavailable MUHA, M SAMANTA MANAGER BASKETBALL Unavailable Unavailable MUHA, M SAMANTA MANAGER BASKETBALL Unavailable Unavailable MUHA, M SAMANTA MANAGER BASKETBALL Unavailable Unavailable MUHA, M SAMANTA MANAGER BASKETBALL Unavailable Unavailable MUHA, M SAMANTA MANAGER BASKETBALL Unavailable Unavailable MUHA, M SAMANTA MANAGER BASKETBALL Unavailable Unavailable MUHA, M SAMANTA MANAGER BASKETBALL Unavailable Unavailable MUHA, M SAMANTA MANAGER BASKETBALL Unavailable Unavailable Paco Vasques MD Unavailable Unavail [...] El-Dokla, Paco Rodriguez MD Unavailable Unavail able El-Bessie, Paco Rodriguez MD Unavailable Unavail able Stephanie [...] is protected by Article 27-F of the [facility] Public Health law. If you continue you may have access to information: Regarding HIV / AIDS; Provided by facilities licensed or operated by the [facility] Office of Mental Health; or Provided by the [facility] Office for People With Developmental Disabilities. If such information is present, then the following [facility] mandated warning applies: This information has [...] law may result in a fine or penitentiary sentence or both. A general authorization for the release of medical or other information is NOT sufficient authorization for further disc losure. Allergies and Adverse Reactions Type Description Substance Reaction Status Data Source(s ) Propensity to adverse reactions Propensity to adverse reactions hyd romorphone [facility]. Propensity to adverse reactions Propensity to adverse reactions fenta nyl [facility] Propensity to adverse reactions Propensity to adverse reactions Morph ine [facility] Propensity to adverse reactions HYDROMORPHONE HYDROMORPHONE [facility] Drug allergy hydromorphone hydromorphone Hives [facility] Food allergy GARLIC GARLIC Nausea/Vomit/Gastric [facility] Food allergy SMOKED FOODS SMOKED FOODS Nausea/Vomit/Gastric [facility] Food allergy ONIONS ONIONS Nausea/Vomit/Gastric [facility] Family History Family Member Name Family Member Gender Family Member Status Date o f Status Description Data Source(s) Unknown Condition [facility] Unknown Condition [facility] Unknown Condition [facility] Unknown Condition [facility] Unknown Condition [facility] Unknown Condition [facility] Unknown Condition [facility] Unknown Condition [facility] Unknown Condition [facility] Unknown Condition [facility] Encounters Encounter Providers Location Date Indications Data Source(s ) Outpatient Attender: Lore Vasques MD 06/03/2021 12:00:00 AM [facility] Emergency Attender: Tara Palmer M.D. SURG-ER 04/27/2021 03:38:0 0 PM EDT [facility] Patient discharged. Emergency Attender: Tara Palmer M.D. SURG-ER 06/2021 03:38:00 PM EDT - 04/27/2021 07:19:00 PM EDT [facility] Outpatient Attender: Lore barrett MDReferrer: Lore Vasques MD 04/19/2021 12:00:00 AM EDT [facility] Outpatient Attender: Lore Vasques MD [id number] 02/25/2021 12:00:00 AM EDT - 02/25/2021 01:52:45 PM [facility] Outpatient Attender: Lore barrett MDReferrer: Lore Vasques MD 02/25/2021 12:00:00 AM EDT Anesthesia of skin [facility] Anesthesia of skin Outpatient 02/25/2021 12:00:00 AM [facility] Outpatient 02/25/2021 12:00:00 AM [facility] Outpatient Attender: Lore Vasques MD 02/18/2021 12:00:00 AM [facility] Outpatient Attender: Lore Vasques MD [id number] 12/31/2020 12:00:00 AM EDT - 12/31/2020 02:50:44 PM [facility] Outpatient Attender: Lore Vasques MD 12/31/2020 12:00:00 AM [facility] Outpatient Attender: Lore barrett MDReferrer: Lore Vasuqes MD 11/03/2020 12:00:00 AM [facility] Myasthenia gravis wit hout (acute) exacerbation [facility] Myasthenia gravis without (acute) exacer bation Outpatient Attender: Cedrick Valdovinos MD 10/01/2020 05:44: 00 PM [facility] Outpatient Attender: Cedrick Valdovinos MDReferrer: Raúl sauer MD 10/01/2020 01:16:00 PM EDT - 10/01/2020 02:18:00 PM [facility] Outpatient Attender: Lore Vasques MD [id number] 09/17/2020 12:00:00 AM EST - 09/17/2020 02:46:58 PM [facility] Outpatient Attender: Lore barrett MDReferrer: Lore Vasques MD 09/17/2020 12:00:00 AM EST G70.00 [facility] G70.00 Outpatient Attender: Cedrick Valdovinos MDReferrer: Raúl sauer MD 09/16/2020 01:22:00 PM EST - 09/16/2020 02:33:00 PM [facility] <td ID="encounterTypeDescriptionID0">[facility]</td><td>Raúl Delgado MD</td><td>[facility]</td><td>09/03/2020</td><td>2:47PM</td><td>3:23PM</td><td><content ID="encounterDiagnosisID0-0">Iliotibial Band Friction Syndrome Left Knee</content>, <content ID="encounterDiagnosisID0-1">Bursitis Trochanteric Left</content>, <content ID="encounterDiagnosisID0-2">Essential Hypertension</content>, <content ID="encounterDiagnosisID0-3">Ovarian Cyst Left</content></td>Outpatient Attender: Raúl Delgado MD [facility] 09/03/2020 02:47:00 PM EST - 09/03/2020 03:23:00 PM ES T Ovarian Cyst LeftBursitis Trochanteric LeftIliotibial Band Friction Syndrome Left KneeEssential Hypertension JEREMY ([facility]) Ovarian Cyst Left Bursitis Trochanteric Left Iliotibial Band Friction Syndrome Left K nee Essential Hypertension Outpatient Attender: Lore Vasques MD 08/20/2020 12:00:00 AM [facility] Outpatient Attender: Lore Vasques MD 08/06/2020 12:00:00 AM [facility] Outpatient Referrer: Lore Vasques MD 04/23 02:53:52 PM EDT Other correction (current) drug therapy [facility] Other trademark affixer (current) drug therapy Outpatient Attender: Lore Vasques MD [id number] 04/23/2020 12:00:00 AM EDT - 04/23/2020 02:36:05 PM T [facility] <td ID="encounterTypeDescriptionID1">inc ident to previous visit-</td><td>Samanta GUTIERREZP-</td><td>[facility]</td><td>04/20/2020</td><td>2:50PM</td><td>3:20PM</td><td><content ID="encounterDiagnosisID1-0">Essential Hypertension</content>, <content ID="encounterDiagnosisID1-1">Diabetes Mellitus Type 2 - Uncomplicated, Controlled</content>, <content ID="encounterDiagnosisID1-2">Myasthenia Gravis Without Acute Exacerbation</content>, <content ID="encounterDiagnosisID1- 3">Assessment of Morbid Obesity (>100% Overweight)</content></td>Outpatient Attender: SAMANTA KONG [facility] 04/20/2020 02:50:00 PM EDT - 04/20/2020 03:20:00 PM EDT Assessment of Morbid Obesity (>100% Overweight)Diabetes Mellitus Type 2 - Uncomplicated, ControlledAssessment of Morbid Obesity (>100% Overweight)Diabetes Mellitus Type 2 - Uncomplicated, ControlledMyasthenia Gravis Without Acute ExacerbationMyasthenia Gravis Without Acute ExacerbationEssential HypertensionEssential Hypertension JEREMY ([facility]) Assessment of Morbid Obesity (>100% Over weight) Diabetes Mellitus Type 2 - Uncomplicated , Controlled Assessment of Morbid Obesity (>100% Over weight) Diabetes Mellitus Type 2 - Uncomplicated , Controlled Myasthenia Gravis Without Acute Exacerba tion Myasthenia Gravis Without Acute Exacerba tion Essential Hypertension Essential Hypertension Outpatient Attender: Lore Vasques MD 03/26/2020 12:00:00 AM [facility] Outpatient Attender: Lore Vasques MD 03/26/2020 12:00:00 AM [facility] Medications Medication Brand Name Start [...] EVERY 4 HOURS NEEDED SOLD: 04/30/2021 [facility] [employer] [facility] 90 mcg/actuation 03/20/2021 12:00:00 AM EDT [...] VERY MORNING AND 3 CAPSULES EVERY EVENING [facility] Myasthenia gravis without exacerbation Trazodone Hydrochloride [...] DAY SOLD: 0 03/23/2021 [facility] Pyridostigmine [place] 60 MG Oral Tablet Pyridostigmine [place] 60 MG Oral Tablet (Mestinon) Pyridostigmine [place] 60 MG Oral Tablet (Mestinon) 12:00:00 AM EDT 90 mg Oral active Take 1.5 tablets by mouth Four times daily [facility] 60 mg 12/28/2020 12:00:00 AM EDT [...] MAXIMUM DAILY DOSE = 6 SOLD: 12/23/2020 [facility] buspirone hydrochloride 10 MG Oral Tablet [...] MOUTH TWICE A DAY SOLD: 11/17/2020 [facility] Ondansetron 4 MG Disintegrating Oral Tablet ONDANSETRON [...] VERY MORNING AND 3 CAPSULES EVERY EVENING [facility] Myasthenia gravis without exacerbation buspirone hydrochloride [...] DOSE = TWO TABLETS SOLD: 09/22/2020 [facility] latanoprost 0.05 MG/ML Ophthalmic Solution Latanoprost Latan oprost 09/16/2020 01:53:06 PM EST [address] [facility] Albuterol 0.83 MG/ML Inhalant Solution Albuterol Sulfate Alb uterol Sulfate 09/16/2020 01:52:22 PM EST 2.[address] [facility] Metformin hydrochloride 500 MG Oral Tablet Metformin 09/16 01:52:03 PM EST [address] [facility] Amlodipine 10 MG Oral Tablet Amlodipine 09/16/2020 01:51:34 PM EST 10 MG completed [facility] Bisoprolol Fumarate 10 MG Oral Tablet Bisoprolol Fumarate 01:51:06 PM EST 10 MG completed [facility] ropinirole 0.25 MG Oral Tablet Ropinirole (Requip) 0.2 5 mg tablet Ropinirole (Requip) 0.25 mg tablet 09/16/2020 01:50:02 PM EST 0.25 MG [facility] Sum[facility] 50 MG Oral Tablet Sumatriptan Succinate Sumatrip moctezuma Succinate 09/16/2020 01:49:56 PM EST [address] [facility] Pyridostigmine [place] 60 MG Oral Tablet Pyridostigmine Brom fely 09/16/2020 01:49:36 PM EST [address] [facility] atorvastatin 10 MG Oral Tablet Atorvastatin Atorvastatin 09/16/2020 01:48:38 PM EST 10 MG completed [facility] Acetaminophen 325 MG / Oxycodone Hydroch loride 10 MG Oral Tablet Oxycodone- Acetaminophen (Percocet) 10-325 mg tablet Oxycodone-Acetaminophen (Percocet) 10- 325 mg tablet 09/16/2020 01:45:22 PM EST [address] [facility] Fluticasone Propionate 09/16/2020 01:44:14 PM EST [address] [facility] Trazodone Hydrochloride 100 MG Oral Tablet [...] LIGHTHEADED ON ONCE DAILY DOSING SOLD: 09/07/2020 [facility] Amlodipine 5 MG Oral Tablet amLODIPine Besylate 5 MG O ral Tablet amLODIPine Besylate 5 MG Oral Tablet 09/03/2020 12:00:00 AM EST 1 active amlodipine 5 MG Oral Tablet [facility] [place] buspirone hydrochloride 10 MG Oral Tablet BUSPIRONE HCL 08/27/2020 12:00:00 AM EST tablet 90 TAKE ONE TABLET BY MOUTH THR EE TIMES A DAY TAKE ONE TABLET BY MOUTH THREE TIMES A DAY SOLD: 09/01/2020 [facility] buspirone hydrochloride 10 MG Oral Tablet busPIRone HC l 10 MG Oral Tablet busPIRone HCl 10 MG Oral Tablet 08/25/2020 12:00:00 AM EST 1 active buspirone hydrochloride 10 MG Oral Tablet [facility]) 200 mg 08/19/2020 12:00:00 AM EST capsule 60 TAKE ONE CAPSULE BY MOUTH TWICE A DAY MAXIMUM DAILY DOSE = 2 CAPSULE TAKE ONE CAPSULE BY MOUTH TWICE A DAY MAXIMUM DAILY DOSE = 2 CAPSULE SOLD: 11/17/2020 [facility] 10-325 mg 08/19/2020 12:00:00 AM EST tablet 180 TAKE 1-2 TABLETS BY MOUTH THREE TIMES A DAY NEEDED FOR PAIN MAXIMUM DAILY DOSE = SIX TABLETS TAKE 1-2 TABLETS BY MOUTH THREE TIMES A DAY NEEDED FOR PAIN MAXIMUM DAILY DOSE = SIX TABLETS SOLD: 08/21/2020 [facility] 200 mg 08/19/2020 12:00:00 AM [...] TAKE THREE CAPSULES BY MOUTH EVERY EVENING [facility] Myasthenia gravis without exacerbation 100 mg [...] sumatriptan 100 MG Oral Tablet Asuncion CRUM ([facility]) 33 gauge 07/21/2020 12:00:00 AM EST [...] TO TEST 1-2 TIMES DDAILY SOLD: 12/21/2020 [facility] 33 gauge 07/21/2020 12:00:00 AM EST [...] EST acti ve OneTouch Delica Lancets 33G [place] ([facility]) Trazodone Hydrochloride 100 MG Oral Tablet traZODone H Cl 100 MG Oral Tablet traZODone HCl 100 MG Oral Tablet 07/20/2020 12:00:00 AM EST 1 active trazodone hydrochloride 100 MG Oral Tablet [place] ([facility]) 10-325 mg 07/20/2020 12:00:00 AM EST [...] 05/28/2020 12:00:00 AM EST RESPIRATORY active [facility] ([facility] ) 60 mg 05/25/2020 12:00:00 AM EST [...] DAY SOLD: 1 08/23/2019 [facility] Pyridostigmine [place] 60 MG Oral Tablet Pyridostigmine [place] 60 MG Oral Tablet (MESTINON) Pyridostigmine [place] 60 MG Oral Tablet (MESTINON) 12:00:00 AM EST active Myasthenia gravi s without exacerbation TAKE 1 & 1/2 TABLETS BY MOUTH FOUR TIMES A DAY [facility] Myasthenia gravis without exacerbation 30 mg [...] 05/20/2020 12:00:00 AM EST active [employer] [employer] ([facility]) pantoprazole 40 MG Delayed Release Oral [...] AM EST tablet,delayed release (DR/EC) 60 T [employer] ONE TABLET BY MOUTH TWICE A DAY [...] BY MOUTH TWICE A DAY SOLD: 05/19/2020 [facility] 145 mg 05/18/2020 12:00:00 AM EST [...] Solution 04/29/2020 12:00:00 AM EDT 2 active [id number] 60 ACTUAT albuterol 0. 09 MG/ACTUAT Metered Dose Inhaler JEREMY ([facility]) 90 mcg/actuation 04/29/2020 12:00:00 AM EDT [...] hydrochloride 500 MG Extended Release Oral Tablet [place] [facility] pantoprazole 40 MG Delayed Release Oral Tablet Pantoprazole Sodium 40 MG Oral Tablet Delayed Release Pantoprazole Sodium 40 MG Oral Tablet Delayed Release 04/20/2020 12:00:00 AM EDT 1 active pantoprazole 40 MG Delayed Release Oral Tablet [place] [facility] Hydrochlorothiazide 25 MG / Losartan Potassium [...] buspirone hydrochloride 10 MG Oral Tablet JEREMY ([facility]) Trazodone Hydrochloride 100 MG Oral Tablet traZODone H Cl 100 MG Oral Tablet traZODone HCl 100 MG Oral Tablet 04/20/2020 12:00:00 AM EDT 1 aborted trazodone hydrochloride 100 MG Oral Tablet [place] ([facility]) Ondansetron 4 MG Disintegrating Oral Tab let Ondansetron 4 MG Oral Tablet Disintegrating Ondansetron 4 MG Oral Tablet Disintegrating 04/20/2020 12:00:00 AM EDT active ondansetron 4 MG Disintegrating Oral Tablet [facility]) Hydrochlorothiazide 25 MG / Losartan Potassium 100 MG Oral Tablet 100-25 mg LOSARTAN POTASSIUM/HYDROCHLOROTHIAZIDE 04/20/2020 12:00:00 AM EDT tablet 3 0 TAKE ONE TABLET BY MOUTH EVERY DAY TAKE ONE TABLET BY MOUTH EVERY DAY SOLD: 08/21/2020 [facility] Amlodipine 5 MG Oral Tablet amLODIPine Besylate 5 MG O ral Tablet amLODIPine Besylate 5 MG Oral Tablet 04/20/2020 12:00:00 AM EDT 1 aborted amlodipine 5 MG Oral Tablet [facility]) Hydrochlorothiazide 25 MG / Losartan Potassium 100 MG Oral Tablet 100-25 mg LOSARTAN POTASSIUM/HYDROCHLOROTHIAZIDE 04/20/2020 12:00:00 AM EDT tablet 3 0 TAKE ONE TABLET BY MOUTH EVERY DAY TAKE ONE TABLET BY MOUTH EVERY DAY SOLD: 05/19/2020 [facility] Bisoprolol Fumarate 10 MG Oral Tablet Bisoprolol Fumarate 10 MG Oral Tablet 04/20/2020 12:00:00 AM EDT 1 active bisoprolol fumarate 10 MG Oral Tablet [facility]) Hydrochlorothiazide 25 MG / Losartan Potassium 100 MG Oral Tablet 100-25 mg LOSARTAN POTASSIUM/HYDROCHLOROTHIAZIDE 04/20/2020 12:00:00 AM EDT tablet 3 0 TAKE ONE TABLET BY MOUTH EVERY DAY TAKE ONE TABLET BY MOUTH EVERY DAY SOLD: 07/23/2020 [facility] Hydrochlorothiazide 25 MG / Losartan Pot assium 100 MG Oral Tablet Losartan Potassium-HCTZ 100-25 MG Oral Tablet Losartan Potassium-HCTZ 100-25 MG Oral Tablet 04/20/2020 12:00:00 AM EDT 1 active hydrochlorothiazide 25 MG / losartan potassium 100 MG Oral Tablet [facility]) Fenofibrate 145 MG Oral Tablet [Tricor] Tricor 145 MG Oral Tablet Tricor 145 MG Oral Tablet 04/20/2020 12:00:00 AM EDT 1 active fenofibrate 145 MG Oral Tablet [Tricor] JEREMY ([facility]) Hydrochlorothiazide 25 MG / Losartan Potassium [...] EDT aborted hydrochlorothiazide 25 [facility] [place] [facility]) 2.5 mg /3 mL (0.083 %) [...] aborted trazodone hydrochloride 100 MG Oral Tablet [place] ([facility]) buspirone hydrochloride 10 MG Oral Tablet busPIRone HC l 10 MG Oral Tablet busPIRone HCl 10 MG Oral Tablet 01/14/2020 12:00:00 AM EDT 1 aborted buspirone hydrochloride 10 MG Oral Tablet [place] ([facility]) 200 mg 12/27/2019 12:00:00 AM EDT [...] aborted ondansetron 4 MG Disintegrating Oral Tablet [place] ([facility]) Nystatin 100 UNT/MG Topical Powder 100,000 [...] 1 aborted amlodipine 5 MG Oral Tablet [place] [facility] buspirone hydrochloride 10 MG Oral Tablet [...] Solution 05/15/2019 12:00:00 AM EDT 2 aborted [id number] 200 ACTUAT albuterol 0.09 MG/ACTUAT Metered Dose Inhaler [Ventolin] [facility]) Sumatriptan 100 MG Oral Tablet SUMAtriptan Succinate 1 00MG Oral Tablet SUMAtriptan Succinate 100MG Oral Tablet 05/15/2019 12:00:00 AM EDT aborted sumatriptan 100 MG [facility] Trazodone Hydrochloride 100 MG Oral Tablet traZODone H Cl 100MG Oral Tablet traZODone HCl 100MG Oral Tablet 05/15/2019 12:00:00 AM EDT 2 aborted trazodone hydrochloride 100 MG Oral Tablet JEREMY ([facility]) 90 mcg/actuation 05/15/2019 12:00:00 AM EDT [...] pantoprazole 40 MG Delayed Release Oral Tablet [place] [employer] [employer]) 24 HR Metformin hydrochloride 500 MG Ext ended Release Oral Tablet metFORMIN HCl ER 500MG Oral Tablet Extended Release 24 Hour metFORMIN HCl ER 500MG Oral Tablet Extended Release 24 Hour 05/15/2019 12:00:00 AM EDT 2 aborted 24 HR metformin hydrochloride 500 MG Extended Release Oral Tablet [place] ([facility]) Bisoprolol Fumarate 10 MG Oral Tablet Bisoprolol Fumar ate 10MG Oral Tablet Bisoprolol Fumarate 10MG Oral Tablet 05/15/2019 12:00:00 AM EDT 1 aborted bisoprolol fumarate 10 MG Oral T ablet [place] ([facility]) 90 mcg/actuation 05/15/2019 12:00:00 AM EDT HFA [...] d fenofibrate 145 MG Oral Tablet [Tricor] [place] ([facility] [employer]) buspirone hydrochloride 10 MG Oral Tablet BUSPIRONE [...] 12:00:00 AM EDT aborted [facility] 100 mg 05/15/2019 12:00:00 AM EDT tablet [...] losartan potassium 100 MG Oral Tablet [place]Y ([facility] [employer]) Fenofibrate 145 MG Oral Tablet FENOFIBRATE NANOCRYSTALLIZED 05/15/2019 12:00:00 AM EDT tablet 30 TAKE ONE TABLET BY MOUTH SOPHY RY DAY TAKE ONE TABLET BY MOUTH EVERY DAY SOLD: 03/23/2020 [facility] 1 ML medroxyprogesterone acetate 150 MG/ ML Prefilled Syringe Medroxyprogesterone (Depo-Provera) 150 MG/1 ML syringe Medroxyprogesterone (Depo-Provera) 150 M G/1 ML syringe 01/05/2018 03:35:00 PM EDT [address] [facility] BREO ELLIPTA 100-25 MCG INH 05/04/2017 10:22:00 AM EDT 1 EACH completed [facility] Pravastatin Sodium 10 MG Oral Tablet Pravastatin 04/28/2016 01:14: 00 PM EDT 1 TAB completed [facility] Naproxen 500 MG Oral Tablet [Naprosyn] Naproxen (Napro syn) 500 MG tablet Naproxen (Naprosyn) 500 MG tablet 10/29/2015 04:30:00 PM EDT 500 MG completed [facility] Acetaminophen 325 MG / Oxycodone Hydroch loride 5 MG Oral Tablet Oxycodone-Acetaminophen Oxycodone-Acetaminophen 10/29/2015 04:29:00 PM EDT 1 TAB completed [facility] Sumatriptan 50 MG Oral Tablet Sumatriptan Succinate Sumatrip moctezuma Succinate 10/29/2015 04:29:00 PM EDT [address] [facility] Pyridostigmine [place] 60 MG Oral Tablet Pyridostigmine Brom fely 10/29/2015 04:29:00 PM EDT [address] [facility] Insurance Providers Payer name Policy type / Coverage type Policy ID Covered republican ID Covered republican's relationship to braden Policy Braden Plan Information MEDICAID M [id number] Self [id number] [facility] I [id number] Self [id number] [facility] I [id number] Self [id number] UnitedHealthcare Other ACUNY [id number] Self [facility] UnitedHealthcare Other ACUNY [id number] [facility] [id number] Self [facility] Other ACUNY [id number] Self [facility] Community Plan Commercial [id number] Self [id number] [facility] Community Plan Commercial [id number] Self [id number] [facility] Community Plan Commercial [id number] Self [id number] [facility] Community Plan Commercial [id number] Self [id number] UnitedHealthcare Other 0 [id number] Self 0 UnitedHealthcare Other 0 [id number] Self 0 UnitedHealthcare Other 0 [id number] Self 0 UnitedHealthcare Other 0 [id number] Self 0 ANSI-Medicaid [id number] ANSI-Commercial [id number] ANSI-Medicaid [id number] ANSI-Commercial [id number] ANSI-Medicaid [id number] ANSI-Commercial pvcwc11k-[id number]-[id number] [id number]-[id number] ANSI-Commercial [id number] ANSI-Medicaid [id number] [facility] ([facility] [place] [id number] Self [id number] ANSI-Commercial [id number] ANSI-Medicaid [id number] ANSI-Commercial [id number]-[id number]-[id number]-5l89-41jd-ni6t-[id number] ANSI-Medicaid [id number] ANSI-Medicaid [id number] ANSI-Commercial [id number]-[id number]-[id number] [id number]-9cpc-[id number] ANSI-Commercial [id number]-[id number]-[id number] [id number] ANSI-Medicaid [id number] ANSI-Medicaid [id number] ANSI-Commercial [id number]-[id number]-[id number] ANSI-Medicaid [id number] ANSI-Commercial [id number]-[id number]-[id number]-[id number]-[id number] ANSI-Medicaid [id number] ANSI-Commercial [id number]-8qpi-[id number]-7yly-[id number] ANSI-Medicaid [id number] ANSI-Commercial [id number] [facility]) O [id number] ANSI-Commercial [id number] ANSI-Medicaid [id number] ANSI-Medicaid [id number] ANSI-Commercial [id number] ANSI-Commercial [id number] [facility]-Medicaid [id number] [facility] [id number] ANSI-Medicaid [id number] [facility]SIS[facility]ames [id number]-[id number] [facility]-Medicaid [id number] ANSI-Commercial [id number] [facility]-Medicaid [id number] ANSI-Commercial [id number]-[id number]-[id number]-[id number] 86snuc4t-[id number]-[id number] [facility]-Medicaid [id number] ANSI-Commercial vwjf128u-279h-1kl7-g252-[id number] rfmj652x-537b-4vl8-[id number] ANSI-Medicaid [id number] ANSI-Commercial [id number] ANSI-Medicaid [id number] ANSI-Commercial [id number]-kf38-873y-[id number]-[id number] ANSI-Medicaid [id number] ANSI-Medicaid [id number] ANSI-Commercial [id number] ANSI-Commercial [id number] ANSI-Medicaid [id number] [facility] Health Maintenance Organization (HMO) [id number] Self [id number] BCBS YESSICA [place] [id number] SP [id number] UN[employer] COMMUNITY PLAN MCDO [id number] SP [id number] [facility] Commercial [id number] Self [id number] [facility] FAMILY HLTH PLUS [id number] SP [id number] [facility] Community Plan Health Maintenance Organization (HMO) [id number] Self [facility] P UNAVAILABLE C UNAVAILABLE BLUE CROSS WADDELL PLAN [id number] SP [id number] BLUE CHOICE OPTION O [id number] S [id number] MEDICAID W [id number] S [id number] O BLUE [id number] SP [id number] LIBERTY MUTUAL NO FAULT [id number] SP [id number] UNHC COMMUNITY PLAN MCDHMO [id number] SP [id number] LIBERTY MUTUAL [id number] SP [id number] UnitedHealth[employer] Other 0 [id number] Self 0 UNITED [employer](MCAID) O [id number] S [id number] United[employer] Other 0 [id number] Self 0 [employer] Other 0 [id number] Self 0 UNHC COMMUNITY PLAN MCDO [id number] SP [id number] UNHC COMMUNITY PLAN MCDHMO [id number] SP [id number] UNHC COMMUNITY PLAN MCDHMO [id number] SP [id number] [employer] [facility] MEDICAID [id number] S [id number] [facility] [id number] SP [id number] UNITED [employer] MEDICAID [id number] S [id number] ANSI-Medicaid [id number] ANSI-Commercial [id number] Problems, Conditions, and Diagnoses Code Display Name Description Problem Type Effective Dates Data Source(s) R20.0 Anesthesia of skin Anesthesia of skin Diagnosis 06/2021 01:37:02 PM EDT [facility] Z79.899 Other trademark affixer (current) drug therapy O ther correction (current) drug therapy Diagnosis 12/31/2020 02:50:55 PM EDT [facility] Surgeries/Procedures Procedure Description Date Indications Data Source(s) BLOOD COUNT COMPLETE AUTO&AUTO DIFRNTL WBC COUNT <td>C BC AND DIFFERENTIAL</td><td>Routine</td><td>02/25/2021 2:00 PM EDT</td><td> Bilateral hand numbness Myasthenia gravis Encounter for trademark affixer use of mycophenolate mofetil</td><td> </td> 02/25/2021 02:00:00 PM EDT Encounter for trademark affixer use of mycopheno late mofetilMyasthenia gravisBilateral hand numbness [facility] Encounter for correction use of mycopheno late mofetil Myasthenia gravis Bilateral hand numbness COMPREHENSIVE METABOLIC PANEL <td>COMPREHENSIVE METABO LIC PANEL</td><td>Routine</td><td>02/25/2021 2:00 PM EDT</td><td> Bilateral hand numbness Myasthenia gravis Encounter for trademark affixer use of mycophenolate mofetil</td><td> </td> 02/25/2021 02:00:00 PM EDT Encounter for correction use of mycopheno late mofetilMyasthenia gravisBilateral hand numbness [facility] Encounter for correction use of mycopheno late mofetil Myasthenia gravis Bilateral hand numbness ELECTROMYOGRAPHY WITH NERVE CONDUCTION <td>ELECTROMYOG AJ WITH NERVE CONDUCTION</td><td>Routine</td><td>11/03/2020 2:15 PM EDT</td><td> Myasthenia gravis</td><td> </td> 11/03/2020 02:15:00 PM EDT Myasthenia [facility] Myasthenia gravis BLOOD COUNT COMPLETE AUTO&AUTO DIFRNTL WBC COUNT <td>C BC AND DIFFERENTIAL</td><td>Routine</td><td>09/17/2020 2:52 PM EST</td><td> Myasthenia gravis</td><td> </td> 09/17/2020 02:52:00 PM EST Myasthenia [facility] Myasthenia gravis BASIC METABOLIC PANEL CALCIUM TOTAL <td>BASIC METABOLI C PANEL</td><td>Routine</td><td>09/17/2020 2:52 PM EST</td><td> Myasthenia gravis</td><td> </td> 09/17/2020 02:52:00 PM EST [facility] Myasthenia gravis Venipuncture (routine) Venipuncture (routine) 09/03/2020 12:00:00 A M [facility] ([facility]) HgbA1C HgbA1C 09/03/2020 12:00:00 AM [facility] ([facility]) BMP-Basic Metabolic Profile BMP-Basic Metabolic Profile 08/17 12:00:00 AM [facility] ([facility]) BLOOD COUNT COMPLETE AUTO&AUTO DIFRNTL WBC COUNT <td>C BC AND DIFFERENTIAL</td><td>Routine</td><td>04/23/2020 2:54 PM EDT</td><td> Encounter for trademark affixer use of mycophenolate mofetil</td><td> </td> 04/23/2020 02:54:00 PM EDT Encounter for trademark affixer use of mycophenolate mofetil [facility] Encounter for trademark affixer use of mycopheno late mofetil BASIC METABOLIC PANEL CALCIUM TOTAL <td>BASIC METABOLI C PANEL</td><td>Routine</td><td>04/23/2020 2:54 PM EDT</td><td> Myasthenia gravis</td><td> </td> 04/23/2020 02:54:00 PM EDT Myasthenia gravis [facility] Myasthenia gravis -collection of capillary blood (fingerstick, heel ) -c ollection of capillary blood (fingerstick, heel ) 04/20/2020 12:00:00 AM EDT ELIZA PHILLIPS ([facility]) HgbA1C HgbA1C 04/20/2020 12:00:00 AM EDT Asuncion CRUM ([facility]) Results ID Date Data Source [id number] 04/27/2021 06:40:00 AM EDT [employer] [facility]. CT ABDOMEN AND PELVIS WITH CONTRASTPain to [...] rce(s) Supporting Document(s) ID Date Data Source [id number] 04/27/2021 06:40:00 AM EDT [employer]. CT ANGIOGRAPHY OF CHESTFindings: The ne ck [...] on 04/27/21639 by Saran Villareal M.D.Transcribed on 04/28/2158 by Jg Garcia by Saran Villareal M.D. on 04/28/21 1010Sign by: Saran Villareal M.D. Name Value Range Interpretation Code Description Data Jessika e(s) Supporting Document(s) ID Date Data Source [id number] 04/27/2021 06:40:00 AM EDT [facility]. CT CERVICAL SPINE WITHOUT CONTRASTFindin gs: Alignment [...] rce(s) Supporting Document(s) ID Date Data Source [id number] 04/27/2021 06:40:00 AM EDT [employer] [facility]. RIGHT ELBOWFindings/Impression: There i s no fracture or dislocation. Nosignificant degenerative changes. No acute soft tissue abnormalities.Please note this lateral view is suboptimally positioned.Dictated on 04/27/21 0640 by Saran Villareal M.D.Transcribed on 04/28/21818 by Jg Garcia by Saran Villareal M.D. on 04/28/21 1010Sign by: Saran Villareal M.D. Name Value Range Interpretation Code Description Data Jessika rce(s) Supporting Document(s) ID Date Data Source [id number] 02/26/2021 12:13:44 PM EDT [facility] Name Value Range Interpretation Code Description Data Jessika rce(s) Supporting Document(s) Progress Note [facility] ZRBPMx5hGkIZFuLd68/EJCqqBGSsu6HpYCmqWDu6WIamFTJoY4OpYOF4dN8oKLX1XMiAFjLrWwHuZSQe m AwQbwHBrZiKYAoQksVPpSsDAcjTqqohXFvDO9VnGP5HVEoP86lNYPeWVBcB8QrSPV2XqY+Cv5YQALqqW ZpEN2UOydI0W3Sh1zNGz6qCB0TJ8IuKNOhk44eHPse5XwieeU6adRM9CTw1nDxnrXCyCx928xTMNlRvD bEK2fwV2SJizdOPZKS8PSSfCBQrny/47Xa3IqTyHj/ X/3KLEp3vgmzr4Yz0rf68nvgB/YS+CByzOJuJ6Q/Eao9Sn6bh83tpmhkbzOL1YESvq3ezhLZK0w7X98t ceEcoS1hA0qINqv5wEbaPjJb37/7RQ6P3NtcgFwEvXuR2B9TOR8Z4sIU/NZLcVjZXkkPQbcz0xkPVPSL +iEfum4+ZHGJBfagR9V0kWSjF9yy/KwAp7x49Sz2c3 1k2/Ulises+4rNR/PuIYbM58dsHTY3AYLDnSe40bNN6KJ3ehDlsxvo6wpCnHz+uOTuLYed9qPU7S1p4nXQxM [file] T0YNCg== ID Date Data Source [id number] 02/25/2021 06:50:29 PM EDT [facility] Name Value Range Interpretation Code Description Data Jessika rce(s) Supporting Document(s) Leukocytes [#/volume] in Blood by Automated count 5.7 10*3/uL 4-10 [facility] Erythrocytes [#/volume] in Blood by Automated count 4.45 10*6/uL 4.1- 5.3 [facility] Hemoglobin [Mass/volume] in Blood 13.1 g/dL 11.5-15.5 [facility] Hematocrit [Volume Fraction] of Blood by Automated count 39.8 % 3 6-45 [facility] Erythrocyte mean corpuscular volume [Entitic volume] by Auto mated count 89.5 fL 80-96 [facility] Erythrocyte mean corpuscular hemoglobin [Entitic mass] by Automated count 29.4 pg 27-33 [facility] Erythrocyte mean corpuscular hemoglobin concentration [Mass/volume] by Automated count 32.8 g/dL 32.0-36.0 [facility] distribution width [Ratio] by Automated count 13.5 % 11.5-14.5 [facility] Platelets [#/volume] in Blood by Automated count 312 10*3/uL 150-400 [facility] Differential cell count method - Blood [facility] Neutrophils/100 leukocytes in Blood by Automated count 49 % [facility] Lymphocytes/100 leukocytes in Blood by Automated count 40 % [facility] Monocytes/100 leukocytes in Blood by Automated count 7 % [facility] Eosinophils/100 leukocytes in Blood by Automated count 3 % [facility] Basophils/100 leukocytes in Blood by Automated count 1 % [facility] Neutrophils [#/volume] in Blood by Automated count 2.84 10*3/uL 1.8-7 .0 [facility] Lymphocytes [#/volume] in Blood by Automated count 2.24 10*3/uL 1.2-4 .0 [facility] Monocytes [#/volume] in Blood by Automated count 0.41 10*3/uL 0-0.8 [facility] Eosinophils [#/volume] in Blood by Automated count 0.14 10*3/uL 0-0.5 [facility] Basophils [#/volume] in Blood by Automated count 0.05 10*3/uL 0-0.2 [facility] Nucleated erythrocytes/100 leukocytes [Ratio] in Blood by Automated count 0 /100{WBCs} 0-0 [facility] ID Date Data Source [id number] 02/25/2021 07:17:55 PM EDT [facility] Name Value Range Interpretation Code Description Data Jessika rce(s) Supporting Document(s) Albumin [Mass/volume] in Serum or Plasma by Bromocresol green (BCG) dye binding method 4.0 g/dL 3.5-5.2 [facility] Bilirubin.total [Mass/volume] in Serum or Plasma 0.3 mg/dL <1.2 [facility] Calcium [Mass/volume] in Serum or Plasma 9.0 mg/dL 8.6-10.0 [facility] Chloride [Moles/volume] in Serum or Plasma 104 mmol/L 98-107 [facility] Creatinine [Mass/volume] in Serum or Plasma 0.60 mg/dL 0.50-0.90 [facility] Glucose [Mass/volume] in Serum or Plasma 117 mg/dL 70-140 [facility] Alkaline phosphatase [Enzymatic activity/volume] in Serum or Plasma 81 U/L 35-104 [facility] Potassium [Moles/volume] in Serum or Plasma 4.3 mmol/L 3.4-5.1 [facility] Protein [Mass/volume] in Serum or Plasma 7.2 g/dL 6.4-8.3 [facility] Sodium [Moles/volume] in Serum or Plasma 136 mmol/L 136-145 [facility] Aspartate aminotransferase [Enzymatic activity/volume] in Serum or Plasma 28 U/L <32 [facility] Urea nitrogen [Mass/volume] in Serum or Plasma 11 mg/dL 6-20 [facility] Osmolality of Serum or Plasma by calculation 283 mosm/kg 275-300 [facility] Creatinine/Urea nitrogen [Mass Ratio] in Serum or Plasma 18 [facility] Bicarbonate [Moles/volume] in Serum 21 mmol/L 22-29 L [facility] Alanine aminotransferase [Enzymatic activity/volume] in Seru m or Plasma 32 U/L <33 [facility] Anion gap 3 in Serum or Plasma 12 mmol/L 8-15 [facility] Glomerular filtration rate/1.73 sq M pre dicted among non-blacks [Volume Rate/Area] in Serum or Plasma by Creatinine-based formula (MDRD) >6 0 [facility] Glomerular filtration rate/1.73 sq M pre dicted among blacks [Volume Rate/Area] in Serum or Plasma by Creatinine-based formula (MDRD) >60 [facility] ID Date Data Source [id number] 12/31/2020 03:08:18 PM T [facility] Name Value Range Interpretation Code Description Data Jessika rce(s) Supporting Document(s) Progress Note [facility] EWXPIb9zArMJAiCu34/RTWrfEZDua6IeZGpzITo9OLxoUGZdZ8AdAOJ4lN9nNKL6TRkTEvKsCiRlGlI2 lbm [file] nl+HwlXr/e7axW4/SYSTEM OPERATOR+GY5bVkgLG+6f052gqxKv8yO [file] ogICAgICAgICAgICAgICAgICAgICAgICAgICAgICAgICAgICAgICAgICAgICAgICAgICAgICAgICAgIC AgICAgICAgICAgICAgICAgICAgICAgICAgICAgICAgICAgICAgICAgDQogICAgICAgICAgICAgICAgIC AgICAgICAgICAgICAgICAgICAgICAgICAgICAgICAg ICAgICAgICAgICAgICAgICAgICAgICAgICAgICAgICAgICAgICAgICAgICAgICAgICAgDQogICAgICAg ICAgICAgICAgICAgICAgICAgICAgICAgICAgICAgICAgICAgICAgICAgICAgICAgICAgICAgICAgICAg ICAgICAgICAgICAgICAgICAgICAgICAgICAgICAgIC AgDQogICAgICAgICAgICAgICAgICAgICAgICAgICAgICAgICAgICAgICAgICAgICAgICAgICAgICAgIC AgICAgICAgICAgICAgICAgICAgICAgICAgICAgICAgICAgICAgICAgICAgDQogICAgICAgICAgICAgIC AgICAgICAgICAgICAgICAgICAgICAgICAgICAgICAg ICAgICAgICAgICAgICAgICAgICAgICAgICAgICAgICAgICAgICAgICAgICAgICAgICAgICAgDQogICAg ICAgICAgICAgICAgICAgICAgICAgICAgICAgICAgICAgICAgICAgICAgICAgICAgICAgICAgICAgICAg ICAgICAgICAgICAgICAgICAgICAgICAgICAgICAgIC AgICAgDQogICAgICAgICAgICAgICAgICAgICAgICAgICAgICAgICAgICAgICAgICAgICAgICAgICAgIC AgICAgICAgICAgICAgICAgICAgICAgICAgICAgICAgICAgICAgICAgICAgICAgDQogICAgICAgICAgIC AgICAgICAgICAgICAgICAgICAgICAgICAgICAgICAg ICAgICAgICAgICAgICAgICAgICAgICAgICAgICAgICAgICAgICAgICAgICAgICAgICAgICAgICAgDQog ICAgICAgICAgICAgICAgICAgICAgICAgICAgICAgICAgICAgICAgICAgICAgICAgICAgICAgICAgICAg ICAgICAgICAgICAgICAgICAgICAgICAgICAgICAgIC AgICAgICAgDQogICAgICAgICAgICAgICAgICAgICAgICAgICAgICAgICAgICAgICAgICAgICAgICAgIC ZkPJToBSJpZVGwOIVbRNSxKTUoAPUhQYKxHXDjKPKbDIHzNDZlGMYyPQEpBKVyOZWcHGr3L5ayALJxQI IaXP6nUPq8Qn2+MEiBQwIzLMD2nqFguN8BBE2kn9Jb CWalOXEfe4RnUAt3SD6JEWZuNPpzON0AVHbrhr1LPQHjCEYfkQOAp3yhNkEmVNQ3UYNhQdtcRL1ORHZa E0nokqCaXZMiGDINEBprYOXWFZtxUKYOQIRwDKUtGfZgRyKdDCEoMB0RUSDwQ379tfZcSW4TSx4VCbAs KR1rlm6RFprdEKFdCpxRThw7AVosBN4IeBBpoRMmPE HqKCOLYhJzQ9bey2BnJhdwZLVPUZnyBQ6Ks9AjkBWcEHe+Cz6ZBN6yl4GcLSgjNVXqKL7zsn3QUCkHXi WbW0OjhDptEYLox5qcRMBjGK8nvYRuUSC9IGTxsUWpQZ9meUQrDOTiDSOYfD4Uz5tbGVxoRYPnEDOcJh 9pQd3iBDNtBOTrSpTyDMDKXM6CKVMlHCQjpVBfBSSi WHXKUE6MZHdcYUM1YENlrpPhcWNlRLrdXD2SYAEeomXoXdmlCAFGUPw+Rd7BWD8op4MlQObyHCGfCC1j qh7ZSOnELdWkS3A7zKDyY6V2KXxhLp9UIOKsMDNsFuFqBUXNMLigOD1HAF1qmdU6SW2PsOOdKZAuBUUy kGJiYYn4K12gxBSeAZsfCC7ROQG+Edmundo+Al2UNTQxBN CoPZGeQxSgCSYFJrVkE8JoX7KOf9YjP8SnSI58jNakczDwIFufSH7BBU6yYUTqHMUXHG8BjMPknP5fmg VpCdKxOBHDXzIbA35pbTAiEQZzUEK9IZMaLg0SZOYtG0OnkoUlsKwlkhOaNWQiXBDKOG9BIEfxxeCkoG XfuUtrVK13cWagJZ2JXu9LEvWlTH1moe2SiMHuJi4X YNOwTM1RFLEcPIXzKGWyCYU6ERPtOaAeBVieKSHbJTHjYUX8GDZwOLCeJJ5ZQfRvUIUcFtR3YXQgFFYj GGCzci5DCXPmWHNhEaFdGVOsQOIqKMGzZYawSJQiXIUgZOQ7CXYxFVXmMR1YRdXtSQNvZJPqQRiaCACt BNPyti7NNBHnKUCwNUWfFPLwCESqFBXvKBqzWRYzET H0VKC6EYEpWRSdYC0WSvGdUVNrWAgyOmwxHSGkXWVcsh2RLXBgMPAxSAKiCxItLWYdNIUiSHyyJTCyQY XnJkLnLTKbFLAxHH1IDnZsCTXtCEP2UUNtEKVsDCUysg5PPSXiTEThAyudGuImXWOkBYTaXKbuHFUkGE F4NuI8ZAGoOPHaDY1YEnAyZGYnKTT4MGAjZIJgOIUg if2IBSEwKBJrEbouUYRwUAKxJSSmRZxxNCHaHHG7UFTlSZOrYFXiIG0PWvAkEOZsVIkeHDIwKDVnGGKb jc5YOHSmMZNlLTA6LSIpBQPuWWFyUVnyJBJdNDB7WnG7REMfDJYvWW6MIsCfDBLbSBo2PrFrXJSlDUUk so8XLQJhCNKfUUu0BKMwCJUqMVZbIZrkMNDxHXNoLw r5RGNnCFOhJB6VHdDqURHkKfL6PDwhJBOaBVIeoh3RMQBpEWAfFWo8ZADoLZNhYGAeCJmhMDLoDYIuFV i0EDZnPFUyKC7UNaMzOWVzOwMuNMNlPZUwFQBoui5GHMXdBDQoBro5OANmCTVgGETzNSwvWCCbTRTrPR ZuKXLsOFHsIJ0DJoOcHZFxUzD2YFwcFNKzSLMgku5U vNOwpXjlpm8NHTwEEa4GvZddRMKmMZchMw2jwDNtJTSvWSWOEw3LscGpMULcBNRTJOsuMEQnQGRiNCKf CfK4SfNnP2YrLeP7F8N6QRUdBhg2F9SvLWC9PnF1IZHlYtF5HMg0JXNlGHNiUBj2JIN1CPKyLEL9HQLl Yzc+OG0qVZm+Oa8Ka3JoznN3uwLjXUdiXXShPq3MECXJR5YHPs== ID Date Data Source [id number] [facility]2020 [facility]30[facility] 09/[id number] lection Technique: BRUSH-ALONEPATIENT INFORMATION: XDO-MMBIR-MNOUTWZUUGH CYTOLOGY: NEGATIVEDATES AND RESULTS: 10/24/17 negativePREVIOUS TREATMENT: NONEBody Site: CERVIX Name Value Range Interpretation Code Description Data Jessika rce(s) Supporting Document(s) Microscopic observation [Identifier] in Cervix by Cyto stain.thin pre p [facility] ID Date Data Source [id number] 10/01/2020 01:20:[address] [facility] Patient Name: Megan Marcano : 1975 Sex: F Pt Unit #: [id number] Location:[facility] Provider: Visit Date/Time: 10/01/20 Primary Insurance: [facility] Secondary Insurance: Self Pay Intake Vital [...] Delivery Method room air Intake Visit 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 . Last mammo 01/28/20. her last pap was 10/24/17 neg.Lmp was . She has arthritis, MD, fibromyalgia. no other questions or concerns. 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 With nursing nursing professor present a full breast exam was performed [...] to the room accompanied by a nursing nursing professor. The patient was assisted into lithotomy position. [...] with the patient. Edited portions of the IDD review include the following: "Age 40 to [...] Today Z12.4 Coding Level of Care Code 06430 Well 40-64 (Est) Exam Expanded Problem Focused Diagnoses Encounter for Routine Gynecological Examination Z01.419 <Electronically signed by Cedrick Valdovinos MD> 10/01/20 2311 Name Value Range Interpretation Code Description Data Jessika rce(s) Supporting Document(s) ID Date Data Source [id number] 09/20/2020 11:17:04 PM EST [facility] Name Value Range Interpretation Code Description Data Jessika rce(s) Supporting Document(s) Progress Note [facility] LFUKKs4lPdIMBeVz77/ZMOomPVFhj8OjIMocVPk4YSrgHZYoW0KyGEJ5fP2sVFA2NYeIZzSfHbRzGyP4 lbm [file] MDAxMDIwNSAwMDAwMCBuDQowMDAwMDEzMjMwIDAwMD HmYB3TShBwTYNqPRB7NkTfKNRwPAJtea1GOBXzOAAbIds0UhBnSCDhVDOeIExeHLYxGHI7QLx6PWNqJN InWM7IZqHaKHJkTDd8TIOlWYMqSSAjgw4IFIYtCYErTrr8FsZyNMFaAJIxMTvmLZZzDGV8ZIXwBCSoAY CpDU7HDuZeKQPgSAhyAIkbULLkQTRwri5GAVRyVPTv LMRyDdAfQNXaJJSeDKsbLJEoOWAcSeQrTXDaDJVzLE2GJcDqZRLdVxX8XxFcWQHbTSTbfe0RKVDyASJg JQH0CEUhNRNdFDLvPDceEZNsKZVjVFmaDHHnAIRfCG7AXhCaCJJvDsN3EJXiJGTsKOBbka6PBENfIMPt HtLuGGWzNQPgOMWtGTotVWAkKFOfOGA7TWRgLTXiIU 2DZtOjRJWkYpPuZXLrEJZwGWKddn3VKHSrEPWgTfIkLtHfPTIaAZGpAIffLCQfURJ2DPxnWMBpUBKaVD 5EHhNlKJUlQrZ2XWSeBMIdYGJxnv9HRDMnNTRoUXDtPfTcHUVtHSThEFq1pqRuyJEhOLc9NE3NQ9Rfle EeMfDWDo1Af532EJOkYUFiTe2KM1uaWc6gDLYqVBZO Lz2XUFa4QxP7TGnpQwWpDnpxSVNaEWTmVEW5WrjrTcEoBXr0JeT+JBlgQNC1OFOhA6OsN6Q9LsJiRAD3 BeG6Q4EbNwHlEXzuAw4tSIEJNn9+QHmtfXYzpXldBGVWFoS2XaZ1MXitMTXZUn6U ID Date Data Source [id number] 09/17/2020 07:47:19 PM [facility] Name Value Range Interpretation Code Description Data Jessika e(s) Supporting Document(s) Leukocytes [#/volume] in Blood by Automated count 5.5 10*3/uL 4-10 [facility] Erythrocytes [#/volume] in Blood by Automated count 4.51 10*6/uL 4.1- 5.3 [facility] Hemoglobin [Mass/volume] in Blood 13.1 g/dL 11.5-15.5 [facility] Hematocrit [Volume Fraction] of Blood by Automated count 40.3 % 3 6-45 [facility] Erythrocyte mean corpuscular volume [Entitic volume] by Auto mated count 89.4 fL 80-96 [facility] Erythrocyte mean corpuscular hemoglobin [Entitic mass] by Automated count 29.1 pg 27-33 [facility] Erythrocyte mean corpuscular hemoglobin concentration [Mass/volume] by Automated count 32.5 g/dL 32.0-36.0 [facility] distribution width [Ratio] by Automated count 13.3 % 11.5-14.5 [facility] Platelets [#/volume] in Blood by Automated count 307 10*3/uL 150-400 [facility] Differential cell count method - Blood [facility] Neutrophils/100 leukocytes in Blood by Automated count 49 % [facility] Lymphocytes/100 leukocytes in Blood by Automated count 41 % [facility] Monocytes/100 leukocytes in Blood by Automated count 7 % [facility] Eosinophils/100 leukocytes in Blood by Automated count 3 % [facility] Basophils/100 leukocytes in Blood by Automated count 0 % [facility] Neutrophils [#/volume] in Blood by Automated count 2.70 10*3/uL 1.8-7 .0 [facility] Lymphocytes [#/volume] in Blood by Automated count 2.23 10*3/uL 1.2-4 .0 [facility] Monocytes [#/volume] in Blood by Automated count 0.39 10*3/uL 0-0.8 [facility] Eosinophils [#/volume] in Blood by Automated count 0.14 10*3/uL 0-0.5 [facility] Basophils [#/volume] in Blood by Automated count 0.02 10*3/uL 0-0.2 [facility] Nucleated erythrocytes/100 leukocytes [Ratio] in Blood by Automated count 0 /100{WBCs} 0-0 [facility] ID Date Data Source [id number] 09/17/2020 08:03:13 PM [facility] Name Value Range Interpretation Code Description Data Jessika rce(s) Supporting Document(s) Bicarbonate [Moles/volume] in Serum 21 mmol/L 22-29 L [facility] Chloride [Moles/volume] in Serum or Plasma 108 mmol/L 98-107 H [facility] Creatinine [Mass/volume] in Serum or Plasma 0.62 mg/dL 0.50-0.90 [facility] Glucose [Mass/volume] in Serum or Plasma 108 mg/dL 70-140 [facility] Potassium [Moles/volume] in Serum or Plasma 3.6 mmol/L 3.4-5.1 [facility] Sodium [Moles/volume] in Serum or Plasma 140 mmol/L 136-145 [facility] Urea nitrogen [Mass/volume] in Serum or Plasma 8 mg/dL 6-20 [facility] Anion gap 3 in Serum or Plasma 11 mmol/L 8-15 [facility] Osmolality of Serum or Plasma by calculation 289 mosm/kg 275-300 [facility] Creatinine/Urea nitrogen [Mass Ratio] in Serum or Plasma 13 [facility] Calcium [Mass/volume] in Serum or Plasma 8.4 mg/dL 8.6-10.0 L [facility] Glomerular filtration rate/1.73 sq M pre dicted among non-blacks [Volume Rate/Area] in Serum or Plasma by Creatinine-based formula (MDRD) >6 0 [facility] Glomerular filtration rate/1.73 sq M pre dicted among blacks [Volume Rate/Area] in Serum or Plasma by Creatinine-based formula (MDRD) >60 [facility] ID Date Data Source [id number] 09/16/2020 01:38:00 PM [facility] Patient Name: Megan Marcano : 1975 Sex: F Pt Unit #: [id number] Location:[facility] Provider: Visit Date/Time: 09/16/20 Primary Insurance: [facility] Secondary Insurance: Self Pay Intake Vital [...] Intake Visit Reasons: Encounter to establish care, 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 She had a Ct that showed an ovarian cyst. She was referred from Dr. Delgado. LMP was 09/13/20. When they push the left side she does have pain. She has fibromyalgia so not sure what the pain is from. Her last pap was 10/24/17 negative no hpv. no other questions or concerns. 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 Finally she is due for a Pap smear but since she is currently menstruating she prefer to reschedule for that procedure in a week or 2. [place] [address] New Pt Extended Comp Patient Type New Exam Expanded Problem Focused Diagnoses Encounter to establish care Z76.89 <Electronically signed by Cedrick Valdovinos MD> 09/16/20 1459 Name Value Range Interpretation Code Description Data Jessika rce(s) Supporting Document(s) ID Date Data Source [id number] 09/03/2020 02:42:00 PM EST [place] ([facility]) Name Value Range Interpretation Code Description Data Jessika rce(s) Supporting Document(s) Hemoglobin A1c/Hemoglobin.total in Blood 5.6 na Hgba1c [place] ([facility]) Note: Responsible Observer: KM ID Date Data Source [id number] 09/03/2020 02:42:00 PM EST [place] ([facility]) Name Value Range Interpretation Code Description Data Jessika rce(s) Supporting Document(s) Urea nitrogen [Moles/volume] in Blood 6 mg/dl Urea Nitrogen [place] ([facility]) Note: Responsible Observer: KM Calcium [Moles/volume] in Urine collected for unspecified durati on 9.9 mg/dl Calcium [place] ([facility]) Note: Responsible Observer: KM CO2 24 mmol/L CO2 [place] ([facility]) Note: Responsible Observer: KM Chloride [Moles/volume] in Serum, Plasma or Blood 105 mmol/L Chloride [place] ([facility]) Note: Responsible Observer: KM Creatinine [Moles/volume] in Vitreous fluid 0.4 mg/dl Below low normal Creatinine [place] ([facility]) Note: Responsible Observer: KM EGFR - AfricanAm > 60 N/A EGFR - AfricanAm [facility] ([facility]) Note: Responsible Observer: KM EGFR - Non AF AM > 60 N/A EGFR - Non AF AM [facility] ([facility]) Note: Responsible Observer: KM Glucose [Mass/volume] in Urine collected for unspecified duratio n 115 mg/dl Above high normal Glucose [place] ([facility]) Note: Responsible Observer: KM Potassium [Mass/volume] in Blood 4.2 mmol/L Pot assium [place] ([facility]) Note: Responsible Observer: KM Sodium [Moles/volume] in Serum, Plasma or Blood 140 mmol/L Sodium [place] ([facility]) Note: Responsible Observer: KM ID Date Data Source [id number] 05/28/2020 03:05:00 PM EST [facility] ([facility]) Name Value Range Interpretation Code Description Data Jessika rce(s) Supporting Document(s) FVC-Pred 3.84 L [facility] ([facility]) Do the PFT on maintenance inhaled medi cations. [facility]eport [facility] Do the PFT on maintenance inhaled medi cations. FVC-%Pred-Pre 74 L [facility] ([facility]) Do the PFT on maintenance inhaled medi cations. FVC-Pre 2.85 L [facility] ([facility]) Do the PFT on maintenance inhaled medi cations. FVC-LLN 3.10 L [facility] ([facility]) Do the PFT on maintenance inhaled medi cations. Fev1-%Pred-Pre 77 L [facility] ([facility]) Do the PFT on maintenance inhaled medi cations. Fev1-Pre 2.37 L [facility] ([facility]) Do the PFT on maintenance inhaled medi cations. Fev1-Pred 3.07 L [facility] ([facility]) Do the PFT on maintenance inhaled medi cations. Fev1-LLN 2.44 L [facility] ([facility]) Do the PFT on maintenance inhaled medi cations. Fev6-Pred 3.75 L [facility] ([facility]) Do the PFT on maintenance inhaled medi cations. Fev6-Pre 2.85 L [facility] ([facility]) Do the PFT on maintenance inhaled medi cations. Fev6-%Pred-Pre 76 L [facility] ([facility]) Do the PFT on maintenance inhaled medi cations. Eiu9rhc-Ndjx 81 % [facility] ([facility]) Do the PFT on maintenance inhaled medi cations. Fev6-LLN 3.03 L [facility] ([facility]) Do the PFT on maintenance inhaled medi cations. Lxr8obk-XDK 71 % [facility] ([facility]) Do the PFT on maintenance inhaled medi cations. Ive8sob-Yws 83 % [facility] ([facility]) Do the PFT on maintenance inhaled medi cations. Rlu6sat-%Pred-Pre 102 % [facility] ([facility]) Do the PFT on maintenance inhaled medi cations. Plu3lro-%Pred-Pre 102 % [facility] ([facility]) Do the PFT on maintenance inhaled medi cations. Qij5yjx-Bsnd 98 % [facility] ([facility]) Do the PFT on maintenance inhaled medi cations. Tuw7cqu-Oji 100 % [facility] ([facility]) Do the PFT on maintenance inhaled medi cations. FEFMax-%Pred-Pre 89 L/E/sec [facility] ([facility]) Do the PFT on maintenance inhaled medi cations. FEFMax-Pred 7.14 L/E/sec [facility] ([facility]) Do the PFT on maintenance inhaled medi cations. FEFMax-Pre 6.42 L/E/sec [facility] ([facility]) Do the PFT on maintenance inhaled medi cations. FEFMax-LLN 5.31 L/E/sec [facility] ([facility]) Do the PFT on maintenance inhaled medi cations. Rbq3546-Cyg 2.61 L/E/sec [facility] ([facility]) Do the PFT on maintenance inhaled medi cations. Nll7691-%Pred-Pre 87 L/E/sec [facility] ([facility]) Do the PFT on maintenance inhaled medi cations. Bhl0411-Buhb 2.99 L/E/sec [facility] ([facility]) Do the PFT on maintenance inhaled medi cations. Lkp2513-YVO 1.67 L/E/sec [facility] ([facility]) Do the PFT on maintenance inhaled medi cations. ExpTime-Pre 5.65 sec [facility] ([facility]) Do the PFT on maintenance inhaled medi cations. Ihq2wqs5-Izhk 83 % [facility] ([facility]) Do the PFT on maintenance inhaled medi cations. Hjx2ywg4-LBG 74 % [facility] ([facility]) Do the PFT on maintenance inhaled medi cations. Oho6yyu8-%Pred-Pre 100 % [facility] ([facility]) Do the PFT on maintenance inhaled medi cations. Lta8nfn3-Otk 83 % [facility] ([facility]) Do the PFT on maintenance inhaled medi cations. ID Date Data Source [id number] 04/23/2020 04:25:14 PM EDT [facility] Name Value Range Interpretation Code Description Data Jessika rce(s) Supporting Document(s) Progress Note [facility] [id number] m [file] [id number] ID Date Data Source [id number] 04/20/2020 03:29:00 PM EDT [place] ([facility]) Name Value Range Interpretation Code Description Data Jessika rce(s) Supporting Document(s) Hemoglobin A1c/Hemoglobin.total in Blood 5.9 na Hgba1c [place] ([facility]) Note: Responsible Observer: ASHLYN Procedure Social History Code Duration Value Status Description Data Source(s ) Alcohol intake 02/25/2021 12:00:00 AM EDT Current non-d nieves of alcohol (finding) completed Current non-drinker of alcohol (finding) [facility] Tobacco use and exposure 02/25/2021 12:00:00 AM EDT Never used co mpleted Never used [facility] Smoking 02/25/2021 12:00:00 AM EDT Never smoker completed Never s [facility] Alcohol intake 09/17/2020 12:00:00 AM EST Current non-d nieves of alcohol (finding) completed Current non-drinker of alcohol (finding) [facility] 09/16/2020 02:09:43 PM EST Never smoker completed Never s [facility] Smoking 09/16/2020 01:09:00 PM EST Never smoker completed Never [facility] Smoking 05/28/2020 12:00:00 AM EST Patient has never smoked co mpleted Patient has never smoked [facility] ([facility], ) Alcohol intake 04/23/2020 12:00:00 AM EDT Current non-d nieves of alcohol (finding) completed Current non-drinker of alcohol (finding) [facility] Vital Signs ID Date Data Source UNK Name Value Range Interpretation Code Description Data Source(s) Systolic blood pressure 150 mm[Hg] 150 mm[Hg] [facility] rec[facility]ck Diastolic blood pressure 105 mm[Hg] 105 mm[Hg] [place] ([facility]) recheck Systolic blood pressure 169 mm[Hg] 169 mm[Hg] [facility] ([facility]) Diastolic blood pressure 118 mm[Hg] 118 mm[Hg] [place] ([facility]) Heart rate 87 /min 87 /min [facility] ([facility]) Body height 67 [in_i] 67 [in_i] [facility] ([facility]) Body weight 241 [lb_av] 241 [lb_av] [place] ([facility]) Body mass index (BMI) [Ratio] 37.7 kg/m2 37.7 k g/m2 [place] ([facility]) Body surface area Derived from formula 2.19 m2 2.19 m2 [place] ([facility]) Systolic blood pressure 130 mm[Hg] 130 mm[Hg] M [facility] ([facility], ) Diastolic blood pressure 70 mm[Hg] 70 mm[Hg] [facility], ) Heart rate 74 /min 74 /min [facility] ([facility], ) Oxygen saturation in Arterial blood by Pulse oximetry 96 % 96 % [facility] ([facility], ) Body temperature 98.2 [degF] 98.2 [degF] [facility] ([facility], ) Body height 66 [in_i] 66 [in_i] [facility] ([facility], ) 5'6" Body weight 260.00 [lb_av] 260.00 [lb_av] [facility] ([facility], ) Body mass index (BMI) [Ratio] 42.0 kg/m2 42.0 k g/m2 [facility] ([facility], ) [place] body weight 130 [lb_av] 130 [lb_av] [facility] ([facility] ) Body weight 117.936 kg 117.936 kg [facility] ([facility], ) Systolic blood pressure 110 mm[Hg] 110 mm[Hg] G [facility] ([facility]) Diastolic blood pressure 80 mm[Hg] 80 mm[Hg] [place] ([facility]) Heart rate 78 /min 78 /min [facility] ([facility]) Respiratory rate 24 /min 24 /min [place] ([facility]) Body height 67 [in_i] 67 [in_i] [place] ([facility]) Body weight 258 [lb_av] 258 [lb_av] [place] ([facility]) Body mass index (BMI) [Ratio] 40.4 kg/m2 40.4 k g/m2 [place] ([facility]) Body surface area Derived from formula 2.25 m2 2.25 m2 [place] ([facility]) ID Date Data Source [id number] 02/25/2021 10:54:18 AM EDT [facility] Name Value Range Interpretation Code Description Data Source(s) CONTACT SPECIFIC IDENTITY ID [id number] AUT [id number] [facility] ID Date Data Source [id number] 02/23/2021 03:17:46 PM EDT [facility] Name Value Range Interpretation Code Description Data Source(s) CONTACT SPECIFIC IDENTITY ID [id number] AUT [id number] [facility] ID Date Data Source [id number] 12/28/2020 09:16:37 AM EDT [facility] Name Value Range Interpretation Code Description Data Source(s) PREFERRED NAME [facility] ID Date Data Source [id number] 12/31/2020 03:08:18 PM EDT [facility] Name Value Range Interpretation Code Description Data Source(s) PREFERRED NAME [facility] ID Date Data Source [id number] 11/03/2020 01:22:22 PM EDT [facility] Name Value Range Interpretation Code Description Data Source(s) PREFERRED NAME [facility] ID Date Data Source [id number] 09/20/2020 11:17:04 PM EST [facility] Name Value Range Interpretation Code Description Data Source(s) WEIGHT RECORDED 246 lb 246 lb [facility] ID Date Data Source [id number] 04/23/2020 04:25:14 PM EDT [facility] Name Value Range Interpretation Code Description Data Source(s) WEIGHT RECORDED 254 lb 254 lb [facility] Patient Treatment Plan of Care Planned Activity Planned Date Details Description Data Source (s) mycophenolate mofetil 250 MG Oral Capsule 01/15/2021 12:00:00 AM [facility] Pyridostigmine [place] 60 MG Oral Tablet 12/28/2020 12:00:00 AM [facility] mycophenolate mofetil 250 MG Oral Capsule 10/19/2020 12:00:00 AM [facility] Amlodipine 5 MG Oral Tablet 09/03/2020 12:00:00 AM [facility]) buspirone hydrochloride 10 MG Oral Tablet 08/25/2020 12:00:00 AM [facility]) mycophenolate mofetil 250 MG Oral Capsule 08/05/2020 12:00:00 AM [facility] Sumatriptan 100 MG Oral Tablet 07/27/2020 12:00:00 AM [facility]) [place] Lancets 33G Miscellaneous 07/20/2020 12:00:00 AM [facility] ([facility]) Trazodone Hydrochloride 100 MG Oral Tablet 07/20/2020 12:00:00 AM E [facility]) Pyridostigmine [place] 60 MG Oral Tablet 05/25/2020 12:00:00 AM [facility] [place] In Vitro Strip 05/20/2020 12:00:00 AM [facility]) 60 ACTUAT Albuterol 0.09 MG/ACTUAT Metered Dose Inhale r 04/29/2020 12:00:00 AM [facility] ([facility]) buspirone hydrochloride 10 MG Oral Tablet 04/20/2020 12:00:00 AM [facility]) Amlodipine 5 MG Oral Tablet 04/20/2020 12:00:00 AM [facility]) Trazodone Hydrochloride 100 MG Oral Tablet 04/20/2020 12:00:00 AM E [facility] ([facility]) Ondansetron 4 MG Disintegrating Oral Tablet 04/20/2020 12:00:00 AM [facility] ([facility]) Bisoprolol Fumarate 10 MG Oral Tablet 04/20/2020 12:00:00 AM [facility]) Hydrochlorothiazide 25 MG / Losartan Potassium 100 MG Oral Tablet 04/20/2020 12:00:00 AM [facility] ([facility]) Fenofibrate 145 MG Oral Tablet [Tricor] 04/20/2020 12:00:00 AM [facility]) 24 HR Metformin hydrochloride 500 MG Extended Release Oral Tablet 04/20/2020 12:00:00 AM [facility] ([facility]) pantoprazole 40 MG Delayed Release Oral Tablet 04/20/2020 12:00:00 AM [facility]) Hydrochlorothiazide 25 MG Oral Tablet 03/03/2020 12:00:00 AM [facility]) Ondansetron 4 MG Disintegrating Oral Tablet 11/15/2019 12:00:00 AM [facility]) Amlodipine 5 MG Oral Tablet 05/20/2019 12:00:00 AM [facility]) Bisoprolol Fumarate 10 MG Oral Tablet 05/15/2019 12:00:00 AM [facility]) 24 HR Metformin hydrochloride 500 MG Extended Release Oral Tablet 05/15/2019 12:00:00 AM [facility] ([facility]) pantoprazole 40 MG Delayed Release Oral Tablet 05/15/2019 12:00:00 AM [facility]) Sumatriptan 100 MG Oral Tablet 05/15/2019 12:00:00 AM [facility]) Trazodone Hydrochloride 100 MG Oral Tablet 05/15/2019 12:00:00 AM [facility]) 200 ACTUAT Albuterol 0.09 MG/ACTUAT Metered Dose Inhal er [Ventolin] 05/15/2019 12:00:00 AM [facility]) Hydrochlorothiazide 25 MG / Losartan Potassium 100 MG Oral Tablet 05/15/2019 12:00:00 AM [facility] ([facility]) OneTouch Verio In Vitro Strip 05/15/2019 12:00:00 AM [facility]) Fenofibrate 145 MG Oral Tablet [Tricor] 05/15/2019 12:00:00 AM EDT [facility] ([facility])
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
[2021-05-06] MEDS: traZODone 100 MG TAB PO SCH ×2 (03:10→20:48)
[2021-05-06] MEDS: PERCOCET 5MG/325MG TAB PO PRN ×4 (03:53→23:23)
[2021-05-06] MEDS ORDERED: NS 1,000 ML IV SCH (05:05)
[2021-05-06] MEDS ORDERED: NS 1,000 ML IV ONE (05:20)
[2021-05-06 05:59] VITALS: BP 126/70
[2021-05-06] MEDS: DICLOFENAC EPOLAMINE 1.3 % PATCH TOP SCH ×2 (06:56→17:43)
[2021-05-06 07:20] LABS: BASO % 0.3 % (0.0-1.0); EOS # 0.1 10^3/uL (0.0-0.5); HEMATOCRIT 40.1 % (36.0-47.0); HEMOGLOBIN 12.9 g/dl (12.0-15.5); LYMPH # 1.4 10^3/uL (1.5-5.0); LYMPH % 15.4 % (24.0-44.0); MEAN CORPUSCULAR HEMOGLOBIN 28.6 pg (27.0-33.0); MEAN CORPUSCULAR HGB CONC 32.2 g/dl (32.0-36.5); MEAN CORPUSCULAR VOLUME 88.9 fl (80.0-96.0); MONO # 0.7 10^3/uL (0.0-0.8); MONO % 7.9 % (2.0-8.0); NEUTROPHILS # 6.7 10^3/uL (1.5-8.5); NEUTROPHILS % 75.1 % (36.0-66.0); PLATELET COUNT, AUTOMATED 346 10^3/uL (150-450); RED BLOOD COUNT 4.51 10^6/uL (4.00-5.40)
[2021-05-06] MEDS: HumaLOG INSULIN (NovoLOG) PER UNIT SC SCH ×4 (07:30→20:31)
[2021-05-06 07:41] LABS: BLOOD UREA NITROGEN 7 MG/DL (7-18); CALCIUM LEVEL 8.9 MG/DL (8.5-10.1); CARBON DIOXIDE LEVEL 24 MEQ/L (21-32); CHLORIDE LEVEL 109 MEQ/L (98-107); GLOMERULAR FILTRATION RATE > 60.0 (>58); GLUCOSE, FASTING 109 MG/DL (70-100); POTASSIUM SERUM 3.4 MEQ/L (3.5-5.1); SODIUM LEVEL 141 MEQ/L (136-145)
[2021-05-06] MEDS: PYRIDOSTIGMINE 60MG TABLET PO SCH ×4 (09:28→20:48)
[2021-05-06] MEDS: PREGABALIN 100 MG CAP (LYRICA) PO SCH ×2 (09:28→20:49)
[2021-05-06] MEDS: MYCOPHENOLATE MOFETIL 250 MG CAP (J7517) PO SCH ×2 (09:29→20:49)
[2021-05-06] MEDS: CYANOCOBALAMIN 500 MCG TAB PO SCH (09:29)
[2021-05-06] MEDS: rOPINIRole 0.25 MG TAB(REQUIP) PO SCH ×2 (09:30→20:48)
[2021-05-06] MEDS: oxyCODONE 5MG TAB PO SCH ×2 (09:30→20:51)
[2021-05-06] MEDS: busPIRone 10 MG TAB PO SCH ×3 (09:30→20:49)
[2021-05-06] MEDS: ASCORBIC ACID 500 MG TAB PO SCH (09:30)
[2021-05-06] MEDS: MULTIVITAMINS/MINERALS THERAP 1 TAB PO SCH (09:30)
[2021-05-06] MEDS: MELOXICAM (MOBIC) 7.5 MG TAB PO SCH (09:30)
[2021-05-06] MEDS: CALCIUM CARBONATE 500 MG CHEW U/D PO SCH (09:30)
[2021-05-06] MEDS: LOSARTAN 50MG TABLET PO SCH (09:37)
[2021-05-06] MEDS: PANTOPRAZOLE 40MG TAB (PROTONIX) PO SCH ×2 (09:39→20:48)
[2021-05-06 11:00] VITALS: BP 138/98
[2021-05-06 14:00] VITALS: BP 150/74
[2021-05-06] MEDS: NYSTATIN 100,000 UNITS/GM TOPICAL PWD 15 GM TOP SCH ×2 (14:26→20:52)
[2021-05-06] MEDS: NS 1,000 ML IV SCH ×2 (14:26→23:58)
[2021-05-06] MEDS: FENOFIBRATE 145MG TABLET (TRICOR) PO SCH (16:25)
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
[2021-05-06] MEDS: ATORVASTATIN 10 MG TAB PO SCH (20:49)
[2021-05-06] MEDS: LATANOPROST 0.005% OPHTH SOLN 2.5 ML OU SCH (20:51)
[2021-05-06] MEDS: bisoproloL fumarate 10 MG TAB PO SCH (20:55)
[2021-05-06 22:00] VITALS: BP 108/78
[2021-05-06] MEDS: SUMAtriptan SUCCINATE 25 MG TAB PO PRN (23:14)
[2021-05-07] MEDS: DICLOFENAC EPOLAMINE 1.3 % PATCH TOP SCH ×2 (05:14→17:19)
[2021-05-07] MEDS: PERCOCET 5MG/325MG TAB PO PRN ×3 (05:19→17:20)
[2021-05-07 06:00] VITALS: BP 118/75
[2021-05-07] MEDS ORDERED: CHLORASEPTIC SPRAY MT PRN (08:15)
[2021-05-07 08:46] LABS: BASO # 0.1 10^3/uL (0.0-0.2); BASO % 0.8 % (0.0-1.0); EOS # 0.2 10^3/uL (0.0-0.5); EOS % 3.2 % (0.0-3.0); HEMATOCRIT 40.4 % (36.0-47.0); HEMOGLOBIN 12.6 g/dl (12.0-15.5); LYMPH # 2.4 10^3/uL (1.5-5.0); LYMPH % 39.6 % (24.0-44.0); MEAN CORPUSCULAR HGB CONC 31.2 g/dl (32.0-36.5); MEAN CORPUSCULAR VOLUME 93.1 fl (80.0-96.0); MONO # 0.6 10^3/uL (0.0-0.8); MONO % 9.2 % (2.0-8.0); NEUTROPHILS # 2.8 10^3/uL (1.5-8.5); PLATELET COUNT, AUTOMATED 376 10^3/uL (150-450); RED BLOOD COUNT 4.34 10^6/uL (4.00-5.40)
[2021-05-07] MEDS: oxyCODONE 5MG TAB PO SCH ×2 (09:00→21:11)
[2021-05-07] MEDS: LOSARTAN 50MG TABLET PO SCH (09:00)
[2021-05-07] MEDS: HumaLOG INSULIN (NovoLOG) PER UNIT SC SCH ×4 (09:10→20:16)
[2021-05-07] MEDS: CALCIUM CARBONATE 500 MG CHEW U/D PO SCH (09:10)
[2021-05-07] MEDS: rOPINIRole 0.25 MG TAB(REQUIP) PO SCH ×2 (09:10→21:10)
[2021-05-07] MEDS: MULTIVITAMINS/MINERALS THERAP 1 TAB PO SCH (09:10)
[2021-05-07] MEDS: PYRIDOSTIGMINE 60MG TABLET PO SCH ×4 (09:10→21:09)
[2021-05-07] MEDS: PREGABALIN 100 MG CAP (LYRICA) PO SCH ×2 (09:10→21:09)
[2021-05-07] MEDS: CYANOCOBALAMIN 500 MCG TAB PO SCH (09:11)
[2021-05-07] MEDS: ASCORBIC ACID 500 MG TAB PO SCH (09:11)
[2021-05-07] MEDS: busPIRone 10 MG TAB PO SCH ×3 (09:11→21:10)
[2021-05-07] MEDS: PANTOPRAZOLE 40MG TAB (PROTONIX) PO SCH ×2 (09:11→21:10)
[2021-05-07] MEDS: MYCOPHENOLATE MOFETIL 250 MG CAP (J7517) PO SCH ×2 (09:11→17:19)
[2021-05-07] MEDS: MELOXICAM (MOBIC) 7.5 MG TAB PO SCH (09:11)
[2021-05-07] MEDS: NYSTATIN 100,000 UNITS/GM TOPICAL PWD 15 GM TOP SCH ×2 (09:13→21:12)
[2021-05-07 09:20] LABS: CALCIUM LEVEL 8.9 MG/DL (8.5-10.1); CREATININE FOR GFR 1.18 MG/DL (0.55-1.30); MAGNESIUM LEVEL 2.1 MG/DL (1.8-2.4)
[2021-05-07] MEDS ORDERED: NS 1,000 ML IV ONE (09:45)
--- NOTE | 2021-05-07 09:48 | ECGEPIP ---
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
[2021-05-07] MEDS: SUCRALFATE SUSP 1GM/10ML UD PO SCH ×3 (12:55→21:08)
[2021-05-07 14:00] VITALS: BP 112/72
[2021-05-07] MEDS: FENOFIBRATE 145MG TABLET (TRICOR) PO SCH (17:19)
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
[2021-05-07 19:57] VITALS: BP 120/75
[2021-05-07] MEDS: traZODone 100 MG TAB PO SCH (21:08)
[2021-05-07] MEDS: bisoproloL fumarate 10 MG TAB PO SCH (21:09)
[2021-05-07] MEDS: ATORVASTATIN 10 MG TAB PO SCH (21:10)
[2021-05-07] MEDS: LATANOPROST 0.005% OPHTH SOLN 2.5 ML OU SCH (21:12)
[2021-05-07] MEDS: ONDANSETRON 4MG/2ML VIAL IV PRN (21:40)
[2021-05-08] VITALS (15 sets, daily range): BP systolic 85–103; BP diastolic 52–76; O2SAT 87–96
[2021-05-08 03:45] LABS: BASO % 0.6 % (0.0-1.0); EOS # 0.2 10^3/uL (0.0-0.5); EOS % 4.1 % (0.0-3.0); HEMATOCRIT 36.5 % (36.0-47.0); HEMOGLOBIN 11.4 g/dl (12.0-15.5); LYMPH % 37.6 % (24.0-44.0); MEAN CORPUSCULAR HEMOGLOBIN 29.2 pg (27.0-33.0); MEAN CORPUSCULAR HGB CONC 31.2 g/dl (32.0-36.5); MEAN CORPUSCULAR VOLUME 93.4 fl (80.0-96.0); MONO # 0.5 10^3/uL (0.0-0.8); MONO % 10.4 % (2.0-8.0); NEUTROPHILS # 2.4 10^3/uL (1.5-8.5); NEUTROPHILS % 47.1 % (36.0-66.0); PLATELET COUNT, AUTOMATED 340 10^3/uL (150-450); RED BLOOD COUNT 3.91 10^6/uL (4.00-5.40); WHITE BLOOD COUNT 5.2 10^3/uL (4.0-10.0)
[2021-05-08] MEDS: ONDANSETRON 4MG/2ML VIAL IV PRN (04:00)
[2021-05-08 04:03] LABS: ABG BASE EXCESS -2.9 (-2.0-2.0); ABG HCO3 24.3 MEQ/L (22.0-26.0); ABG O2 SATURATION 93.6 % (95.0-99.0); ABG PARTIAL PRESSURE CO2 52.9 mmHg (35.0-45.0); ABG PARTIAL PRESSURE O2 74.6 mmHg (75.0-100.0); ABG TOTAL CO2 25.9 MEQ/L (22.0-29.0)
[2021-05-08 04:05] LABS: CREATININE FOR GFR 1.21 MG/DL (0.55-1.30); GLOMERULAR FILTRATION RATE 50.6 (>58); MAGNESIUM LEVEL 1.8 MG/DL (1.8-2.4); POTASSIUM SERUM 4.2 MEQ/L (3.5-5.1)
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
[2021-05-08] MEDS: DICLOFENAC EPOLAMINE 1.3 % PATCH TOP SCH ×2 (05:31→17:38)
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
[2021-05-08] MEDS: HumaLOG INSULIN (NovoLOG) PER UNIT SC SCH ×4 (07:30→20:52)
[2021-05-08] MEDS ORDERED: CEPACOL LOZENGE PO PRN (08:50)
[2021-05-08] MEDS: LOSARTAN 50MG TABLET PO SCH (09:00)
[2021-05-08] MEDS: PYRIDOSTIGMINE 60MG TABLET PO SCH ×4 (09:28→20:08)
[2021-05-08] MEDS: SUCRALFATE SUSP 1GM/10ML UD PO SCH ×4 (09:30→20:06)
[2021-05-08] MEDS: rOPINIRole 0.25 MG TAB(REQUIP) PO SCH ×2 (09:30→20:10)
[2021-05-08] MEDS: ASCORBIC ACID 500 MG TAB PO SCH (09:31)
[2021-05-08] MEDS: CALCIUM CARBONATE 500 MG CHEW U/D PO SCH (09:31)
[2021-05-08] MEDS: MULTIVITAMINS/MINERALS THERAP 1 TAB PO SCH (09:31)
[2021-05-08] MEDS: PANTOPRAZOLE 40MG TAB (PROTONIX) PO SCH ×2 (09:31→20:10)
[2021-05-08] MEDS: CYANOCOBALAMIN 500 MCG TAB PO SCH (09:32)
[2021-05-08] MEDS: PREGABALIN 100 MG CAP (LYRICA) PO SCH ×2 (09:32→20:06)
[2021-05-08] MEDS: busPIRone 10 MG TAB PO SCH ×3 (09:33→20:10)
[2021-05-08] MEDS: oxyCODONE 5MG TAB PO SCH ×2 (09:33→20:09)
[2021-05-08] MEDS: MELOXICAM (MOBIC) 7.5 MG TAB PO SCH (09:34)
[2021-05-08] MEDS: MYCOPHENOLATE MOFETIL 250 MG CAP (J7517) PO SCH ×2 (09:34→20:10)
[2021-05-08] MEDS: NYSTATIN 100,000 UNITS/GM TOPICAL PWD 15 GM TOP SCH ×2 (09:35→20:11)
[2021-05-08] MEDS: NS 1,000 ML IV SCH ×2 (11:11→20:06)
[2021-05-08] MEDS: ACETAMINOPHEN 500 MG TAB PO SCH ×3 (11:12→23:39)
--- NOTE | 2021-05-08 11:30 | REP ---
INDICATION: hypoxia. COMPARISON: Earlier today at 2:50 a.m. TECHNIQUE: Portable FINDINGS: The technique utilized in obtaining the radiograph has magnified the cardiac silhouette and accentuated the interstitial markings. The cardiomediastinal silhouette is unchanged. The heart is not enlarged. Pleural angles are sharp the lung manuel are clear. The osseous structures are stable and intact. IMPRESSION: There is no acute cardiopulmonary disease. <Electronically signed by Sean Reyes > 05/08/21 1123
[2021-05-08 12:04] LABS: ABG BASE EXCESS -5.5 (-2.0-2.0); ABG HCO3 21.9 MEQ/L (22.0-26.0); ABG O2 SATURATION 96.8 % (95.0-99.0); ABG PARTIAL PRESSURE CO2 51.3 mmHg (35.0-45.0); ABG PARTIAL PRESSURE O2 99.7 mmHg (75.0-100.0); ABG STANDARD HCO3 19.9 MEQ/L (22.0-26.0); ABG TOTAL CO2 23.5 MEQ/L (22.0-29.0); ABG pH (ARTERIAL) 7.248 UNITS (7.350-7.450)
[2021-05-08] MEDS ORDERED: IPRATROPIUM 0.5MG/ALBUTEROL 2.5MG INH SOL UD 3ML (DUONEB) NEB PRN (12:20)
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
[2021-05-08] MEDS: KETOROLAC 30 MG/ML 1ML VIAL IV PRN (14:47)
[2021-05-08 15:35] LABS: ABG BASE EXCESS -5.9 (-2.0-2.0); ABG HCO3 20.9 MEQ/L (22.0-26.0); ABG O2 SATURATION 97.8 % (95.0-99.0); ABG PARTIAL PRESSURE CO2 46.9 mmHg (35.0-45.0); ABG STANDARD HCO3 19.6 MEQ/L (22.0-26.0); ABG TOTAL CO2 22.3 MEQ/L (22.0-29.0); ABG pH (ARTERIAL) 7.267 UNITS (7.350-7.450)
[2021-05-08] MEDS: FENOFIBRATE 145MG TABLET (TRICOR) PO SCH (16:29)
[2021-05-08] MEDS: ATORVASTATIN 10 MG TAB PO SCH (20:06)
[2021-05-08] MEDS: traZODone 100 MG TAB PO SCH (20:07)
[2021-05-08] MEDS: bisoproloL fumarate 10 MG TAB PO SCH (20:09)
[2021-05-08] MEDS: DOCUSATE SODIUM 100MG CAPSULE PO SCH (20:09)
[2021-05-08] MEDS: LATANOPROST 0.005% OPHTH SOLN 2.5 ML OU SCH (20:11)
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
[2021-05-09] VITALS (14 sets, daily range): BP systolic 88–131; BP diastolic 53–73; O2SAT 97–99
[2021-05-09] MEDS: DICLOFENAC EPOLAMINE 1.3 % PATCH TOP SCH ×2 (05:08→17:06)
[2021-05-09] MEDS: NS 1,000 ML IV SCH (05:09)
[2021-05-09] MEDS: ACETAMINOPHEN 500 MG TAB PO SCH ×3 (05:09→18:18)
[2021-05-09 05:57] LABS: BASO % 0.7 % (0.0-1.0); EOS # 0.2 10^3/uL (0.0-0.5); EOS % 3.5 % (0.0-3.0); HEMATOCRIT 34.5 % (36.0-47.0); HEMOGLOBIN 10.6 g/dl (12.0-15.5); LYMPH # 1.7 10^3/uL (1.5-5.0); LYMPH % 28.5 % (24.0-44.0); MEAN CORPUSCULAR HEMOGLOBIN 28.7 pg (27.0-33.0); MEAN CORPUSCULAR HGB CONC 30.7 g/dl (32.0-36.5); MEAN CORPUSCULAR VOLUME 93.5 fl (80.0-96.0); MONO # 0.5 10^3/uL (0.0-0.8); NEUTROPHILS # 3.4 10^3/uL (1.5-8.5); NEUTROPHILS % 58.8 % (36.0-66.0); PLATELET COUNT, AUTOMATED 290 10^3/uL (150-450); RED BLOOD COUNT 3.69 10^6/uL (4.00-5.40); WHITE BLOOD COUNT 5.8 10^3/uL (4.0-10.0)
[2021-05-09 06:25] LABS: BLOOD UREA NITROGEN 10 MG/DL (7-18); CALCIUM LEVEL 8.4 MG/DL (8.5-10.1); CARBON DIOXIDE LEVEL 27 MEQ/L (21-32); CHLORIDE LEVEL 111 MEQ/L (98-107); CREATININE FOR GFR 0.79 MG/DL (0.55-1.30); GLOMERULAR FILTRATION RATE > 60.0 (>58); GLUCOSE, FASTING 100 MG/DL (70-100); MAGNESIUM LEVEL 1.9 MG/DL (1.8-2.4); POTASSIUM SERUM 4.9 MEQ/L (3.5-5.1); SODIUM LEVEL 140 MEQ/L (136-145)
[2021-05-09] MEDS: HumaLOG INSULIN (NovoLOG) PER UNIT SC SCH ×4 (07:21→21:00)
[2021-05-09] MEDS: SUCRALFATE SUSP 1GM/10ML UD PO SCH ×4 (07:50→21:21)
[2021-05-09] MEDS: PANTOPRAZOLE 40MG TAB (PROTONIX) PO SCH ×2 (07:51→21:27)
[2021-05-09] MEDS: PYRIDOSTIGMINE 60MG TABLET PO SCH ×4 (07:52→21:25)
[2021-05-09] MEDS: rOPINIRole 0.25 MG TAB(REQUIP) PO SCH ×2 (07:53→21:24)
[2021-05-09] MEDS: LOSARTAN 50MG TABLET PO SCH (07:54)
[2021-05-09] MEDS: busPIRone 10 MG TAB PO SCH ×3 (07:54→21:24)
[2021-05-09] MEDS: MYCOPHENOLATE MOFETIL 250 MG CAP (J7517) PO SCH ×2 (07:55→21:30)
[2021-05-09] MEDS: ASCORBIC ACID 500 MG TAB PO SCH (07:55)
[2021-05-09] MEDS: DOCUSATE SODIUM 100MG CAPSULE PO SCH ×2 (07:55→21:29)
[2021-05-09] MEDS: oxyCODONE 5MG TAB PO SCH ×2 (07:56→21:23)
[2021-05-09] MEDS: CYANOCOBALAMIN 500 MCG TAB PO SCH (07:56)
[2021-05-09] MEDS: MULTIVITAMINS/MINERALS THERAP 1 TAB PO SCH (07:57)
[2021-05-09] MEDS: CALCIUM CARBONATE 500 MG CHEW U/D PO SCH (07:57)
[2021-05-09] MEDS: NYSTATIN 100,000 UNITS/GM TOPICAL PWD 15 GM TOP SCH ×2 (07:57→21:31)
[2021-05-09] MEDS: PREGABALIN 100 MG CAP (LYRICA) PO SCH ×2 (07:57→21:27)
[2021-05-09 10:07] LABS: ABG BASE EXCESS -5.1 (-2.0-2.0); ABG HCO3 20.9 MEQ/L (22.0-26.0); ABG O2 SATURATION 93.2 % (95.0-99.0); ABG PARTIAL PRESSURE CO2 42.2 mmHg (35.0-45.0); ABG PARTIAL PRESSURE O2 65.6 mmHg (75.0-100.0); ABG STANDARD HCO3 20.2 MEQ/L (22.0-26.0); ABG TOTAL CO2 22.2 MEQ/L (22.0-29.0); ABG pH (ARTERIAL) 7.312 UNITS (7.350-7.450)
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
[2021-05-09] MEDS: FENOFIBRATE 145MG TABLET (TRICOR) PO SCH (17:05)
[2021-05-09] MEDS: SUMAtriptan SUCCINATE 25 MG TAB PO PRN (18:18)
[2021-05-09] MEDS: ONDANSETRON 4MG/2ML VIAL IV PRN (18:18)
[2021-05-09] MEDS: ATORVASTATIN 10 MG TAB PO SCH (21:24)
[2021-05-09] MEDS: traZODone 100 MG TAB PO SCH (21:25)
[2021-05-09] MEDS: bisoproloL fumarate 10 MG TAB PO SCH (21:26)
[2021-05-09] MEDS: LATANOPROST 0.005% OPHTH SOLN 2.5 ML OU SCH (21:31)
[2021-05-10] VITALS (26 sets, daily range): BP systolic 115–152; BP diastolic 63–83; O2SAT 89–99
[2021-05-10] MEDS: ACETAMINOPHEN 500 MG TAB PO SCH ×5 (00:36→23:33)
[2021-05-10 05:58] LABS: BASO % 0.4 % (0.0-1.0); EOS # 0.2 10^3/uL (0.0-0.5); EOS % 2.1 % (0.0-3.0); HEMOGLOBIN 10.6 g/dl (12.0-15.5); LYMPH # 2.2 10^3/uL (1.5-5.0); MEAN CORPUSCULAR HEMOGLOBIN 28.6 pg (27.0-33.0); MEAN CORPUSCULAR HGB CONC 31.2 g/dl (32.0-36.5); MEAN CORPUSCULAR VOLUME 91.9 fl (80.0-96.0); MONO # 0.5 10^3/uL (0.0-0.8); MONO % 6.1 % (2.0-8.0); NEUTROPHILS # 4.7 10^3/uL (1.5-8.5); NEUTROPHILS % 62.1 % (36.0-66.0); PLATELET COUNT, AUTOMATED 283 10^3/uL (150-450); WHITE BLOOD COUNT 7.5 10^3/uL (4.0-10.0)
[2021-05-10] MEDS: DICLOFENAC EPOLAMINE 1.3 % PATCH TOP SCH ×2 (06:26→17:41)
[2021-05-10 06:27] LABS: BLOOD UREA NITROGEN 9 MG/DL (7-18); CALCIUM LEVEL 8.1 MG/DL (8.5-10.1); CARBON DIOXIDE LEVEL 28 MEQ/L (21-32); CHLORIDE LEVEL 110 MEQ/L (98-107); GLOMERULAR FILTRATION RATE > 60.0 (>58); GLUCOSE, FASTING 85 MG/DL (70-100); MAGNESIUM LEVEL 1.7 MG/DL (1.8-2.4); POTASSIUM SERUM 4.6 MEQ/L (3.5-5.1); SODIUM LEVEL 140 MEQ/L (136-145)
[2021-05-10] MEDS: SUMAtriptan SUCCINATE 25 MG TAB PO PRN (06:43)
[2021-05-10] MEDS: HumaLOG INSULIN (NovoLOG) PER UNIT SC SCH ×4 (07:30→20:52)
[2021-05-10] MEDS: KETOROLAC 30 MG/ML 1ML VIAL IV PRN (08:34)
[2021-05-10] MEDS: MYCOPHENOLATE MOFETIL 250 MG CAP (J7517) PO SCH ×2 (08:35→20:28)
[2021-05-10] MEDS: rOPINIRole 0.25 MG TAB(REQUIP) PO SCH ×2 (08:35→20:30)
[2021-05-10] MEDS: CALCIUM CARBONATE 500 MG CHEW U/D PO SCH (08:35)
[2021-05-10] MEDS: MULTIVITAMINS/MINERALS THERAP 1 TAB PO SCH (08:35)
[2021-05-10] MEDS: PREGABALIN 100 MG CAP (LYRICA) PO SCH ×2 (08:35→20:29)
[2021-05-10] MEDS: ASCORBIC ACID 500 MG TAB PO SCH (08:35)
[2021-05-10] MEDS: SUCRALFATE SUSP 1GM/10ML UD PO SCH ×4 (08:35→20:27)
[2021-05-10] MEDS: CYANOCOBALAMIN 500 MCG TAB PO SCH (08:36)
[2021-05-10] MEDS: LOSARTAN 50MG TABLET PO SCH (08:36)
[2021-05-10] MEDS: oxyCODONE 5MG TAB PO SCH ×2 (08:38→20:31)
[2021-05-10] MEDS: NYSTATIN 100,000 UNITS/GM TOPICAL PWD 15 GM TOP SCH ×2 (08:39→20:33)
[2021-05-10] MEDS: PANTOPRAZOLE 40MG TAB (PROTONIX) PO SCH ×2 (08:40→20:30)
[2021-05-10] MEDS: DOCUSATE SODIUM 100MG CAPSULE PO SCH ×2 (08:41→20:28)
[2021-05-10] MEDS: PYRIDOSTIGMINE 60MG TABLET PO SCH ×4 (09:31→20:29)
[2021-05-10] MEDS: busPIRone 10 MG TAB PO SCH ×3 (09:31→20:27)
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
[2021-05-10] MEDS: FENOFIBRATE 145MG TABLET (TRICOR) PO SCH (16:16)
[2021-05-10] MEDS: traZODone 100 MG TAB PO SCH (20:28)
[2021-05-10] MEDS: ATORVASTATIN 10 MG TAB PO SCH (20:29)
[2021-05-10] MEDS ORDERED: PILL CUTTER 1 EACH XX PRN (20:30)
[2021-05-10] MEDS: bisoproloL fumarate 10 MG TAB PO SCH (20:32)
[2021-05-10] MEDS: LATANOPROST 0.005% OPHTH SOLN 2.5 ML OU SCH (20:32)
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
[2021-05-11] VITALS (16 sets, daily range): BP systolic 108–155; BP diastolic 65–94; O2SAT 91–97
[2021-05-11] MEDS: ACETAMINOPHEN 500 MG TAB PO SCH ×4 (05:48→23:29)
[2021-05-11] MEDS: DICLOFENAC EPOLAMINE 1.3 % PATCH TOP SCH ×2 (05:50→17:21)
[2021-05-11 06:27] LABS: BASO % 0.4 % (0.0-1.0); EOS # 0.2 10^3/uL (0.0-0.5); EOS % 2.6 % (0.0-3.0); HEMATOCRIT 33.3 % (36.0-47.0); HEMOGLOBIN 10.5 g/dl (12.0-15.5); LYMPH # 2.3 10^3/uL (1.5-5.0); LYMPH % 33.7 % (24.0-44.0); MEAN CORPUSCULAR HEMOGLOBIN 29.1 pg (27.0-33.0); MEAN CORPUSCULAR HGB CONC 31.5 g/dl (32.0-36.5); MEAN CORPUSCULAR VOLUME 92.2 fl (80.0-96.0); MONO # 0.5 10^3/uL (0.0-0.8); MONO % 7.1 % (2.0-8.0); NEUTROPHILS # 3.8 10^3/uL (1.5-8.5); NEUTROPHILS % 55.9 % (36.0-66.0); PLATELET COUNT, AUTOMATED 291 10^3/uL (150-450); RED BLOOD COUNT 3.61 10^6/uL (4.00-5.40); WHITE BLOOD COUNT 6.9 10^3/uL (4.0-10.0)
[2021-05-11 06:51] LABS: BLOOD UREA NITROGEN 9 MG/DL (7-18); CALCIUM LEVEL 8.6 MG/DL (8.5-10.1); CARBON DIOXIDE LEVEL 31 MEQ/L (21-32); CHLORIDE LEVEL 110 MEQ/L (98-107); CREATININE FOR GFR 0.53 MG/DL (0.55-1.30); GLOMERULAR FILTRATION RATE > 60.0 (>58); GLUCOSE, FASTING 78 MG/DL (70-100); MAGNESIUM LEVEL 1.6 MG/DL (1.8-2.4); POTASSIUM SERUM 4.1 MEQ/L (3.5-5.1); SODIUM LEVEL 143 MEQ/L (136-145)
[2021-05-11] MEDS: HumaLOG INSULIN (NovoLOG) PER UNIT SC SCH ×4 (07:21→21:00)
[2021-05-11] MEDS: SUCRALFATE SUSP 1GM/10ML UD PO SCH ×4 (09:07→21:20)
[2021-05-11] MEDS: PREGABALIN 100 MG CAP (LYRICA) PO SCH ×2 (09:09→21:22)
[2021-05-11] MEDS: LOSARTAN 50MG TABLET PO SCH (09:09)
[2021-05-11] MEDS: MULTIVITAMINS/MINERALS THERAP 1 TAB PO SCH (09:09)
[2021-05-11] MEDS: PANTOPRAZOLE 40MG TAB (PROTONIX) PO SCH ×2 (09:09→21:23)
[2021-05-11] MEDS: oxyCODONE 5MG TAB PO SCH ×2 (09:09→21:24)
[2021-05-11] MEDS: DOCUSATE SODIUM 100MG CAPSULE PO SCH ×2 (09:09→21:21)
[2021-05-11] MEDS: rOPINIRole 0.25 MG TAB(REQUIP) PO SCH ×2 (09:10→21:23)
[2021-05-11] MEDS: PYRIDOSTIGMINE 60MG TABLET PO SCH ×4 (09:10→21:22)
[2021-05-11] MEDS: NYSTATIN 100,000 UNITS/GM TOPICAL PWD 15 GM TOP SCH ×2 (09:10→21:26)
[2021-05-11] MEDS: CYANOCOBALAMIN 500 MCG TAB PO SCH (09:10)
[2021-05-11] MEDS: CALCIUM CARBONATE 500 MG CHEW U/D PO SCH (09:10)
[2021-05-11] MEDS: busPIRone 10 MG TAB PO SCH ×3 (09:10→21:20)
[2021-05-11] MEDS: MYCOPHENOLATE MOFETIL 250 MG CAP (J7517) PO SCH ×2 (09:10→21:21)
[2021-05-11] MEDS: ASCORBIC ACID 500 MG TAB PO SCH (09:12)
[2021-05-11] MEDS: MAG SULF 1GM/100ML (MAG RUN) 1 GM in IV 1 EA IV SCH ×2 (14:24→15:43)
[2021-05-11 15:27] LABS: BASO % 0.7 % (0.0-1.0); EOS # 0.1 10^3/uL (0.0-0.5); EOS % 2.1 % (0.0-3.0); HEMATOCRIT 33.1 % (36.0-47.0); HEMOGLOBIN 10.6 g/dl (12.0-15.5); LYMPH # 1.5 10^3/uL (1.5-5.0); LYMPH % 26.2 % (24.0-44.0); MEAN CORPUSCULAR HEMOGLOBIN 28.9 pg (27.0-33.0); MEAN CORPUSCULAR VOLUME 90.2 fl (80.0-96.0); MONO # 0.4 10^3/uL (0.0-0.8); MONO % 6.9 % (2.0-8.0); NEUTROPHILS # 3.6 10^3/uL (1.5-8.5); NEUTROPHILS % 63.9 % (36.0-66.0); PLATELET COUNT, AUTOMATED 299 10^3/uL (150-450); RED BLOOD COUNT 3.67 10^6/uL (4.00-5.40); WHITE BLOOD COUNT 5.6 10^3/uL (4.0-10.0)
[2021-05-11] MEDS: FENOFIBRATE 145MG TABLET (TRICOR) PO SCH (15:43)
[2021-05-11] MEDS: ONDANSETRON 4MG/2ML VIAL IV PRN (18:55)
--- NOTE | 2021-05-11 20:58 | IPNPDOC ---
Date Seen The patient was seen on 05/11/21. Progress Note SUBJECTIVE: Patient is a -year-old [RACE] [GENDER] with OBJECTIVE PHYSICAL EXAMINATION: VITAL SIGNS: Please see below. GENERAL: HEENT: CARDIOVASCULAR: . RESPIRATORY: . ABDOMINAL: EXTREMITIES: NEUROLOGICAL: PSYCHOLOGICAL: LABORATORY DATA, IMAGING STUDIES, MICROBIOLOGY: Please see below. Echocardiogram: . DVT prophylaxis ordered?: ASSESSMENT AND PLAN: This is a -year-old [RACE] [GENDER] with . PROBLEMS: 1. : . 2. : . 3. : . DISPOSITION: . VS, I&O, 24H, [facility], [facility] Vital Signs/I&O Vital Signs Date Time Temp Pulse Resp B/P (MAP) Pulse Ox O2 Delivery O2 Flow Rate FiO2 05/11/21 20:00 98.0 57 20 125/74 (91) 94 NIPPV (BIPAP/CPAP) 05/11/21 07:00 4.0 30 I&O- Last 24 Hours up to 6 AM 05/11/21 06:00 Intake Total 1050 ml Output Total 1475 ml Balance -425 ml Laboratory Data 24H LABS Laboratory Tests 2 05/11/21 06:06: Immature Granulocyte % (Auto) 0.3, Neutrophils (%) (Auto) 55.9, Lymphocytes (%) (Auto) 33.7, Monocytes (%) (Auto) 7.1, Eosinophils (%) (Auto) 2.6, Basophils (%) (Auto) 0.4, Neutrophils # (Auto) 3.8, Lymphocytes # (Auto) 2.3, Monocytes # (Auto) 0.5, Eosinophils # (Auto) 0.2, Basophils # (Auto) 0.0, Nucleated Red Blood Cells % (auto) 0.0, Anion Gap 2L, Glomerular Filtration Rate > 60.0, Calcium Level 8.6, Magnesium Level 1.6L 05/11/21 11:33: Bedside Glucose (Misc Panel) 145H 05/11/21 15:01: Immature Granulocyte % (Auto) 0.2, Neutrophils (%) (Auto) 63.9, Lymphocytes (%) (Auto) 26.2, Monocytes (%) (Auto) 6.9, Eosinophils (%) (Auto) 2.1, Basophils (%) (Auto) 0.7, Neutrophils # (Auto) 3.6, Lymphocytes # (Auto) 1.5, Monocytes # (Auto) 0.4, Eosinophils # (Auto) 0.1, Basophils # (Auto) 0.0, Nucleated Red Blood Cells % (auto) 0.0 05/11/21 16:49: Bedside Glucose (Misc Panel) 121H CBC/BMP Laboratory Tests 05/11/21 06:06 05/11/21 15:01 AKASH BEST MD May 11, 2021 20:58
[2021-05-11] MEDS: traZODone 100 MG TAB PO SCH (21:21)
[2021-05-11] MEDS: LATANOPROST 0.005% OPHTH SOLN 2.5 ML OU SCH (21:25)
[2021-05-11] MEDS: bisoproloL fumarate 10 MG TAB PO SCH (21:25)
[2021-05-11] MEDS: ATORVASTATIN 10 MG TAB PO SCH (21:40)
[2021-05-11] MEDS: KETOROLAC 30 MG/ML 1ML VIAL IV PRN (23:18)
[2021-05-12] VITALS: BP 111/53
[2021-05-12 04:00] VITALS: BP 127/73
[2021-05-12] MEDS: ACETAMINOPHEN 500 MG TAB PO SCH ×4 (05:46→23:38)
[2021-05-12] MEDS: DICLOFENAC EPOLAMINE 1.3 % PATCH TOP SCH ×2 (05:48→17:48)
[2021-05-12 07:35] VITALS: BP 155/87
[2021-05-12] MEDS: ONDANSETRON 4MG/2ML VIAL IV PRN (07:58)
[2021-05-12 08:07] LABS: BASO % 0.7 % (0.0-1.0); EOS # 0.2 10^3/uL (0.0-0.5); EOS % 3.4 % (0.0-3.0); HEMOGLOBIN 11.4 g/dl (12.0-15.5); LYMPH # 2.2 10^3/uL (1.5-5.0); LYMPH % 39.5 % (24.0-44.0); MEAN CORPUSCULAR HEMOGLOBIN 28.7 pg (27.0-33.0); MEAN CORPUSCULAR HGB CONC 31.7 g/dl (32.0-36.5); MEAN CORPUSCULAR VOLUME 90.7 fl (80.0-96.0); MONO # 0.3 10^3/uL (0.0-0.8); MONO % 4.5 % (2.0-8.0); NEUTROPHILS # 2.9 10^3/uL (1.5-8.5); NEUTROPHILS % 51.5 % (36.0-66.0); PLATELET COUNT, AUTOMATED 314 10^3/uL (150-450); RED BLOOD COUNT 3.97 10^6/uL (4.00-5.40); WHITE BLOOD COUNT 5.6 10^3/uL (4.0-10.0)
[2021-05-12 08:35] LABS: BLOOD UREA NITROGEN 10 MG/DL (7-18); CALCIUM LEVEL 8.6 MG/DL (8.5-10.1); CARBON DIOXIDE LEVEL 31 MEQ/L (21-32); CHLORIDE LEVEL 106 MEQ/L (98-107); CREATININE FOR GFR 0.67 MG/DL (0.55-1.30); GLOMERULAR FILTRATION RATE > 60.0 (>58); GLUCOSE, FASTING 106 MG/DL (70-100); POTASSIUM SERUM 3.6 MEQ/L (3.5-5.1); SODIUM LEVEL 141 MEQ/L (136-145)
[2021-05-12] MEDS: HumaLOG INSULIN (NovoLOG) PER UNIT SC SCH ×4 (08:49→21:00)
[2021-05-12] MEDS: SUCRALFATE SUSP 1GM/10ML UD PO SCH ×4 (09:05→20:52)
[2021-05-12] MEDS: CALCIUM CARBONATE 500 MG CHEW U/D PO SCH (09:06)
[2021-05-12] MEDS: oxyCODONE 5MG TAB PO SCH ×2 (09:06→20:55)
[2021-05-12] MEDS: MYCOPHENOLATE MOFETIL 250 MG CAP (J7517) PO SCH ×2 (09:07→20:52)
[2021-05-12] MEDS: DOCUSATE SODIUM 100MG CAPSULE PO SCH ×2 (09:07→20:53)
[2021-05-12] MEDS: PREGABALIN 100 MG CAP (LYRICA) PO SCH ×2 (09:07→20:53)
[2021-05-12] MEDS: ASCORBIC ACID 500 MG TAB PO SCH (09:07)
[2021-05-12] MEDS: CYANOCOBALAMIN 500 MCG TAB PO SCH (09:08)
[2021-05-12] MEDS: NYSTATIN 100,000 UNITS/GM TOPICAL PWD 15 GM TOP SCH ×2 (09:08→20:56)
[2021-05-12] MEDS: LOSARTAN 50MG TABLET PO SCH (09:08)
[2021-05-12] MEDS: rOPINIRole 0.25 MG TAB(REQUIP) PO SCH ×2 (09:08→20:53)
[2021-05-12] MEDS: PANTOPRAZOLE 40MG TAB (PROTONIX) PO SCH ×2 (09:08→20:53)
[2021-05-12] MEDS: MULTIVITAMINS/MINERALS THERAP 1 TAB PO SCH (09:08)
[2021-05-12] MEDS: PYRIDOSTIGMINE 60MG TABLET PO SCH ×4 (11:12→20:54)
[2021-05-12] MEDS: busPIRone 10 MG TAB PO SCH ×3 (11:27→20:54)
[2021-05-12 12:00] VITALS: BP 116/62
[2021-05-12 16:00] VITALS: BP 118/67
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
[2021-05-12] MEDS: FENOFIBRATE 145MG TABLET (TRICOR) PO SCH (17:47)
[2021-05-12 20:00] VITALS: BP 131/76
[2021-05-12] MEDS: traZODone 100 MG TAB PO SCH (20:54)
[2021-05-12] MEDS: ATORVASTATIN 10 MG TAB PO SCH (20:54)
[2021-05-12] MEDS: bisoproloL fumarate 10 MG TAB PO SCH (20:56)
[2021-05-12] MEDS: LATANOPROST 0.005% OPHTH SOLN 2.5 ML OU SCH (20:56)
[2021-05-13] VITALS: BP 123/68
[2021-05-13 04:00] VITALS: BP 116/69
[2021-05-13] MEDS: DICLOFENAC EPOLAMINE 1.3 % PATCH TOP SCH ×2 (06:47→18:08)
[2021-05-13] MEDS: ACETAMINOPHEN 500 MG TAB PO SCH ×4 (06:47→23:57)
[2021-05-13 08:00] VITALS: BP 128/68
[2021-05-13] MEDS: NYSTATIN 100,000 UNITS/GM TOPICAL PWD 15 GM TOP SCH ×2 (08:40→20:39)
[2021-05-13] MEDS: HumaLOG INSULIN (NovoLOG) PER UNIT SC SCH ×4 (08:40→20:40)
[2021-05-13] MEDS: ONDANSETRON 4MG/2ML VIAL IV PRN ×2 (08:40→11:22)
[2021-05-13] MEDS: busPIRone 10 MG TAB PO SCH ×3 (08:41→20:36)
[2021-05-13] MEDS: DOCUSATE SODIUM 100MG CAPSULE PO SCH ×2 (08:41→20:35)
[2021-05-13] MEDS: PREGABALIN 100 MG CAP (LYRICA) PO SCH ×2 (08:41→20:36)
[2021-05-13] MEDS: ASCORBIC ACID 500 MG TAB PO SCH (08:41)
[2021-05-13] MEDS: PANTOPRAZOLE 40MG TAB (PROTONIX) PO SCH ×2 (08:41→20:37)
[2021-05-13] MEDS: rOPINIRole 0.25 MG TAB(REQUIP) PO SCH ×2 (08:41→20:38)
[2021-05-13] MEDS: CALCIUM CARBONATE 500 MG CHEW U/D PO SCH (08:41)
[2021-05-13] MEDS: SUCRALFATE SUSP 1GM/10ML UD PO SCH ×4 (08:41→20:35)
[2021-05-13] MEDS: PYRIDOSTIGMINE 60MG TABLET PO SCH ×4 (08:42→20:38)
[2021-05-13] MEDS: CYANOCOBALAMIN 500 MCG TAB PO SCH (08:42)
[2021-05-13] MEDS: LOSARTAN 50MG TABLET PO SCH (08:42)
[2021-05-13] MEDS: MULTIVITAMINS/MINERALS THERAP 1 TAB PO SCH (08:42)
[2021-05-13] MEDS: MYCOPHENOLATE MOFETIL 250 MG CAP (J7517) PO SCH ×2 (08:43→20:38)
[2021-05-13] MEDS: oxyCODONE 5MG TAB PO SCH ×2 (08:43→20:37)
[2021-05-13 09:42] LABS: BASO % 0.9 % (0.0-1.0); EOS # 0.2 10^3/uL (0.0-0.5); EOS % 4.9 % (0.0-3.0); HEMATOCRIT 33.9 % (36.0-47.0); HEMOGLOBIN 10.8 g/dl (12.0-15.5); LYMPH % 45.3 % (24.0-44.0); MEAN CORPUSCULAR HGB CONC 31.9 g/dl (32.0-36.5); MEAN CORPUSCULAR VOLUME 90.9 fl (80.0-96.0); MONO # 0.3 10^3/uL (0.0-0.8); MONO % 5.6 % (2.0-8.0); NEUTROPHILS # 1.9 10^3/uL (1.5-8.5); NEUTROPHILS % 42.9 % (36.0-66.0); PLATELET COUNT, AUTOMATED 301 10^3/uL (150-450); RED BLOOD COUNT 3.73 10^6/uL (4.00-5.40); WHITE BLOOD COUNT 4.5 10^3/uL (4.0-10.0)
[2021-05-13 10:11] LABS: ALBUMIN 2.9 GM/DL (3.2-5.2); ALT/SGPT 18 U/L (12-78); BILIRUBIN,TOTAL 0.2 MG/DL (0.2-1.0); BLOOD UREA NITROGEN 12 MG/DL (7-18); CALCIUM LEVEL 8.8 MG/DL (8.5-10.1); CARBON DIOXIDE LEVEL 30 MEQ/L (21-32); CHLORIDE LEVEL 107 MEQ/L (98-107); CREATININE FOR GFR 0.67 MG/DL (0.55-1.30); GLOMERULAR FILTRATION RATE > 60.0 (>58); GLUCOSE, FASTING 113 MG/DL (70-100); MAGNESIUM LEVEL 1.9 MG/DL (1.8-2.4); POTASSIUM SERUM 4.2 MEQ/L (3.5-5.1); SODIUM LEVEL 141 MEQ/L (136-145); TOTAL PROTEIN 6.2 GM/DL (6.4-8.2)
[2021-05-13 12:00] VITALS: BP 109/65
[2021-05-13] MEDS: traMADol 50 MG TAB PO PRN ×2 (15:50→23:56)
[2021-05-13] MEDS: FENOFIBRATE 145MG TABLET (TRICOR) PO SCH (15:51)
[2021-05-13 16:00] VITALS: BP 115/71
[2021-05-13 20:00] VITALS: BP 137/81
[2021-05-13] MEDS: ATORVASTATIN 10 MG TAB PO SCH (20:36)
[2021-05-13] MEDS: traZODone 100 MG TAB PO SCH (20:37)
[2021-05-13] MEDS: bisoproloL fumarate 10 MG TAB PO SCH (20:38)
[2021-05-13] MEDS: LATANOPROST 0.005% OPHTH SOLN 2.5 ML OU SCH (20:40)
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
[2021-05-14] VITALS (8 sets, daily range): BP systolic 107–149; BP diastolic 58–76; O2SAT 98
[2021-05-14] MEDS: ACETAMINOPHEN 500 MG TAB PO SCH ×3 (04:14→21:25)
[2021-05-14] MEDS: DICLOFENAC EPOLAMINE 1.3 % PATCH TOP SCH ×2 (04:15→17:58)
[2021-05-14] MEDS ORDERED: KETOROLAC 30 MG/ML 1ML VIAL IV ONE (04:40)
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
[2021-05-14] MEDS: HumaLOG INSULIN (NovoLOG) PER UNIT SC SCH ×4 (08:45→21:00)
[2021-05-14] MEDS: SUCRALFATE SUSP 1GM/10ML UD PO SCH ×4 (08:54→21:23)
[2021-05-14] MEDS: CALCIUM CARBONATE 500 MG CHEW U/D PO SCH (08:55)
[2021-05-14] MEDS: ASCORBIC ACID 500 MG TAB PO SCH (08:55)
[2021-05-14] MEDS: busPIRone 10 MG TAB PO SCH ×3 (08:55→21:51)
[2021-05-14] MEDS: DOCUSATE SODIUM 100MG CAPSULE PO SCH ×2 (08:55→21:25)
[2021-05-14] MEDS: PANTOPRAZOLE 40MG TAB (PROTONIX) PO SCH ×2 (08:55→21:26)
[2021-05-14] MEDS: MULTIVITAMINS/MINERALS THERAP 1 TAB PO SCH (08:55)
[2021-05-14] MEDS: rOPINIRole 0.25 MG TAB(REQUIP) PO SCH ×2 (08:55→21:22)
[2021-05-14] MEDS: PREGABALIN 100 MG CAP (LYRICA) PO SCH ×2 (08:58→21:26)
[2021-05-14] MEDS: CYANOCOBALAMIN 500 MCG TAB PO SCH (08:59)
[2021-05-14] MEDS: PYRIDOSTIGMINE 60MG TABLET PO SCH ×4 (08:59→21:23)
[2021-05-14] MEDS: LOSARTAN 50MG TABLET PO SCH (08:59)
[2021-05-14] MEDS: MYCOPHENOLATE MOFETIL 250 MG CAP (J7517) PO SCH ×2 (08:59→21:21)
[2021-05-14] MEDS: NYSTATIN 100,000 UNITS/GM TOPICAL PWD 15 GM TOP SCH ×2 (09:00→21:29)
[2021-05-14] MEDS: oxyCODONE 5MG TAB PO SCH ×2 (09:00→21:24)
[2021-05-14] MEDS: PERCOCET 5MG/325MG TAB PO PRN ×3 (12:04→22:56)
[2021-05-14] MEDS: FENOFIBRATE 145MG TABLET (TRICOR) PO SCH (15:04)
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
[2021-05-14] MEDS: traZODone 100 MG TAB PO SCH (21:22)
[2021-05-14] MEDS: ATORVASTATIN 10 MG TAB PO SCH (21:25)
[2021-05-14] MEDS: LATANOPROST 0.005% OPHTH SOLN 2.5 ML OU SCH (21:29)
[2021-05-14] MEDS: bisoproloL fumarate 10 MG TAB PO SCH (21:49)
[2021-05-15] MEDS: ACETAMINOPHEN 500 MG TAB PO SCH (05:53)
[2021-05-15] MEDS: PERCOCET 5MG/325MG TAB PO PRN ×3 (05:53→16:35)
[2021-05-15] MEDS: DICLOFENAC EPOLAMINE 1.3 % PATCH TOP SCH ×2 (05:54→17:08)
[2021-05-15 06:06] VITALS: BP 123/65
[2021-05-15 07:00] LABS: HEMATOCRIT 34.4 % (36.0-47.0); HEMOGLOBIN 10.5 g/dl (12.0-15.5); MEAN CORPUSCULAR HEMOGLOBIN 28.7 pg (27.0-33.0); MEAN CORPUSCULAR HGB CONC 30.5 g/dl (32.0-36.5); PLATELET COUNT, AUTOMATED 294 10^3/uL (150-450); RED BLOOD COUNT 3.66 10^6/uL (4.00-5.40); WHITE BLOOD COUNT 5.3 10^3/uL (4.0-10.0)
[2021-05-15 07:17] LABS: BLOOD UREA NITROGEN 13 MG/DL (7-18); CALCIUM LEVEL 8.7 MG/DL (8.5-10.1); CARBON DIOXIDE LEVEL 34 MEQ/L (21-32); CHLORIDE LEVEL 106 MEQ/L (98-107); CREATININE FOR GFR 0.66 MG/DL (0.55-1.30); GLOMERULAR FILTRATION RATE > 60.0 (>58); GLUCOSE, FASTING 88 MG/DL (70-100); POTASSIUM SERUM 4.3 MEQ/L (3.5-5.1); SODIUM LEVEL 141 MEQ/L (136-145)
[2021-05-15] MEDS: HumaLOG INSULIN (NovoLOG) PER UNIT SC SCH ×4 (07:30→20:58)
[2021-05-15] MEDS: SUCRALFATE SUSP 1GM/10ML UD PO SCH ×4 (09:25→21:53)
[2021-05-15] MEDS: PREGABALIN 100 MG CAP (LYRICA) PO SCH ×2 (09:25→21:52)
[2021-05-15] MEDS: PANTOPRAZOLE 40MG TAB (PROTONIX) PO SCH ×2 (09:26→21:50)
[2021-05-15] MEDS: PYRIDOSTIGMINE 60MG TABLET PO SCH ×4 (09:26→21:52)
[2021-05-15] MEDS: CYANOCOBALAMIN 500 MCG TAB PO SCH (09:26)
[2021-05-15] MEDS: MULTIVITAMINS/MINERALS THERAP 1 TAB PO SCH (09:28)
[2021-05-15] MEDS: busPIRone 10 MG TAB PO SCH ×3 (09:29→21:51)
[2021-05-15] MEDS: CALCIUM CARBONATE 500 MG CHEW U/D PO SCH (09:29)
[2021-05-15] MEDS: rOPINIRole 0.25 MG TAB(REQUIP) PO SCH ×2 (09:29→21:52)
[2021-05-15] MEDS: ASCORBIC ACID 500 MG TAB PO SCH (09:29)
[2021-05-15] MEDS: DOCUSATE SODIUM 100MG CAPSULE PO SCH ×2 (09:29→21:52)
[2021-05-15] MEDS: LOSARTAN 50MG TABLET PO SCH (09:31)
[2021-05-15] MEDS: oxyCODONE 5MG TAB PO SCH ×2 (09:33→21:54)
[2021-05-15] MEDS: MYCOPHENOLATE MOFETIL 250 MG CAP (J7517) PO SCH ×2 (09:33→21:51)
[2021-05-15] MEDS: NYSTATIN 100,000 UNITS/GM TOPICAL PWD 15 GM TOP SCH ×2 (09:34→21:01)
[2021-05-15 11:23] VITALS: O2SAT 98
[2021-05-15 14:00] VITALS: BP 128/67
[2021-05-15] MEDS: ACETAMINOPHEN TAB 650MG DOSE (2X325MG) PO SCH ×2 (14:16→21:54)
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
[2021-05-15] MEDS: FENOFIBRATE 145MG TABLET (TRICOR) PO SCH (16:30)
[2021-05-15] MEDS: ONDANSETRON 4MG/2ML VIAL IV PRN (20:59)
[2021-05-15 21:00] VITALS: O2SAT 95
[2021-05-15] MEDS: LATANOPROST 0.005% OPHTH SOLN 2.5 ML OU SCH (21:01)
[2021-05-15] MEDS: ATORVASTATIN 10 MG TAB PO SCH (21:50)
[2021-05-15] MEDS: bisoproloL fumarate 10 MG TAB PO SCH (21:52)
[2021-05-15] MEDS: traZODone 100 MG TAB PO SCH (21:53)
[2021-05-15 22:00] VITALS: BP 120/70
[2021-05-16] MEDS: PERCOCET 5MG/325MG TAB PO PRN ×2 (01:49→12:42)
[2021-05-16] MEDS: ACETAMINOPHEN TAB 650MG DOSE (2X325MG) PO SCH ×3 (05:23→22:04)
[2021-05-16] MEDS: DICLOFENAC EPOLAMINE 1.3 % PATCH TOP SCH ×2 (05:23→17:29)
[2021-05-16 06:00] VITALS: BP 111/69
[2021-05-16 07:02] LABS: HEMATOCRIT 34.7 % (36.0-47.0); HEMOGLOBIN 10.9 g/dl (12.0-15.5); MEAN CORPUSCULAR HEMOGLOBIN 29.1 pg (27.0-33.0); MEAN CORPUSCULAR HGB CONC 31.4 g/dl (32.0-36.5); MEAN CORPUSCULAR VOLUME 92.5 fl (80.0-96.0); PLATELET COUNT, AUTOMATED 304 10^3/uL (150-450); RED BLOOD COUNT 3.75 10^6/uL (4.00-5.40); WHITE BLOOD COUNT 5.3 10^3/uL (4.0-10.0)
[2021-05-16 07:25] LABS: BLOOD UREA NITROGEN 10 MG/DL (7-18); CALCIUM LEVEL 8.8 MG/DL (8.5-10.1); CARBON DIOXIDE LEVEL 30 MEQ/L (21-32); CHLORIDE LEVEL 106 MEQ/L (98-107); CREATININE FOR GFR 0.66 MG/DL (0.55-1.30); GLOMERULAR FILTRATION RATE > 60.0 (>58); GLUCOSE, FASTING 84 MG/DL (70-100); POTASSIUM SERUM 4.1 MEQ/L (3.5-5.1); SODIUM LEVEL 139 MEQ/L (136-145)
[2021-05-16] MEDS: HumaLOG INSULIN (NovoLOG) PER UNIT SC SCH ×4 (07:30→22:01)
[2021-05-16] MEDS: SUCRALFATE SUSP 1GM/10ML UD PO SCH ×4 (08:55→22:02)
[2021-05-16] MEDS: DOCUSATE SODIUM 100MG CAPSULE PO SCH ×2 (08:56→22:03)
[2021-05-16] MEDS: MULTIVITAMINS/MINERALS THERAP 1 TAB PO SCH (08:56)
[2021-05-16] MEDS: rOPINIRole 0.25 MG TAB(REQUIP) PO SCH ×2 (08:56→22:03)
[2021-05-16] MEDS: CALCIUM CARBONATE 500 MG CHEW U/D PO SCH (08:56)
[2021-05-16] MEDS: ASCORBIC ACID 500 MG TAB PO SCH (08:56)
[2021-05-16] MEDS: CYANOCOBALAMIN 500 MCG TAB PO SCH (08:57)
[2021-05-16] MEDS: PREGABALIN 100 MG CAP (LYRICA) PO SCH ×2 (08:57→22:03)
[2021-05-16] MEDS: LOSARTAN 50MG TABLET PO SCH (08:59)
[2021-05-16] MEDS: busPIRone 10 MG TAB PO SCH ×3 (09:00→22:04)
[2021-05-16] MEDS: PANTOPRAZOLE 40MG TAB (PROTONIX) PO SCH ×2 (09:00→22:05)
[2021-05-16] MEDS: MYCOPHENOLATE MOFETIL 250 MG CAP (J7517) PO SCH ×2 (09:00→22:02)
[2021-05-16] MEDS: PYRIDOSTIGMINE 60MG TABLET PO SCH ×4 (09:01→22:03)
[2021-05-16] MEDS: oxyCODONE 5MG TAB PO SCH ×2 (09:01→22:02)
[2021-05-16] MEDS: NYSTATIN 100,000 UNITS/GM TOPICAL PWD 15 GM TOP SCH ×2 (09:02→22:06)
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
[2021-05-16] MEDS: SENNA 8.6 MG TAB (SENOKOT) PO SCH ×2 (12:41→22:04)
[2021-05-16 14:15] VITALS: BP 115/68
[2021-05-16] MEDS: FENOFIBRATE 145MG TABLET (TRICOR) PO SCH (17:27)
[2021-05-16 21:00] VITALS: O2SAT 94
[2021-05-16 22:00] VITALS: BP 141/83
[2021-05-16] MEDS: ATORVASTATIN 10 MG TAB PO SCH (22:01)
[2021-05-16] MEDS: traZODone 100 MG TAB PO SCH (22:02)
[2021-05-16] MEDS: bisoproloL fumarate 10 MG TAB PO SCH (22:04)
[2021-05-16] MEDS: LATANOPROST 0.005% OPHTH SOLN 2.5 ML OU SCH (22:05)
[2021-05-17] MEDS: ACETAMINOPHEN TAB 650MG DOSE (2X325MG) PO SCH ×3 (05:28→21:06)
[2021-05-17] MEDS: DICLOFENAC EPOLAMINE 1.3 % PATCH TOP SCH ×2 (05:28→17:20)
[2021-05-17 05:55] LABS: HEMATOCRIT 35.7 % (36.0-47.0); MEAN CORPUSCULAR HEMOGLOBIN 28.5 pg (27.0-33.0); MEAN CORPUSCULAR HGB CONC 30.8 g/dl (32.0-36.5); MEAN CORPUSCULAR VOLUME 92.5 fl (80.0-96.0); PLATELET COUNT, AUTOMATED 294 10^3/uL (150-450); RED BLOOD COUNT 3.86 10^6/uL (4.00-5.40); WHITE BLOOD COUNT 4.7 10^3/uL (4.0-10.0)
[2021-05-17 06:00] VITALS: BP 131/78
[2021-05-17 06:07] LABS: BLOOD UREA NITROGEN 10 MG/DL (7-18); CALCIUM LEVEL 8.9 MG/DL (8.5-10.1); CARBON DIOXIDE LEVEL 29 MEQ/L (21-32); CHLORIDE LEVEL 107 MEQ/L (98-107); CREATININE FOR GFR 0.64 MG/DL (0.55-1.30); GLOMERULAR FILTRATION RATE > 60.0 (>58); GLUCOSE, FASTING 84 MG/DL (70-100); POTASSIUM SERUM 4.3 MEQ/L (3.5-5.1); SODIUM LEVEL 139 MEQ/L (136-145)
[2021-05-17] MEDS: HumaLOG INSULIN (NovoLOG) PER UNIT SC SCH ×4 (08:28→21:00)
[2021-05-17] MEDS: SUCRALFATE SUSP 1GM/10ML UD PO SCH ×4 (08:28→21:02)
[2021-05-17] MEDS: DOCUSATE SODIUM 100MG CAPSULE PO SCH ×2 (08:29→21:03)
[2021-05-17] MEDS: CYANOCOBALAMIN 500 MCG TAB PO SCH (08:29)
[2021-05-17] MEDS: PREGABALIN 100 MG CAP (LYRICA) PO SCH ×2 (08:29→21:04)
[2021-05-17] MEDS: busPIRone 10 MG TAB PO SCH ×3 (08:29→21:03)
[2021-05-17] MEDS: CALCIUM CARBONATE 500 MG CHEW U/D PO SCH (08:29)
[2021-05-17] MEDS: SENNA 8.6 MG TAB (SENOKOT) PO SCH ×2 (08:29→21:03)
[2021-05-17] MEDS: MYCOPHENOLATE MOFETIL 250 MG CAP (J7517) PO SCH ×2 (08:29→21:04)
[2021-05-17] MEDS: PYRIDOSTIGMINE 60MG TABLET PO SCH ×4 (08:30→21:03)
[2021-05-17] MEDS: LOSARTAN 50MG TABLET PO SCH (08:30)
[2021-05-17] MEDS: MULTIVITAMINS/MINERALS THERAP 1 TAB PO SCH (08:31)
[2021-05-17] MEDS: ASCORBIC ACID 500 MG TAB PO SCH (08:31)
[2021-05-17] MEDS: rOPINIRole 0.25 MG TAB(REQUIP) PO SCH ×2 (08:31→21:03)
[2021-05-17] MEDS: PANTOPRAZOLE 40MG TAB (PROTONIX) PO SCH ×2 (08:31→21:04)
[2021-05-17] MEDS: oxyCODONE 5MG TAB PO SCH ×2 (08:32→21:05)
[2021-05-17] MEDS: NYSTATIN 100,000 UNITS/GM TOPICAL PWD 15 GM TOP SCH ×2 (08:32→21:00)
[2021-05-17 09:00] VITALS: O2SAT 95
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
[2021-05-17] MEDS: ANALGESIC BALM CRM 3OZ TOP SCH ×3 (11:25→21:07)
[2021-05-17] MEDS: PERCOCET 5MG/325MG TAB PO PRN (13:45)
[2021-05-17 14:00] VITALS: BP 116/68
[2021-05-17] MEDS: FENOFIBRATE 145MG TABLET (TRICOR) PO SCH (17:20)
[2021-05-17 19:54] VITALS: BP 137/82
[2021-05-17 21:00] VITALS: O2SAT 94
[2021-05-17] MEDS: traZODone 100 MG TAB PO SCH (21:04)
[2021-05-17] MEDS: ATORVASTATIN 10 MG TAB PO SCH (21:04)
[2021-05-17] MEDS: bisoproloL fumarate 10 MG TAB PO SCH (21:06)
[2021-05-17] MEDS: LATANOPROST 0.005% OPHTH SOLN 2.5 ML OU SCH (21:07)
[2021-05-18] MEDS: PERCOCET 5MG/325MG TAB PO PRN (01:47)
[2021-05-18 05:13] VITALS: BP 118/69
[2021-05-18] MEDS: DICLOFENAC EPOLAMINE 1.3 % PATCH TOP SCH (05:31)
[2021-05-18] MEDS: ACETAMINOPHEN TAB 650MG DOSE (2X325MG) PO SCH (05:31)
[2021-05-18 06:24] LABS: HEMATOCRIT 35.9 % (36.0-47.0); HEMOGLOBIN 11.1 g/dl (12.0-15.5); MEAN CORPUSCULAR HEMOGLOBIN 28.6 pg (27.0-33.0); MEAN CORPUSCULAR HGB CONC 30.9 g/dl (32.0-36.5); MEAN CORPUSCULAR VOLUME 92.5 fl (80.0-96.0); PLATELET COUNT, AUTOMATED 276 10^3/uL (150-450); RED BLOOD COUNT 3.88 10^6/uL (4.00-5.40)
[2021-05-18 06:44] LABS: BLOOD UREA NITROGEN 11 MG/DL (7-18); CALCIUM LEVEL 9.1 MG/DL (8.5-10.1); CARBON DIOXIDE LEVEL 26 MEQ/L (21-32); CHLORIDE LEVEL 108 MEQ/L (98-107); CREATININE FOR GFR 0.71 MG/DL (0.55-1.30); GLOMERULAR FILTRATION RATE > 60.0 (>58); GLUCOSE, FASTING 89 MG/DL (70-100); POTASSIUM SERUM 4.1 MEQ/L (3.5-5.1); SODIUM LEVEL 138 MEQ/L (136-145)
[2021-05-18] MEDS: HumaLOG INSULIN (NovoLOG) PER UNIT SC SCH ×2 (07:30→12:00)
[2021-05-18 08:30] VITALS: O2SAT 96
[2021-05-18] MEDS: DOCUSATE SODIUM 100MG CAPSULE PO SCH (09:15)
[2021-05-18] MEDS: SUCRALFATE SUSP 1GM/10ML UD PO SCH ×2 (09:15→12:00)
[2021-05-18] MEDS: CALCIUM CARBONATE 500 MG CHEW U/D PO SCH (09:16)
[2021-05-18] MEDS: PANTOPRAZOLE 40MG TAB (PROTONIX) PO SCH (09:16)
[2021-05-18] MEDS: MULTIVITAMINS/MINERALS THERAP 1 TAB PO SCH (09:16)
[2021-05-18] MEDS: busPIRone 10 MG TAB PO SCH (09:16)
[2021-05-18] MEDS: ASCORBIC ACID 500 MG TAB PO SCH (09:16)
[2021-05-18] MEDS: rOPINIRole 0.25 MG TAB(REQUIP) PO SCH (09:16)
[2021-05-18] MEDS: CYANOCOBALAMIN 500 MCG TAB PO SCH (09:17)
[2021-05-18] MEDS: PREGABALIN 100 MG CAP (LYRICA) PO SCH (09:17)
[2021-05-18] MEDS: MYCOPHENOLATE MOFETIL 250 MG CAP (J7517) PO SCH (09:17)
[2021-05-18] MEDS: SENNA 8.6 MG TAB (SENOKOT) PO SCH (09:17)
[2021-05-18] MEDS: PYRIDOSTIGMINE 60MG TABLET PO SCH ×2 (09:18→13:00)
[2021-05-18] MEDS: oxyCODONE 5MG TAB PO SCH (09:19)
[2021-05-18 09:21] VITALS: BP 143/84
[2021-05-18] MEDS: LOSARTAN 50MG TABLET PO SCH (09:21)
[2021-05-18] MEDS: NYSTATIN 100,000 UNITS/GM TOPICAL PWD 15 GM TOP SCH (09:22)
[2021-05-18] MEDS: ANALGESIC BALM CRM 3OZ TOP SCH (09:22)
[2021-05-18] MEDS ORDERED: SUCR1ORA PO (11:57)
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
== END 2021-05-18 13:45 | disposition home or self-care (01) | DRG 135 ==
LOC: M ED 14:07 → M ED INP 14:08 → M MSPAV 05-06 05:52 → OBSVTOIN 05-07 17:29 → M PCU 05-08 13:59 → M MS5PR 05-14 22:36
PROVIDERS: ADMIT Family Medicine; ATTEND Internal Medicine
PROC: 5A09357 Assistance with Respiratory Ventilation, Less than 24 Consecutive Hours, Continuous Positive Airway Pressure (ICD-10-PCS; principal; 2021-05-08)
DX: S22.42XA Multiple fractures of ribs, left side, initial encounter for closed fracture (principal); J96.02 Acute respiratory failure with hypercapnia; S22.20XA Unspecified fracture of sternum, initial encounter for closed fracture; G70.00 Myasthenia gravis without (acute) exacerbation; E87.2 Acidosis; E66.2 Morbid (severe) obesity with alveolar hypoventilation; Z68.41 Body mass index [BMI] 40.0-44.9, adult; E11.9 Type 2 diabetes mellitus without complications; R58 Hemorrhage, not elsewhere classified; S20.219A Contusion of unspecified front wall of thorax, initial encounter; V49.50XA Passenger injured in collision with unspecified motor vehicles in traffic accident, initial encounter; M79.7 Fibromyalgia; J45.909 Unspecified asthma, uncomplicated; M19.90 Unspecified osteoarthritis, unspecified site; E78.5 Hyperlipidemia, unspecified; E53.8 Deficiency of other specified B group vitamins; I71.4 Abdominal aortic aneurysm, without rupture; K58.9 Irritable bowel syndrome, unspecified; Z79.84 Long term (current) use of oral hypoglycemic drugs; Z79.899 Other long term (current) drug therapy; Z88.5 Allergy status to narcotic agent; Z88.8 Allergy status to other drugs, medicaments and biological substances; Z98.41 Cataract extraction status, right eye; Z98.42 Cataract extraction status, left eye; Z20.822 Contact with and (suspected) exposure to COVID-19; I10 Essential (primary) hypertension; K21.9 Gastro-esophageal reflux disease without esophagitis; H40.9 Unspecified glaucoma; G25.81 Restless legs syndrome

== ENCOUNTER → 2022-02-08 | Outpatient (CLI) | payer OTHER ==
[~2022-02-08] MED LIST changes: +ALBU2.5V10 NEB; -ALBU83IN NEB; +AMLO1TAB25 PO; +BUSP-29 PO; +C 50TAB PO; +FLUT1INH3 INH; +LOSA100T45 PO; -LOSA100T50 PO; +NYST1POW9 TOP; +POTA99TA14 PO; +SUCR1ORA PO; +XALA0.007 OU
== END ==
LOC: M CARPUL 13:16
PROVIDERS: ATTEND Nurse Practitioner Family
DX: G47.33 Obstructive sleep apnea (adult) (pediatric) (principal)

== ENCOUNTER 2023-11-16 00:29 | Emergency (ER) | payer MEDICAID, OTHER ==
[~2023-11-16] VITALS: Ht 167.6 cm; Wt 113.6 kg
[~2023-11-16 00:29] MED LIST changes: -BUSP-29 PO; +BUSP10TA79 PO; -LOSA100T45 PO; +LOSA100T46 PO; +NYST100085 TOP; -NYSTOI TOP; -PREG200C PO; +PREG200C2 PO; -PROC25SU24 PR; +PROC25SU27 PR; -ROPI0.253 PO; +ROPI5TAB19 PO
[2023-11-16] MEDS: LORazepam 2 MG/ML 1ML VIAL IV ONE (01:41)
[2023-11-16] MEDS: ASPIRIN 81MG CHEW TABLET PO ONE (01:41)
[2023-11-16 01:55] LABS: BLOOD UREA NITROGEN 7 MG/DL (9-23); CALCIUM LEVEL 8.8 MG/DL (8.5-10.1); CARBON DIOXIDE LEVEL 21 MMOL/L (20-31); CHLORIDE LEVEL 110 MMOL/L (98-107); CK-MB VALUE MASS < 1.0 NG/ML (<3.6); CPK CREATINE PHOSPHOKINASE 79 U/L (34-145); CREATININE FOR GFR 0.55 MG/DL (0.55-1.30); GLOMERULAR FILTRATION RATE > 60.0 (>51); GLUCOSE, FASTING 122 MG/DL (60-100); MB/CK RELATIVE INDEX 1.26 (< OR =4); POTASSIUM SERUM 4.7 MMOL/L (3.5-5.1); SODIUM LEVEL 141 MMOL/L (136-145)
[2023-11-16 01:56] LABS: BASO # 0.1 10^3/uL (0.0-0.2); BASO % 0.8 % (0.0-1.0); EOS # 0.2 10^3/uL (0.0-0.5); EOS % 2.6 % (0.0-3.0); HEMATOCRIT 39.7 % (36.0-47.0); HEMOGLOBIN 13.2 g/dl (12.0-15.5); LYMPH # 2.7 10^3/uL (1.5-5.0); MEAN CORPUSCULAR HEMOGLOBIN 29.3 pg (27.0-33.0); MEAN CORPUSCULAR HGB CONC 33.2 g/dl (32.0-36.5); MONO # 0.5 10^3/uL (0.0-0.8); MONO % 6.2 % (2.0-8.0); NEUTROPHILS # 5.2 10^3/uL (1.5-8.5); NEUTROPHILS % 59.2 % (36.0-66.0); PLATELET COUNT, AUTOMATED 273 10^3/uL (150-450); RED BLOOD COUNT 4.51 10^6/uL (4.00-5.40); WHITE BLOOD COUNT 8.8 10^3/uL (4.0-10.0)
[2023-11-16 02:55] LABS: CK-MB VALUE MASS < 1.0 NG/ML (<3.6)
[2023-11-16 02:56] LABS: CPK CREATINE PHOSPHOKINASE 48 U/L (34-145); MB/CK RELATIVE INDEX 2.08 (< OR =4)
[2023-11-16 03:45] VITALS: BP 140/83; TEMP 97.9
[2023-11-16 03:56] VITALS: O2SAT 95
[2023-11-16] MEDS: oxyCODONE 5MG TAB PO ONE (03:56)
== END 2023-11-16 04:04 | disposition home or self-care (01) ==
LOC: M ED 00:29
DX: R07.89 Other chest pain (principal); E11.9 Type 2 diabetes mellitus without complications; I10 Essential (primary) hypertension; E78.5 Hyperlipidemia, unspecified; J45.909 Unspecified asthma, uncomplicated; E66.01 Morbid (severe) obesity due to excess calories; F41.9 Anxiety disorder, unspecified; F32.A Depression, unspecified; M79.7 Fibromyalgia; Z79.899 Other long term (current) drug therapy; Z88.8 Allergy status to other drugs, medicaments and biological substances; Z88.5 Allergy status to narcotic agent
CPT/HCPCS: 71045; 80048; 82550; 82553; 84484; 85025; 93005; 93041; 94760; 96374; 99285; J2060

== ENCOUNTER → 2024-03-07 | Outpatient (CLI) | payer OTHER ==
[~2024-03-07] MED LIST changes: +ONDA-282 SL; -ONDA4TAB6 SL
== END ==
LOC: M PLARAD 10:25
PROVIDERS: ATTEND Registered Nurse
DX: R29.818 Other symptoms and signs involving the nervous system (principal); M54.41 Lumbago with sciatica, right side; M54.42 Lumbago with sciatica, left side; G89.29 Other chronic pain

== ENCOUNTER → 2024-06-07 | Outpatient (CLI) | payer OTHER ==
[~2024-06-07] MED LIST changes: +NYST1POW3 TOP; -NYST1POW9 TOP
[2024-06-07 15:45] LABS: BASO # 0.1 10^3/uL (0.0-0.2); BASO % 0.6 % (0.0-1.0); EOS # 0.2 10^3/uL (0.0-0.5); EOS % 2.9 % (0.0-3.0); HEMATOCRIT 42.9 % (36.0-47.0); HEMOGLOBIN 14.3 g/dl (12.0-15.5); LYMPH # 2.3 10^3/uL (1.5-5.0); LYMPH % 29.3 % (24.0-44.0); MEAN CORPUSCULAR HEMOGLOBIN 28.1 pg (27.0-33.0); MEAN CORPUSCULAR HGB CONC 33.3 g/dl (32.0-36.5); MEAN CORPUSCULAR VOLUME 84.3 fl (80.0-96.0); MONO # 0.6 10^3/uL (0.0-0.8); MONO % 7.2 % (2.0-8.0); NEUTROPHILS # 4.7 10^3/uL (1.5-8.5); NEUTROPHILS % 59.6 % (36.0-66.0); PLATELET COUNT, AUTOMATED 287 10^3/uL (150-450); RED BLOOD COUNT 5.09 10^6/uL (4.00-5.40); WHITE BLOOD COUNT 7.9 10^3/uL (4.0-10.0)
[2024-06-07 16:02] LABS: AMORPHOUS SEDIMENT SMALL (NEGATIVE); APPEARANCE, URINE HAZY (CLEAR); BACTERIA, URINE AUTO 1+ (NEGATIVE); BILIRUBIN, URINE AUTO NEGATIVE (NEGATIVE); BLOOD, URINE BLOOD 2+ (NEGATIVE); COLOR, URINE YELLOW (YELLOW); GLUCOSE, URINE (UA) AUTO NEGATIVE (NEGATIVE); KETONE, URINE AUTO NEGATIVE (NEGATIVE); LEUKOCYTE ESTERASE, URINE AUTO NEGATIVE (NEGATIVE); MUCUS, URINE SMALL (NEGATIVE); NITRITE, URINE AUTO NEGATIVE (NEGATIVE); PROTEIN, URINE AUTO 2+ mg/dL (NEGATIVE); RBC, URINE AUTO 106 /HPF (0-3); SPECIFIC GRAVITY URINE AUTO 1.015 (1.002-1.035); SQUAMOUS EPITHELIAL CELL UR AU 6 /HPF (0-6); UROBILINOGEN, URINE AUTO 0.2 mg/dL (0.0-2.0); WBC, URINE AUTO 6 /HPF (0-3)
[2024-06-07 16:05] LABS: CREATININE, URINE 165.7 MG/DL; CREATININE,RANDOM URINE 165.7 MG/DL
[2024-06-07 16:06] LABS: ALBUMIN 3.3 G/DL (3.2-5.2); ALKALINE PHOSPHATASE 94 U/L (35-104); ALT/SGPT 28 U/L (7.0-40); AST/SGOT 13 U/L (<34); BILIRUBIN,TOTAL 0.4 MG/DL (0.3-1.2); BLOOD UREA NITROGEN 6 MG/DL (9-23); CALCIUM LEVEL 9.4 MG/DL (8.5-10.1); CARBON DIOXIDE LEVEL 25 MMOL/L (20-31); CHLORIDE LEVEL 107 MMOL/L (98-107); CREATININE FOR GFR 0.57 MG/DL (0.55-1.30); GLOMERULAR FILTRATION RATE > 60.0 (>51); GLUCOSE, FASTING 110 MG/DL (60-100); POTASSIUM SERUM 3.9 MMOL/L (3.5-5.1); SODIUM LEVEL 141 MMOL/L (136-145); TOTAL PROTEIN 7.2 G/DL (5.7-8.2)
[2024-06-07 16:19] LABS: MAU/CREAT RATIO 262.5 MCG/MG (0.0-30.0)
[2024-06-07 16:46] LABS: HEMOGLOBIN A1c 5.8 % (4.0-6.0)
== END ==
LOC: M LAB 15:05
PROVIDERS: ATTEND Internal Medicine
DX: E11.21 Type 2 diabetes mellitus with diabetic nephropathy (principal)

== ENCOUNTER 2024-06-14 14:45 | Inpatient (IN) | payer OTHER ==
[~2024-06-14] VITALS: Ht 167.6 cm; Wt 120.7 kg
[2024-06-14 17:53] LABS: BASO # 0.1 10^3/uL (0.0-0.2); BASO % 0.9 % (0.0-1.0); EOS # 0.2 10^3/uL (0.0-0.5); EOS % 2.3 % (0.0-3.0); HEMATOCRIT 45.7 % (36.0-47.0); HEMOGLOBIN 15.1 g/dl (12.0-15.5); LYMPH # 2.4 10^3/uL (1.5-5.0); LYMPH % 30.8 % (24.0-44.0); MEAN CORPUSCULAR HEMOGLOBIN 28.2 pg (27.0-33.0); MEAN CORPUSCULAR VOLUME 85.4 fl (80.0-96.0); MONO # 0.5 10^3/uL (0.0-0.8); MONO % 6.9 % (2.0-8.0); NEUTROPHILS # 4.6 10^3/uL (1.5-8.5); NEUTROPHILS % 58.7 % (36.0-66.0); PLATELET COUNT, AUTOMATED 321 10^3/uL (150-450); RED BLOOD COUNT 5.35 10^6/uL (4.00-5.40); WHITE BLOOD COUNT 7.8 10^3/uL (4.0-10.0)
[2024-06-14] MEDS: ONDANSETRON 4MG 2ML VIAL IV ONE (17:55)
[2024-06-14] MEDS: METOPROLOL 5 MG/5 ML VIAL IV ONE (17:57)
[2024-06-14] MEDS: NS 500 ML IV ONE (17:57)
[2024-06-14 17:58] LABS: APPEARANCE, URINE HAZY (CLEAR); BACTERIA, URINE AUTO NEGATIVE (NEGATIVE); BILIRUBIN, URINE AUTO NEGATIVE (NEGATIVE); BLOOD, URINE BLOOD 3+ (NEGATIVE); COLOR, URINE YELLOW (YELLOW); GLUCOSE, URINE (UA) AUTO NEGATIVE (NEGATIVE); KETONE, URINE AUTO NEGATIVE (NEGATIVE); LEUKOCYTE ESTERASE, URINE AUTO NEGATIVE (NEGATIVE); MUCUS, URINE SMALL (NEGATIVE); NITRITE, URINE AUTO NEGATIVE (NEGATIVE); PROTEIN, URINE AUTO 2+ mg/dL (NEGATIVE); RBC, URINE AUTO TNTC /HPF (0-3); SPECIFIC GRAVITY URINE AUTO 1.014 (1.002-1.035); SQUAMOUS EPITHELIAL CELL UR AU 2 /HPF (0-6); UROBILINOGEN, URINE AUTO 0.2 mg/dL (0.0-2.0); WBC, URINE AUTO 0 /HPF (0-3)
[2024-06-14 18:01] LABS: LIPASE 41 U/L (12-53)
[2024-06-14 18:03] LABS: ALBUMIN 3.6 G/DL (3.2-5.2); ALKALINE PHOSPHATASE 102 U/L (35-104); ALT/SGPT 35 U/L (7.0-40); AST/SGOT 24 U/L (<34); BILIRUBIN,DIRECT < 0.1 MG/DL (<0.4); BILIRUBIN,TOTAL 0.5 MG/DL (0.3-1.2); CK-MB VALUE MASS < 1.0 NG/ML (<3.6); TOTAL PROTEIN 7.9 G/DL (5.7-8.2)
[2024-06-14 18:04] LABS: CPK CREATINE PHOSPHOKINASE 44 U/L (34-145); MB/CK RELATIVE INDEX 2.27 (< OR =4)
[2024-06-14] MEDS ORDERED: ISOVUE-370 76% 100ML VIAL As Ordered ONE (18:22)
[2024-06-14] MEDS ORDERED: DEXTROSE 50% 50ML SYRINGE IV PRN (22:00)
[2024-06-14] MEDS ORDERED: MOM 30ML SUSPENSION UDC PO PRN (22:00)
[2024-06-14] MEDS ORDERED: GLUCOSE 4 GM CHEW PO PRN (22:00)
[2024-06-14] MEDS ORDERED: GLUCAGON INJ 1MG VIAL SC PRN (22:00)
[2024-06-14] MEDS: PANTOPRAZOLE 40MG VIAL IV SCH (22:54)
[2024-06-14] MEDS: D5W/LR 500 ML IV ONE (22:55)
[2024-06-14 23:42] LABS: BLOOD UREA NITROGEN 7 MG/DL (9-23); CARBON DIOXIDE LEVEL 24 MMOL/L (20-31); CHLORIDE LEVEL 112 MMOL/L (98-107); CREATININE FOR GFR 0.58 MG/DL (0.55-1.30); GLOMERULAR FILTRATION RATE > 60.0 (>51); GLUCOSE, FASTING 159 MG/DL (60-100); POTASSIUM SERUM 3.8 MMOL/L (3.5-5.1); SODIUM LEVEL 140 MMOL/L (136-145)
[2024-06-14] MEDS: FUROSEMIDE 100MG/10ML VIAL IV ONE (23:42)
[2024-06-14] MEDS: D5W/LR 1,000 ML IV SCH (23:45)
[2024-06-14] MEDS ORDERED: TOPI100T9 PO (23:48)
[2024-06-14] MEDS ORDERED: RIME75TA SL (23:48)
[2024-06-14] MEDS ORDERED: LIDO1PAD TD (23:48)
[2024-06-14] MEDS ORDERED: MULT-90 PO (23:48)
[2024-06-14] MEDS ORDERED: ROSU40TA81 PO (23:48)
[2024-06-14] MEDS ORDERED: SYMB16INH INH (23:48)
[2024-06-14] MEDS ORDERED: PYRI1TAB3 PO (23:48)
[2024-06-14] MEDS ORDERED: HOME MED LIST COMPLETE! XX SCH (23:55)
[2024-06-15] MEDS ORDERED: ALBUTEROL 90 MCG/ACT 8GM HFA INHALER INH PRN (00:25)
[2024-06-15] MEDS ORDERED: PYRIDOSTIGMINE 60MG TABLET PO SCH (00:25)
[2024-06-15] MEDS ORDERED: HOME MED LIST COMPLETE! XX SCH (00:45)
[2024-06-15] MEDS ORDERED: PILL CUTTER 1 EACH XX PRN (01:45)
[2024-06-15] MEDS: PYRIDOSTIGMINE 60MG TABLET PO SCH (03:30)
[2024-06-15] MEDS: KETOROLAC 30 MG/ML 1ML VIAL IV PRN (04:01)
[2024-06-15 06:16] LABS: HEMATOCRIT 42.1 % (36.0-47.0); HEMOGLOBIN 14.1 g/dl (12.0-15.5); MEAN CORPUSCULAR HEMOGLOBIN 29.1 pg (27.0-33.0); MEAN CORPUSCULAR HGB CONC 33.5 g/dl (32.0-36.5); PLATELET COUNT, AUTOMATED 267 10^3/uL (150-450); RED BLOOD COUNT 4.84 10^6/uL (4.00-5.40); WHITE BLOOD COUNT 8.8 10^3/uL (4.0-10.0)
[2024-06-15 06:49] LABS: ALBUMIN 3.2 G/DL (3.2-5.2); ALKALINE PHOSPHATASE 84 U/L (35-104); ALT/SGPT 28 U/L (7.0-40); AST/SGOT 15 U/L (<34); BILIRUBIN,TOTAL 0.5 MG/DL (0.3-1.2); BLOOD UREA NITROGEN 6 MG/DL (9-23); CALCIUM LEVEL 8.6 MG/DL (8.5-10.1); CARBON DIOXIDE LEVEL 25 MMOL/L (20-31); CHLORIDE LEVEL 107 MMOL/L (98-107); GLOMERULAR FILTRATION RATE > 60.0 (>51); GLUCOSE, FASTING 105 MG/DL (60-100); POTASSIUM SERUM 3.3 MMOL/L (3.5-5.1); SODIUM LEVEL 140 MMOL/L (136-145); TOTAL PROTEIN 6.9 G/DL (5.7-8.2)
[2024-06-15] MEDS ORDERED: NITROGLYCERIN 2% OINT 1 GM *U/D* PKT TOP ONE (08:00)
[2024-06-15] MEDS ORDERED: atenoloL 25 MG TAB PO ONE (08:00)
[2024-06-15] MEDS: POTASSIUM CHLORIDE 10MEQ SR TABLET PO ONE (08:33)
[2024-06-15] MEDS: INSULIN LISPRO (NovoLOG) PER UNIT SC SCH ×2 (08:44→21:00)
[2024-06-15 09:18] VITALS: BP 152/98; TEMP 97.7; O2SAT 96
[2024-06-15] MEDS: HEPARIN SOD (PORCINE) 5000UNITS/ML 1ML VIAL/SYRINGE SC SCH (09:44)
[2024-06-15] MEDS: NYSTATIN 100,000 UNITS/GM TOPICAL PWD 15GM TOP SCH (10:19)
[2024-06-15] MEDS: MYCOPHENOLATE MOFETIL 250 MG CAP (J7517) PO SCH (10:22)
[2024-06-15] MEDS: SYMBICORT 160/4.5MCG INHALER 6GM INH SCH (11:49)
[2024-06-15 12:00] VITALS: BP 158/99; TEMP 97.9; O2SAT 96
[2024-06-15] MEDS: TOPIRAMATE (TopAMAX) 100 MG TAB PO SCH (12:48)
[2024-06-15] MEDS: ROSUVASTATIN 10 MG TAB (CRESTOR) PO SCH (12:48)
[2024-06-15] MEDS: rOPINIRole 0.25 MG TAB(REQUIP) PO SCH ×2 (12:48→22:54)
[2024-06-15] MEDS: CYANOCOBALAMIN 500 MCG TAB PO SCH (12:49)
[2024-06-15] MEDS: busPIRone 10 MG TAB PO SCH (12:49)
[2024-06-15] MEDS: ASCORBIC ACID 500 MG TAB PO SCH (12:49)
[2024-06-15] MEDS: NITROGLYCERIN 2% OINT 1 GM *U/D* PKT TOP ONE (12:55)
[2024-06-15] MEDS: METOCLOPRAMIDE INJ 10MG/2ML VIAL IV PRN (13:40)
[2024-06-15] MEDS: LIDOCAINE 5% (LIDODERM) PATCH TD PRN (13:53)
[2024-06-15] MEDS: PERCOCET 5MG/325MG TAB PO ONE (14:08)
[2024-06-15] MEDS: UNRESOLVED PATIENT OWN MED ORDER XX SCH (14:21)
[2024-06-15] MEDS: traMADol 50 MG TAB PO ONE (17:00)
[2024-06-15] MEDS: bisoproloL fumarate 10 MG TAB PO SCH (17:20)
[2024-06-15 20:00] VITALS: BP 125/78; TEMP 97.9; O2SAT 94
[2024-06-15] MEDS ORDERED: PYRIDOSTIGMINE 180 MG PO SCH (21:00)
[2024-06-15] MEDS: LATANOPROST 0.005% OPHTH SOLN 2.5 ML OU SCH (21:23)
[2024-06-15] MEDS: PERCOCET 5MG/325MG TAB PO PRN (21:28)
[2024-06-15] MEDS: traZODone 100 MG TAB PO SCH (22:53)
[2024-06-15] MEDS: LORATADINE 10 MG TAB PO PRN (22:54)
[2024-06-15] MEDS: ACETAMINOPHEN 325 MG TAB PO PRN (22:55)
[2024-06-16] VITALS (8 sets, daily range): BP systolic 114–127; BP diastolic 65–76; TEMP 97.6–98.1; O2SAT 88–93
[2024-06-16 06:33] LABS: HEMATOCRIT 37.1 % (36.0-47.0); HEMOGLOBIN 11.8 g/dl (12.0-15.5); MEAN CORPUSCULAR HEMOGLOBIN 28.6 pg (27.0-33.0); MEAN CORPUSCULAR HGB CONC 31.8 g/dl (32.0-36.5); PLATELET COUNT, AUTOMATED 262 10^3/uL (150-450); RED BLOOD COUNT 4.12 10^6/uL (4.00-5.40)
[2024-06-16 06:57] LABS: BLOOD UREA NITROGEN 11 MG/DL (9-23); CARBON DIOXIDE LEVEL 24 MMOL/L (20-31); CHLORIDE LEVEL 107 MMOL/L (98-107); CREATININE FOR GFR 0.84 MG/DL (0.55-1.30); GLOMERULAR FILTRATION RATE > 60.0 (>51); GLUCOSE, FASTING 136 MG/DL (60-100); POTASSIUM SERUM 3.4 MMOL/L (3.5-5.1); SODIUM LEVEL 141 MMOL/L (136-145)
[2024-06-16] MEDS ORDERED: HYDROMORPHONE HCL 0.5 MG/ 0.5 ML SYRINGE IV ONE (13:10)
[2024-06-16] MEDS: oxyCODONE 5MG TAB PO ONE (13:37)
[2024-06-16] MEDS: KETOROLAC 30 MG/ML 1ML VIAL IV ONE (13:38)
[2024-06-16] MEDS: LR 1,000 ML IV ONE (13:38)
[2024-06-16] MEDS: ACETAMINOPHEN 500 MG TAB PO SCH (13:53)
[2024-06-16 13:57] LABS: LDH LACTATE DEHYDROGENASE 126 U/L (120-246); LIPASE 60 U/L (12-53)
[2024-06-16 13:58] LABS: AMYLASE 117 U/L (30-118); CPK CREATINE PHOSPHOKINASE 35 U/L (34-145)
[2024-06-16 14:00] LABS: ALBUMIN 2.8 G/DL (3.2-5.2); ALKALINE PHOSPHATASE 84 U/L (35-104); ALT/SGPT 23 U/L (7.0-40); AST/SGOT 11 U/L (<34); BILIRUBIN,DIRECT 0.2 MG/DL (<0.4); BILIRUBIN,TOTAL 0.5 MG/DL (0.3-1.2); BLOOD UREA NITROGEN 10 MG/DL (9-23); CALCIUM LEVEL 8.8 MG/DL (8.5-10.1); CARBON DIOXIDE LEVEL 24 MMOL/L (20-31); CHLORIDE LEVEL 107 MMOL/L (98-107); CREATININE FOR GFR 0.81 MG/DL (0.55-1.30); GLOMERULAR FILTRATION RATE > 60.0 (>51); GLUCOSE, FASTING 201 MG/DL (60-100); MAGNESIUM LEVEL 1.6 MG/DL (1.8-2.4); POTASSIUM SERUM 3.5 MMOL/L (3.5-5.1); SODIUM LEVEL 140 MMOL/L (136-145); TOTAL PROTEIN 5.8 G/DL (5.7-8.2)
[2024-06-16] MEDS: MAG SULF 1GM/100ML (MAG RUN) 1 GM in IV 1 EA IV ONE (14:50)
[2024-06-16 18:19] LABS: URIC ACID,RANDOM URINE 43.8 MG/DL
[2024-06-16 18:22] LABS: CREATININE,RANDOM URINE 174.9 MG/DL
[2024-06-16] MEDS: LR 1,000 ML IV SCH (18:45)
[2024-06-16] MEDS ORDERED: KETOROLAC 30 MG/ML 1ML VIAL IV SCH (20:00)
[2024-06-16 20:04] LABS: BLOOD UREA NITROGEN 9 MG/DL (9-23); CALCIUM LEVEL 8.9 MG/DL (8.5-10.1); CARBON DIOXIDE LEVEL 26 MMOL/L (20-31); CHLORIDE LEVEL 107 MMOL/L (98-107); CREATININE FOR GFR 0.83 MG/DL (0.55-1.30); GLOMERULAR FILTRATION RATE > 60.0 (>51); GLUCOSE, FASTING 121 MG/DL (60-100); POTASSIUM SERUM 3.8 MMOL/L (3.5-5.1); SODIUM LEVEL 139 MMOL/L (136-145)
[2024-06-16] MEDS: cefTRIAXone SOD 1 GM in DEXTROSE 5% (D5W) ADV/MINI-BAG 50 ML IV SCH (21:39)
[2024-06-16] MEDS: oxyCODONE 5MG TAB PO PRN (21:41)
[2024-06-17 01:19] VITALS: O2SAT 91
[2024-06-17 04:00] VITALS: BP 146/81; TEMP 98.2; O2SAT 90
[2024-06-17 05:11] LABS: BASO # 0.1 10^3/uL (0.0-0.2); BASO % 0.5 % (0.0-1.0); EOS # 0.3 10^3/uL (0.0-0.5); EOS % 3.1 % (0.0-3.0); HEMATOCRIT 35.7 % (36.0-47.0); HEMOGLOBIN 11.2 g/dl (12.0-15.5); LYMPH # 2.4 10^3/uL (1.5-5.0); LYMPH % 25.5 % (24.0-44.0); MEAN CORPUSCULAR HEMOGLOBIN 28.5 pg (27.0-33.0); MEAN CORPUSCULAR HGB CONC 31.4 g/dl (32.0-36.5); MEAN CORPUSCULAR VOLUME 90.8 fl (80.0-96.0); MONO # 0.7 10^3/uL (0.0-0.8); NEUTROPHILS % 63.6 % (36.0-66.0); PLATELET COUNT, AUTOMATED 217 10^3/uL (150-450); RED BLOOD COUNT 3.93 10^6/uL (4.00-5.40); WHITE BLOOD COUNT 9.4 10^3/uL (4.0-10.0)
[2024-06-17 05:27] LABS: LIPASE 158 U/L (12-53)
[2024-06-17 05:58] LABS: ALBUMIN 2.6 G/DL (3.2-5.2); ALKALINE PHOSPHATASE 88 U/L (35-104); ALT/SGPT 19 U/L (7.0-40); AST/SGOT 15 U/L (<34); BILIRUBIN,TOTAL 0.2 MG/DL (0.3-1.2); BLOOD UREA NITROGEN 8 MG/DL (9-23); CALCIUM LEVEL 8.4 MG/DL (8.5-10.1); CARBON DIOXIDE LEVEL 22 MMOL/L (20-31); CHLORIDE LEVEL 110 MMOL/L (98-107); CREATININE FOR GFR 0.75 MG/DL (0.55-1.30); GLOMERULAR FILTRATION RATE > 60.0 (>51); GLUCOSE, FASTING 102 MG/DL (60-100); MAGNESIUM LEVEL 1.8 MG/DL (1.8-2.4); POTASSIUM SERUM 3.7 MMOL/L (3.5-5.1); SODIUM LEVEL 142 MMOL/L (136-145); TOTAL PROTEIN 5.5 G/DL (5.7-8.2)
[2024-06-17 12:00] VITALS: BP 144/81; TEMP 97.5; O2SAT 92
[2024-06-17 19:51] VITALS: BP 145/79; TEMP 97.7; O2SAT 95
[2024-06-17] MEDS: PYRIDOSTIGMINE 60MG TABLET PO SCH (20:53)
[2024-06-18 03:47] VITALS: BP 159/91; TEMP 98.1; O2SAT 92
[2024-06-18 04:45] VITALS: BP 130/79; O2SAT 92
[2024-06-18 05:09] LABS: BASO # 0.1 10^3/uL (0.0-0.2); BASO % 0.7 % (0.0-1.0); EOS # 0.3 10^3/uL (0.0-0.5); EOS % 4.7 % (0.0-3.0); HEMATOCRIT 34.3 % (36.0-47.0); LYMPH # 2.5 10^3/uL (1.5-5.0); LYMPH % 35.9 % (24.0-44.0); MEAN CORPUSCULAR HEMOGLOBIN 28.9 pg (27.0-33.0); MEAN CORPUSCULAR HGB CONC 32.1 g/dl (32.0-36.5); MONO # 0.5 10^3/uL (0.0-0.8); MONO % 7.4 % (2.0-8.0); NEUTROPHILS # 3.6 10^3/uL (1.5-8.5); PLATELET COUNT, AUTOMATED 242 10^3/uL (150-450); RED BLOOD COUNT 3.81 10^6/uL (4.00-5.40)
[2024-06-18 05:35] LABS: LIPASE 43 U/L (12-53)
[2024-06-18 05:38] LABS: ALBUMIN 2.7 G/DL (3.2-5.2); ALKALINE PHOSPHATASE 77 U/L (35-104); ALT/SGPT 19 U/L (7.0-40); AST/SGOT < 8 U/L (<34); BILIRUBIN,TOTAL 0.3 MG/DL (0.3-1.2); BLOOD UREA NITROGEN 5 MG/DL (9-23); CALCIUM LEVEL 8.6 MG/DL (8.5-10.1); CARBON DIOXIDE LEVEL 22 MMOL/L (20-31); CHLORIDE LEVEL 113 MMOL/L (98-107); CREATININE FOR GFR 0.68 MG/DL (0.55-1.30); GLOMERULAR FILTRATION RATE > 60.0 (>51); GLUCOSE, FASTING 87 MG/DL (60-100); MAGNESIUM LEVEL 1.8 MG/DL (1.8-2.4); POTASSIUM SERUM 3.6 MMOL/L (3.5-5.1); SODIUM LEVEL 143 MMOL/L (136-145); TOTAL PROTEIN 5.8 G/DL (5.7-8.2)
[2024-06-18 12:00] VITALS: BP 162/92; TEMP 98.1; O2SAT 94
[2024-06-18] MEDS ORDERED: PYRI60TA2 PO (17:22)
[2024-06-20 06:10] LABS: COPROPORPHYRIN I URINE 22 ug/L (0-15); COPROPORPHYRIN III URINE 71 ug/L (0-49); HEPTACARBOXYLPORPHYRIN URINE <1 ug/L (0-2); HEXACARBOXYLPORPHYRIN URINE <1 ug/L (0-1); PENTACARBOXYLPORPHYRIN URINE <1 ug/L (0-2); UROPORPHYRIN URINE 28 ug/L (0-20)
== END 2024-06-18 19:02 | disposition home or self-care (01) | DRG 249 ==
LOC: M ED 14:45 → M ED INP 21:58 → M MSPAV 06-15 09:10 → OBSVTOIN 06-16 13:07
PROVIDERS: ADMIT Student in an Organized Health Care Education/Training Program; ATTEND Student in an Organized Health Care Education/Training Program
DX: R11.2 Nausea with vomiting, unspecified (principal); G70.00 Myasthenia gravis without (acute) exacerbation; E11.22 Type 2 diabetes mellitus with diabetic chronic kidney disease; N13.30 Unspecified hydronephrosis; R13.10 Dysphagia, unspecified; E66.01 Morbid (severe) obesity due to excess calories; N18.30 Chronic kidney disease, stage 3 unspecified; M79.7 Fibromyalgia; M19.90 Unspecified osteoarthritis, unspecified site; J45.909 Unspecified asthma, uncomplicated; I12.9 Hypertensive chronic kidney disease with stage 1 through stage 4 chronic kidney disease, or unspecified chronic kidney disease; E78.5 Hyperlipidemia, unspecified; N23 Unspecified renal colic; E87.6 Hypokalemia; N20.0 Calculus of kidney; I16.0 Hypertensive urgency; G43.909 Migraine, unspecified, not intractable, without status migrainosus; G47.33 Obstructive sleep apnea (adult) (pediatric); K58.0 Irritable bowel syndrome with diarrhea; K44.9 Diaphragmatic hernia without obstruction or gangrene; M54.9 Dorsalgia, unspecified; G89.29 Other chronic pain; F41.9 Anxiety disorder, unspecified; F32.A Depression, unspecified; Z98.49 Cataract extraction status, unspecified eye; Z79.84 Long term (current) use of oral hypoglycemic drugs; Z79.899 Other long term (current) drug therapy; Z88.5 Allergy status to narcotic agent; Z91.048 Other nonmedicinal substance allergy status; Z91.018 Allergy to other foods

== ENCOUNTER → 2024-09-11 | Outpatient (CLI) | payer OTHER ==
[~2024-09-11] MED LIST changes: +ACET-907 PO; +ACETAMINOPHEN 325 MG TAB PO PRN; +BISO10TA13 PO; +CLON0.1D3 TOP; +FREM225A SC; +KETOROLAC 30 MG/ML 1ML VIAL As Ordered ONE; +LABETALOL 100MG/20ML VIAL As Ordered ONE; +LIDO1PAD TD; +MED REC COMMENT; +METO5TAB2 PO; +MULT-90 PO; +MYCO500T PO; +NS (Normal Saline) 0.9% 1,000 ML IV SCH; +ONDA-284 SL; +ONDANSETRON 4MG 2ML VIAL As Ordered ONE; +ONDANSETRON 4MG 2ML VIAL IV PRN; +PYRI1TAB3 PO; +PYRI60TA2 PO; +RIME75TA SL; +ROSU40TA81 PO; +SYMB16INH INH; +TOPI100T9 PO; +UBRO100T PO; +VITA100024 PO
[2024-09-11 07:09] VITALS: TEMP 98.9
[2024-09-11] MEDS: NS (Normal Saline) 0.9% 1,000 ML IV SCH (07:20)
[2024-09-11] MEDS: CIPROFLOXACIN 400 MG in IV 1 EA IV ONE (07:42)
[2024-09-11] MEDS: MIDAZOLAM INJ 2MG/2ML VIAL IV PRN (08:07)
[2024-09-11] MEDS: LABETALOL 100MG/20ML VIAL IV STA (08:21)
[2024-09-11] MEDS: ISOVUE-300 61% 100ML VIAL IV ONE (08:39)
[2024-09-11] MEDS: LIDOCAINE 1% MDV 20ML VIAL SC ONE (08:39)
[2024-09-11] MEDS: KETOROLAC 30 MG/ML 1ML VIAL IV ONE (08:41)
[2024-09-11] MEDS: ONDANSETRON 4MG 2ML VIAL IV ONE (08:55)
[2024-09-11] MEDS: oxyCODONE 5MG TAB PO ONE (09:57)
[2024-09-11] MEDS: PERCOCET 5MG/325MG TAB PO ONE (09:57)
[2024-09-11 11:30] VITALS: BP 218/123; O2SAT 96
== END ==
LOC: M IRPRO 07:05
PROVIDERS: ATTEND Urology
DX: N20.0 Calculus of kidney (principal)
CPT/HCPCS: 50432; 76942; 99152; 99153; C1758; C1894; J0744; J1885; J1920; J2250; J2405; Q9967

== ENCOUNTER → 2024-10-28 | Outpatient (CLI) | payer OTHER ==
[~2024-10-28] MED LIST changes: -ACETAMINOPHEN 325 MG TAB PO PRN; -KETOROLAC 30 MG/ML 1ML VIAL As Ordered ONE; -LABETALOL 100MG/20ML VIAL As Ordered ONE; +MACR100C43 PO; -NS (Normal Saline) 0.9% 1,000 ML IV SCH; -ONDANSETRON 4MG 2ML VIAL As Ordered ONE; -ONDANSETRON 4MG 2ML VIAL IV PRN
[2024-10-28 14:40] LABS: HEMATOCRIT 39.7 % (36.0-47.0); HEMOGLOBIN 12.7 g/dl (12.0-15.5); MEAN CORPUSCULAR HEMOGLOBIN 27.4 pg (27.0-33.0); MEAN CORPUSCULAR VOLUME 85.7 fl (80.0-96.0); PLATELET COUNT, AUTOMATED 273 10^3/uL (150-450); RED BLOOD COUNT 4.63 10^6/uL (4.00-5.40); WHITE BLOOD COUNT 5.3 10^3/uL (4.0-10.0)
[2024-10-28 14:53] LABS: INR 0.92; PROTHROMBIN TIME 12.7 SECONDS (12.5-14.5)
[2024-10-28 15:07] LABS: ALBUMIN 3.4 G/DL (3.2-5.2); ALKALINE PHOSPHATASE 97 U/L (35-104); ALT/SGPT 18 U/L (7.0-40); AST/SGOT 14 U/L (<34); BILIRUBIN,TOTAL 0.3 MG/DL (0.3-1.2); BLOOD UREA NITROGEN 9 MG/DL (9-23); CALCIUM LEVEL 8.8 MG/DL (8.5-10.1); CARBON DIOXIDE LEVEL 28 MMOL/L (20-31); CHLORIDE LEVEL 105 MMOL/L (98-107); CREATININE FOR GFR 0.58 MG/DL (0.55-1.30); GLOMERULAR FILTRATION RATE > 90.0 (>51); GLUCOSE, FASTING 120 MG/DL (60-100); POTASSIUM SERUM 3.8 MMOL/L (3.5-5.1); SODIUM LEVEL 141 MMOL/L (136-145); TOTAL PROTEIN 7.2 G/DL (5.7-8.2)
== END ==
LOC: M LAB 14:11
PROVIDERS: ATTEND Urology
DX: Z96.0 Presence of urogenital implants (principal)

== ENCOUNTER 2024-10-31 06:25 | Day surgery (SDC) | payer OTHER ==
[~2024-10-31] VITALS: Ht 167.6 cm; Wt 116.8 kg
[2024-10-31] MEDS ORDERED: ONDANSETRON 4MG 2ML VIAL As Ordered ONE (06:59)
[2024-10-31] MEDS ORDERED: propofoL 200 MG/20 ML VIAL As Ordered ONE (06:59)
[2024-10-31] MEDS ORDERED: LIDOCAINE 2% 100MG/5ML SDV (FOR ANES.) As Ordered ONE (06:59)
[2024-10-31] MEDS ORDERED: MIDAZOLAM INJ 2MG/2ML VIAL As Ordered ONE (07:00)
[2024-10-31] MEDS ORDERED: fentaNYL 100 MCG/2 ML INJECTION As Ordered ONE (07:01)
[2024-10-31] MEDS ORDERED: ROCURONIUM BROMIDE 50MG/5ML VIAL As Ordered ONE (07:07)
[2024-10-31] MEDS: CIPROFLOXACIN 400 MG in IV 1 EA IV ONE (07:37)
[2024-10-31] MEDS ORDERED: dexmedeTOMIDine (4MCG/ML)200MCG/50ML BTL (PRECEDEX) As Ordered ONE (07:52)
[2024-10-31 08:26] VITALS: BP 104/66; TEMP 98; O2SAT 94
[2024-10-31] MEDS ORDERED: ACETAMINOPHEN 1000MG/100ML IV BAG As Ordered ONE (08:45)
== END 2024-10-31 09:15 | disposition home or self-care (01) ==
LOC: M SDC 06:25
PROVIDERS: ATTEND Urology
DX: N20.0 Calculus of kidney (principal); E11.9 Type 2 diabetes mellitus without complications; I10 Essential (primary) hypertension; E78.00 Pure hypercholesterolemia, unspecified; K58.9 Irritable bowel syndrome, unspecified; K44.9 Diaphragmatic hernia without obstruction or gangrene; G43.109 Migraine with aura, not intractable, without status migrainosus; G70.00 Myasthenia gravis without (acute) exacerbation; Z79.899 Other long term (current) drug therapy; Z88.5 Allergy status to narcotic agent; J44.89 Other specified chronic obstructive pulmonary disease; Z91.048 Other nonmedicinal substance allergy status; Z79.84 Long term (current) use of oral hypoglycemic drugs; Z79.51 Long term (current) use of inhaled steroids; G47.33 Obstructive sleep apnea (adult) (pediatric); E11.21 Type 2 diabetes mellitus with diabetic nephropathy; E78.5 Hyperlipidemia, unspecified; E66.01 Morbid (severe) obesity due to excess calories; Z68.41 Body mass index [BMI] 40.0-44.9, adult
CPT/HCPCS: 50590; 74018; J0131; J0744; J1100; J2405; J3010

== ENCOUNTER → 2025-03-14 | Outpatient (CLI) | payer OTHER ==
[~2025-03-14] MED LIST changes: +PRAV10TA PO; -PRAV10TA4 PO; -PRAV20TA2 PO; +PRAV20TA78 PO; +TOPI-257 PO; -TOPI100T9 PO; -VITA100024 PO; +VITA100051 PO
== END ==
LOC: M RAD 07:40
PROVIDERS: ATTEND Internal Medicine Gastroenterology
DX: R11.2 Nausea with vomiting, unspecified (principal); R10.9 Unspecified abdominal pain

== ENCOUNTER → 2025-03-14 | Outpatient (CLI) | payer OTHER ==
[2025-03-14 11:43] LABS: FREE T4 1.35 NG/DL (0.89-1.76)
== END ==
LOC: M LAB 10:29
PROVIDERS: ATTEND Internal Medicine Gastroenterology
DX: R13.10 Dysphagia, unspecified (principal); R11.2 Nausea with vomiting, unspecified; R14.2 Eructation; R12 Heartburn; R10.9 Unspecified abdominal pain; E66.9 Obesity, unspecified

== ENCOUNTER → 2025-05-14 | Outpatient (CLI) | payer OTHER | LOC: M RAD 15:03 | PROVIDERS: ATTEND Physician Assistant | DX: I87.8 Other specified disorders of veins (principal); Z87.442 Personal history of urinary calculi ==